=== PATIENT | female | born 1945 | race Caucasian/White ===

== ENCOUNTER 2019-10-24 23:41 | Emergency (ER) | payer MEDICARE, MEDICAID, SELFPAY ==
--- NOTE | ~2019-10-24 | XR_ITS ---
EXAMINATION: XR chest 2V DATE: 10/25/2019 00:54 INDICATION: COPD. Shortness of breath. TECHNIQUE: frontal and lateral views of the chest were obtained. COMPARISON: Chest radiograph and CT dated 08/19/2019 FINDINGS: Hyperexpansion of lungs consistent with emphysema, better appreciated on prior CT. Calcified nodule a t the right lung base and calcified right hilar and mediastinal lymph nodes consistent with old granu lomatous disease. No other airspace opacities, pulmonary edema, pleural effusion or pneumothorax. The cardiomediastinal silhouette is normal. Mild thoracic spondylosis. IMPRESSION: 1. Emphysema. No acute cardiopulmonary disease. Reviewed, dictated and finalized at location A. RVISOR QUILTING
[2019-10-24 23:36] VITALS: BP 117/65; PULSE 89; RESP 16; TEMP 36.4; O2SAT 96
[2019-10-24 23:45] VITALS: PULSE 82; O2SAT 96
--- NOTE | 2019-10-24 23:51 | ED.SOB ---
HPI - SOB/Dyspnea General Chief Complaint: Shortness of Breath/Dyspnea Stated Complaint: DIFF BREATHING Time Seen by Provider: 10/24/19 23:50 Source: patient and RN notes reviewed Mode of arrival: EMS Limitations: no limitations History of Present Illness HPI Narrative: Pt is a 74 y/o female who presents to the ED, via EMS from [facility], with c/o SOB that began today. Pt has a hx of COPD and smokes 0.5 packs per day. Pt wears 3L oxygen at baseline. Pt had multiple breathing tx, but with no relief. Pt received a nebulizer tx and Decradon 10 mg by EMS en route to the ED. Pt also reports cough producing an almost clear mucus, chills, and diaphoresis, but denies CP and a fever. Pt's pulmonolgist is Dr. Wagner. elicited complaint: shortness of breath Pertinent past history: COPD Onset (ago): hour(s) Timing: constant Exacerbating factors: nothing Known history of: COPD Associated symptoms: cough (producing an almost clear mucus) and other (chills, diaphoresis) Treatment prior to arrival: other (nebulizer tx and Decradon 10 mg) Related Data Home oxygen amount: 3 liters Home Medications Medication Instructions Recorded Confirmed Adult Multivitamin Gummies 400 mcg PO DAILY 08/19/19 08/19/19 Allergy Eye (naphazoline-phen) 2 drp OPHTHALMIC (EYE) BID PRN 08/19/19 08/19/19 Chantix 1 mg PO DAILY 08/19/19 08/19/19 Trelegy Ellipta 1 inh INHALATION DAILY 08/19/19 08/19/19 Tussin CF 5 ml PO Q4-6H PRN 08/19/19 08/19/19 albuterol sulfate [Ventolin HFA] 2 puff INHALATION QID PRN 08/19/19 08/19/19 amlodipine 5 mg PO DAILY 08/19/19 08/19/19 aspirin [Adult Low Dose Aspirin] 81 mg PO DAILY 08/19/19 08/19/19 atorvastatin [Lipitor] 20 mg PO HS 08/19/19 08/19/19 cholecalciferol (vitamin D3) 2,000 unit PO DAILY 08/19/19 08/19/19 cholecalciferol (vitamin D3) 400 unit PO DAILY 08/19/19 08/19/19 ipratropium-albuterol 3 ml INHALATION QID 08/19/19 08/19/19 lisinopril 5 mg PO DAILY 08/19/19 08/19/19 meloxicam 7.5 mg PO DAILY 08/19/19 08/19/19 montelukast [Singulair] 10 mg PO HS 08/19/19 08/19/19 Allergies Allergy/AdvReac Type Severity Reaction Status Date / Time lisinopril Allergy Unknown Verified 10/24/19 23:48 Review of Systems Review of Systems: All systems reviewed & are unremarkable except as noted in HPI and below Constitutional: Constitutional: Reports chills and Denies fever(s) Cardiovascular: Cardiovascular: Denies chest pain and Reports diaphoresis Respiratory: Respiratory: Reports cough (producing an almost clear mucus) and Reports dyspnea PMFSH Past Medical History Medical History (Updated 10/25/19 @ 04:01 by Cindy Patterson MD) Arthritis Asthma CAD (coronary artery disease) Cataracts, bilateral Extracted CHF (congestive heart failure) Grade 1 diastolic COPD (chronic obstructive pulmonary disease) Depression GERD (gastroesophageal reflux disease) Heart attack History of coronary artery disease History of CVA (cerebrovascular accident) Initially if she had some numbness and tingling to the right side of her body but that has resolved. 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 I did question the patient about her code status and she is agreeable to of code. She does needs her children to be her durable power compliance attorney. 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 Smoking packs per day: 0.5 Smoking cigarettes per day: 10.0 Smoking status: Current every day smoker Tobacco type: cigarettes Alcohol intake: never Substance use: never Gender identity (if verbalized by the patien
--- NOTE | 2019-10-24 23:57 | ECG_ITS ---
Measurements Intervals [place] Rate: 82 P: 78 RI: 134 QRS: 16 QRSD: 82 T: 61 QT: 379 QTc: 445 Interpretive Statements SINUS RHYTHM BORDERLINE ST-T WAVE ABNORMALITY- LATERAL LEADS BASELINE ARTIFACT- I, II, AVR, V1, V4-V5 BORDERLINE ECG Electronically Signed On 10-25-2019 7:00:24 LOADING SUPERVISOR by Tito Darling D.O.
[2019-10-25] VITALS (10 sets, daily range): BP systolic 91–117; BP diastolic 52–68; PULSE 65–86; RESP 15–18; TEMP 36.9; O2SAT 94–100
[2019-10-25] MEDS: IPRATROPIUM BR 0.02% INH SOLN 0.5 MG/2.5 ML VIAL 1.5 MG INHALATION (00:11)
[2019-10-25] MEDS: ALBUTEROL SULFATE NEB 2.5 MG/0.5 ML INH 15 MG INHALATION (00:11)
[2019-10-25 00:18] LABS: Basophils Absolute Auto 0.1 K/mm3 (0.0-0.1); Basophils Percent Auto 1.3 % (0.2-1.2); Eosinophils Absolute Auto 1.2 K/mm3 (0-0.3); Eosinophils Percent Auto 11.8 % (0-4.4); Hematocrit 44.6 % (37.0-47.0); Hemoglobin 14.3 g/dL (12.0-15.0); Immature Granulocyte Absolute 0.04 K/mm3 (0.00-0.031); Immature Granulocyte Percent A 0.4 % (0-0.5); Lymphocytes Absolute Auto 3.54 K/mm3 (0.9-3.2); Lymphocytes Percent Auto 34.7 % (18.3-44.2); Mean Corpuscular HGB Conc 32.1 g/dl (32-36); Mean Corpuscular Hemoglobin 29.9 pg (26-34); Mean Corpuscular Volume 93.3 fl (80-100); Mean Platelet Volume 9.7 fl (7.4-10.4); Monocytes Percent Auto 9.6 % (2.6-8.5); Neutrophils Absolute Auto 4.3 K/mm3 (1.3-6.7); Neutrophils Percent Auto 42.2 % (45.5-73.1); Platelet Count Result 335 k/mm3 (150-375); Red Blood Count 4.78 M/mm3 (4.2-5.4); Red Cell Distribution Width 11.9 % (11.5-14.5); White Blood Count 10.2 K/mm3 (4.5-10.0)
[2019-10-25 00:24] LABS: Alanine Aminotransferase 22 U/L (4-35); Albumin Level 4.2 g/dL (3.5-5.1); Alkaline Phosphatase 91 U/L (38-126); Aspartate Amino Transferase 30 U/L (14-36); Bilirubin,Total 0.4 mg/dL (0.2-1.3); Blood Urea Nitrogen 14 mg/dL (7-17); Calcium 9.2 mg/dL (8.4-10.2); Carbon Dioxide 30 mmol/L (22-30); Chloride 103 mmol/L (98-107); Estimated Glomerular Filt Rate > 60; Glucose 131 mg/dL (65-105); Potassium 4.1 mmol/L (3.4-5.0); Sodium 140 mmol/L (137-145)
[2019-10-25 00:29] LABS: Base Excess ABG 0.4 mEq/l (+/-2.0); Carboxyhemoglobin 1.5 % THb (0-2.0); Device NASAL CANNULA; Fractional Inspired Oxygen 32 %; HCO3 ABG 26.1 mEq/l (22.0-26.0); Methemoglobin ABG 0.3 %THb (0-1.5); Oxygen Content ABG 18.7 %vol (16.0-22.0); Oxygen Saturation ABG 93.2 % (95.0-100.0); Oxyhemoglobin 92.1 % THb (90.0-100.0); PCO2 ABG 45.8 mmHg (35.0-45.0); PO2 ABG 68.6 mmHg (80.0-100.0); PO2 FiO2 Ratio Arterial Blood 2.14 %; Reduced Hemoglobin 6.1 %THb (0-5.0); Site Drawn RIGHT BRACHIAL; Total Hemoglobin 14.4 g/dL (12.0-18.0); pH ABG 7.373 (7.350-7.450)
[2019-10-25 00:32] LABS: NT Pro B Type Natriuretic Pept 38 PG/ML (5-100)
--- NOTE | 2019-10-25 04:20 | PC.NURSE ---
Unable to contact [facility] regarding transport for patient home. ED charge nurse Leann Traylor notified.
--- NOTE | 2019-10-25 04:52 | PC.NURSE ---
Called [facility] to transport patient back to facility...ETA 20 minutes
== END 2019-10-25 05:19 ==
PROVIDERS: Emergency Provider Emergency Medicine
DX: J44.1 Chronic obstructive pulmonary disease with (acute) exacerbation (principal); I25.10 Atherosclerotic heart disease of native coronary artery without angina pectoris; I25.2 Old myocardial infarction; I50.30 Unspecified diastolic (congestive) heart failure; I11.0 Hypertensive heart disease with heart failure; Z86.73 Personal history of transient ischemic attack (TIA), and cerebral infarction without residual deficits; K21.9 Gastro-esophageal reflux disease without esophagitis; M19.90 Unspecified osteoarthritis, unspecified site; F17.210 Nicotine dependence, cigarettes, uncomplicated; Z95.1 Presence of aortocoronary bypass graft; Z98.42 Cataract extraction status, left eye; Z98.41 Cataract extraction status, right eye
CPT/HCPCS: 36415; 36600; 71046; 80053; 82375; 82805; 83050; 83880; 85025; 87804; 93005; 94640; 99284

== ENCOUNTER 2019-11-18 19:42 | Observation (INO) | payer MEDICARE, MEDICAID, SELFPAY ==
[2019-11-18] VITALS (8 sets, daily range): BP systolic 118–136; BP diastolic 61–79; PULSE 67–86; RESP 16–32; TEMP 36.7; O2SAT 83–98
--- NOTE | ~2019-11-18 | XR_ITS ---
EXAMINATION: XR chest 2V EXAM DATE: 11/18/2019 20:04 INDICATION: Shortness of breath, chest tightness. TECHNIQUE: Frontal and lateral projections of the chest obtained and reviewed. Comparison is made to prior examination from 10/25/2019. FINDINGS: Right basilar granuloma. The lungs are otherwise clear. There are no pleural effusions. T he cardiomediastinal silhouette is within normal limits. There is no pneumothorax suspected. The chanelle kavin and soft tissues are unremarkable. IMPRESSION: No acute cardiopulmonary findings. Reviewed, dictated and finalized at location A.
--- NOTE | 2019-11-18 19:47 | ECG_ITS ---
Measurements Intervals [place] Rate: 76 P: 67 AK: 145 QRS: -56 QRSD: 96 T: 44 QT: 374 QTc: 422 Interpretive Statements SINUS RHYTHM LEFT AXIS DEVIATION LOW QRS VOLTAGE IN LIMB LEADS BASELINE ARTIFACT- I, II, III, AVR, AVL BORDERLINE ECG Electronically Signed On 11-19-2019 7:04:57 CDT by Tito Darling D.O.
--- NOTE | 2019-11-18 19:55 | ED.SOB ---
HPI - SOB/Dyspnea General Chief Complaint: Shortness of Breath/Dyspnea Stated Complaint: sob Time Seen by Provider: 11/18/19 19:54 Source: patient Mode of arrival: EMS Limitations: no limitations History of Present Illness HPI Narrative: A 74 y/o female presents to the ED, via EMS from [facility], with c/o SOB. Pt states that the SOB started yesterday and worsened last night. She has a PMHx of COPD and is on 3L home O2 consistently. Pt reports sweats and productive cough, but denies leg edema, N/V, and CP. She adds that she is currently on Prednisone. MD elicited complaint: shortness of breath Pertinent past history: COPD Onset (ago): day(s) (1) Timing: constant Known history of: COPD Associated symptoms: cough (Productive) and other (Sweats) Related Data Home Medications Medication Instructions Recorded Confirmed Adult Multivitamin Gummies 400 mcg PO DAILY 08/19/19 08/19/19 Allergy Eye (naphazoline-phen) 2 drp OPHTHALMIC (EYE) BID PRN 08/19/19 08/19/19 Chantix 1 mg PO DAILY 08/19/19 08/19/19 Trelegy Ellipta 1 inh INHALATION DAILY 08/19/19 08/19/19 Tussin CF 5 ml PO Q4-6H PRN 08/19/19 08/19/19 albuterol sulfate [Ventolin HFA] 2 puff INHALATION QID PRN 08/19/19 08/19/19 amlodipine 5 mg PO DAILY 08/19/19 08/19/19 aspirin [Adult Low Dose Aspirin] 81 mg PO DAILY 08/19/19 08/19/19 atorvastatin [Lipitor] 20 mg PO HS 08/19/19 08/19/19 cholecalciferol (vitamin D3) 2,000 unit PO DAILY 08/19/19 08/19/19 cholecalciferol (vitamin D3) 400 unit PO DAILY 08/19/19 08/19/19 ipratropium-albuterol 3 ml INHALATION QID 08/19/19 08/19/19 lisinopril 5 mg PO DAILY 08/19/19 08/19/19 meloxicam 7.5 mg PO DAILY 08/19/19 08/19/19 montelukast [Singulair] 10 mg PO HS 08/19/19 08/19/19 Allergies Allergy/AdvReac Type Severity Reaction Status Date / Time lisinopril Allergy Unknown Verified 10/24/19 23:48 Review of Systems Review of Systems: Narrative: CONSTITUTIONAL: Denies fever or chills. Reports sweats. ENT: Denies rhinorrhea, congestion, sore throat, or otalgia. CARDIOVASCULAR: Denies chest pain, palpitations, or leg edema. RESPIRATORY: Reports productive cough and dyspnea. GASTROINTESTINAL: Denies abdominal pain, nausea, vomiting, or diarrhea. GENITOURINARY: Denies dysuria or hematuria. SKIN: Denies rash or itching. MUSCULOSKELETAL: Denies back pain, joint pain, or myalgia. NEUROLOGIC: Denies headache, numbness, or weakness. All systems reviewed & are unremarkable except as noted in HPI and below PMFSH Past Medical History Medical History (Updated 11/18/19 @ 22:11 by Ivone Hanley MD) Arthritis Asthma CAD (coronary artery disease) Cataracts, bilateral Extracted CHF (congestive heart failure) Grade 1 diastolic COPD (chronic obstructive pulmonary disease) Depression GERD (gastroesophageal reflux disease) Heart attack History of coronary artery disease History of CVA (cerebrovascular accident) Initially if she had some numbness and tingling to the right side of her body but that has resolved. 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 I did question the patient about her code status and she is agreeable to of code. She does needs her children to be her durable power ip attorney. She occasionally drinks alcohol as the assistant manager of operations living offer two drinks on Fridays.
[2019-11-18 20:04] LABS: Basophils Absolute Auto 0.1 K/mm3 (0.0-0.1); Basophils Percent Auto 1.3 % (0.2-1.2); Eosinophils Absolute Auto 1.1 K/mm3 (0-0.3); Eosinophils Percent Auto 9.9 % (0-4.4); Hematocrit 44.5 % (37.0-47.0); Hemoglobin 14.4 g/dL (12.0-15.0); Immature Granulocyte Absolute 0.03 K/mm3 (0.00-0.031); Immature Granulocyte Percent A 0.3 % (0-0.5); Lymphocytes Absolute Auto 2.62 K/mm3 (0.9-3.2); Lymphocytes Percent Auto 24.8 % (18.3-44.2); Mean Corpuscular HGB Conc 32.4 g/dl (32-36); Mean Corpuscular Hemoglobin 29.8 pg (26-34); Mean Corpuscular Volume 91.9 fl (80-100); Mean Platelet Volume 9.4 fl (7.4-10.4); Monocytes Absolute Auto 1.3 K/mm3 (0.1-0.6); Monocytes Percent Auto 12.6 % (2.6-8.5); Neutrophils Absolute Auto 5.4 K/mm3 (1.3-6.7); Neutrophils Percent Auto 51.1 % (45.5-73.1); Platelet Count Result 332 k/mm3 (150-375); Red Blood Count 4.84 M/mm3 (4.2-5.4); White Blood Count 10.6 K/mm3 (4.5-10.0)
[2019-11-18] MEDS: ALBUTEROL SULFATE NEB 2.5 MG/0.5 ML INH 5 MG INHALATION (20:10)
[2019-11-18] MEDS: IPRATROPIUM BR 0.02% INH SOLN 0.5 MG/2.5 ML VIAL 1 MG INHALATION (20:10)
[2019-11-18] MEDS: SODIUM CHLORIDE 0.9% IV 500 ML 999 ML IV CONT (20:14)
[2019-11-18 20:15] LABS: Blood Urea Nitrogen 12 mg/dL (7-17); Calcium 9.2 mg/dL (8.4-10.2); Carbon Dioxide 30 mmol/L (22-30); Chloride 100 mmol/L (98-107); Estimated Glomerular Filt Rate > 60; Glucose 124 mg/dL (65-105); Potassium 3.9 mmol/L (3.4-5.0); Sodium 137 mmol/L (137-145)
[2019-11-18 20:32] LABS: Carboxyhemoglobin 1.4 % THb (0-2.0); Device NASAL CANNULA; Fractional Inspired Oxygen 33 %; HCO3 ABG 26.5 mEq/l (22.0-26.0); Methemoglobin ABG 0.2 %THb (0-1.5); Oxygen Content ABG 18.9 %vol (16.0-22.0); Oxygen Saturation ABG 96.1 % (95.0-100.0); Oxyhemoglobin 94.5 % THb (90.0-100.0); PCO2 ABG 45.2 mmHg (35.0-45.0); PO2 ABG 83.5 mmHg (80.0-100.0); PO2 FiO2 Ratio Arterial Blood 2.53 %; Reduced Hemoglobin 3.9 %THb (0-5.0); Site Drawn RIGHT BRACHIAL; Total Hemoglobin 14.2 g/dL (12.0-18.0); pH ABG 7.386 (7.350-7.450)
[2019-11-19] VITALS (13 sets, daily range): BP systolic 101–132; BP diastolic 48–86; PULSE 60–92; RESP 16–22; TEMP 36.5–37.2; O2SAT 92–98; BMI 26.8
--- NOTE | 2019-11-19 00:01 | PM.IMHP ---
H&P: HPI History of Present Illness Chief complaint: copd exacerbation Narrative: Date and time of patient contact: 11/18/2019 at 11:40 p.m. Deloris Stone is a 74 year old female with a past medical history of chronic hypoxic hypercapnic respiratory failure, COPD and continued tobacco use who presented to the ER from [facility] assisted living due to worsening shortness of breath. The patient was recently hospitalized and had finished her last course of steroids about 4 days ago. She has been feeling more short of breath for the last 2 days and has been using her nebulizers more frequently. She is only receiving minimal relief with nebulizer treatments. She plans on calling on Tuesday for refill on her steroids. However she became so short of breath that she came to the ER instead. Her shortness of breath has gotten so bad that she only smoked 5 cigarettes today. She was a smoke about half a pack of cigarettes per day. She has had multiple ill contacts at the assisted living facility with upper respiratory tract symptoms. The patient herself states that she has been coughing a little bit more than usual but her sputum production has remained the same. She is having some clear to mild yellow sputum production when she coughs. She has not had any fevers or chills. She denies any orthopnea or lower extremity swelling. She thinks she has lost a couple of lb over the last couple of months. She reports her appetite has been fair. She does have stress urinary incontinence with coughing, but denies any dysuria, hematuria, or increased urgency. She denies any chest pain. She remains on her home O2 of 3 L. However when she was ambulated in the ER the patient's oxygen saturations dropped down to the low 80s. The patient has subsequently been admitted as observation in this setting. The home medication reconciliation listed on below may not be accurate. Nursing staff has not yet reviewed the patient's home medications. Review of Systems Review of Systems: Narrative: Except as documented in the HPI, all other systems were reviewed and are negative. [facility] Past Medical History Medical History (Updated 11/19/19 @ 00:12 by Sarita Santo DO) Arthritis Asthma CAD (coronary artery disease) CHF (congestive heart failure) Grade 1 diastolic Chronic respiratory failure with hypoxia and hypercapnia COPD (chronic obstructive pulmonary disease) Depression GERD (gastroesophageal reflux disease) Heart attack History of coronary artery disease History of CVA (cerebrovascular accident) Initially if she had some numbness and tingling to the right side of her body but that has resolved. HLD (hyperlipidemia) HTN (hypertension) On home O2 Pneumonia Surgical History Surgical History (Updated 11/19/19 @ 00:12 by Sarita Santo DO) History of bilateral cataract extraction History of heart artery stent Hx of CABG Hx of cardiac catheterization Hx of cataract surgery Hx of tonsillectomy Social History Social History (Updated 11/19/19 @ 01:34 by Sartia Santo DO) Social History: The patient lives in [facility]. She is . 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 She has smoked between a pack to half a pack of cigarettes per day since he was a teenager. She is currently down to 5 cigarettes a day. Smoking packs per day: 1 Smoking cigarettes per day: 20.0 Years smoked: 58 Smoking pack-years: 58.00 Smoking status: Current every day smoker Tobacco type: cigarettes Alcohol intake: former Alcohol use details: She will occasionally drink alcohol in moderation. Substance use: former Substance use type: marijuana Living arrangements: assisted living Additional living arrangements comments: [facility] Occupation/Education: retired Additional occupation/education comments: The patient did [employer]
[2019-11-19] MEDS: IPRATROPIUM BR 0.02% INH SOLN 0.5 MG/2.5 ML VIAL INHALATION ×4 (03:45→19:53)
[2019-11-19] MEDS: ALBUTEROL SULFATE NEB 2.5 MG/0.5 ML INH 5 MG INHALATION ×4 (03:45→19:53)
--- NOTE | 2019-11-19 04:22 | ADMGEN ---
This patient, Deloris Stone, was admitted to [facility] Surg Room 317-01. Patient/family oriented to hospital policies and general routines including ID bracelet, bed and alarms, visiting hours, pain management, procedures, bathroom and other care routines, personal items, smoking policy, room service/diet, and visiting hours. Valuables list has been completed. Information on how to activate the Rapid Response Team has been discussed. Patient/Family are encouraged to report perceived risks to care and to ask questions if they do not understand what they are told or what they should do.
[2019-11-19] MEDS: MELOXICAM 7.5 MG TABLET PO (10:33)
[2019-11-19] MEDS: ASPIRIN 81 MG ENTERIC TABLET PO (10:33)
[2019-11-19] MEDS: predniSONE 20 MG TABLET 60 MG PO (10:33)
[2019-11-19] MEDS: CHOLECALCIFEROL 1,000 UNIT TABLET 2000 UNITS PO (10:33)
[2019-11-19] MEDS: AMLODIPINE BESYLATE 5 MG TABLET PO (10:33)
[2019-11-19] MEDS: MULTIVITS W-FE,MIN CHEWABLE TABLET 1 TABLET PO (10:34)
[2019-11-19] MEDS: ENOXAPARIN 40 MG/0.4 ML SYRINGE SUB-Q (10:34)
[2019-11-19] MEDS: lisinopriL 5 MG TABLET PO (10:34)
--- NOTE | 2019-11-19 17:52 | PM.IMPN ---
Progress Note: A&P Assessment and Plan (1) Acute exacerbation of chronic obstructive airways disease: Code(s): J44.1 - Chronic obstructive pulmonary disease with (acute) exacerbation Status: Acute Assessment and Plan: Sx improved from admission Received 1 dose of Decadron in route to the ER and started on Prednisone. Continue scheduled Albuterol and Atrovent nebs Continue Trelegy Plan for home tomorrow if continues to improve (2) Acute and chronic respiratory failure: Qualifiers: Respiratory failure complication: hypoxia Qualified Code(s): J96.21 - Acute and chronic respiratory failure with hypoxia Code(s): J96.20 - Acute and chronic respiratory failure, unspecified whether with hypoxia or hypercapnia Status: Acute Assessment and Plan: Increased hypoxia with exertion with O2 saturations dropping to the low 80s with ambulation. Continue patient's home supplemental oxygen at 3L Continue blake treatments and steroids Check pulse ox when ambulating (3) Eosinophilia: Code(s): D72.1 - Eosinophilia Status: Acute Assessment and Plan: WBC slightly elevated with 10% eosinophils (1100) Has been noted in the past since 2018 Contributing to her chronic lung disease? Check sputum for eosinophils (4) HTN (hypertension): Qualifiers: Hypertension type: essential hypertension Qualified Code(s): I10 - Essential (primary) hypertension Code(s): I10 - Essential (primary) hypertension Status: Acute Assessment and Plan: BP reviewed on 11/19/19 BP well controlled Continue Norvasc, Lisinopril (5) Tobacco abuse disorder: Code(s): Z72.0 - Tobacco use Status: Acute Assessment and Plan: Patient was educated about the benefits of smoking cessation She voices understanding about the need to stop smoking Subjective Date/time seen: 11/19/19 17:52 Interval history: 74yo female here for COPD exacerbation. SOB better but still with GONZALEZ when walking to the BR. No odnyophagia or dysphagia. No fever or chills. Follows with Dr Wagner. Up to date with flu vaccine. Wears O2 3L [place] chronically. Still smokes Exam Narrative: Exam Narrative: Gen - NARD Chest - distant BS with faint wheezing CV - RRR S1/S2 Abd - soft, NT/ND, +BS Ext - no pedal edema, 2+ PT pulses Psych - nml mood and affect Skin - warm and dry Objective Data Vital Signs Vital Signs: Vital Signs - 24 hr 11/18/19 19:39 11/18/19 19:45 11/18/19 20:28 Temperature 98.1 F Pulse Rate 86 75 Respiratory Rate 32 H 20 Blood Pressure 136/78 Pulse Oximetry 96 97 11/18/19 20:48 11/18/19 21:32 11/18/19 22:06 Temperature Pulse Rate 69 80 Respiratory Rate 20 20 Blood Pressure 120/79 Pulse Oximetry 98 94 11/18/19 22:07 11/18/19 23:23 11/19/19 00:03 Temperature 97.9 F Pulse Rate 69 67 66 Respiratory Rate 22 H 16 18 Blood Pressure 118/61 118/73 115/66 Pulse Oximetry 94 94 95 11/19/19 03:46 11/19/19 03:58 11/19/19 06:00 Temperature 97.7 F Pulse Rate 79 65 65 Respiratory Rate 22 H 20 18 Blood Pressure 132/86 Pulse Oximetry 95 95 11/19/19 08:38 11/19/19 08:53 11/19/19 14:17 Temperature Pulse Rate 92 89 88 Respiratory Rate 20 20 Blood Pressure Pulse Oximetry 92 11/19/19 14:23 Temperature Pulse Rate 89 Respiratory Rate 20 Blood Pressure Pulse Oximetry Intake/Output Intake/Output: Intake & Output 11/16/19 11/17/19 11/18/19 11/19/19 22:59 22:59 23:59 23:59 Intake Total 490 Output Total 200 Balance 290 Meds/Results Medications: Active Medications Generic Name Dose Route Start Last Admin Trade Name Freq PRN Reason Stop Dose Admin Acetaminophen 650 mg 11/18/19 22:43 Tylenol Tablet PO Q4H PRN Mild Pain (1-3) or Fever Albuterol 5 mg 11/19/19 02:00 11/19/19 14:15 Albuterol Sulf Neb 2.5mg/0.5ml INHALATION 5 mg Q6HRT VALENTE
[2019-11-19] MEDS: ATORVASTATIN 20 MG TABLET PO (21:20)
[2019-11-20] VITALS (11 sets, daily range): BP systolic 97–112; BP diastolic 50–61; PULSE 69–94; RESP 16–20; TEMP 36.6–37; O2SAT 95–99
[2019-11-20] MEDS: IPRATROPIUM BR 0.02% INH SOLN 0.5 MG/2.5 ML VIAL INHALATION ×4 (01:54→20:59)
[2019-11-20] MEDS: ALBUTEROL SULFATE NEB 2.5 MG/0.5 ML INH 5 MG INHALATION ×4 (01:54→20:59)
[2019-11-20] MEDS: ENOXAPARIN 40 MG/0.4 ML SYRINGE SUB-Q (11:33)
[2019-11-20] MEDS: CHOLECALCIFEROL 1,000 UNIT TABLET 2000 UNITS PO (11:33)
[2019-11-20] MEDS: MELOXICAM 7.5 MG TABLET PO (11:34)
[2019-11-20] MEDS: AMLODIPINE BESYLATE 5 MG TABLET PO (11:34)
[2019-11-20] MEDS: ASPIRIN 81 MG ENTERIC TABLET PO (11:34)
[2019-11-20] MEDS: lisinopriL 5 MG TABLET PO (11:34)
[2019-11-20] MEDS: MULTIVITS W-FE,MIN CHEWABLE TABLET 1 TABLET PO (11:34)
[2019-11-20] MEDS: predniSONE 20 MG TABLET 60 MG PO (11:34)
--- NOTE | 2019-11-20 13:31 | PM.IMPN ---
Progress Note: A&P Assessment and Plan (1) Acute exacerbation of chronic obstructive airways disease: Code(s): J44.1 - Chronic obstructive pulmonary disease with (acute) exacerbation Status: Acute Assessment and Plan: Had an additional episode of shortness of breath this morning. Doing better this afternoon. Discussed with patient. Will keep ear today to continue albuterol and Atrovent nebulizer treatments. Continue oral prednisone after receiving Decadron prior to arrival to ER. Will also continue Trelegy. On home oxygen of 3 L. Hopeful discharge tomorrow as long as stable. (2) Acute and chronic respiratory failure: Qualifiers: Respiratory failure complication: hypoxia Qualified Code(s): J96.21 - Acute and chronic respiratory failure with hypoxia Code(s): J96.20 - Acute and chronic respiratory failure, unspecified whether with hypoxia or hypercapnia Status: Acute Assessment and Plan: Result of COPD exacerbation. Remaining on home oxygen. Continue nebulizer treatments and steroids as noted above. (3) Eosinophilia: Code(s): D72.1 - Eosinophilia Status: Acute Assessment and Plan: Eosinophils noted to be elevated on admission and have been in the past. May be contributing to chronic lung disease issues. Sputum eosinophils still pending. Continue other treatment as noted above. (4) HTN (hypertension): Qualifiers: Hypertension type: essential hypertension Qualified Code(s): I10 - Essential (primary) hypertension Code(s): I10 - Essential (primary) hypertension Status: Acute Assessment and Plan: Blood pressure reviewed on 11/20/2019 and stable. Will continue to monitor on lisinopril and amlodipine. (5) Tobacco abuse disorder: Code(s): Z72.0 - Tobacco use Status: Acute Assessment and Plan: Counseled on cessation. Patient understands need to quit smoking and expresses desire to try. (6) DVT prophylaxis: Code(s): Z29.9 - Encounter for prophylactic measures, unspecified Status: Acute Assessment and Plan: Lovenox. Time Spent With Patient Time with patient: 15 - 25 minutes Subjective Date/time seen: 11/20/19 13:31 Interval history: Date of Service: 11/20/2019. Admitted with COPD exacerbation. Had an episode of increased shortness of breath this morning. Feeling better this afternoon. Does still get shortness of breath with exertion. No chest pain. No abdominal pain. No nausea or vomiting. Review of Systems Review of Systems: Narrative: Doing better this afternoon. Constitutional: Constitutional: Denies chills and Denies fever(s) ENT: Denies dysphagia Cardiovascular: Cardiovascular: Denies chest pain Respiratory: Respiratory: Denies cough and Reports dyspnea on exertion Gastrointestinal: Gastrointestinal: Denies abdominal pain, Denies nausea and Denies vomiting Genitourinary: Genitourinary: Reports no additional female genitourinary complaints Musculoskeletal: Musculoskeletal: Reports no additional musculoskeletal complaints Integumentary/Breasts: Skin/Breast: Denies rash Neurologic: Denies headache(s) Psychiatric: Psychiatric: Denies anxiety, Denies confusion and Denies depression Exam Narrative: Exam Narrative: Awake and alert. Const: General: no acute distress HENMT: Mouth: Yes moist mucous membranes Neck: Neck: supple Lymphatic: lymphadenopathy not noted Resp: Auscultation: rhonchi (Bilaterally), no wheezes and diminished lung sounds Cardio: Rate: regular rate Rhythm: regular rhythm GI: Inspection: non-distended GI Palp: Yes Soft to palpation and No Tenderness to palpation present (GI) Auscultation: normal bowel sounds Skin: General skin exam: normal color Neuro: Cognition (Neuro): normal cognition Speech: normal speech Extrem: General: no edema Psych: Mental Status: mental status grossly normal Affect: normal affect Objective
--- NOTE | 2019-11-20 17:50 | PC.NURSE ---
Addendum entered by Karan King RN 11/20/19 20:12: Previously stated pt was on RA. Was recalling pt's roommate who is on RA. Deloris is on 3L 02 as a home setting. When Gretchen walked pt, I do not recall if she had her on oxygen on during the walk. I informed the night nurse and the charge nurse to recheck her walking/ eval tomorrow AM. Original Note: Walked with patient around the [facility] reno on RA. Pt 02 sat started at 95. By the end of the walk, she was down to 84. Encouraged deep breathing to recover. Pt used pursed lip breathing and tripod position to recover back to 96.
[2019-11-20] MEDS: ATORVASTATIN 20 MG TABLET PO (20:17)
[2019-11-21] MEDS: ALBUTEROL SULFATE NEB 2.5 MG/0.5 ML INH 5 MG INHALATION ×2 (02:23→08:26)
[2019-11-21 02:24] VITALS: PULSE 74
[2019-11-21] MEDS: IPRATROPIUM BR 0.02% INH SOLN 0.5 MG/2.5 ML VIAL INHALATION ×2 (02:24→08:26)
[2019-11-21 02:35] VITALS: PULSE 72; RESP 18
[2019-11-21 06:11] LABS: Hematocrit 37.7 % (37.0-47.0); Hemoglobin 12.5 g/dL (12.0-15.0); Mean Corpuscular HGB Conc 33.2 g/dl (32-36); Mean Corpuscular Volume 90.4 fl (80-100); Mean Platelet Volume 9.4 fl (7.4-10.4); Platelet Count Result 324 k/mm3 (150-375); Red Blood Count 4.17 M/mm3 (4.2-5.4); Red Cell Distribution Width 11.9 % (11.5-14.5); White Blood Count 13.8 K/mm3 (4.5-10.0)
[2019-11-21 06:27] VITALS: BP 113/65; PULSE 71; RESP 20; TEMP 36.4; O2SAT 98
[2019-11-21 07:34] LABS: Blood Urea Nitrogen 20 mg/dL (7-17); Carbon Dioxide 27 mmol/L (22-30); Chloride 107 mmol/L (98-107); Estimated Glomerular Filt Rate > 60; Glucose 89 mg/dL (65-105); Sodium 137 mmol/L (137-145)
[2019-11-21 08:28] VITALS: PULSE 106; RESP 20; O2SAT 88
[2019-11-21 08:37] VITALS: PULSE 77; RESP 22
[2019-11-21] MEDS: lisinopriL 5 MG TABLET PO (08:44)
[2019-11-21] MEDS: ASPIRIN 81 MG ENTERIC TABLET PO (08:44)
[2019-11-21] MEDS: AMLODIPINE BESYLATE 5 MG TABLET PO (08:44)
[2019-11-21] MEDS: MELOXICAM 7.5 MG TABLET PO (08:44)
[2019-11-21] MEDS: CHOLECALCIFEROL 1,000 UNIT TABLET 2000 UNITS PO (08:44)
[2019-11-21] MEDS: MULTIVITS W-FE,MIN CHEWABLE TABLET 1 TABLET PO (08:44)
[2019-11-21] MEDS: predniSONE 20 MG TABLET 60 MG PO (08:44)
[2019-11-21] MEDS: ENOXAPARIN 40 MG/0.4 ML SYRINGE SUB-Q (08:45)
--- NOTE | 2019-11-21 11:59 | PM.IMPN ---
Progress Note: A&P Assessment and Plan (1) Acute exacerbation of chronic obstructive airways disease: Code(s): J44.1 - Chronic obstructive pulmonary disease with (acute) exacerbation Status: Acute Assessment and Plan: Better today. Back at baseline. Will discharge home today on oral prednisone, Trelegy and home nebulizer treatments. (2) Acute and chronic respiratory failure: Qualifiers: Respiratory failure complication: hypoxia Qualified Code(s): J96.21 - Acute and chronic respiratory failure with hypoxia Code(s): J96.20 - Acute and chronic respiratory failure, unspecified whether with hypoxia or hypercapnia Status: Acute Assessment and Plan: Result of COPD exacerbation. Remaining on home oxygen of 3 L. Continue nebulizer treatments and steroids as noted above. (3) Eosinophilia: Code(s): D72.1 - Eosinophilia Status: Acute Assessment and Plan: Eosinophils noted to be elevated on admission and have been in the past. May be contributing to chronic lung disease issues. Sputum eosinophils still pending. Continue other treatment as noted above. (4) HTN (hypertension): Qualifiers: Hypertension type: essential hypertension Qualified Code(s): I10 - Essential (primary) hypertension Code(s): I10 - Essential (primary) hypertension Status: Acute Assessment and Plan: Blood pressure reviewed on 11/21/2019 and stable. Will continue lisinopril and amlodipine. (5) Tobacco abuse disorder: Code(s): Z72.0 - Tobacco use Status: Acute Assessment and Plan: Counseled on cessation. Patient understands need to quit smoking and expresses desire to try. (6) DVT prophylaxis: Code(s): Z29.9 - Encounter for prophylactic measures, unspecified Status: Acute Assessment and Plan: Lovenox. Time Spent With Patient Time with patient: 15 - 25 minutes Subjective Date/time seen: 11/21/19 11:59 Interval history: Date of Service: 11/21/2019. Admitted with COPD exacerbation. Feels better today. No additional issues overnight. Chronic shortness of breath point. No chest pain. No abdominal pain. No nausea or vomiting. Wants to go home. Review of Systems Review of Systems: Narrative: Feeling better. Wants to go home. Constitutional: Constitutional: Denies chills and Denies fever(s) ENT: Denies dysphagia Cardiovascular: Cardiovascular: Denies chest pain Respiratory: Respiratory: Denies cough and Reports dyspnea on exertion (Chronic) Gastrointestinal: Gastrointestinal: Denies abdominal pain, Denies dysphagia, Denies nausea and Denies vomiting Genitourinary: Genitourinary: Reports no additional female genitourinary complaints Musculoskeletal: Musculoskeletal: Reports no additional musculoskeletal complaints Integumentary/Breasts: Skin/Breast: Denies rash Neurologic: Denies headache(s) Psychiatric: Psychiatric: Denies anxiety, Denies confusion and Denies depression Exam Narrative: Exam Narrative: Awake and alert. Const: General: no acute distress HENMT: Mouth: Yes moist mucous membranes Neck: Neck: supple Lymphatic: lymphadenopathy not noted Resp: Auscultation: no rhonchi, no wheezes and diminished lung sounds Cardio: Rate: regular rate Rhythm: regular rhythm GI: Inspection: non-distended Auscultation: normal bowel sounds Skin: General skin exam: normal color Neuro: General: No confusion Cognition (Neuro): normal cognition Speech: normal speech Extrem: General: no edema Psych: Mental Status: mental status grossly normal Affect: normal affect Objective Data Vital Signs Vital Signs: Vital Signs - 24 hr 11/20/19 13:56 11/20/19 14:00 11/20/19 14:07 Temperature 98.6 F Pulse Rate 83 79 77 Respiratory Rate 18 18 20 Blood Pressure 97/61 L Pulse Oximetry 95 11/20/19 20:59 11/20/19 21:09 11/20/19 22:36 Temperature 98.1 F Pulse Rate 79 77 79 Respiratory
[2019-11-21 14:00] VITALS: BP 123/69; PULSE 87; RESP 16; TEMP 37.1; O2SAT 94
--- NOTE | 2019-11-21 19:12 | PM.DS ---
DS: Diagnosis Admitting Diagnosis Admitting Diagnosis: Chronic obstructive pulmonary disease with (acute) exacerbation Discharge Diagnosis (1) Acute exacerbation of chronic obstructive airways disease: Code(s): J44.1 - Chronic obstructive pulmonary disease with (acute) exacerbation Status: Acute (2) Acute and chronic respiratory failure: Qualifiers: Respiratory failure complication: hypoxia Qualified Code(s): J96.21 - Acute and chronic respiratory failure with hypoxia Code(s): J96.20 - Acute and chronic respiratory failure, unspecified whether with hypoxia or hypercapnia Status: Acute (3) Eosinophilia: Code(s): D72.1 - Eosinophilia Status: Acute (4) HTN (hypertension): Qualifiers: Hypertension type: essential hypertension Qualified Code(s): I10 - Essential (primary) hypertension Code(s): I10 - Essential (primary) hypertension Status: Acute (5) Tobacco abuse disorder: Code(s): Z72.0 - Tobacco use Status: Acute DS: Summary Hospital Course Reason for hospitalization: Worsening shortness of breath. Hospital Course: Date of Service of Discharge: November 21, 2019. History of Present Illness: Patient is a 74-year-old with known chronic hypoxic hypercapnic respiratory failure, COPD and continued tobacco use present emergency room from assisted living due to worsening shortness of breath. Patient was recently hospitalized in finished her last course of steroids 4 days prior to presentation. She has been feeling more short of breath last 2 days and using her nebulizers more frequently. Patient reports only minimal relief with nebulizer treatments. She had planned on calling her cloth checker's office on the following Tuesday for refill of steroids but became show short of breath she came to the emergency room. Due to increased shortness of breath, she has been only able to smoke 5 cigarettes on the day of presentation. Multiple ill contacts at her assisted living facility. She has no slight increasing cough but sputum production the same. No fever or chills. No chest pain. In the emergency room, findings were consistent with COPD exacerbation. As result, she was placed in observation for further evaluation and treatment. Course in Hospital: She was placed in observation on the medical floor where she remained for the duration of her stay. Did receive IV Decadron in the emergency room then was placed on oral prednisone. She additionally was maintained albuterol and Atrovent nebulizer treatments as well as her home Trelegy inhaler. Patient continued to steadily improve with these treatments. She was able to return to her home oxygen of 3 L. By the morning of 11/21/2019, she was back at her baseline shortness of breath with no wheezing heard on auscultation of the lungs. Patient was also feeling much improved. She was noted to have elevated eosinophils in her blood with sputum eosinophils ordered but still pending at the time of discharge. Concern for eosinophilia adding to her long-term lung issues. She was counseled during her stay regarding the need for tobacco cessation. Patient reporting understanding of need for cessation and desire to try to quit. Additionally, her blood pressure was monitored throughout her stay. She did continue home lisinopril and amlodipine with no additional medication required. She had no additional acute issues while in hospital. With the patient back to baseline, she was able to discharge on the afternoon of November 21, 2019. Status at Discharge Cognitive/behavioral status at discharge: Stable. Functional status at discharge: independent ambulation Overall status at discharge: patient is back to baseline Time Spent with Patient Time attestation: Total time spent providing and/or coordinating discharge services: 35 minutes. Time spent: Greater than 30 minutes Exam Narrative: Exam Narrative: Vital Signs Temp
[2019-11-21 20:57] LABS: Eosinophils, Sputum 0 %
== END 2019-11-21 14:30 | disposition home or self-care (01) ==
LOC: ANHED 22:46 → ANH3MEDSUR 23:09
PROVIDERS: Internal Medicine; Admitting Provider Internal Medicine; Emergency Provider Emergency Medicine; Visit Provider Hospitalist
DX: J44.1 Chronic obstructive pulmonary disease with (acute) exacerbation (principal); J96.21 Acute and chronic respiratory failure with hypoxia; D72.1 Eosinophilia; Z99.81 Dependence on supplemental oxygen; F17.210 Nicotine dependence, cigarettes, uncomplicated; I25.10 Atherosclerotic heart disease of native coronary artery without angina pectoris; I11.0 Hypertensive heart disease with heart failure; I50.9 Heart failure, unspecified; E78.5 Hyperlipidemia, unspecified; I25.2 Old myocardial infarction; Z79.51 Long term (current) use of inhaled steroids; Z79.82 Long term (current) use of aspirin; Z79.899 Other long term (current) drug therapy; Z86.73 Personal history of transient ischemic attack (TIA), and cerebral infarction without residual deficits; Z95.1 Presence of aortocoronary bypass graft; Z95.5 Presence of coronary angioplasty implant and graft
CPT/HCPCS: 36415; 36600; 71046; 80048; 82375; 82805; 83050; 85025; 85027; 87081; 87804; 89190; 93005; 94640; 96360; 96372; 99285; A9270; G0378; J1650; J7040; J7512

== ENCOUNTER 2020-01-17 12:14 | Emergency (ER) | payer MEDICARE, MEDICAID, SELFPAY ==
--- NOTE | ~2020-01-17 | XR_ITS ---
XR chest 1V portable 01/17/2020 13:09 Indication: Shortness of breath Procedure: Comparison to multiple prior studies sequentially, with oldest reviewed study dated 07/05. Comparison: AP portable chest Findings: Heart size normal. No focal air space disease, pulmonary edema, pleural effusion or suspect ed pneumothorax. The lungs are hyperinflated which is consistent with, but not diagnostic of chronic obstructive pulmonary disease. Impression: 1: No acute cardiopulmonary disease. Reviewed, dictated and finalized at location A. Impression: 1: No acute cardiopulmonary disease.
[2020-01-17 12:19] VITALS: BP 156/98; PULSE 80; RESP 21; TEMP 36.8; O2SAT 97
--- NOTE | 2020-01-17 12:22 | ECG_ITS ---
Measurements Intervals [place] Rate: 84 P: 74 PA: 131 QRS: 12 QRSD: 93 T: 58 QT: 373 QTc: 441 Interpretive Statements SINUS RHYTHM BORDERLINE ST-T WAVE ABNORMALITY- LATERAL LEADS BASELINE ARTIFACT- I, II, III, AVR, AVL, AVF, V1-V6 BORDERLINE ECG Electronically Signed On 01-17-2020 12:53:37 CDT by Tito Darling D.O.
--- NOTE | 2020-01-17 12:23 | ED.SOB ---
HPI - SOB/Dyspnea General Chief Complaint: Shortness of Breath/Dyspnea Stated Complaint: Resp distress Time Seen by Provider: 01/17/20 12:16 History of Present Illness HPI Narrative: 74 yo female w/ h/o COPD presents w/ SOB since yesterday. Worsening in severity. She does have a cough, but this is not unusual for her. No fever, CP, nausea, vomiting. These symptoms are consistent with her USUAL COPD exacerbations. She tried nebulaizert without improvement. Given dexamethasone by EMS. Related Data Home Medications Medication Instructions Recorded Confirmed Adult Multivitamin Gummies 400 mcg PO DAILY 08/19/19 11/19/19 Allergy Eye (naphazoline-phen) 2 drp OPHTHALMIC (EYE) BID PRN 08/19/19 11/19/19 Trelegy Ellipta 1 inh INHALATION DAILY 08/19/19 11/19/19 albuterol sulfate [Ventolin HFA] 2 puff INHALATION QID PRN 08/19/19 11/19/19 amlodipine 5 mg PO DAILY 08/19/19 11/19/19 aspirin [Adult Low Dose Aspirin] 81 mg PO DAILY 08/19/19 11/19/19 atorvastatin [Lipitor] 20 mg PO HS 08/19/19 11/19/19 cholecalciferol (vitamin D3) 2,000 unit PO DAILY 08/19/19 11/19/19 ipratropium-albuterol 3 ml INHALATION QID 08/19/19 11/19/19 lisinopril 5 mg PO DAILY 08/19/19 11/19/19 meloxicam 7.5 mg PO DAILY 08/19/19 11/19/19 Allergies Allergy/AdvReac Type Severity Reaction Status Date / Time No Known Allergies Allergy Verified 01/17/20 12:27 Review of Systems Review of Systems: All systems reviewed & are unremarkable except as noted in HPI and below Constitutional: Constitutional: Denies chills and Denies fever(s) ENT: Denies sore throat Cardiovascular: Cardiovascular: Denies chest pain Respiratory: Respiratory: Reports cough, Reports dyspnea and Reports wheezing Gastrointestinal: Gastrointestinal: Denies abdominal pain and Denies nausea Musculoskeletal: Musculoskeletal: Denies back pain Neurologic: Denies dizziness and Denies weakness PMFSH Past Medical History Medical History Arthritis Asthma CAD (coronary artery disease) CHF (congestive heart failure) Grade 1 diastolic Chronic respiratory failure with hypoxia and hypercapnia COPD (chronic obstructive pulmonary disease) Depression Eosinophilia GERD (gastroesophageal reflux disease) Heart attack History of coronary artery disease History of CVA (cerebrovascular accident) Initially if she had some numbness and tingling to the right side of her body but that has resolved. HLD (hyperlipidemia) HTN (hypertension) On home O2 Pneumonia Surgical History Surgical History History of bilateral cataract extraction History of heart artery stent Hx of CABG Hx of cardiac catheterization Hx of cataract surgery Hx of tonsillectomy Family History Family History Father Acute myocardial infarction Mother Parkinson's disease Dementia Acute myocardial infarction Premature coronary artery disease Social History Social History Social History: The patient lives in [facility]. She is . 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 She has smoked between a pack to half a pack of cigarettes per day since he was a teenager. She is currently down to 5 cigarettes a day. 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 Gender identity (if verbalized by the patient): Fema
[2020-01-17 12:37] VITALS: O2SAT 97
[2020-01-17 12:57] LABS: Basophils Absolute Auto 0.1 K/mm3 (0.0-0.1); Basophils Percent Auto 0.9 % (0.2-1.2); Eosinophils Absolute Auto 1.2 K/mm3 (0-0.3); Eosinophils Percent Auto 11.3 % (0-4.4); Hematocrit 45.6 % (37.0-47.0); Hemoglobin 15.1 g/dL (12.0-15.0); Immature Granulocyte Absolute 0.04 K/mm3 (0.00-0.031); Immature Granulocyte Percent A 0.4 % (0-0.5); Lymphocytes Absolute Auto 1.65 K/mm3 (0.9-3.2); Lymphocytes Percent Auto 15.2 % (18.3-44.2); Mean Corpuscular HGB Conc 33.1 g/dl (32-36); Mean Corpuscular Hemoglobin 30.7 pg (26-34); Mean Corpuscular Volume 92.7 fl (80-100); Mean Platelet Volume 9.3 fl (7.4-10.4); Monocytes Absolute Auto 0.8 K/mm3 (0.1-0.6); Monocytes Percent Auto 7.1 % (2.6-8.5); Neutrophils Absolute Auto 7.1 K/mm3 (1.3-6.7); Neutrophils Percent Auto 65.1 % (45.5-73.1); Platelet Count Result 320 k/mm3 (150-375); Red Blood Count 4.92 M/mm3 (4.2-5.4); Red Cell Distribution Width 12.3 % (11.5-14.5); White Blood Count 10.9 K/mm3 (4.5-10.0)
[2020-01-17] MEDS: IPRATROPIUM BR 0.02% INH SOLN 0.5 MG/2.5 ML VIAL 1 MG INHALATION (13:00)
[2020-01-17] MEDS: ALBUTEROL SULFATE NEB 2.5 MG/0.5 ML INH 10 MG INHALATION (13:00)
[2020-01-17 13:01] VITALS: PULSE 73; RESP 24
[2020-01-17 13:07] LABS: Alveolar/Arterial O2 Gradient 123.2 mmHg; Base Excess ABG 0.2 mEq/l (+/-2.0); Carboxyhemoglobin 1.4 % THb (0-2.0); Fractional Inspired Oxygen 36 %; HCO3 ABG 26.3 mEq/l (22.0-26.0); Methemoglobin ABG 0.3 %THb (0-1.5); Oxygen Content ABG 19.9 %vol (16.0-22.0); Oxyhemoglobin 93.6 % THb (90.0-100.0); PCO2 ABG 47.9 mmHg (35.0-45.0); PO2 ABG 77.9 mmHg (80.0-100.0); PO2 FiO2 Ratio Arterial Blood 2.16 %; Reduced Hemoglobin 4.7 %THb (0-5.0); Total Hemoglobin 15.1 g/dL (12.0-18.0); pH ABG 7.358 (7.350-7.450)
[2020-01-17 13:07] LABS: Blood Urea Nitrogen 10 mg/dL (7-17); Calcium 9.2 mg/dL (8.4-10.2); Carbon Dioxide 28 mmol/L (22-30); Chloride 107 mmol/L (98-107); Estimated Glomerular Filt Rate > 60; Glucose 105 mg/dL (65-105); Potassium 4.3 mmol/L (3.4-5.0); Sodium 140 mmol/L (137-145)
[2020-01-17 13:08] LABS: Device NASAL CANNULA; Site Drawn RIGHT BRACHIAL
[2020-01-17 13:41] VITALS: BP 146/74; PULSE 67; RESP 18; TEMP 36.8; O2SAT 100
[2020-01-17 14:30] VITALS: BP 112/73; PULSE 69; RESP 17; TEMP 36.6; O2SAT 93
== END 2020-01-17 15:29 | disposition home or self-care (01) ==
PROVIDERS: Emergency Provider Emergency Medicine
DX: J44.1 Chronic obstructive pulmonary disease with (acute) exacerbation (principal); M19.90 Unspecified osteoarthritis, unspecified site; I25.10 Atherosclerotic heart disease of native coronary artery without angina pectoris; I50.9 Heart failure, unspecified; I11.0 Hypertensive heart disease with heart failure; Z99.81 Dependence on supplemental oxygen; E78.5 Hyperlipidemia, unspecified; Z86.73 Personal history of transient ischemic attack (TIA), and cerebral infarction without residual deficits; K21.9 Gastro-esophageal reflux disease without esophagitis; I25.2 Old myocardial infarction; J96.11 Chronic respiratory failure with hypoxia; J96.12 Chronic respiratory failure with hypercapnia; Z79.82 Long term (current) use of aspirin
CPT/HCPCS: 36415; 36600; 71045; 80048; 82375; 82805; 83050; 85025; 93005; 99284

== ENCOUNTER 2020-02-18 18:05 | Inpatient (IN) | payer MEDICARE, MEDICAID, SELFPAY ==
[2020-02-18] VITALS (11 sets, daily range): BP systolic 121–151; BP diastolic 68–87; PULSE 62–76; RESP 18–25; TEMP 36.8; O2SAT 86–100
--- NOTE | ~2020-02-18 | XR_ITS ---
EXAMINATION: XR chest 1V portable EXAM DATE: 02/18/2020 19:04 INDICATION: MRSA breath, cough. History COPD. TECHNIQUE: Portable AP frontal chest x-ray was obtained. Comparison is made to prior examination from 01/17/2020. FINDINGS: Right basilar granuloma. Mild to moderate chronic hyperinflation. The lungs are clear. The re are no pleural effusions. The cardiomediastinal silhouette is within normal limits. There is no pneumothorax suspected. There are bony degenerative changes. There is no significant interval jose r nge. IMPRESSION: No acute cardiopulmonary findings. Reviewed, dictated and finalized at location A.
--- NOTE | 2020-02-18 18:31 | ECG_ITS ---
Measurements Intervals [place] Rate: 73 P: 76 VA: 146 QRS: 25 QRSD: 85 T: 66 QT: 386 QTc: 427 Interpretive Statements SINUS RHYTHM EARLY PRECORDIAL R/S TRANSITION BASELINE WANDER- V5-V6 BORDERLINE ECG Electronically Signed On 02-18-2020 19:00:37 CDT by Tito Darling D.O.
[2020-02-18 19:12] LABS: Basophils Absolute Auto 0.1 K/mm3 (0.0-0.1); Basophils Percent Auto 0.7 % (0.2-1.2); Eosinophils Absolute Auto 1.1 K/mm3 (0-0.3); Hematocrit 42.4 % (37.0-47.0); Hemoglobin 13.9 g/dL (12.0-15.0); Immature Granulocyte Absolute 0.02 K/mm3 (0.00-0.031); Immature Granulocyte Percent A 0.2 % (0-0.5); Lymphocytes Absolute Auto 1.89 K/mm3 (0.9-3.2); Lymphocytes Percent Auto 19.8 % (18.3-44.2); Mean Corpuscular HGB Conc 32.8 g/dl (32-36); Mean Corpuscular Hemoglobin 30.2 pg (26-34); Mean Corpuscular Volume 92.2 fl (80-100); Mean Platelet Volume 9.3 fl (7.4-10.4); Monocytes Percent Auto 10.7 % (2.6-8.5); Neutrophils Absolute Auto 5.5 K/mm3 (1.3-6.7); Neutrophils Percent Auto 57.6 % (45.5-73.1); Platelet Count Result 316 k/mm3 (150-375); White Blood Count 9.5 K/mm3 (4.5-10.0)
--- NOTE | 2020-02-18 19:12 | PC.NURSE ---
Report to RK Duran, to continue care.
[2020-02-18] MEDS: methylPREDNISolone SOD SUCC 125 MG VIAL IV PUSH (19:20)
[2020-02-18] MEDS: IPRATROPIUM BR 0.02% INH SOLN 0.5 MG/2.5 ML VIAL 1 MG INHALATION (19:22)
[2020-02-18] MEDS: ALBUTEROL SULFATE NEB 2.5 MG/0.5 ML INH 10 MG INHALATION (19:22)
[2020-02-18 19:24] LABS: Blood Urea Nitrogen 18 mg/dL (7-17); Carbon Dioxide 30 mmol/L (22-30); Chloride 105 mmol/L (98-107); Estimated Glomerular Filt Rate > 60; Glucose 109 mg/dL (65-105); Potassium 4.1 mmol/L (3.4-5.0); Prothrombin Time 12.9 Seconds (11.1-14.7); Sodium 138 mmol/L (137-145)
[2020-02-18 19:25] LABS: Partial Thromboplastin Time 29.6 SECONDS (22.3-36.8)
[2020-02-18 19:36] LABS: NT Pro B Type Natriuretic Pept 30 PG/ML (5-100); Troponin I < 0.012 ng/mL (0.000-0.034)
[2020-02-18 20:41] LABS: Add Urine Microscopic? YES; Appearance Urine Clear (Clear); Bacteria Urine 2+ /hpf; Bilirubin Urine Negative (Negative); Blood Urine 1+ (Negative); Color Urine Yellow (Yellow); Glucose Urine UA Negative (Negative); Ketones Urine Negative (Negative); Leukocyte Esterase Ur Negative LEU/UL (Negative); Mucus Urine Few /lpf; Nitrate Urine Positive (Negative); Protein Urine 1+ mg/dL (Negative); RBC Urine 0-2 /hpf (0-2); Specific Grav Ur 1.027 (1.001-1.035); Squamous Epithelial Cell Urine Few /hpf (Few); Urobilinogen Urine Negative mg/dL (<2.0)
--- NOTE | 2020-02-18 21:49 | ED.SOB ---
HPI - SOB/Dyspnea General Chief Complaint: Shortness of Breath/Dyspnea Stated Complaint: sob Time Seen by Provider: 02/18/20 19:04 History of Present Illness HPI Narrative: Patient is a 74-year-old female who presents ER with shortness of breath. Worsening over the last day. No relief with albuterol. Typically smokes 1/2 pack a day but today only had 6 cigarettes. No new fevers or chills or productive cough. No body aches. Denies chest pain or chest pressure. Chronically O2 dependent on 3 L nasal cannula. Related Data Home Medications Medication Instructions Recorded Confirmed Adult Multivitamin Gummies 400 mcg PO DAILY 08/19/19 11/19/19 Allergy Eye (naphazoline-phen) 2 drp OPHTHALMIC (EYE) BID PRN 08/19/19 11/19/19 Trelegy Ellipta 1 inh INHALATION DAILY 08/19/19 11/19/19 albuterol sulfate [Ventolin HFA] 2 puff INHALATION QID PRN 08/19/19 11/19/19 amlodipine 5 mg PO DAILY 08/19/19 11/19/19 aspirin [Adult Low Dose Aspirin] 81 mg PO DAILY 08/19/19 11/19/19 atorvastatin [Lipitor] 20 mg PO HS 08/19/19 11/19/19 cholecalciferol (vitamin D3) 2,000 unit PO DAILY 08/19/19 11/19/19 ipratropium-albuterol 3 ml INHALATION QID 08/19/19 11/19/19 lisinopril 5 mg PO DAILY 08/19/19 11/19/19 meloxicam 7.5 mg PO DAILY 08/19/19 11/19/19 Allergies Allergy/AdvReac Type Severity Reaction Status Date / Time lisinopril Allergy Rash Verified 02/18/20 18:30 Review of Systems Review of Systems: All systems reviewed & are unremarkable except as noted in HPI and below Constitutional: Constitutional: Denies chills, Denies fever(s) and Denies weakness ENT: Denies nasal congestion and Denies sore throat Cardiovascular: Cardiovascular: Denies chest pain and Denies radiating jaw, neck or arm pain Respiratory: Respiratory: Denies chest congestion, Denies cough, Reports dyspnea and Reports wheezing Musculoskeletal: Musculoskeletal: Denies back pain and Denies muscle cramps PMFSH Social History Social History Social History: The patient lives in [facility]. She is . 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 She has smoked between a pack to half a pack of cigarettes per day since he was a teenager. She is currently down to 5 cigarettes a day. 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 Gender identity (if verbalized by the patient): Female Spiritual care concerns: No Agree to blood products: Yes Exam Narrative: Exam Narrative: GENERAL: Well-appearing, well-nourished, and in no acute distress. HEAD: Normocephalic, atraumatic. ENT: Mucous membranes moist. CHEST: Diffuse wheezing with high-pitched squeaks. Mild tachypnea. HEART: Regular rate and rhythm. Normal peripheral pulses. ABDOMEN: Soft, nontender, nondistended. EXTREMITIES: Normal range of motion. No edema. SKIN: Warm, dry, no rash. NEURO: Alert and oriented x3. Course Course Emergency Course: Patient's lung sounds improving after hour-long nebulizer treatment and IV Solu-Medrol but patient still very dyspneic especially with exertion and was hypoxic down to 86%. Reports she is much more short of breath than usual with exertion. We will plan on observation overnight with scheduled IV steroids and scheduled neb treatments. Vital Signs Vital signs: Vital Signs Temperature 98.3 F 02/18/20 18:07 Pulse Rate 76 02/18/20 18:07 Respiratory Rate 24 H 02/18/20 18:07 Blood Pressure 141/83 H 02/18/20 18:07 Pulse Oximetry 9
[2020-02-18 22:07] LABS: Troponin I < 0.012 ng/mL (0.000-0.034)
[2020-02-19] VITALS (20 sets, daily range): BP systolic 106–159; BP diastolic 46–71; PULSE 66–88; RESP 16–26; TEMP 35.7–36.8; O2SAT 94–98; BMI 26.6
--- NOTE | 2020-02-19 01:07 | PC.NURSE ---
This patient, Deloris Stone, was admitted to Medical Room 254-01. Patient/family oriented to hospital policies and general routines including ID bracelet, bed and alarms, visiting hours, pain management, procedures, bathroom and other care routines, personal items, smoking policy, room service/diet, and visiting hours. Valuables list has been completed. Information on how to activate the Rapid Response Team has been discussed. Patient/Family are encouraged to report perceived risks to care and to ask questions if they do not understand what they are told or what they should do.
[2020-02-19] MEDS: ALBUTEROL SULFATE NEB 2.5 MG/0.5 ML INH 5 MG INHALATION ×4 (03:35→20:56)
[2020-02-19] MEDS: IPRATROPIUM BR 0.02% INH SOLN 0.5 MG/2.5 ML VIAL INHALATION ×4 (03:35→20:56)
[2020-02-19] MEDS: methylPREDNISolone SOD SUCC 125 MG VIAL 60 MG IV PUSH ×2 (05:47→21:28)
[2020-02-19 05:57] LABS: Basophils Percent Auto 0.7 % (0.2-1.2); Eosinophils Percent Auto 0.2 % (0-4.4); Hematocrit 42.2 % (37.0-47.0); Hemoglobin 13.9 g/dL (12.0-15.0); Immature Granulocyte Absolute 0.02 K/mm3 (0.00-0.031); Immature Granulocyte Percent A 0.4 % (0-0.5); Lymphocytes Absolute Auto 0.64 K/mm3 (0.9-3.2); Lymphocytes Percent Auto 11.8 % (18.3-44.2); Mean Corpuscular HGB Conc 32.9 g/dl (32-36); Mean Corpuscular Hemoglobin 29.8 pg (26-34); Mean Corpuscular Volume 90.4 fl (80-100); Mean Platelet Volume 9.5 fl (7.4-10.4); Monocytes Absolute Auto 0.1 K/mm3 (0.1-0.6); Monocytes Percent Auto 1.1 % (2.6-8.5); Neutrophils Absolute Auto 4.7 K/mm3 (1.3-6.7); Neutrophils Percent Auto 85.8 % (45.5-73.1); Platelet Count Result 315 k/mm3 (150-375); Red Blood Count 4.67 M/mm3 (4.2-5.4); Red Cell Distribution Width 11.7 % (11.5-14.5); White Blood Count 5.4 K/mm3 (4.5-10.0)
[2020-02-19 06:19] LABS: Blood Urea Nitrogen 18 mg/dL (7-17); Calcium 8.8 mg/dL (8.4-10.2); Carbon Dioxide 28 mmol/L (22-30); Chloride 104 mmol/L (98-107); Estimated Glomerular Filt Rate > 60; Glucose 156 mg/dL (65-105); Magnesium 2.1 mg/dL (1.6-2.3); Potassium 4.5 mmol/L (3.4-5.0); Sodium 137 mmol/L (137-145)
[2020-02-19] MEDS: CHOLECALCIFEROL 1,000 UNIT TABLET 2000 UNITS PO (09:26)
[2020-02-19] MEDS: ASPIRIN 81 MG ENTERIC TABLET PO (09:26)
[2020-02-19] MEDS: lisinopriL 5 MG TABLET PO (09:26)
[2020-02-19] MEDS: busPIRone HCL 5 MG TABLET PO (09:26)
[2020-02-19] MEDS: AMLODIPINE BESYLATE 5 MG TABLET PO (09:27)
[2020-02-19 10:12] LABS: CRP 2.2 mg/dL (<1.0); Lactate Dehydrogenase 446 U/L (313-618)
--- NOTE | 2020-02-19 11:26 | PM.IMHP ---
H&P: HPI History of Present Illness Chief complaint: copd exacerbation Narrative: Deloris Stone is a 74 year old female with a past medical history of COPD, diastolic CHF, and coronary artery disease who presented emergency room for shortness of breath. She states the shortness of breath started gradually on Tuesday and continued to get worse. She says she usually has a cough due to her COPD and this is unchanged. She ran out of her trilogy inhaler for a few days and thinks this might have made it worse. She has been taking her nebs and they are not helping like they usually do. She is usually on oxygen at home and her oxygen requirements have not changed. The shortness of breath is when she is up and walking and she has none at rest unless she talks a lot. She feels a lot better since being here in the hospital and receiving steroids. She has not had any chest pain or swelling in her legs. She has no history of blood clots. She has been social distancing in her assisted living apartment they do have some COVID-19 cases there but they are in a different building. She denies fevers, chills, nausea, vomiting, constipation, dysuria or diarrhea. She continues to smoke 6-10 cigarettes a day because she says there is simply nothing else to do especially during this quarentine. She walks with a walker for balance does not require PT at her assisted living. Review of Systems Review of Systems: All systems reviewed & are unremarkable except as noted in HPI and below PMFSH Past Medical History Medical History Arthritis Asthma CAD (coronary artery disease) CHF (congestive heart failure) Grade 1 diastolic Chronic respiratory failure with hypoxia and hypercapnia COPD (chronic obstructive pulmonary disease) Depression Eosinophilia GERD (gastroesophageal reflux disease) Heart attack History of coronary artery disease History of CVA (cerebrovascular accident) Initially if she had some numbness and tingling to the right side of her body but that has resolved. HLD (hyperlipidemia) HTN (hypertension) On home O2 Pneumonia Surgical History Surgical History History of bilateral cataract extraction History of heart artery stent Hx of CABG Hx of cardiac catheterization Hx of cataract surgery Hx of tonsillectomy Family History Family History Father Acute myocardial infarction Mother Parkinson's disease Dementia Acute myocardial infarction Premature coronary artery disease Social History Social History (Updated 02/19/20 @ 11:35 by Faith Rice PA-C) Social History: The patient lives in [facility]. She is . 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 She occasionally drinks alcohol but this is rare. She continues to smoke 6-10 cigarettes a day. She would like all 4 of her children Dulce, Radha, Ara, Cindy to be her decision maker if needed. She would like to be a full code. 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 Gender identity (if verbalized by the patient): Female Spiritual care concerns: No Agree to blood products: Yes Meds Home Medications and Allergies Home Medications Medication Instructions Recorded Confirmed Type Adult Multivitamin Gummies 400 mcg PO DAILY 08/19/19 02/19/20 History Allergy Eye (naphazoline-phen) 2 drp OPHTHALMIC (EYE) BID PRN 08/19/19 02/19/20 History Trelegy Ellipta 1 inh INHALATIO
[2020-02-19] MEDS: MONTELUKAST SODIUM 10 MG TABLET PO (21:27)
[2020-02-19] MEDS: ATORVASTATIN 20 MG TABLET 40 MG PO (21:27)
[2020-02-20] VITALS (14 sets, daily range): BP systolic 105–137; BP diastolic 58–73; PULSE 60–77; RESP 16–21; TEMP 36.2–36.4; O2SAT 95–100
[2020-02-20] MEDS: ALBUTEROL SULFATE NEB 2.5 MG/0.5 ML INH 5 MG INHALATION ×4 (02:02→21:19)
[2020-02-20] MEDS: IPRATROPIUM BR 0.02% INH SOLN 0.5 MG/2.5 ML VIAL INHALATION ×4 (02:02→21:19)
[2020-02-20 06:00] LABS: Alanine Aminotransferase 13 U/L (4-35); Albumin Level 3.7 g/dL (3.5-5.1); Alkaline Phosphatase 81 U/L (38-126); Aspartate Amino Transferase 21 U/L (14-36); Bilirubin,Total 0.2 mg/dL (0.2-1.3); Blood Urea Nitrogen 21 mg/dL (7-17); Carbon Dioxide 29 mmol/L (22-30); Chloride 106 mmol/L (98-107); Estimated Glomerular Filt Rate > 60; Glucose 152 mg/dL (65-105); Magnesium 2.3 mg/dL (1.6-2.3); Potassium 4.6 mmol/L (3.4-5.0); Sodium 137 mmol/L (137-145)
[2020-02-20 06:04] LABS: Hematocrit 41.4 % (37.0-47.0); Hemoglobin 13.5 g/dL (12.0-15.0); Mean Corpuscular HGB Conc 32.6 g/dl (32-36); Mean Corpuscular Hemoglobin 29.7 pg (26-34); Mean Platelet Volume 9.5 fl (7.4-10.4); Platelet Count Result 334 k/mm3 (150-375); Red Blood Count 4.55 M/mm3 (4.2-5.4); Red Cell Distribution Width 11.8 % (11.5-14.5); White Blood Count 14.9 K/mm3 (4.5-10.0)
[2020-02-20] MEDS: busPIRone HCL 5 MG TABLET PO (08:26)
[2020-02-20] MEDS: ASPIRIN 81 MG ENTERIC TABLET PO (08:26)
[2020-02-20] MEDS: CHOLECALCIFEROL 1,000 UNIT TABLET 2000 UNITS PO (08:26)
[2020-02-20] MEDS: AMLODIPINE BESYLATE 5 MG TABLET PO (08:26)
[2020-02-20] MEDS: methylPREDNISolone SOD SUCC 125 MG VIAL 60 MG IV PUSH (08:27)
[2020-02-20] MEDS: lisinopriL 5 MG TABLET PO (08:27)
--- NOTE | 2020-02-20 10:41 | PM.IMPN ---
Progress Note: A&P Assessment and Plan (1) Acute exacerbation of COPD with asthma: Code(s): J44.1 - Chronic obstructive pulmonary disease with (acute) exacerbation; J45.901 - Unspecified asthma with (acute) exacerbation Status: Acute Assessment and Plan: -----COPD exacerbation improving. Will stop IV steroids and transition to oral. If she does well with this, she would likely be able to discharge tomorrow. Precipitating factor unknown but could be due to her not taking her trilogy for a couple days. Chest x-ray is negative for infection and she has not had any increased sputum or foul-smelling sputum. COVID-19 seems less likely due to her negative chest x-ray, normal LDH, normal ferritin, and slightly elevated CRP. Will continue with her home oxygen, nebulized treatments and wean steroids as tolerated. (2) HTN (hypertension): Qualifiers: Hypertension type: essential hypertension Qualified Code(s): I10 - Essential (primary) hypertension Code(s): I10 - Essential (primary) hypertension Status: Acute Assessment and Plan: -----last blood pressure 137/73. Continue amlodipine and lisinopril (3) Chronic respiratory failure with hypoxia and hypercapnia: Code(s): J96.11 - Chronic respiratory failure with hypoxia; J96.12 - Chronic respiratory failure with hypercapnia Status: Acute Assessment and Plan: -----pH normal. Compensated. Continue home oxygen (4) Tobacco abuse disorder: Code(s): Z72.0 - Tobacco use Status: Acute Assessment and Plan: -----patient declines need for nicotine patch at this time. She has no plans to quit smoking (5) CAD (coronary artery disease): Code(s): I25.10 - Atherosclerotic heart disease of [place] coronary artery without angina pectoris Status: Acute Assessment and Plan: -----no chest pain at this time. Continue aspirin (6) CHF (congestive heart failure): Qualifiers: Heart failure type: diastolic Heart failure chronicity: chronic Qualified Code(s): I50.32 - Chronic diastolic (congestive) heart failure Code(s): I50.9 - Heart failure, unspecified Status: Acute Assessment and Plan: -----patient has diastolic heart failure in the past. Her BNP is normal and she has no signs of hypovolemia. Does not appear to be the cause of her cough. Time Spent With Patient Time with patient: 25 - 35 minutes Subjective Date/time seen: 02/20/20 10:41 Interval history: Pt is a 74-year-old female here for COPD exacerbation. Patient states that she is feeling great today and feels back to her baseline. She has not been walking very much as they are using the bedside commode for unclear reasons but not having any dyspnea on exertion. Her cough is unchanged and at her baseline. Pt denies nausea, vomiting, fevers, chills, constipation, diarrhea, chest pain, sob, or abdominal pain. She is eating and drinking fine Review of Systems Review of Systems: All systems reviewed & are unremarkable except as noted in HPI and below Exam Narrative: Exam Narrative: General:Well developed well nourished patient HEENT: Normocephalic, atraumatic, PERRL, Sclerae anicteric, oral mucosa moist. Neck: Supple Resp: CTA--much improved Heart: RRR with no murmurs. Telemetry shows no abnormalities Abd: Soft, nontender. No pain to palpation. Positive bowel sounds Skin: Warm and dry Extremities: No swelling, erythema or pain to palpation Neuro: Alert and Oriented x4 . CN 2-12 intact. No focal neurological deficits. Objective Data Vital Signs Vital Signs: Vital Signs - 24 hr 02/19/20 12:00 02/19/20 13:59 02/19/20 14:00 Temperature 97.0 F L Pulse Rate 74 75 88 Respiratory Rate 18 18 Blood Pressure 106/46 L Pulse Oximetry 95 02/19/20 14:05 02/19/20 16:00 02/19/20 20:00 Temperature Pulse Rate 75 73 76 Respiratory Rate 16 Blood Pressure
--- NOTE | 2020-02-20 10:45 | PC.NURSE ---
Discontinued patient's telemetry and continuous pulse oximetry per PA orders.
[2020-02-20] MEDS: ATORVASTATIN 20 MG TABLET 40 MG PO (20:13)
[2020-02-20] MEDS: MONTELUKAST SODIUM 10 MG TABLET PO (20:13)
[2020-02-21] MEDS: IPRATROPIUM BR 0.02% INH SOLN 0.5 MG/2.5 ML VIAL INHALATION ×2 (01:48→08:59)
[2020-02-21] MEDS: ALBUTEROL SULFATE NEB 2.5 MG/0.5 ML INH 5 MG INHALATION ×2 (01:48→08:59)
[2020-02-21 01:54] VITALS: PULSE 77; RESP 18
[2020-02-21 02:06] VITALS: PULSE 82; RESP 18
[2020-02-21 06:00] VITALS: BP 126/62; PULSE 74; RESP 20; TEMP 36.6; O2SAT 99
[2020-02-21 08:59] VITALS: PULSE 66; RESP 20; O2SAT 97
[2020-02-21 09:08] VITALS: PULSE 70; RESP 20
[2020-02-21] MEDS: predniSONE 20 MG TABLET 40 MG PO (09:32)
[2020-02-21] MEDS: ASPIRIN 81 MG ENTERIC TABLET PO (09:33)
[2020-02-21] MEDS: lisinopriL 5 MG TABLET PO (09:33)
[2020-02-21] MEDS: busPIRone HCL 5 MG TABLET PO (09:33)
[2020-02-21] MEDS: CHOLECALCIFEROL 1,000 UNIT TABLET 2000 UNITS PO (09:33)
[2020-02-21] MEDS: AMLODIPINE BESYLATE 5 MG TABLET PO (09:33)
--- NOTE | 2020-02-21 13:04 | PM.DS ---
DS: Admitting Diagnosis Admitting Diagnosis Admitting Diagnosis: Chronic obstructive pulmonary disease with (acute) exacerbation DS: Discharge Diagnosis Discharge Diagnosis (1) Acute exacerbation of COPD with asthma: Code(s): J44.1 - Chronic obstructive pulmonary disease with (acute) exacerbation; J45.901 - Unspecified asthma with (acute) exacerbation Status: Acute (2) HTN (hypertension): Qualifiers: Hypertension type: essential hypertension Qualified Code(s): I10 - Essential (primary) hypertension Code(s): I10 - Essential (primary) hypertension Status: Acute (3) Chronic respiratory failure with hypoxia and hypercapnia: Code(s): J96.11 - Chronic respiratory failure with hypoxia; J96.12 - Chronic respiratory failure with hypercapnia Status: Acute (4) Tobacco abuse disorder: Code(s): Z72.0 - Tobacco use Status: Acute (5) CAD (coronary artery disease): Code(s): I25.10 - Atherosclerotic heart disease of [place] coronary artery without angina pectoris Status: Acute (6) CHF (congestive heart failure): Qualifiers: Heart failure type: diastolic Heart failure chronicity: chronic Qualified Code(s): I50.32 - Chronic diastolic (congestive) heart failure Code(s): I50.9 - Heart failure, unspecified Status: Acute DS: Summary Hospital Course Reason for hospitalization: COPD exacerbation Hospital Course: Patient is 74-year-old female who presented emergency room for shortness of breath and hypoxia noted to be in a COPD exacerbation. White blood cell count within normal limits. BMP within normal limits. No acute findings. The patient improved with steroids. Ferritin and LDH were normal and CRP was minimally elevated which made COVID-19 less likely and she had no exposures. Troponins negative x2 and her BNP was normal which may CHF less likely. She improved with steroids and had no dyspnea on exertion or increased oxygen demand which made PE less likely. Patient was admitted to the hospitalist service and continued on IV steroids and had improvement. She was able to be weaned down to oral steroids and felt back to baseline. She was requiring no additional oxygen and was up walking around the room and said she felt back to normal. The patient was discharged with oral steroids and a plan to follow-up with her primary care physician. She was educated about the worrisome signs and symptoms to come back to the emergency room for and was discharged in stable condition. She understands she needs to quit smoking Time spent discussing smoking cessation with patient: more than 10 minutes Status at Discharge Functional status at discharge: independent ambulation Overall status at discharge: patient is back to baseline Time Spent with Patient Time attestation: Total time spent providing and/or coordinating discharge services:36min Time spent: Greater than 30 minutes Exam Narrative: Exam Narrative: General:Well developed well nourished patient HEENT: Normocephalic, atraumatic, PERRL, Sclerae anicteric, oral mucosa moist. Neck: Supple Resp: CTA--much improved Heart: RRR with no murmurs. Telemetry shows no abnormalities Abd: Soft, nontender. No pain to palpation. Positive bowel sounds Skin: Warm and dry Extremities: No swelling, erythema or pain to palpation Neuro: Alert and Oriented x4 . CN 2-12 intact. No focal neurological deficits. Discharge Plan Discharge Attending physician on discharge: Susana Chandra Consulting providers: Natalee Gamez ; Cedric Stewart Discharging Clinician: Faith Rice Patient Disposition: Home, Self-Care Activity: as tolerated Diet: regular Discharge Instructions: -as discussed, take all of your steroids as prescribed -follow-up with your primary care physician in 1-2 weeks -continue your home settings of oxygen -do not smoke, this can cause worsened COPD and -worrisome
== END 2020-02-21 13:47 | DRG 191 ==
LOC: ANHED 02-19 00:04 → ANH2MED 02-19 00:26
PROVIDERS: Emergency Medicine; Emergency Medicine Emergency Medical Services; Physician Assistant; Admitting Provider Family Medicine; Emergency Provider Emergency Medicine; Visit Provider Family Medicine
DX: J44.1 Chronic obstructive pulmonary disease with (acute) exacerbation (principal); J96.11 Chronic respiratory failure with hypoxia; J96.12 Chronic respiratory failure with hypercapnia; I50.32 Chronic diastolic (congestive) heart failure; J45.901 Unspecified asthma with (acute) exacerbation; Z99.81 Dependence on supplemental oxygen; I11.0 Hypertensive heart disease with heart failure; E78.5 Hyperlipidemia, unspecified; F17.210 Nicotine dependence, cigarettes, uncomplicated; I25.10 Atherosclerotic heart disease of native coronary artery without angina pectoris; M19.90 Unspecified osteoarthritis, unspecified site; Z79.51 Long term (current) use of inhaled steroids; Z79.82 Long term (current) use of aspirin; Z95.1 Presence of aortocoronary bypass graft; Z95.5 Presence of coronary angioplasty implant and graft; Z86.73 Personal history of transient ischemic attack (TIA), and cerebral infarction without residual deficits; I25.2 Old myocardial infarction
CPT/HCPCS: 36415; 71045; 80048; 80053; 81001; 82728; 83615; 83735; 83880; 84484; 85025; 85027; 85610; 85730; 86140; 93005; 94640; 96374; 96376; 99285; A9270; G0378; J2930; J7512

== ENCOUNTER 2020-04-24 07:58 | Observation (INO) | payer MEDICARE, MEDICAID, SELFPAY ==
[2020-04-24] VITALS (13 sets, daily range): BP systolic 123–158; BP diastolic 63–89; PULSE 73–89; RESP 16–28; TEMP 36.6–37.1; O2SAT 92–99; BMI 26.7
--- NOTE | ~2020-04-24 | XR_ITS ---
EXAMINATION: XR chest 1V portable DATE: 04/24/2020 09:09 INDICATION: Shortness of breath. Chronic obstructive pulmonary disease. Cough. TECHNIQUE: A single frontal view of the chest was obtained. COMPARISON: Chest single view 02/18/2020, chest CT 08/19/2019 FINDINGS: The lungs are hyperexpanded with lucencies, consistent with emphysema. A calcified right anuel ng nodule is consistent with old granulomatous disease. No pleural effusion or pneumothorax. The hear t size is normal. IMPRESSION: 1. Emphysema. Reviewed, dictated and finalized at location B. IMPRESSION: 1. Emphysema.
--- NOTE | 2020-04-24 08:05 | ECG_ITS ---
Measurements Intervals [place] Rate: 80 P: 78 MO: 129 QRS: 14 QRSD: 94 T: 59 QT: 388 QTc: 448 Interpretive Statements SINUS RHYTHM BASELINE ARTIFACT- V2-6 NORMAL ECG Electronically Signed On 04-24-2020 11:48:31 CDT by Tito Darling D.O.
--- NOTE | 2020-04-24 08:07 | ED.SOB ---
HPI - SOB/Dyspnea General Chief Complaint: Shortness of Breath/Dyspnea Stated Complaint: SOB History of Present Illness HPI Narrative: Patient presents via EMS from the shelter for increasing shortness of breath. She has known COPD and still smokes half a pack a day. Her shortness of breath increased last night. She had 2 duo nebs in route. She was 96% on her 3 L when they picked her up. She is 94% on the 3 L here. She has coarse raspy breathing. She denies fever chills or sweats. She denies illness in the past week. She has sputum when she coughs. She has a history of coronary artery disease with 1 stent, hypertension, renal insufficiency, and anxiety. MD elicited complaint: shortness of breath and cough Pertinent past history: COPD Onset (ago): day(s) Timing: constant Severity: moderate Exacerbating factors: nothing Relieving factors: nothing Known history of: COPD and other (Smoking) Associated symptoms: cough and wheezing Treatment prior to arrival: oxygen and bronchodilator Related Data Home oxygen amount: 3 liters Home Medications Medication Instructions Recorded Confirmed Adult Multivitamin Gummies 400 mcg PO DAILY 08/19/19 02/19/20 Allergy Eye (naphazoline-phen) 2 drp OPHTHALMIC (EYE) BID PRN 08/19/19 02/19/20 Trelegy Ellipta 1 inh INHALATION DAILY 08/19/19 02/19/20 albuterol sulfate [Ventolin HFA] 2 puff INHALATION QID PRN 08/19/19 02/19/20 amlodipine 5 mg PO DAILY 08/19/19 02/19/20 aspirin [Adult Low Dose Aspirin] 81 mg PO DAILY 08/19/19 02/19/20 atorvastatin [Lipitor] 40 mg PO HS 08/19/19 02/19/20 cholecalciferol (vitamin D3) 2,000 unit PO DAILY 08/19/19 02/19/20 ipratropium-albuterol 3 ml INHALATION QID 08/19/19 02/19/20 lisinopril 5 mg PO DAILY 08/19/19 02/19/20 meloxicam 7.5 mg PO DAILY 08/19/19 02/19/20 buspirone 5 mg PO DAILY 02/19/20 02/19/20 ipratropium-albuterol 1 ml INHALATION Q6H 02/19/20 02/19/20 montelukast 10 mg PO HS 02/19/20 02/19/20 prednisone 5 mg PO DIRECTED 04/24/20 Allergies Allergy/AdvReac Type Severity Reaction Status Date / Time No Known Allergies Allergy Verified 04/24/20 08:13 Review of Systems Review of Systems: Narrative: CONSTITUTIONAL: Denies fever, chills, or sweats. EYES: Denies visual changes, redness, or discharge. ENT: Denies rhinorrhea, congestion, sore throat, or otalgia. CARDIOVASCULAR: Denies chest pain, palpitations, or edema. RESPIRATORY: She has cough or dyspnea. GASTROINTESTINAL: Denies abdominal pain, nausea, vomiting, or diarrhea. GENITOURINARY: Denies dysuria or hematuria. SKIN: Denies rash or itching. MUSCULOSKELETAL: Denies back pain, joint pain, or myalgia. NEUROLOGIC: Denies headache, numbness, or weakness. All systems reviewed & are unremarkable except as noted in HPI and below PMFSH Past Medical History Medical History Arthritis Asthma CAD (coronary artery disease) CHF (congestive heart failure) Grade 1 diastolic Chronic respiratory failure with hypoxia and hypercapnia COPD (chronic obstructive pulmonary disease) Depression Eosinophilia GERD (gastroesophageal reflux disease) Heart attack History of coronary artery disease History of CVA (cerebrovascular accident) Initially if she had some numbness and tingling to the right side of her body but that has resolved. HLD (hyperlipidemia) HTN (hypertension) On home O2 Pneumonia Surgical History Surgical History History of bilateral cataract extraction History of heart artery stent Hx of CABG Hx of cardiac catheterization Hx of cataract surgery Hx of tonsillectomy Social History Social History Social History: The patient lives in [facility]. She is . 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 She occasionally drinks alcohol but this is rare. She continues to smoke 6-10 cigarettes a day. She would like all 4 of her children
[2020-04-24] MEDS: methylPREDNISolone SOD SUCC 125 MG VIAL IV PUSH (08:26)
[2020-04-24] MEDS: IPRATROPIUM BR 0.02% INH SOLN 0.5 MG/2.5 ML VIAL INHALATION (08:29)
[2020-04-24] MEDS: ALBUTEROL SULFATE NEB 2.5 MG/0.5 ML INH 5 MG INHALATION (08:29)
[2020-04-24 08:30] LABS: Alveolar/Arterial O2 Gradient 82.5 mmHg; Fractional Inspired Oxygen 32 %; HCO3 ABG 27.1 mEq/l (22.0-26.0); Oxygen Saturation ABG 96.4 % (95.0-100.0); Oxyhemoglobin 93.8 % THb (90.0-100.0); PCO2 ABG 48.5 mmHg (35.0-45.0); PO2 ABG 88.9 mmHg (80.0-100.0); PO2 FiO2 Ratio Arterial Blood 2.78 %; Total Hemoglobin 15.1 g/dL (12.0-18.0); pH ABG 7.365 (7.350-7.450)
[2020-04-24 08:31] LABS: Device NASAL CANNULA; Site Drawn RIGHT BRACHIAL
[2020-04-24 08:33] LABS: Basophils Absolute Auto 0.1 K/mm3 (0.0-0.1); Basophils Percent Auto 1.1 % (0.2-1.2); Eosinophils Absolute Auto 1.2 K/mm3 (0-0.3); Hematocrit 46.1 % (37.0-47.0); Immature Granulocyte Absolute 0.02 K/mm3 (0.00-0.031); Immature Granulocyte Percent A 0.2 % (0-0.5); Lymphocytes Absolute Auto 1.57 K/mm3 (0.9-3.2); Lymphocytes Percent Auto 17.6 % (18.3-44.2); Mean Corpuscular HGB Conc 32.5 g/dl (32-36); Mean Corpuscular Hemoglobin 30.1 pg (26-34); Mean Corpuscular Volume 92.4 fl (80-100); Mean Platelet Volume 9.7 fl (7.4-10.4); Monocytes Absolute Auto 0.8 K/mm3 (0.1-0.6); Monocytes Percent Auto 8.5 % (2.6-8.5); Neutrophils Absolute Auto 5.3 K/mm3 (1.3-6.7); Neutrophils Percent Auto 59.6 % (45.5-73.1); Platelet Count Result 324 k/mm3 (150-375); Red Blood Count 4.99 M/mm3 (4.2-5.4); Red Cell Distribution Width 12.1 % (11.5-14.5); White Blood Count 8.9 K/mm3 (4.5-10.0)
[2020-04-24 08:43] LABS: INR 0.9; Prothrombin Time 12.1 Seconds (11.1-14.7)
[2020-04-24 08:44] LABS: Lactic Acid 1.2 mmol/L (0.7-2.1)
[2020-04-24 08:45] LABS: Alanine Aminotransferase 14 U/L (4-35); Alkaline Phosphatase 100 U/L (38-126); Anion Gap 5 mmol/L (8-16); Aspartate Amino Transferase 27 U/L (14-36); Bilirubin,Total 0.5 mg/dL (0.2-1.3); Blood Urea Nitrogen 12 mg/dL (7-17); Carbon Dioxide 28 mmol/L (22-30); Chloride 105 mmol/L (98-107); Estimated Glomerular Filt Rate > 60; Glucose 111 mg/dL (65-105); Magnesium 2.1 mg/dL (1.6-2.3); Potassium 4.5 mmol/L (3.4-5.0); Sodium 138 mmol/L (137-145)
[2020-04-24 08:57] LABS: NT Pro B Type Natriuretic Pept 51 PG/ML (5-100); Troponin I < 0.012 ng/mL (0.000-0.034)
[2020-04-24 09:14] LABS: Add Urine Microscopic? YES; Appearance Urine Clear (Clear); Bacteria Urine 2+ /hpf; Bilirubin Urine Negative (Negative); Blood Urine 1+ (Negative); Color Urine Yellow (Yellow); Glucose Urine UA Negative (Negative); Ketones Urine Negative (Negative); Leukocyte Esterase Ur Negative LEU/UL (Negative); Mucus Urine Few /lpf; Nitrate Urine Negative (Negative); Protein Urine 1+ mg/dL (Negative); Specific Grav Ur 1.018 (1.001-1.035); Squamous Epithelial Cell Urine Occasional /hpf (Few); Urobilinogen Urine Negative mg/dL (<2.0)
[2020-04-24] MEDS: IPRATROPIUM BR 0.02% INH SOLN 0.5 MG/2.5 ML VIAL 0.75 MG INHALATION (09:22)
[2020-04-24] MEDS: ALBUTEROL SULFATE NEB 2.5 MG/3 ML INH 5 MG INHALATION (09:22)
--- NOTE | 2020-04-24 11:41 | ADMGEN ---
This patient, Deloris Stone, was admitted to 3 [facility] Surg Room 327-. Patient/family oriented to hospital policies and general routines including ID bracelet, bed and alarms, visiting hours, pain management, procedures, bathroom and other care routines, personal items, smoking policy, room service/diet, and visiting hours. Valuables list has been completed. Information on how to activate the Rapid Response Team has been discussed. Patient/Family are encouraged to report perceived risks to care and to ask questions if they do not understand what they are told or what they should do.
--- NOTE | 2020-04-24 11:45 | PC.NURSE ---
Patient does not have a medication list with her. Patient states that if I verbalize the list that we have, she can verify. Medication list verified with patient.
--- NOTE | 2020-04-24 13:38 | PM.IMHP ---
H&P: HPI History of Present Illness Date/Time: 04/24/20 13:38 Chief complaint: copd with exacerbation Narrative: Deloris Stone is a 74 year old female who has a past medical history of having COPD with chronic oxygen at 3 L per nasal cannula. She has chronic hypoxia and hypercapnia. She resides at [facility]. She stated that she did get tested for COVID earlier this year but is not having any fever chills. She denies any nausea vomiting or diarrhea. Patient's chest x-ray was read as emphysema. The patient was found to be on 3 L today and she was 94% on 3 L here. She did dual nebs EN route. She came from the [facility] with increasing shortness of breath. The patient does continue to smoke about half a pack a cigarettes a day. Patient had attempted to use Chantix in the past but then gave upon trying to quit smoking. She has a thick sputum when she coughs. She stated she recent [place] was told that she has pneumonia but on her chest x-ray today into his was read as emphysema. She is afebrile and her white count is normal. Patient was tested for covid 19 in test results are pending. She was given a nebulizer treatment in the emergency room as well as Solu-Medrol. She stated she has not lost sense of taste or smell and is hungry. She does not like a cardiac diet and is requesting something different. I explained to her that she has a heart history and hypertension and history of CHF therefore I have to stick with a cardiac diet. She uses sea salt at home. She says that she has no problems with edema to her lower extremities. Patient was resting quietly in the room when I came in. She has no further complaints she is currently on oxygen 3 L nasal cannula. It took me approximately 1 hours to do this H&P. She is currently on isolation to rule out COVID. Date of service is 04/24/2020. Review of Systems Review of Systems: All systems reviewed & are unremarkable except as noted in HPI and below Constitutional: Constitutional: Reports as per HPI and Reports no additional constitutional complaints Eyes: Eyes: Reports as per HPI and Reports no additional eye complaints ENT: Reports system reviewed and no additional complaints, except as documented and Reports Normal hearing present Cardiovascular: Cardiovascular: Reports no additional cardiovascular complaints Respiratory: Respiratory: Reports no additional respiratory complaints and Reports no additional respiratory complaints Gastrointestinal: Gastrointestinal: Reports as per HPI and Reports no additional gastrointestinal complaints Musculoskeletal: Musculoskeletal: Reports no additional musculoskeletal complaints Integumentary/Breasts: Skin/Breast: Reports system reviewed and no additional complaints, except as docu and Reports as per HPI Neurologic: Reports system reviewed and no additional complaints, except as documented, Reports as per HPI and Reports Normal hearing present Psychiatric: Psychiatric: Reports no additional psychiatric complaints and Reports as per HPI Endocrine: Endocrine: Reports no additional endocrine complaints Hematologic/Lymphatic: Hematologic/Lymphatic: Reports no additional hematologic/lymphatic complaints Allergic/Immunologic: Allergic/Immunologic: Reports no additional allergic/immunologic complaints [facility] Past Medical History Medical History (Updated 04/24/20 @ 13:48 by Jenny Guajardo NP) Arthritis Asthma CAD (coronary artery disease) With 1 cardiac stent CHF (congestive heart failure) Grade 1 diastolic Chronic respiratory failure with hypoxia and hypercapnia COPD (chronic obstructive pulmonary disease) Depression Eosinophilia GERD (gastroesophageal reflux disease) Heart attack History of coronary artery disease History of CVA (cerebrovascular accident) Initially if she had some numbness and tingling to the right side of her body but that has resolved. HLD (hyperlipidemia) HTN (hypertension) On home O2 Pneum
[2020-04-24] MEDS: ASPIRIN 81 MG ENTERIC TABLET PO (15:49)
[2020-04-24] MEDS: busPIRone HCL 5 MG TABLET PO (15:50)
[2020-04-24] MEDS: amLODIPine BESYLATE 5 MG TABLET PO (15:50)
[2020-04-24] MEDS: lisinopriL 5 MG TABLET PO (15:50)
[2020-04-24] MEDS: methylPREDNISolone SOD SUCC 125 MG VIAL 80 MG IV PUSH ×2 (17:50→23:12)
[2020-04-24 20:41] LABS: SARS-CoV-2 RNA PCR Negative
[2020-04-24] MEDS: MONTELUKAST SODIUM 10 MG TABLET PO (20:46)
[2020-04-24] MEDS: ATORVASTATIN 20 MG TABLET 40 MG PO (20:46)
[2020-04-24] MEDS: guaiFENesin/DEXTROMETHORPHAN 10 ML UDC PO (23:12)
[2020-04-25] VITALS (8 sets, daily range): BP systolic 117–134; BP diastolic 59–61; PULSE 70–81; RESP 16–22; TEMP 36.5–37.1; O2SAT 96–99
[2020-04-25] MEDS: guaiFENesin/DEXTROMETHORPHAN 10 ML UDC PO (06:15)
[2020-04-25] MEDS: methylPREDNISolone SOD SUCC 125 MG VIAL 80 MG IV PUSH ×3 (06:15→19:17)
[2020-04-25 06:20] LABS: Basophils Percent Auto 0.1 % (0.2-1.2); Hemoglobin 14.7 g/dL (12.0-15.0); Immature Granulocyte Absolute 0.11 K/mm3 (0.00-0.031); Immature Granulocyte Percent A 0.8 % (0-0.5); Lymphocytes Percent Auto 6.7 % (18.3-44.2); Mean Corpuscular HGB Conc 32.7 g/dl (32-36); Mean Corpuscular Volume 91.8 fl (80-100); Mean Platelet Volume 9.9 fl (7.4-10.4); Monocytes Absolute Auto 0.3 K/mm3 (0.1-0.6); Monocytes Percent Auto 2.2 % (2.6-8.5); Neutrophils Percent Auto 90.2 % (45.5-73.1); Platelet Count Result 333 k/mm3 (150-375); Red Cell Distribution Width 11.9 % (11.5-14.5); White Blood Count 13.3 K/mm3 (4.5-10.0)
[2020-04-25 06:28] LABS: Anion Gap 8 mmol/L (8-16); Blood Urea Nitrogen 15 mg/dL (7-17); Calcium 9.2 mg/dL (8.4-10.2); Carbon Dioxide 25 mmol/L (22-30); Chloride 104 mmol/L (98-107); Estimated Glomerular Filt Rate > 60; Glucose 152 mg/dL (65-105); Potassium 4.5 mmol/L (3.4-5.0); Sodium 137 mmol/L (137-145)
[2020-04-25] MEDS: amLODIPine BESYLATE 5 MG TABLET PO (08:36)
[2020-04-25] MEDS: CHOLECALCIFEROL 1,000 UNITS TABLET 2000 UNITS PO (08:36)
[2020-04-25] MEDS: ASPIRIN 81 MG ENTERIC TABLET PO (08:36)
[2020-04-25] MEDS: busPIRone HCL 5 MG TABLET PO (08:36)
[2020-04-25] MEDS: lisinopriL 5 MG TABLET PO (08:36)
[2020-04-25] MEDS: MULTIVITS W-FE,MIN CHEWABLE TABLET 1 TABLET PO (08:37)
--- NOTE | 2020-04-25 14:26 | PM.IMPN ---
Progress Note: A&P Assessment and Plan (1) Acute exacerbation of COPD with asthma: Code(s): J44.1 - Chronic obstructive pulmonary disease with (acute) exacerbation; J45.901 - Unspecified asthma with (acute) exacerbation Status: Acute Assessment and Plan: She believes this exacerbation was triggered by the weather. Her oxygen saturations are stable on her typical 3 L. she previously felt that she was wheezing and had chest tightness that has improved. She still feels quite short of breath. Continue IV Solu-Medrol. Plan to transition to p.o. prednisone taper upon discharge. Continue Trelegy Ellipta Continue supplemental O2. I do not feel that antibiotics are warranted at this time. Her sputum production is clear, she has been afebrile, and has not had any additional signs of infection. (2) Acute on chronic respiratory failure with hypoxia and hypercapnia: Code(s): J96.21 - Acute and chronic respiratory failure with hypoxia; J96.22 - Acute and chronic respiratory failure with hypercapnia Status: Acute Assessment and Plan: she is on chronic 3 L of O2 per nasal cannula at home. She is maintaining adequate oxygenation. Continue supplemental oxygen monitor oxygen saturations closely. (3) HTN (hypertension): Qualifiers: Hypertension type: essential hypertension Qualified Code(s): I10 - Essential (primary) hypertension Code(s): I10 - Essential (primary) hypertension Status: Chronic Assessment and Plan: Blood pressures have been well controlled. Continue lisinopril and amlodipine Monitor blood pressures closely (4) HLD (hyperlipidemia): Code(s): E78.5 - Hyperlipidemia, unspecified Status: Chronic Assessment and Plan: Chronic. Continue atorvastatin. LFTs reviewed and are within normal limits. (5) CHF (congestive heart failure): Qualifiers: Heart failure type: diastolic Heart failure chronicity: chronic Qualified Code(s): I50.32 - Chronic diastolic (congestive) heart failure Code(s): I50.9 - Heart failure, unspecified Status: Acute Assessment and Plan: She appears clinically compensated at this time. Continue lisinopril Monitor intake and output (6) Tobacco abuse disorder: Code(s): Z72.0 - Tobacco use Status: Acute Assessment and Plan: She says she is currently smoking about a half a pack per day. I counseled her on smoking cessation for 5 minutes. She believe she would benefit from quitting. (7) COVID-19 ruled out by laboratory testing: Code(s): Z03.818 - Encounter for observation for suspected exposure to other biological agents ruled out Status: Acute Assessment and Plan: Tested negative on 04/24/2020 Subjective Date/time seen: 04/25/20 14:26 Interval history: Date of service: 04/25/2020 She reports she is feeling better today, although she still complains that she is quite short of breath especially with any exertion including walking to the bathroom and rotating or moving in bed. She continues to cough with clear sputum production. She felt that she was wheezing before but denies doing so now. She denies chest pain. She has not had any fevers, chills, nausea, or vomiting. She denies abdominal pain. She had a bowel movement this morning. She is urinating regularly and denies any urinary symptoms. Her appetite has been good. Review of Systems Review of Systems: Narrative: A 12 point review of systems was reviewed with pertinent positives and negatives as per HPI. Exam Narrative: Exam Narrative: Ms. Stone is a well-nourished 74-year-old female who is lying semi recumbent in bed. She appears comfortable and is in no acute respiratory distress. HR 70, BP 134/60, R 20, T 98.8?, 98% on 3 L Neuro: awake, alert and oriented x4, speech clear, no focal neuro deficits noted H
[2020-04-25] MEDS: ATORVASTATIN 20 MG TABLET 40 MG PO (20:28)
[2020-04-25] MEDS: MONTELUKAST SODIUM 10 MG TABLET PO (20:28)
[2020-04-25] MEDS: ALBUTEROL SULFATE NEB 2.5 MG/0.5 ML INH INHALATION (20:49)
[2020-04-26] MEDS: methylPREDNISolone SOD SUCC 125 MG VIAL 80 MG IV PUSH ×2 (00:44→05:42)
[2020-04-26 02:00] VITALS: BP 120/74; PULSE 87; RESP 20; TEMP 36.8; O2SAT 94
[2020-04-26 04:00] VITALS: BP 126/67; PULSE 80; RESP 22; TEMP 36.4; O2SAT 94
[2020-04-26 06:36] LABS: Hematocrit 45.2 % (37.0-47.0); Hemoglobin 14.6 g/dL (12.0-15.0); Mean Corpuscular HGB Conc 32.3 g/dl (32-36); Mean Corpuscular Hemoglobin 29.6 pg (26-34); Mean Corpuscular Volume 91.7 fl (80-100); Mean Platelet Volume 10.4 fl (7.4-10.4); Platelet Count Result 297 k/mm3 (150-375); Red Blood Count 4.93 M/mm3 (4.2-5.4); Red Cell Distribution Width 12.1 % (11.5-14.5); White Blood Count 22.1 K/mm3 (4.5-10.0)
[2020-04-26 06:50] LABS: Anion Gap 5 mmol/L (8-16); Blood Urea Nitrogen 22 mg/dL (7-17); Calcium 9.2 mg/dL (8.4-10.2); Carbon Dioxide 30 mmol/L (22-30); Chloride 103 mmol/L (98-107); Estimated Glomerular Filt Rate > 60; Glucose 144 mg/dL (65-105); Potassium 4.5 mmol/L (3.4-5.0); Sodium 138 mmol/L (137-145)
[2020-04-26] MEDS: busPIRone HCL 5 MG TABLET PO (07:23)
[2020-04-26] MEDS: amLODIPine BESYLATE 5 MG TABLET PO (07:23)
[2020-04-26] MEDS: guaiFENesin/DEXTROMETHORPHAN 10 ML UDC PO (07:23)
[2020-04-26] MEDS: MULTIVITS W-FE,MIN CHEWABLE TABLET 1 TABLET PO (07:24)
[2020-04-26] MEDS: lisinopriL 5 MG TABLET PO (07:24)
[2020-04-26] MEDS: ASPIRIN 81 MG ENTERIC TABLET PO (07:24)
[2020-04-26 07:28] VITALS: PULSE 82; RESP 22; O2SAT 94
[2020-04-26] MEDS: predniSONE 20 MG TABLET 40 MG PO (12:15)
[2020-04-26] MEDS: CHOLECALCIFEROL 1,000 UNITS TABLET 2000 UNITS PO (12:15)
[2020-04-26 14:00] VITALS: BP 108/92; PULSE 81; RESP 18; TEMP 36.7; O2SAT 94
--- NOTE | 2020-04-26 16:07 | PM.DS ---
DS: Admitting Diagnosis Admitting Diagnosis Admitting Diagnosis: copd with exacerbation DS: Discharge Diagnosis Discharge Diagnosis (1) Acute exacerbation of COPD with asthma: Code(s): J44.1 - Chronic obstructive pulmonary disease with (acute) exacerbation; J45.901 - Unspecified asthma with (acute) exacerbation Status: Acute Assessment and Plan: She believes this exacerbation was triggered by the weather as it has been more humid lately. Her oxygen saturations remained stable on her typical 3 L. She had cough with clear sputum production and antibiotics were not felt to be warranted. She was treated with IV Solu-Medrol and bronchodilators. She will continue p.o. prednisone taper. She should continue albuterol rescue inhaler and Trelegy Ellipta. (2) Acute on chronic respiratory failure with hypoxia and hypercapnia: Code(s): J96.21 - Acute and chronic respiratory failure with hypoxia; J96.22 - Acute and chronic respiratory failure with hypercapnia Status: Acute Assessment and Plan: She is on chronic 3 L of O2 per nasal cannula at home. Oxygen saturations remained stable on her typical 3 L. (3) HTN (hypertension): Qualifiers: Hypertension type: essential hypertension Qualified Code(s): I10 - Essential (primary) hypertension Code(s): I10 - Essential (primary) hypertension Status: Chronic Assessment and Plan: Blood pressures were well controlled on lisinopril and amlodipine. (4) HLD (hyperlipidemia): Code(s): E78.5 - Hyperlipidemia, unspecified Status: Chronic Assessment and Plan: Chronic. Continue atorvastatin. LFTs reviewed and were within normal limits. (5) CHF (congestive heart failure): Qualifiers: Heart failure chronicity: chronic Heart failure type: diastolic Qualified Code(s): I50.32 - Chronic diastolic (congestive) heart failure Code(s): I50.9 - Heart failure, unspecified Status: Acute Assessment and Plan: Clinically compensated at this time. We discussed following a low-sodium diet. Continue lisinopril. (6) Tobacco abuse disorder: Code(s): Z72.0 - Tobacco use Status: Acute Assessment and Plan: She says she is currently smoking about a half a pack per day. I counseled her on smoking cessation for 5 minutes and she believes she would benefit from quitting, however at this time she is not interested in quitting smoking. She states that smoking is the only thing left to do because her assisted living facility has ceased all additional activities secondary to COVID. (7) COVID-19 ruled out by laboratory testing: Code(s): Z03.818 - Encounter for observation for suspected exposure to other biological agents ruled out Status: Acute Assessment and Plan: Tested negative on 04/24/2020 DS: Summary Hospital Course Reason for hospitalization: Shortness of breath Hospital Course: Date of admission: 04/24/2020 Date of discharge: 04/26/2020 Deloris Stone is a 74 year old female smoker with a history of COPD on chronic 3L O2, CAD, CHF, HTN, HLD, and CVA who presented to the emergency department on 04/24/20 with complaints of shortness of breath and cough productive of clear sputum. She felt that she was wheezing and had chest tightness. At presentation, she was tachypneic and oxygen levels were stable on 3L, WBC 8.9, and CXR showing hyperexpanded lungs consistent with emphysema. She was admitted to the hospitalist service for further evaluation and management. Her shortness of breath and wheezing improved following administration of IV steroids and nebulized breathing treatments. She began feeling much better and given her overall improvement, she was felt no longer require inpatient care. She did develop leukocytosis, which was felt to be secondary to steroid therapy. She will repeat a CBC in 1 week for further monitoring. blood cultures w
== END 2020-04-26 16:30 ==
LOC: ANHED 08:24 → ANH3MEDSUR 10:50
PROVIDERS: Nurse Practitioner; Admitting Provider Family Medicine; Emergency Provider Emergency Medicine; Visit Provider Physician Assistant
DX: J44.1 Chronic obstructive pulmonary disease with (acute) exacerbation (principal); Z20.828 Contact with and (suspected) exposure to other viral communicable diseases; J45.901 Unspecified asthma with (acute) exacerbation; J96.21 Acute and chronic respiratory failure with hypoxia; I25.10 Atherosclerotic heart disease of native coronary artery without angina pectoris; J96.22 Acute and chronic respiratory failure with hypercapnia; I11.0 Hypertensive heart disease with heart failure; I50.9 Heart failure, unspecified; E78.5 Hyperlipidemia, unspecified; F17.210 Nicotine dependence, cigarettes, uncomplicated; N28.9 Disorder of kidney and ureter, unspecified; Z99.81 Dependence on supplemental oxygen; Z95.5 Presence of coronary angioplasty implant and graft; Z86.73 Personal history of transient ischemic attack (TIA), and cerebral infarction without residual deficits; Z95.1 Presence of aortocoronary bypass graft
CPT/HCPCS: 36415; 36600; 51701; 71045; 80048; 80053; 81001; 82805; 83605; 83735; 83880; 84484; 85025; 85027; 85610; 87040; 87635; 93005; 94640; 96374; 96376; 99285; A9270; C9803; G0378; J2930; J7512; U0003

== ENCOUNTER 2020-07-16 07:41 | Observation (INO) | payer MEDICARE, MEDICAID, SELFPAY ==
[2020-07-16] VITALS (27 sets, daily range): BP systolic 120–138; BP diastolic 60–96; PULSE 80–95; RESP 14–25; TEMP 36.6–36.8; O2SAT 90–100; BMI 26.8
--- NOTE | ~2020-07-16 | XR_ITS ---
EXAMINATION: XR chest 1V portable EXAM DATE: 07/16/2020 08:28 INDICATION: Cough; afebrile, SOB, hx of COPD, smoker, 3L O2 home use, HTN. TECHNIQUE: Portable AP frontal chest x-ray was obtained. Comparison is made to prior examination from 04/24/2020. FINDINGS: Moderate chronic hyperinflation. The lungs are clear. There are no pleural effusions. The cardiomediastinal silhouette is within normal limits. There is no pneumothorax suspected. There ar e bony degenerative changes. There is no significant interval change. IMPRESSION: 1. No acute cardiopulmonary findings. 2. Hyperinflation. Reviewed, dictated and finalized at location B. TY INSPECTOR
--- NOTE | 2020-07-16 07:54 | ED.GENADULT ---
HPI - General Adult General Chief complaint: Shortness of Breath/Dyspnea Stated complaint: SOB Source: RN notes reviewed History of Present Illness HPI narrative: Patient presents emergency department from home via EMS for shortness of breath. Patient with a history of COPD wears 3 L nasal cannula at all times. Patient states she has been short of breath since yesterday states is been associated with a cough has been nonproductive as well as wheezing she has been using her inhaler at home. Patient did state she took off her oxygen this morning to smoke a cigarette which she still smokes a half a pack per day. Patient's oxygen saturation when EMS had arrived was in the 80s. The patient been given a breathing treatment as well as Solu-Medrol 125 at that time. Patient denies any fevers or chills chest pain abdominal pain nausea vomiting or any other symptoms Related Data Home Medications Medication Instructions Recorded Confirmed Adult Multivitamin Gummies 400 mcg PO DAILY 08/19/19 04/24/20 Allergy Eye (naphazoline-phen) 2 drp OPHTHALMIC (EYE) BID PRN 08/19/19 04/24/20 Trelegy Ellipta 1 inh INHALATION DAILY 08/19/19 04/24/20 albuterol sulfate [Ventolin HFA] 2 puff INHALATION QID PRN 08/19/19 04/24/20 amlodipine 5 mg PO DAILY 08/19/19 04/24/20 aspirin [Adult Low Dose Aspirin] 81 mg PO DAILY 08/19/19 04/24/20 atorvastatin [Lipitor] 40 mg PO HS 08/19/19 04/24/20 cholecalciferol (vitamin D3) 2,000 unit PO DAILY 08/19/19 04/24/20 ipratropium-albuterol 3 ml INHALATION QID 08/19/19 04/24/20 lisinopril 5 mg PO DAILY 08/19/19 04/24/20 buspirone 5 mg PO DAILY 02/19/20 04/24/20 montelukast 10 mg PO HS 02/19/20 04/24/20 Allergies Allergy/AdvReac Type Severity Reaction Status Date / Time No Known Allergies Allergy Verified 04/24/20 08:13 Review of Systems Review of Systems: Narrative: Gen.: Denies fevers or chills ENT: Denies congestion Respiratory: See HPI CV: Denies chest pain or palpitations GI: Denies abdominal pain nausea, emesis or diarrhea Musculoskeletal: Denies back pain or muscle pain Neuro: Denies numbness, tingling, weakness or focal weakness Skin: Denies rash Except as documented, all other systems reviewed and negative [facility]LY [facility] Past Medical History Medical History Arthritis Asthma CAD (coronary artery disease) With 1 cardiac stent CHF (congestive heart failure) Grade 1 diastolic Chronic respiratory failure with hypoxia and hypercapnia COPD (chronic obstructive pulmonary disease) Depression Eosinophilia GERD (gastroesophageal reflux disease) Heart attack History of coronary artery disease History of CVA (cerebrovascular accident) Initially if she had some numbness and tingling to the right side of her body but that has resolved. HLD (hyperlipidemia) HTN (hypertension) On home O2 Pneumonia Tobacco abuse disorder Surgical History Surgical History History of bilateral cataract extraction History of heart artery stent Hx of cardiac catheterization Hx of cataract surgery Hx of tonsillectomy Family History Family History Father Acute myocardial infarction Mother Parkinson's disease Dementia Acute myocardial infarction Premature coronary artery disease Social History Social History Social History: The patient lives in [facility]. She is . 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 She occasionally drinks alcohol but this is rare. She continues to smoke 6-10 cigarettes a day. She would like all 4 of her children Dulce, Radha, Ara, Cindy to be her decision maker if needed. She would like to be a full code. Smoking packs per day: 0.5 Smoking cigarettes per day: 10.0 Years smoked: 50 Smoking pack-years: 25.00 Smoking status: Current every day smoker
[2020-07-16 08:10] LABS: Basophils Absolute Auto 0.1 K/mm3 (0.0-0.1); Basophils Percent Auto 1.2 % (0.2-1.2); Eosinophils Absolute Auto 1.1 K/mm3 (0-0.3); Hematocrit 46.4 % (37.0-47.0); Hemoglobin 15.1 g/dL (12.0-15.0); Immature Granulocyte Absolute 0.02 K/mm3 (0.00-0.031); Immature Granulocyte Percent A 0.2 % (0-0.5); Lymphocytes Absolute Auto 2.59 K/mm3 (0.9-3.2); Lymphocytes Percent Auto 27.1 % (18.3-44.2); Mean Corpuscular HGB Conc 32.5 g/dl (32-36); Mean Corpuscular Hemoglobin 29.8 pg (26-34); Mean Corpuscular Volume 91.7 fl (80-100); Mean Platelet Volume 9.1 fl (7.4-10.4); Monocytes Absolute Auto 0.8 K/mm3 (0.1-0.6); Monocytes Percent Auto 8.8 % (2.6-8.5); Neutrophils Percent Auto 51.7 % (45.5-73.1); Platelet Count Result 354 k/mm3 (150-375); Red Blood Count 5.06 M/mm3 (4.2-5.4); Red Cell Distribution Width 12.3 % (11.5-14.5); White Blood Count 9.6 K/mm3 (4.5-10.0)
[2020-07-16] MEDS: IPRATROPIUM BR 0.02% INH SOLN 0.5 MG/2.5 ML VIAL INHALATION ×4 (08:10→20:23)
[2020-07-16] MEDS: ALBUTEROL SULFATE NEB 2.5 MG/0.5 ML INH 5 MG INHALATION ×4 (08:10→20:23)
[2020-07-16 08:18] LABS: INR 0.9; Prothrombin Time 12.2 Seconds (11.1-14.7)
[2020-07-16 08:19] LABS: Partial Thromboplastin Time 28.7 SECONDS (22.3-36.8)
[2020-07-16 08:21] LABS: Alanine Aminotransferase 13 U/L (4-35); Alkaline Phosphatase 111 U/L (38-126); Anion Gap 8 mmol/L (8-16); Aspartate Amino Transferase 25 U/L (14-36); Bilirubin,Total 0.6 mg/dL (0.2-1.3); Blood Urea Nitrogen 7 mg/dL (7-17); Calcium 9.6 mg/dL (8.4-10.2); Carbon Dioxide 30 mmol/L (22-30); Chloride 102 mmol/L (98-107); Estimated Glomerular Filt Rate > 60; Glucose 113 mg/dL (65-105); Potassium 4.4 mmol/L (3.4-5.0); Sodium 140 mmol/L (137-145)
--- NOTE | 2020-07-16 10:55 | ECG_ITS ---
Measurements Intervals [place] Rate: 85 P: 77 NE: 141 QRS: 11 QRSD: 80 T: 53 QT: 364 QTc: 434 Interpretive Statements SINUS RHYTHM BASELINE ARTIFACT- I, III, AVL, V5 NORMAL ECG Electronically Signed On 07-16-2020 10:58:20 [employer] [employer] by Tito Darling D.O.
[2020-07-16] MEDS: methylPREDNISolone SOD SUCC 125 MG VIAL 60 MG IV PUSH ×3 (11:17→23:14)
--- NOTE | 2020-07-16 11:24 | ADMGEN ---
This patient, Deloris Stone, was admitted to Medical Room 243-. Patient/family oriented to hospital policies and general routines including ID bracelet, bed and alarms, visiting hours, pain management, procedures, bathroom and other care routines, personal items, smoking policy, room service/diet, and visiting hours. Information on how to activate the Rapid Response Team has been discussed. Patient/Family are encouraged to report perceived risks to care and to ask questions if they do not understand what they are told or what they should do.
--- NOTE | 2020-07-16 13:00 | PM.IMHP ---
H&P: HPI History of Present Illness Date/Time: 07/16/20 13:00 Chief complaint: Shortness of breath. Narrative: Deloris Stone is a 74-year-old female with longstanding history of tobacco abuse despite severe COPD with chronic respiratory failure who presented to the emergency department earlier this morning via EMS from home with shortness of breath. She has chronic dyspnea but her shortness of breath has been worse over the past couple of days with an increase in wheezing and shortness of breath on lesser and lesser exertion. She has a chronic smoker's cough, occasionally productive of clear sputum, and this is unchanged. This morning she removed her oxygen in order to have a cigarette, developed acute worsening of her shortness of breath, and EMS was summoned. SpO2 was 80% on room air on their arrival, and she was given a breathing treatment and Solu-Medrol 125 mg at that time with some improvement her symptoms. At the time my evaluation she feels somewhat better and reports to me that she intends on quitting smoking immediately as her COPD has caused her to essentially not be able to leave her apartment. She denies fever, chills, sweats, sinus congestion, rhinorrhea, otalgia, odynophagia, sick contacts, chest pain, pleuritic pain, and lower extremity edema. Review of Systems Review of Systems: Narrative: Twelve systems were reviewed with pertinent positives and negatives as per HPI. Due to her severe COPD, she gets short of breath when going from room to room at her home and she really cannot many activities whatsoever. Her daughter has to bring in her groceries. It is to the point where she avoids going out and this is depressing to her. She denies harmful thoughts. Appetite has been as per usual. No anosmia or dysgeusia. No dysphagia or concerns for aspiration. She denies nausea and vomiting. Denies history of venous thromboembolism. Except as documented, all other systems were reviewed and are negative. [facility] Past Medical History Medical History (Updated 07/16/20 @ 22:22 by Shira Pickens PA-C) Anxiety Arthritis Asthma Cerebrovascular accident (~2017) Initially if she had some numbness and tingling to the right side of her body but that has resolved. MRI showed left occipital temporal infarct and small left basal ganglia infarcts. Chronic obstructive pulmonary disease Chronic respiratory failure with hypoxia, on home oxygen therapy 3 L nasal cannula. Coronary artery disease History of myocardial infarction and stent x1. Depression Diastolic dysfunction Eosinophilia Gastroesophageal reflux disease Hyperlipidemia Hypertension Pneumonia Tobacco abuse disorder Surgical History Surgical History (Updated 07/16/20 @ 14:04 by Shira Pickens PA-C) History of bilateral cataract extraction History of cardiac catheterization History of heart artery stent History of tonsillectomy History of tonsillectomy Family History Family History Father Acute myocardial infarction Mother Parkinson's disease Dementia Acute myocardial infarction Premature coronary artery disease Social History Social History (Updated 07/16/20 @ 22:20 by Shira Pickens PA-C) Social History: The patient lives in her own apartment. She is and has 4 children. 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 She occasionally drinks alcohol but this is rare. She continues to smoke 6-10 cigarettes a day but smoked up to a pack of cigarettes per day since she was a teenager. She designates her daughter Radha Craig as her surrogate decision maker and she wishes to be a full code. Years smoked: 60 Smoking status: Current every day smoker Tobacco type: cigarettes Alcohol intake: former Drinks per week: 2 Substance use: current Substance use type: marijuana Other substance usage details: Uses on occasion Gender id
[2020-07-16] MEDS: MONTELUKAST SODIUM 10 MG TABLET PO (21:04)
[2020-07-16] MEDS: ATORVASTATIN 40 MG TABLET PO (21:04)
[2020-07-16] MEDS: NICOTINE (*PBKC) 21 MG PATCH 1 PATCH TRANSDERM (23:14)
[2020-07-17 02:57] VITALS: PULSE 83; RESP 20
[2020-07-17] MEDS: ALBUTEROL SULFATE NEB 2.5 MG/0.5 ML INH 5 MG INHALATION ×2 (02:57→08:40)
[2020-07-17] MEDS: IPRATROPIUM BR 0.02% INH SOLN 0.5 MG/2.5 ML VIAL INHALATION ×2 (02:57→08:40)
[2020-07-17 05:35] VITALS: BP 131/54; PULSE 85; RESP 22; TEMP 36.6; O2SAT 97
[2020-07-17] MEDS: methylPREDNISolone SOD SUCC 125 MG VIAL 60 MG IV PUSH (05:41)
[2020-07-17] MEDS: ASPIRIN 81 MG ENTERIC TABLET PO (08:35)
[2020-07-17] MEDS: lisinopriL 5 MG TABLET PO (08:35)
[2020-07-17] MEDS: amLODIPine BESYLATE 5 MG TABLET PO (08:35)
[2020-07-17] MEDS: busPIRone HCL 5 MG TABLET PO (08:35)
[2020-07-17] MEDS: CHOLECALCIFEROL 1,000 UNITS TABLET 2000 UNITS PO (08:36)
[2020-07-17] MEDS: MULTIVITS W-FE,MIN CHEWABLE TABLET 1 TABLET PO (08:36)
[2020-07-17] MEDS: NICOTINE (*PBKC) 21 MG PATCH 1 PATCH TRANSDERM (08:37)
[2020-07-17 08:42] VITALS: PULSE 82; RESP 20
[2020-07-17 08:43] VITALS: PULSE 82; O2SAT 96
[2020-07-17 08:50] VITALS: PULSE 82; RESP 20
--- NOTE | 2020-07-17 10:56 | PM.DS ---
DS: Admitting Diagnosis Admitting Diagnosis Admitting Diagnosis: Shortness of breath. DS: Discharge Diagnosis Discharge Diagnosis (1) COPD exacerbation: Code(s): J44.1 - Chronic obstructive pulmonary disease with (acute) exacerbation Status: Acute (2) Hypoxia: Code(s): R09.02 - Hypoxemia Status: Acute (3) Acute on chronic respiratory failure with hypoxia and hypercapnia: Code(s): J96.21 - Acute and chronic respiratory failure with hypoxia; J96.22 - Acute and chronic respiratory failure with hypercapnia Status: Acute (4) HLD (hyperlipidemia): Code(s): E78.5 - Hyperlipidemia, unspecified Status: Chronic (5) Tobacco abuse disorder: Code(s): Z72.0 - Tobacco use Status: Acute (6) CAD (coronary artery disease): Code(s): I25.10 - Atherosclerotic heart disease of [place] coronary artery without angina pectoris Status: Chronic DS: Summary Hospital Course Reason for hospitalization: Dyspnea Hospital Course: Deloris Stone is a 74-year-old female with longstanding history of tobacco abuse despite severe COPD with chronic respiratory failure who presented to the emergency department earlier this morning via EMS from home with shortness of breath. She has chronic dyspnea but her shortness of breath has been worse over the past couple of days with an increase in wheezing and shortness of breath on lesser and lesser exertion. She has a chronic smoker's cough, occasionally productive of clear sputum, and this is unchanged. Prior to admission she removed her oxygen in order to have a cigarette, developed acute worsening of her shortness of breath, and EMS was summoned. SpO2 was 80% on room air on their arrival, and she was given a breathing treatment and Solu-Medrol 125 mg at that time with some improvement her symptoms. Her cxr did not show new infiltrates, effusions or pneumothorax. This morning she is doing much better, not wheezing anymore and back on her home oxygen dose 3 L NC. She will be discharged on a prednisone taper , smoking cessation was provided and she will also get a script for a nicotine patch. Her home medications will remain the same. Time spent discussing smoking cessation with patient: 3 to 10 minutes Status at Discharge Functional status at discharge: independent ambulation Overall status at discharge: patient is back to baseline Time Spent with Patient Time attestation: Total time spent providing and/or coordinating discharge services: Time spent: Greater than 30 minutes Exam Const: General: cooperative and comfortable Neck: Neck: supple and no JVD Resp: Effort & Inspection: normal respiratory effort Auscultation: diminished lung sounds Other: No wheezing Cardio: Rate: regular rate Heart sounds: S1 normal heart sound present and S2 normal heart sound present Other: No bradycardia or tachycardia. GI: Inspection: normal to inspection GI Palp: Yes Soft to palpation Auscultation: normal bowel sounds Skin: General skin exam: normal color Lesions: no lesions Rashes: no rashes Neuro: General: oriented to person, oriented to place, oriented to time, patient oriented x3, moves all extremities and no focal motor deficits Extrem: General: no clubbing, cyanosis or edema and no pedal edema Discharge Plan Discharge Attending physician on discharge: Emil Yo Consulting providers: Clyde Obrien Discharging Clinician: Emil Yo Patient Disposition: Home, Self-Care Activity: as tolerated Diet: regular Patient Instructions: Antibiotic Form, Heart Failure (DC), How to Stop Smoking (DC), COPD (Chronic Obstructive Pulmonary Disease) (DC) Stand Alone Forms: General Discharge Information Follow-up/Referrals: Clyde Obrien MD [Physician] - Discharge Medications: New nicotine [Nicoderm CQ] 21 mg/24 hr Patch 24 Hour 1 patch transdermal QAM Qty: 28 RF: 1 prednisone 10 mg tablet
== END 2020-07-17 12:07 | disposition home or self-care (01) ==
LOC: ANHED 08:09 → ANH2MED 09:53
PROVIDERS: Admitting Provider Family Medicine; Emergency Provider Emergency Medicine; Visit Provider Hospitalist
DX: J44.1 Chronic obstructive pulmonary disease with (acute) exacerbation (principal); J96.21 Acute and chronic respiratory failure with hypoxia; J96.22 Acute and chronic respiratory failure with hypercapnia; Z99.81 Dependence on supplemental oxygen; F17.210 Nicotine dependence, cigarettes, uncomplicated; I25.10 Atherosclerotic heart disease of native coronary artery without angina pectoris; F32.9 Major depressive disorder, single episode, unspecified; D72.10 Eosinophilia, unspecified; K21.9 Gastro-esophageal reflux disease without esophagitis; I25.2 Old myocardial infarction; Z86.73 Personal history of transient ischemic attack (TIA), and cerebral infarction without residual deficits; E78.5 Hyperlipidemia, unspecified; I10 Essential (primary) hypertension; Z95.5 Presence of coronary angioplasty implant and graft; R91.8 Other nonspecific abnormal finding of lung field; F41.9 Anxiety disorder, unspecified
CPT/HCPCS: 36415; 71045; 80053; 85025; 85610; 85730; 93005; 94640; 96374; 96376; 99285; A9270; G0378; J2930

== ENCOUNTER 2020-08-28 09:03 | Observation (INO) | payer MEDICARE, MEDICAID, SELFPAY ==
[2020-08-28] VITALS (12 sets, daily range): BP systolic 107–136; BP diastolic 61–84; PULSE 73–91; RESP 17–36; TEMP 36–37.1; O2SAT 94–98
--- NOTE | ~2020-08-28 | XR_ITS ---
XR chest 1V portable 08/28/2020 09:37 Indication: Shortness of breath Procedure: AP portable chest Comparison: 07/16/2020 Findings: There is subtle right perihilar infiltrates. The lungs are hyperinflated which is consisten t with, but not diagnostic of chronic obstructive pulmonary disease. Heart size is normal. No pleural effusion or pneumothorax. Impression: 1: Subtle right perihilar infiltrates which may represent atelectasis or developing pneumonia. Reviewed, dictated and finalized at location A. UCTION COST ESTIMATOR Impression: 1: Subtle right perihilar infiltrates which may represent atelectasis or develo ping pneumonia.
--- NOTE | ~2020-08-28 | CT_ITS ---
EXAMINATION: CTA chest PE protocol DATE: 08/28/2020 10:54 INDICATION: Shortness of breath, wheezing. Elevated d-dimer. TECHNIQUE: Computed tomography angiography (CTA) of the chest was performed with 100 mL Omnipaque-350 intravenous contrast timed to evaluate the pulmonary arteries. Coronal maximum intensity projection 3D-reconstructions were created by the technologist. Automated exposure control and iterative reconst ruction technique were employed. Exam dose: 265.18 mGy-cm total exam DLP. COMPARISON: 08/28/2020 portable AP chest 08/29/2019 CT pulmonary scan FINDINGS: There is diagnostic contrast enhancement of the pulmonary arteries and no evidence of pulmo nary embolism. No thoracic aortic aneurysm or dissection. Normal heart size. There is coronary artery calcification. No hilar or mediastinal mass lesion or lymphadenopathy. Trace pericardial fluid. No pleural effusion. Prominent emphysematous changes of the lungs. Stable right apical scarring. There is mild patchy infiltrate or atelectasis at the dependent right lung base, right lower lobe. There is old pulmonary granulomatous disease. Small sliding hiatal hernia. Cholelithiasis. Diverticulosis of the colon. Normal morphology of the adrenal glands. No suspicious osteolytic or osteoblastic lesions are noted. IMPRESSION: COPD No evidence of pulmonary embolism Cholelithiasis Small sliding hiatal hernia Diverticulosis of the colon Reviewed, dictated and finalized at Location A. Reviewed, dictated and finalized at location B. TER MOLDER
--- NOTE | 2020-08-28 09:14 | ECG_ITS ---
Measurements Intervals [place] Rate: 72 P: 82 IN: 145 QRS: 14 QRSD: 85 T: 101 QT: 364 QTc: 399 Interpretive Statements SINUS RHYTHM BORDERLINE T WAVE ABNORMALITY- HIGH LATERAL LEADS BASELINE ARTIFACT- I, II, AVR, AVL, AVF, V3-V5 BORDERLINE ECG Electronically Signed On 08-28-2020 9:23:55 [employer] by Tito Darling D.O.
[2020-08-28 09:31] LABS: Basophils Absolute Auto 0.1 K/mm3 (0.0-0.1); Eosinophils Absolute Auto 1.5 K/mm3 (0-0.3); Hematocrit 46.7 % (37.0-47.0); Hemoglobin 15.3 g/dL (12.0-15.0); Immature Granulocyte Absolute 0.05 K/mm3 (0.00-0.031); Immature Granulocyte Percent A 0.4 % (0-0.5); Lymphocytes Absolute Auto 2.62 K/mm3 (0.9-3.2); Lymphocytes Percent Auto 18.8 % (18.3-44.2); Mean Corpuscular HGB Conc 32.8 g/dl (32-36); Mean Corpuscular Volume 91.6 fl (80-100); Mean Platelet Volume 9.2 fl (7.4-10.4); Monocytes Absolute Auto 1.3 K/mm3 (0.1-0.6); Neutrophils Absolute Auto 8.3 K/mm3 (1.3-6.7); Neutrophils Percent Auto 59.8 % (45.5-73.1); Platelet Count Result 362 k/mm3 (150-375); Red Cell Distribution Width 12.3 % (11.5-14.5); White Blood Count 13.9 K/mm3 (4.5-10.0)
[2020-08-28] MEDS: IPRATROPIUM BR 0.02% INH SOLN 0.5 MG/2.5 ML VIAL INHALATION (09:49)
[2020-08-28] MEDS: ALBUTEROL SULFATE NEB 2.5 MG/0.5 ML INH 5 MG INHALATION (09:49)
[2020-08-28 09:52] LABS: Alanine Aminotransferase 15 U/L (4-35); Alkaline Phosphatase 95 U/L (38-126); Anion Gap 3 mmol/L (8-16); Aspartate Amino Transferase 26 U/L (14-36); Bilirubin,Total 0.6 mg/dL (0.2-1.3); Blood Urea Nitrogen 13 mg/dL (7-17); Calcium 9.2 mg/dL (8.4-10.2); Carbon Dioxide 34 mmol/L (22-30); Chloride 101 mmol/L (98-107); Estimated Glomerular Filt Rate > 60; Glucose 105 mg/dL (65-105); Potassium 4.4 mmol/L (3.4-5.0); Sodium 138 mmol/L (137-145)
--- NOTE | 2020-08-28 10:14 | ED.GENADULT ---
HPI - General Adult General Chief complaint: Shortness of Breath/Dyspnea Stated complaint: SOB Time Seen by Provider: 08/28/20 09:18 Source: patient and EMS Mode of arrival: EMS Limitations: no limitations History of Present Illness HPI narrative: Patient with history of COPD and asthma presents with chief complaint of progressively worsening shortness of breath and wheezing over the past 2 to 3 days. Patient states that her only other accompanying since symptom is sneezing. She denies fever, chills, nausea, vomiting, diarrhea, loss of taste or smell, headaches, body aches. She states that she has noticed more mucus in her chest but has not been taking Mucinex or other expectorants. Patient states that she has been taking her Trelegy is instructed daily. She states she has been using her albuterol rescue inhaler more frequently over the past few days. Patient states at this time she does not have a special education coordinator and her COPD asthma is managed by her PCP Dr. Mosqueda. Patient states that she lives alone in an apartment and generally takes care of herself. She does report that she is typically on 3 L of oxygen via nasal cannula. She was given nebulizer treatment and 125 mg of Solu-Medrol via EMS and reports feeling some improvement however she does still notice lots of wheezing. Patient is now satting 98% on her baseline of 3 L via nasal cannula. She denies any other concerns at this time. Related Data Home Medications Medication Instructions Recorded Confirmed Adult Multivitamin Gummies 400 mcg PO DAILY 08/19/19 07/16/20 Allergy Eye (naphazoline-phen) 2 drp OPHTHALMIC (EYE) BID PRN 08/19/19 07/16/20 Trelegy Ellipta 1 inh INHALATION DAILY 08/19/19 07/16/20 albuterol sulfate [Ventolin HFA] 2 puff INHALATION QID PRN 08/19/19 07/16/20 amlodipine 5 mg PO DAILY 08/19/19 07/16/20 aspirin [Adult Low Dose Aspirin] 81 mg PO DAILY 08/19/19 07/16/20 atorvastatin [Lipitor] 40 mg PO HS 08/19/19 07/16/20 cholecalciferol (vitamin D3) 2,000 unit PO DAILY 08/19/19 07/16/20 ipratropium-albuterol 3 ml INHALATION QID PRN 08/19/19 07/16/20 lisinopril 5 mg PO DAILY 08/19/19 07/16/20 buspirone 5 mg PO BID 02/19/20 07/16/20 montelukast 10 mg PO HS 02/19/20 07/16/20 Allergies Allergy/AdvReac Type Severity Reaction Status Date / Time No Known Allergies Allergy Verified 08/28/20 09:14 Review of Systems Review of Systems: Narrative: CONSTITUTIONAL: Denies fever, chills, or sweats. EYES: Reports sneezing denies visual changes, redness, or discharge. ENT: Denies rhinorrhea, congestion, sore throat, or otalgia. CARDIOVASCULAR: Denies chest pain, palpitations, or edema. RESPIRATORY: Reports wheezing, mucus production, dyspnea. GASTROINTESTINAL: Denies abdominal pain, nausea, vomiting, or diarrhea. GENITOURINARY: Denies dysuria or hematuria. SKIN: Denies rash or itching. MUSCULOSKELETAL: Denies back pain, joint pain, or myalgia. NEUROLOGIC: Denies headache, numbness, dizziness, or weakness. PSYCHIATRIC: Denies anxiety or depression. [facility]LY [facility] Past Medical History Medical History Anxiety Arthritis Asthma Cerebrovascular accident (~2017) Initially if she had some numbness and tingling to the right side of her body but that has resolved. MRI showed left occipital temporal infarct and small left basal ganglia infarcts. Chronic obstructive pulmonary disease Chronic respiratory failure with hypoxia, on home oxygen therapy 3 L nasal cannula. Coronary artery disease History of myocardial infarction and stent x1. Depression Diastolic dysfunction Eosinophilia Gastroesophageal reflux disease Hyperlipidemia Hypertension Pneumonia Tobacco abuse disorder Surgical History Surgical History History of bilateral cataract extraction History of cardiac catheterization History of heart artery stent History of tonsillectomy History of tonsillectomy Family Histor
[2020-08-28 10:37] LABS: D Dimer 0.55 ug/mL (<0.48)
--- NOTE | 2020-08-28 10:47 | PC.NURSE ---
Pt to CT scan via stretcher.
[2020-08-28 10:48] LABS: NT Pro B Type Natriuretic Pept 27 PG/ML (5-100)
--- NOTE | 2020-08-28 12:52 | PC.NURSE ---
patient ambulated to restroom. now back in room. back on O2 and monitor. IV antibiotic started. patient aware of all.
--- NOTE | 2020-08-28 14:38 | PM.IMHP ---
H&P: HPI History of Present Illness Date/Time: 08/28/20 14:38 Chief Complaint: sob Narrative: Deloris Stone is a 75 year old female who has a history of COPD and is chronically on oxygen at 3 L per nasal cannula at home. The patient was just admitted here on July 16 of this year. She was treated for exacerbation of COPD and had been tested for COVID last admission and was negative. Today the patient was checked for COVID-19 again. The patient stated that she self quarantine since COVID began. She says that her children dropped groceries off and they have not been tested positive for COVID-19. She said she has not been exposed COVID-19. She has not had any fever or chills. She had increased wheezing and shortness of breath. She also has a history of asthma and became more progressively short of breath over the last 2-3 days. She has been using her routine inhalers including the trilogy inhaler and her albuterol inhaler as well. She said that she is routinely on prednisone twice a day. The patient was given nebulizer treatment and started on IV Solu-Medrol via EMS the patient's oxygen level was 98% on her baseline oxygen at 3 L per nasal cannula. Her white count was noted to be 13.9 but that could also be contributed to her steroids. CT a from today showed no evidence of pulmonary embolism. Cholelithiasis. Small sliding hiatal hernia. Diverticulosis of the colon. Patient was started on azithromycin and Rocephin due to the elevated white count. The patient has been coughing up clear phlegm. She is afebrile. Patient is being admitted into observation status on the date of service 08/28/2020. Review of Systems Review of Systems: All systems reviewed & are unremarkable except as noted in HPI and below Constitutional: Constitutional: Reports as per HPI and Reports no additional constitutional complaints Eyes: Eyes: Reports as per HPI and Reports no additional eye complaints ENT: Reports system reviewed and no additional complaints, except as documented and Reports Normal hearing present Cardiovascular: Cardiovascular: Reports no additional cardiovascular complaints Respiratory: Respiratory: Reports no additional respiratory complaints and Reports no additional respiratory complaints Gastrointestinal: Gastrointestinal: Reports as per HPI and Reports no additional gastrointestinal complaints Musculoskeletal: Musculoskeletal: Reports no additional musculoskeletal complaints Integumentary/Breasts: Skin/Breast: Reports system reviewed and no additional complaints, except as docu and Reports as per HPI Neurologic: Reports system reviewed and no additional complaints, except as documented, Reports as per HPI and Reports Normal hearing present Psychiatric: Psychiatric: Reports no additional psychiatric complaints and Reports as per HPI Endocrine: Endocrine: Reports no additional endocrine complaints Hematologic/Lymphatic: Hematologic/Lymphatic: Reports no additional hematologic/lymphatic complaints Allergic/Immunologic: Allergic/Immunologic: Reports no additional allergic/immunologic complaints [facility] Past Medical History Medical History Anxiety Arthritis Asthma Cerebrovascular accident (~2017) Initially if she had some numbness and tingling to the right side of her body but that has resolved. MRI showed left occipital temporal infarct and small left basal ganglia infarcts. Chronic obstructive pulmonary disease Chronic respiratory failure with hypoxia, on home oxygen therapy 3 L nasal cannula. Coronary artery disease History of myocardial infarction and stent x1. Depression Diastolic dysfunction Eosinophilia Gastroesophageal reflux disease Hyperlipidemia Hypertension Pneumonia Tobacco abuse disorder Surgical History Surgical History History of bilateral cataract extraction History of cardiac catheterization
--- NOTE | 2020-08-28 14:40 | PC.NURSE ---
This patient, Deloris Stone, was admitted to [facility] Surg Room 317-01 on 08/28/20 @ 1410. Patient/family oriented to hospital policies and general routines including ID bracelet, bed and alarms, visiting hours, pain management, procedures, bathroom and other care routines, personal items, smoking policy, room service/diet, and visiting hours. Information on how to activate the Rapid Response Team has been discussed. Patient/Family are encouraged to report perceived risks to care and to ask questions if they do not understand what they are told or what they should do.
[2020-08-28] MEDS: methylPREDNISolone SOD SUCC 125 MG VIAL 60 MG IV PUSH ×2 (15:12→22:42)
--- NOTE | 2020-08-28 18:21 | PC.NURSE ---
Patient did not know her current pharmacy because she recently switched. I tried to call her daughter, but she did not answer. I called her old pharmacy and they let me know that she switched to [facility] in [place]. I gave them a call and they closed at 1800. Will call in the morning and verify medications.
[2020-08-28] MEDS: ALBUTEROL SULFATE (*SP) AEROSOL 1 PUFF 2 PUFF INHALATION (18:41)
[2020-08-28 22:01] LABS: SARS-CoV-2 RNA PCR Negative
[2020-08-29] VITALS (12 sets, daily range): BP systolic 102–122; BP diastolic 47–65; PULSE 81–88; RESP 18–22; TEMP 36.6–37; O2SAT 94–98
[2020-08-29] MEDS: methylPREDNISolone SOD SUCC 125 MG VIAL 60 MG IV PUSH ×2 (05:19→21:14)
[2020-08-29 06:23] LABS: Basophils Percent Auto 0.1 % (0.2-1.2); Hemoglobin 14.8 g/dL (12.0-15.0); Immature Granulocyte Absolute 0.15 K/mm3 (0.00-0.031); Immature Granulocyte Percent A 0.9 % (0-0.5); Lymphocytes Absolute Auto 1.29 K/mm3 (0.9-3.2); Lymphocytes Percent Auto 7.4 % (18.3-44.2); Mean Corpuscular HGB Conc 33.6 g/dl (32-36); Mean Corpuscular Volume 89.2 fl (80-100); Mean Platelet Volume 9.6 fl (7.4-10.4); Monocytes Absolute Auto 0.4 K/mm3 (0.1-0.6); Monocytes Percent Auto 2.1 % (2.6-8.5); Neutrophils Absolute Auto 15.7 K/mm3 (1.3-6.7); Neutrophils Percent Auto 89.5 % (45.5-73.1); Platelet Count Result 349 k/mm3 (150-375); Red Blood Count 4.93 M/mm3 (4.2-5.4); Red Cell Distribution Width 12.2 % (11.5-14.5); White Blood Count 17.5 K/mm3 (4.5-10.0)
[2020-08-29 06:40] LABS: Alanine Aminotransferase 17 U/L (4-35); Albumin Level 3.9 g/dL (3.5-5.1); Alkaline Phosphatase 87 U/L (38-126); Anion Gap 5 mmol/L (8-16); Aspartate Amino Transferase 25 U/L (14-36); Bilirubin,Total 0.3 mg/dL (0.2-1.3); Blood Urea Nitrogen 19 mg/dL (7-17); Calcium 9.2 mg/dL (8.4-10.2); Carbon Dioxide 31 mmol/L (22-30); Chloride 102 mmol/L (98-107); Estimated Glomerular Filt Rate > 60; Glucose 150 mg/dL (65-105); Magnesium 2.4 mg/dL (1.6-2.3); Potassium 4.2 mmol/L (3.4-5.0); Sodium 138 mmol/L (137-145)
[2020-08-29] MEDS: guaiFENesin 12 HR 600 MG TABCR 1200 MG PO ×2 (08:57→21:14)
[2020-08-29] MEDS: CEFDINIR 300 MG CAPSULE PO ×2 (08:57→21:14)
[2020-08-29] MEDS: AZITHROMYCIN 250 MG TABLET PO (08:57)
[2020-08-29] MEDS: IPRATROPIUM BR 0.02% INH SOLN 0.5 MG/2.5 ML VIAL INHALATION ×3 (09:22→20:06)
[2020-08-29] MEDS: ALBUTEROL SULFATE NEB 2.5 MG/0.5 ML INH INHALATION ×3 (09:22→20:06)
[2020-08-29 09:31] LABS: Free T4 Free Thyroxine Reflex 1.13 ng/dL (0.78-2.19)
[2020-08-29 10:36] LABS: Total Triiodothyronine (T3) 1.09 NG/ML (0.97-1.69)
--- NOTE | 2020-08-29 12:10 | PM.IMPN ---
Progress Note: A&P Assessment and Plan (1) COPD exacerbation: Code(s): J44.1 - Chronic obstructive pulmonary disease with (acute) exacerbation Status: Acute Assessment and Plan: COVID testing negative. Lung exam shows exp wheeze diffusely. Appears to have clinically improved overnight. Continues on her home O2 requirements Will taper Solumedrol freq to 60 mg Q12hr tonight Continue home albuterol as needed Continue with home meds Continue with neb treatments PEP CPT and mucinex to mobilize secretions Transition to PO azithro and cefdinir today; will complete 5 days total for COPD exacerbation (through 09/01) Monitor Consider discharge in 1-2 days if continued clinical improvement (2) COVID-19 ruled out by laboratory testing: Code(s): Z03.818 - Encounter for observation for suspected exposure to other biological agents ruled out Status: Ruled-out Assessment and Plan: COVID testing negative. (3) HLD (hyperlipidemia): Code(s): E78.5 - Hyperlipidemia, unspecified Status: Chronic Assessment and Plan: Continue with home medication. (4) CHF (congestive heart failure): Qualifiers: Heart failure chronicity: chronic Heart failure type: diastolic Qualified Code(s): I50.32 - Chronic diastolic (congestive) heart failure Code(s): I50.9 - Heart failure, unspecified Status: Acute Assessment and Plan: Appears to be compensated Continue with home meds Monitor (5) HTN (hypertension): Qualifiers: Hypertension type: essential hypertension Qualified Code(s): I10 - Essential (primary) hypertension Code(s): I10 - Essential (primary) hypertension Status: Chronic Assessment and Plan: BP 120s sys Continue with lisinopril Subjective Date/time seen: 08/29/20 12:10 Interval history: Patient is a 75 yo F with history of COPD, chronic respiratory failure (on 3L O2 at home), CAD, CVA, HTN, and previous tobacco abuse who is seen in follow up for COPD exacerbation and COVID PUI (negative). Patient states she feels better today, but not quite back to her baseline. Still feels slightly shortness breath and has some wheezing, but overall improved from yesterday. She has no other complaints at the moment. She states she saw Dr. Doan previously, but has not been reestablished with a heating technician; she wished to talk to her PCP about referrals as she would like a heating technician close to home. Denies f/c/s, headaches, dizziness, lightheadedness, cp/palpitations, n/v/d/c, abd pain, dysuria, calf pain/swelling. Review of Systems Review of Systems: All systems reviewed & are unremarkable except as noted in HPI and below Exam Narrative: Exam Narrative: General: Patient sitting upright in bed in no acute distress. HEENT: Normocephalic, EOMI, oral mucosa moist. Cardiovascular: Rate and rhythm are regular. No notable murmur, rub, or gallop. Respiratory: diffuse, coarse breath sounds with scattered exp wheeze. Non-labored breathing. On 3L O2 NC at time of visit. Not in respiratory distress. Speaks in somewhat longer sentences Abdomen: Soft, non-tender, non-distended, bowel sounds present. Extremities: Peripheral pulses intact. No edema. NTTP b/l calves Neuro: No focal neurological deficits. Speech is clear. Objective Data Vital Signs Vital Signs: Last Vital Signs Temp 98.5 F 08/29/20 06:00 Pulse 85 08/29/20 09:29 Resp 18 08/29/20 09:20 BP 122/65 08/29/20 06:00 Pulse Ox 96 08/29/20 09:29 Intake/Output Intake/Output: Intake & Output 08/26/20 08/27/20 08/28/20 08/29/20 23:59 23:59 23:59 23:59 Intake Total 740 250 Output Total 150 300 Balance 590 -50 Meds/Results Medications: Active Medications
[2020-08-29] MEDS: busPIRone HCL 5 MG TABLET PO (18:09)
[2020-08-29] MEDS: VARENICLINE 0.5 MG TABLET PO (18:09)
[2020-08-29] MEDS: ATORVASTATIN 40 MG TABLET PO (21:14)
[2020-08-29] MEDS: MONTELUKAST SODIUM 10 MG TABLET PO (21:14)
[2020-08-30] MEDS: IPRATROPIUM BR 0.02% INH SOLN 0.5 MG/2.5 ML VIAL INHALATION ×2 (01:58→09:13)
[2020-08-30] MEDS: ALBUTEROL SULFATE NEB 2.5 MG/0.5 ML INH INHALATION ×2 (01:59→09:13)
[2020-08-30 02:02] VITALS: PULSE 66; RESP 18
[2020-08-30 05:45] VITALS: BP 115/52; PULSE 69; RESP 18; TEMP 36.6; O2SAT 97
[2020-08-30 06:56] LABS: Basophils Percent Auto 0.1 % (0.2-1.2); Hemoglobin 14.2 g/dL (12.0-15.0); Immature Granulocyte Absolute 0.19 K/mm3 (0.00-0.031); Immature Granulocyte Percent A 0.8 % (0-0.5); Lymphocytes Absolute Auto 0.64 K/mm3 (0.9-3.2); Lymphocytes Percent Auto 2.7 % (18.3-44.2); Mean Corpuscular Volume 90.9 fl (80-100); Mean Platelet Volume 9.6 fl (7.4-10.4); Monocytes Absolute Auto 0.8 K/mm3 (0.1-0.6); Monocytes Percent Auto 3.5 % (2.6-8.5); Neutrophils Absolute Auto 22.2 K/mm3 (1.3-6.7); Neutrophils Percent Auto 92.9 % (45.5-73.1); Platelet Count Result 351 k/mm3 (150-375); Red Blood Count 4.73 M/mm3 (4.2-5.4); Red Cell Distribution Width 12.5 % (11.5-14.5); White Blood Count 23.9 K/mm3 (4.5-10.0)
[2020-08-30 07:09] LABS: Anion Gap 4 mmol/L (8-16); Blood Urea Nitrogen 26 mg/dL (7-17); Calcium 9.1 mg/dL (8.4-10.2); Carbon Dioxide 33 mmol/L (22-30); Chloride 101 mmol/L (98-107); Estimated Glomerular Filt Rate > 60; Glucose 131 mg/dL (65-105); Magnesium 2.7 mg/dL (1.6-2.3); Sodium 138 mmol/L (137-145)
[2020-08-30 08:00] VITALS: O2SAT 94
[2020-08-30] MEDS: VARENICLINE 0.5 MG TABLET PO (08:24)
[2020-08-30] MEDS: guaiFENesin 12 HR 600 MG TABCR 1200 MG PO (08:24)
[2020-08-30] MEDS: CHOLECALCIFEROL 1,000 UNITS TABLET 2000 UNITS PO (08:24)
[2020-08-30] MEDS: amLODIPine BESYLATE 5 MG TABLET PO (08:24)
[2020-08-30] MEDS: methylPREDNISolone SOD SUCC 125 MG VIAL 60 MG IV PUSH (08:25)
[2020-08-30] MEDS: AZITHROMYCIN 250 MG TABLET PO (08:25)
[2020-08-30] MEDS: busPIRone HCL 5 MG TABLET PO (08:25)
[2020-08-30] MEDS: ASPIRIN 81 MG ENTERIC TABLET PO (08:25)
[2020-08-30] MEDS: CEFDINIR 300 MG CAPSULE PO (08:25)
[2020-08-30] MEDS: lisinopriL 5 MG TABLET PO (08:25)
[2020-08-30] MEDS: FLUTICASONE/UMECLIDIN/VILANTER 100-62.5-25 MCG ELLIPTA 1 PUFF INHALATION (08:27)
[2020-08-30 09:08] VITALS: PULSE 72; RESP 18
[2020-08-30 09:14] VITALS: PULSE 75; RESP 18; O2SAT 94
--- NOTE | 2020-08-30 11:10 | PM.DS ---
DS: Admitting Diagnosis Admitting Diagnosis Admitting Diagnosis: COPD exacerbation, COVID PUI DS: Discharge Diagnosis Discharge Diagnosis (1) COPD exacerbation: Code(s): J44.1 - Chronic obstructive pulmonary disease with (acute) exacerbation Status: Acute Assessment and Plan: COVID testing negative. Lung exam revealed significant improvement today. Appears to have clinically improved again overnight. Continues on her home O2 requirements Solumedrol IV tapered during stay; will discharge on prednisone taper starting tomorrow Continue home albuterol as needed Continue with home meds Continue with neb treatments PEP CPT and mucinex to mobilize secretions Will continue PO azithro and cefdinir; will complete 5 days total for COPD exacerbation (through 09/01) Monitor Discharge home today (2) COVID-19 ruled out by laboratory testing: Code(s): Z03.818 - Encounter for observation for suspected exposure to other biological agents ruled out Status: Ruled-out Assessment and Plan: COVID testing negative. (3) HLD (hyperlipidemia): Code(s): E78.5 - Hyperlipidemia, unspecified Status: Chronic Assessment and Plan: Continue with home medication. (4) CHF (congestive heart failure): Qualifiers: Heart failure chronicity: chronic Heart failure type: diastolic Qualified Code(s): I50.32 - Chronic diastolic (congestive) heart failure Code(s): I50.9 - Heart failure, unspecified Status: Acute Assessment and Plan: Appears to be compensated Continue with home meds Monitor (5) HTN (hypertension): Qualifiers: Hypertension type: essential hypertension Qualified Code(s): I10 - Essential (primary) hypertension Code(s): I10 - Essential (primary) hypertension Status: Chronic Assessment and Plan: BP 110s sys most recently Continue with lisinopril DS: Summary Hospital Course Reason for hospitalization: COPD exacerbation, COVID PUI Hospital Course: Date of arrival: 08/28/20 Date of discharge: 08/30/20 Patient is a 75 yo F with history of COPD, chronic respiratory failure (on 3L O2 at home), CAD, CVA, HTN, and previous tobacco abuse who presented to the ED on 08/28 with complaints of shortness of breath and wheezing for the previous 2-3 days. Whlie in the ED, COVID swab was obtained. She was on her home O2 requirements of 3 L via NC. She was given IV solumedrol and neb treatment with improvement. She was given empiric IV azithromycin and Rocephin as well. CTA chest was negative for a PE. Patient admitted under setting of COPD exacerbation and COVID PUI. Patient was admitted to the hospitalist service for further management/treatment. Patient was started on IV solumedrol scheduled and was weaned in frequency during stay. She had a negative COVID test and was started on neb treatments. She had marked clinical improvement over her hospital course, with minimal to no wheezing noted on exam on day of discharge. She was continued on PO azithromycin and cefdinir and was to continue this through 09/01 to complete 5 days of therapy. She was to be discharge on prednisone taper as well. Given her relatively quick/significant improvement during her hospital course, plan was for her to discharge home with follow up with her PCP in 1-2 weeks; she was to discuss obtaining referral for a rider ticket worker if PCP agreed. Patient and family were agreeable and comfortable with plan for discharge. Patient hemodynamically stable and in improved condition for discharge on 08/30 Status at Discharge Overall status at discharge: patient is progressing back to baseline Time Spent with Patient Time attestation: Total time spent providing
--- NOTE | 2020-08-30 13:05 | PC.NURSE ---
Pt has discharge orders. Pt had both IV's removed, discharge paperwork reviewed and opportunities for questions provided. Pt exhibited good understanding of all discharge instructions. Pt was assisted by staff to the front door, to meet her ride.
== END 2020-08-30 13:00 | disposition home or self-care (01) ==
LOC: ANHED 09:20 → ANH3MEDSUR 13:42
PROVIDERS: Nurse Practitioner; Physician Assistant; Admitting Provider Internal Medicine; Emergency Provider Emergency Medicine; PCP Nurse Practitioner Family; Visit Provider Physician Assistant
DX: J44.1 Chronic obstructive pulmonary disease with (acute) exacerbation (principal); J96.11 Chronic respiratory failure with hypoxia; Z99.81 Dependence on supplemental oxygen; I11.0 Hypertensive heart disease with heart failure; I50.32 Chronic diastolic (congestive) heart failure; I25.10 Atherosclerotic heart disease of native coronary artery without angina pectoris; I25.2 Old myocardial infarction; E78.5 Hyperlipidemia, unspecified; K21.9 Gastro-esophageal reflux disease without esophagitis; Z79.82 Long term (current) use of aspirin; Z86.73 Personal history of transient ischemic attack (TIA), and cerebral infarction without residual deficits; Z95.5 Presence of coronary angioplasty implant and graft; F17.210 Nicotine dependence, cigarettes, uncomplicated; F12.90 Cannabis use, unspecified, uncomplicated; Z20.828 Contact with and (suspected) exposure to other viral communicable diseases
CPT/HCPCS: 36415; 71045; 71275; 80048; 80053; 83735; 83880; 84439; 84443; 84480; 85025; 85380; 87070; 87205; 87635; 93005; 94640; 94667; 96365; 96375; 96376; 97161; 97165; 99285; A9270; C9803; G0378; J0456; J0696; J2930; Q9967; U0003

== ENCOUNTER 2020-11-30 14:13 | Emergency (ER) | payer MEDICARE, SELFPAY ==
[2020-11-30] VITALS (14 sets, daily range): BP systolic 136–170; BP diastolic 63–88; PULSE 68–88; RESP 17–25; TEMP 36.2; O2SAT 94–99
--- NOTE | ~2020-11-30 | XR_ITS ---
XR chest 1V portable DATE: 11/30/2020 14:56 INDICATION: Shortness of breath TECHNIQUE: Portable AP chest on 11/30/2020 at 1453 hours COMPARISON: 08/28/2020 portable AP chest FINDINGS: Normal heart size. Moderate bilateral hyperinflation. No pulmonary infiltrate or consolidation, pleural effusion or pulm onary vascular congestion or pneumothorax is detected. Diffuse osteopenia. There is osteoarthritic change at both glenohumeral joints. IMPRESSION: Bilateral hyperinflation; no active cardiopulmonary disease Reviewed, dictated and finalized at location A.
--- NOTE | 2020-11-30 14:14 | ECG_ITS ---
Measurements Intervals [place] Rate: 82 P: 74 MO: 142 QRS: 17 QRSD: 81 T: 55 QT: 361 QTc: 423 Interpretive Statements SINUS RHYTHM BASELINE ARTIFACT- I, II, III, AVL, AVF, V1-V6 NORMAL ECG Electronically Signed On 11-30-2020 16:52:26 CDT by Tito Darling D.O.
--- NOTE | 2020-11-30 14:22 | ED.GENADULT ---
HPI - General Adult General Chief complaint: Shortness of Breath/Dyspnea Stated complaint: sob Time Seen by Provider: 11/30/20 14:17 Source: patient History of Present Illness HPI narrative: Patient is a 75 y/o female complaining of severe SOB for last 2 days. There is no alleviating or exacerbating factor. She also has a cough and slight chest pain. She has COPD and she is on O2 at home. She was given Neb and Solumedrol 125 mg by EMS DIESEL MACHINIST. Related Data Home Medications Medication Instructions Recorded Confirmed Allergy Eye (naphazoline-phen) 2 drp OPHTHALMIC (EYE) BID PRN 08/19/19 08/29/20 Trelegy Ellipta 1 inh INHALATION DAILY 08/19/19 08/29/20 albuterol sulfate [Ventolin HFA] 2 puff INHALATION QID PRN 08/19/19 08/29/20 amlodipine 5 mg PO DAILY 08/19/19 08/29/20 aspirin [Adult Low Dose Aspirin] 81 mg PO DAILY 08/19/19 08/29/20 atorvastatin [Lipitor] 40 mg PO HS 08/19/19 08/29/20 cholecalciferol (vitamin D3) 2,000 unit PO DAILY 08/19/19 08/29/20 ipratropium-albuterol 3 ml INHALATION QID PRN 08/19/19 08/29/20 lisinopril 5 mg PO DAILY 08/19/19 08/29/20 buspirone 5 mg PO BID 02/19/20 08/29/20 montelukast 10 mg PO HS 02/19/20 08/29/20 Chantix 0.5 mg PO BID 08/29/20 08/29/20 Allergies Allergy/AdvReac Type Severity Reaction Status Date / Time No Known Allergies Allergy Verified 08/28/20 15:17 Review of Systems Constitutional: Constitutional: Denies chills, Denies fever(s), Denies headache(s) and Denies weakness Eyes: Eyes: Denies blurry vision ENT: Denies headache(s) and Denies neck pain Cardiovascular: Cardiovascular: Reports chest pain and Reports dyspnea Respiratory: Respiratory: Reports cough and Reports dyspnea Gastrointestinal: Gastrointestinal: Denies abdominal pain, Denies diarrhea, Denies nausea and Denies vomiting Genitourinary: Genitourinary: Denies hematuria and Denies dysuria Musculoskeletal: Musculoskeletal: Denies back pain and Denies neck pain Neurologic: Denies headache(s) and Denies weakness PMFSH Past Medical History Medical History Anxiety Arthritis Asthma Cerebrovascular accident (~2017) Initially if she had some numbness and tingling to the right side of her body but that has resolved. MRI showed left occipital temporal infarct and small left basal ganglia infarcts. Chronic obstructive pulmonary disease Chronic respiratory failure with hypoxia, on home oxygen therapy 3 L nasal cannula. Coronary artery disease History of myocardial infarction and stent x1. Depression Diastolic dysfunction Eosinophilia Gastroesophageal reflux disease Hyperlipidemia Hypertension Pneumonia Tobacco abuse disorder Surgical History Surgical History History of bilateral cataract extraction History of cardiac catheterization History of heart artery stent History of tonsillectomy History of tonsillectomy Family History Family History Father Acute myocardial infarction Mother Parkinson's disease Dementia Acute myocardial infarction Premature coronary artery disease Social History Social History Social History: The patient lives in her own apartment. She is and has 4 children. 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 She occasionally drinks alcohol but this is rare. She continues to smoke 6-10 cigarettes a day but smoked up to a pack of cigarettes per day since she was a teenager. She designates her daughter Radha Craig as her surrogate decision maker and she wishes to be a full code. Years smoked: 60 Smoking status: Current every day smoker Tobacco type: cigarettes Additional smoking assessment comments: Patient stated she quit smoking 1 week ago. Alcohol intake: never Drinks per week: 2 Substance use: never Subst
[2020-11-30 14:28] LABS: Alveolar/Arterial O2 Gradient 85.4 mmHg; Base Excess ABG -1.2 mEq/l (+/-2.0); Carboxyhemoglobin 3.5 % THb (0-2.0); Device NASAL CANNULA; Fractional Inspired Oxygen 32 %; HCO3 ABG 24.6 mEq/l (22.0-26.0); Methemoglobin ABG 0.2 %THb (0-1.5); Modified Allen's Test Pass; Oxygen Content ABG 19.6 %vol (16.0-22.0); Oxygen Saturation ABG 96.5 % (95.0-100.0); Oxyhemoglobin 93.2 % THb (90.0-100.0); PO2 ABG 90.1 mmHg (80.0-100.0); PO2 FiO2 Ratio Arterial Blood 2.82 %; Reduced Hemoglobin 3.1 %THb (0-5.0); Site Drawn LEFT RADIAL; Total Hemoglobin 14.9 g/dL (12.0-18.0); pH ABG 7.355 (7.350-7.450)
[2020-11-30 14:32] LABS: Basophils Absolute Auto 0.1 K/mm3 (0.0-0.1); Eosinophils Absolute Auto 0.8 K/mm3 (0-0.3); Eosinophils Percent Auto 6.2 % (0-4.4); Hematocrit 46.7 % (37.0-47.0); Hemoglobin 15.3 g/dL (12.0-15.0); Immature Granulocyte Absolute 0.07 K/mm3 (0.00-0.031); Immature Granulocyte Percent A 0.6 % (0-0.5); Lymphocytes Absolute Auto 2.68 K/mm3 (0.9-3.2); Lymphocytes Percent Auto 21.3 % (18.3-44.2); Mean Corpuscular HGB Conc 32.8 g/dl (32-36); Mean Corpuscular Hemoglobin 30.5 pg (26-34); Mean Corpuscular Volume 93.2 fl (80-100); Mean Platelet Volume 9.2 fl (7.4-10.4); Monocytes Absolute Auto 1.2 K/mm3 (0.1-0.6); Monocytes Percent Auto 9.8 % (2.6-8.5); Neutrophils Absolute Auto 7.7 K/mm3 (1.3-6.7); Neutrophils Percent Auto 61.1 % (45.5-73.1); Platelet Count Result 346 k/mm3 (150-375); Red Blood Count 5.01 M/mm3 (4.2-5.4); Red Cell Distribution Width 12.4 % (11.5-14.5); White Blood Count 12.6 K/mm3 (4.5-10.0)
[2020-11-30 14:43] LABS: Anion Gap 4 mmol/L (8-16); Blood Urea Nitrogen 12 mg/dL (7-17); Calcium 8.7 mg/dL (8.4-10.2); Carbon Dioxide 28 mmol/L (22-30); Chloride 109 mmol/L (98-107); Estimated Glomerular Filt Rate > 60; Glucose 119 mg/dL (65-105); Potassium 4.1 mmol/L (3.4-5.0); Sodium 141 mmol/L (137-145)
[2020-11-30 16:41] LABS: Lactic Acid Reflex 1.2 mmol/L (0.7-2.1)
--- NOTE | 2020-11-30 18:10 | PC.NURSE ---
went in to dc patient, pt appeared out of breath. asked for provider to come evaluate the pt. dr rob arrived, assessed the pt, offered admission to hospital. pt declined and stated that she wanted to go home, and would return if needed. pt left with son who was in agreement to take pt home
[2020-12-01 13:22] LABS: SARS-CoV-2 RNA PCR Negative
== END 2020-11-30 18:00 | disposition home or self-care (01) ==
PROVIDERS: Emergency Medicine; Emergency Provider Emergency Medicine; PCP Nurse Practitioner Family
DX: J44.1 Chronic obstructive pulmonary disease with (acute) exacerbation (principal); Z99.81 Dependence on supplemental oxygen; Z20.822 Contact with and (suspected) exposure to COVID-19; J96.11 Chronic respiratory failure with hypoxia; I25.10 Atherosclerotic heart disease of native coronary artery without angina pectoris; E78.5 Hyperlipidemia, unspecified; I50.30 Unspecified diastolic (congestive) heart failure; I11.0 Hypertensive heart disease with heart failure; K21.9 Gastro-esophageal reflux disease without esophagitis; Z95.5 Presence of coronary angioplasty implant and graft; I25.2 Old myocardial infarction; Z86.73 Personal history of transient ischemic attack (TIA), and cerebral infarction without residual deficits; F41.9 Anxiety disorder, unspecified; F32.9 Major depressive disorder, single episode, unspecified; Z98.42 Cataract extraction status, left eye; Z98.41 Cataract extraction status, right eye; F17.210 Nicotine dependence, cigarettes, uncomplicated
CPT/HCPCS: 36415; 36600; 71045; 80048; 82375; 82805; 83050; 83605; 85025; 87040; 93005; 99284; C9803; U0003; U0005

== ENCOUNTER 2020-12-30 14:34 | Observation (INO) | payer MEDICARE, MEDICAID, SELFPAY ==
[2020-12-30] VITALS (22 sets, daily range): BP systolic 116–142; BP diastolic 55–102; PULSE 59–111; RESP 15–29; TEMP 36.7–36.9; O2SAT 94–100; BMI 26.4
--- NOTE | ~2020-12-30 | XR_ITS ---
EXAMINATION: XR chest 1V portable DATE: 12/30/2020 15:53 INDICATION: Shortness of breath. TECHNIQUE: A single frontal view of the chest was obtained. COMPARISON: Chest single view 11/30/2020, chest CT 08/28/2020 FINDINGS: The lungs are hyperexpanded with lucencies, consistent with emphysema. There is mild atelec tasis in right lower lung zone. A calcified right lung nodule and calcified right hilar lymph nodes a re consistent with old granulomatous disease. No pleural effusion or pneumothorax. The heart size is normal. There is a small hiatal hernia. IMPRESSION: 1. Emphysema. 2. Mild atelectasis in right lower lung zone. 3. Small hiatal hernia. Reviewed, dictated and finalized at location B.
--- NOTE | ~2020-12-30 | CT_ITS ---
EXAMINATION: CTA chest PE protocol DATE: 12/30/2020 16:40 INDICATION: Shortness of breath. Cough. TECHNIQUE: Computed tomography angiography (CTA) of the chest was performed with 100 mL Omnipaque-350 intravenous contrast timed to evaluate the pulmonary arteries. Coronal maximum intensity projection 3D-reconstructions were created by the technologist. Automated exposure control and iterative reconst ruction technique were employed. The dose-length product was 359.70 mGy-cm. COMPARISON: Chest CT 08/28/2020 FINDINGS: There is severe emphysema. Again seen is mild scarring at right lung apex. There is mild at electasis in right lower lobe. No pleural effusion. The heart size is normal. There are coronary jesenia ry calcifications. No pericardial effusion. There is a moderate-sized sliding hiatal hernia. There is no pulmonary embolus. There is thoracic kyphosis and mild spondylosis. IMPRESSION: 1. No pulmonary embolus. Sensitivity is moderately decreased by motion artifact. 2. Severe emphysema. 3. Moderate-sized sliding hiatal hernia. Reviewed, dictated and finalized at location B. IMPRESSION: 1. No pulmonary embolus. Sensitivity is moderately decreased by motion artifact . 2. Severe emphysema. 3. Moderate-sized sliding hiatal hernia.
--- NOTE | 2020-12-30 14:45 | ECG_ITS ---
Measurements Intervals [place] Rate: 88 P: 78 [place]: 139 QRS: 14 QRSD: 90 T: 56 QT: 348 QTc: 421 Interpretive Statements SINUS RHYTHM POSSIBLE LEFT ATRIAL ENLARGEMENT INCOMPLETE RIGHT BUNDLE BRANCH BLOCK BASELINE ARTIFACT- AVR, AVL, AVF, V1-V6 BORDERLINE ECG Electronically Signed On 12-30-2020 14:48:53 CDT by Tito Darling D.O.
--- NOTE | 2020-12-30 14:48 | ED.GENADULT ---
HPI - General Adult General Chief complaint: Shortness of Breath/Dyspnea Stated complaint: sob, copd? Source: patient History of Present Illness HPI narrative: Patient is a 75 y/o female complaining severe shortness of breath starting this morning. There is no alleviating or exacerbating factor. She has history of COPD and she is on home oxygen. She tried her Neb which did not help today. She has some cough. She has no fever or chest pain. She was given Albuterol and Solumedrol by EMS. Related Data Home Medications Medication Instructions Recorded Confirmed albuterol sulfate [Ventolin HFA] 2 puff INHALATION QID PRN 08/19/19 12/30/20 aspirin [Adult Low Dose Aspirin] 81 mg PO DAILY 08/19/19 12/30/20 ipratropium-albuterol 3 ml INHALATION QID PRN 08/19/19 12/30/20 lisinopril 5 mg PO DAILY 08/19/19 12/30/20 atorvastatin 40 mg PO DAILY 12/30/20 12/30/20 buspirone [BuSpar] 5 mg PO BID 12/30/20 12/30/20 diphenhydramine HCl [Benadryl] 25 mg PO Q6H PRN 12/30/20 12/30/20 diphenhydramine-acetaminophen 1 tablet PO HS PRN 12/30/20 12/30/20 [Tylenol PM Extra Strength] [id number] 1 inh INHALATION PRN PRN 12/30/20 12/30/20 [Trelegy Ellipta] Allergies Allergy/AdvReac Type Severity Reaction Status Date / Time No Known Allergies Allergy Verified 12/30/20 14:44 Review of Systems Constitutional: Constitutional: Denies chills, Denies fever(s), Denies headache(s) and Denies weakness Eyes: Eyes: Denies blurry vision ENT: Denies headache(s) and Denies neck pain Cardiovascular: Cardiovascular: Denies chest pain and Reports dyspnea Respiratory: Respiratory: Reports cough and Reports dyspnea Gastrointestinal: Gastrointestinal: Denies abdominal pain, Denies diarrhea, Denies nausea and Denies vomiting Genitourinary: Genitourinary: Denies hematuria and Denies dysuria Musculoskeletal: Musculoskeletal: Denies back pain and Denies neck pain Neurologic: Denies headache(s) and Denies weakness [facility] Past Medical History Medical History Anxiety Arthritis Asthma Cerebrovascular accident (~2017) Initially if she had some numbness and tingling to the right side of her body but that has resolved. MRI showed left occipital temporal infarct and small left basal ganglia infarcts. Chronic obstructive pulmonary disease Chronic respiratory failure with hypoxia, on home oxygen therapy 3 L nasal cannula. Coronary artery disease History of myocardial infarction and stent x1. Depression Diastolic dysfunction Eosinophilia Gastroesophageal reflux disease Hyperlipidemia Hypertension Pneumonia Tobacco abuse disorder Surgical History Surgical History History of bilateral cataract extraction History of cardiac catheterization History of heart artery stent History of tonsillectomy History of tonsillectomy Family History Family History Father Acute myocardial infarction Mother Parkinson's disease Dementia Acute myocardial infarction Premature coronary artery disease Social History Social History Social History: The patient lives in her own apartment. She is and has 4 children. 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 She occasionally drinks alcohol but this is rare. She continues to smoke 6-10 cigarettes a day but smoked up to a pack of cigarettes per day since she was a teenager. She designates her daughter Radha Craig as her surrogate decision maker and she wishes to be a full code. Years smoked: 40 Smoking status: Current every day smoker Tobacco type: cigarettes Second hand tobacco smoke exposure: No Smoking end date: 12/30/20 Additional smoking assessment comments: Patient stated she quit smoking 1 week ago. Alcohol intake: never
[2020-12-30 16:11] LABS: Basophils Absolute Auto 0.1 K/mm3 (0.0-0.1); Eosinophils Absolute Auto 0.6 K/mm3 (0-0.3); Eosinophils Percent Auto 4.9 % (0-4.4); Hematocrit 46.8 % (37.0-47.0); Hemoglobin 15.1 g/dL (12.0-15.0); Immature Granulocyte Absolute 0.05 K/mm3 (0.00-0.031); Immature Granulocyte Percent A 0.4 % (0-0.5); Lymphocytes Absolute Auto 1.03 K/mm3 (0.9-3.2); Lymphocytes Percent Auto 9.1 % (18.3-44.2); Mean Corpuscular HGB Conc 32.3 g/dl (32-36); Mean Corpuscular Hemoglobin 29.8 pg (26-34); Mean Corpuscular Volume 92.5 fl (80-100); Mean Platelet Volume 9.1 fl (7.4-10.4); Monocytes Absolute Auto 0.5 K/mm3 (0.1-0.6); Monocytes Percent Auto 4.2 % (2.6-8.5); Neutrophils Absolute Auto 9.1 K/mm3 (1.3-6.7); Neutrophils Percent Auto 80.4 % (45.5-73.1); Platelet Count Result 313 k/mm3 (150-375); Red Blood Count 5.06 M/mm3 (4.2-5.4); Red Cell Distribution Width 12.2 % (11.5-14.5); White Blood Count 11.3 K/mm3 (4.5-10.0)
[2020-12-30 16:22] LABS: D Dimer 0.65 ug/mL (<0.48)
[2020-12-30 16:29] LABS: Alanine Aminotransferase 13 U/L (4-35); Alkaline Phosphatase 64 U/L (38-126); Anion Gap 2 mmol/L (8-16); Aspartate Amino Transferase 27 U/L (14-36); Bilirubin,Total 0.2 mg/dL (0.2-1.3); Blood Urea Nitrogen 17 mg/dL (7-17); Calcium 8.8 mg/dL (8.4-10.2); Carbon Dioxide 34 mmol/L (22-30); Chloride 104 mmol/L (98-107); Estimated Glomerular Filt Rate > 60; Glucose 153 mg/dL (65-105); Potassium 4.2 mmol/L (3.4-5.0); Sodium 140 mmol/L (137-145)
[2020-12-30 16:45] LABS: NT Pro B Type Natriuretic Pept 26 PG/ML (5-100)
--- NOTE | 2020-12-30 18:00 | PC.NURSE ---
Addendum entered by Karan Duenas RN 12/30/20 19:01: Pt states she feels like she needs to stay. Note 96-98% on 3L/NC. Original Note: Pt asleep on stretcher. Appears comfortable and is breathing easier.
--- NOTE | 2020-12-30 19:10 | PC.NURSE ---
Report to RK Giang, to continue care.
--- NOTE | 2020-12-30 21:56 | PM.IMHP ---
H&P: HPI History of Present Illness Date/Time: 12/30/20 21:56 Chief Complaint: Severe shortness of breath since last night+ Narrative: This is a 75 year old female with known chronic respiratory failure on 3L of oxygen at home at all times and severe COPD who presented to the hospital with a complaint of worsening shortness of breath since last night. She has had severe exertional shortness of breath for the past 6 months but states that today it seems to have worsened. She has a chronic cough which hasn't worsened recently. The patient denies any fever, sore throat, chest pain, abdominal pain, dizziness, headache, nausea, vomiting, dysuria, hematuria, diarrhea, rectal bleeding, or LE swelling. The patient reports minimal improvement of her symptoms with her home bronchodilators. She was evaluated today and being given bronchodilators and steroids. The patient continues to smoke cigarettes. She has not followed up with pulmonology as her last neurodiagnostic technologist . Review of Systems Review of Systems: All systems reviewed & are unremarkable except as noted in HPI and below PMFSH Past Medical History Medical History Anxiety Arthritis Asthma Cerebrovascular accident (~2017) Initially if she had some numbness and tingling to the right side of her body but that has resolved. MRI showed left occipital temporal infarct and small left basal ganglia infarcts. Chronic obstructive pulmonary disease Chronic respiratory failure with hypoxia, on home oxygen therapy 3 L nasal cannula. Coronary artery disease History of myocardial infarction and stent x1. Depression Diastolic dysfunction Eosinophilia Gastroesophageal reflux disease Hyperlipidemia Hypertension Pneumonia Tobacco abuse disorder Surgical History Surgical History History of bilateral cataract extraction History of cardiac catheterization History of heart artery stent History of tonsillectomy History of tonsillectomy Family History Family History Father Acute myocardial infarction Mother Parkinson's disease Dementia Acute myocardial infarction Premature coronary artery disease Social History Social History Social History: The patient lives in her own apartment. She is and has 4 children. 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 She occasionally drinks alcohol but this is rare. She continues to smoke 6-10 cigarettes a day but smoked up to a pack of cigarettes per day since she was a teenager. She designates her daughter Radha Craig as her surrogate decision maker and she wishes to be a full code. Years smoked: 40 Smoking status: Current every day smoker Tobacco type: cigarettes Second hand tobacco smoke exposure: No Smoking end date: 12/30/20 Additional smoking assessment comments: Patient stated she quit smoking 1 week ago. Alcohol intake: current Drinks per week: 1 Substance use: current Substance use type: marijuana Other substance usage details: occassional marijuana use Gender identity (if verbalized by the patient): Female Sexual Orientation (if Verbalized by the Patient): Straight or Heterosexual Spiritual care concerns: No Agree to blood products: Yes Meds Home Medications and Allergies Home Medications Medication Instructions Recorded Confirmed Type albuterol sulfate [Ventolin HFA] 2 puff INHALATION QID PRN 08/19/19 12/30/20 History aspirin [Adult Low Dose Aspirin] 81 mg PO DAILY 08/19/19 12/30/20 History ipratropium-albuterol 3 ml INHALATION QID PRN 08/19/19 12/30/20 History lisinopril 5 mg PO DAILY 08/19/19 12/30/20 History prednisone 10 mg PO DAILY #30 tablet 08/30/20 12/30/20 Rx atorvastatin 40 mg PO DAILY 12/30/20 12/30/20 Hist
[2020-12-30] MEDS: ALBUTEROL SULFATE NEB 2.5 MG/0.5 ML INH INHALATION (22:09)
[2020-12-30] MEDS: methylPREDNISolone SOD SUCC 40 MG VIAL IV PUSH (22:21)
--- NOTE | 2020-12-30 23:36 | ADMGEN ---
This patient, Deloris Stone, was admitted to 3 [facility] Surg Room 305-01. Patient/family oriented to hospital policies and general routines including ID bracelet, bed and alarms, visiting hours, pain management, procedures, bathroom and other care routines, personal items, smoking policy, room service/diet, and visiting hours. Information on how to activate the Rapid Response Team has been discussed. Patient/Family are encouraged to report perceived risks to care and to ask questions if they do not understand what they are told or what they should do. TDialRNC
[2020-12-31] VITALS (13 sets, daily range): BP systolic 92–135; BP diastolic 48–82; PULSE 63–87; RESP 18–22; TEMP 36.3–36.6; O2SAT 93–96
[2020-12-31] MEDS: ALBUTEROL SULFATE NEB 2.5 MG/0.5 ML INH 5 MG INHALATION ×4 (02:49→19:53)
[2020-12-31 06:21] LABS: Basophils Percent Auto 0.3 % (0.2-1.2); Hematocrit 44.3 % (37.0-47.0); Hemoglobin 14.7 g/dL (12.0-15.0); Immature Granulocyte Absolute 0.08 K/mm3 (0.00-0.031); Immature Granulocyte Percent A 0.7 % (0-0.5); Lymphocytes Absolute Auto 0.71 K/mm3 (0.9-3.2); Lymphocytes Percent Auto 5.9 % (18.3-44.2); Mean Corpuscular HGB Conc 33.2 g/dl (32-36); Mean Corpuscular Hemoglobin 30.4 pg (26-34); Mean Corpuscular Volume 91.7 fl (80-100); Mean Platelet Volume 9.3 fl (7.4-10.4); Monocytes Absolute Auto 0.4 K/mm3 (0.1-0.6); Monocytes Percent Auto 3.5 % (2.6-8.5); Neutrophils Absolute Auto 10.8 K/mm3 (1.3-6.7); Neutrophils Percent Auto 89.6 % (45.5-73.1); Platelet Count Result 321 k/mm3 (150-375); Red Blood Count 4.83 M/mm3 (4.2-5.4); Red Cell Distribution Width 12.1 % (11.5-14.5)
[2020-12-31 06:35] LABS: Anion Gap 4 mmol/L (8-16); Blood Urea Nitrogen 23 mg/dL (7-17); Calcium 8.8 mg/dL (8.4-10.2); Carbon Dioxide 29 mmol/L (22-30); Chloride 106 mmol/L (98-107); Estimated Glomerular Filt Rate > 60; Glucose 144 mg/dL (65-105); Potassium 4.5 mmol/L (3.4-5.0); Sodium 139 mmol/L (137-145)
[2020-12-31] MEDS: ASPIRIN 81 MG ENTERIC TABLET PO (09:19)
[2020-12-31] MEDS: ENOXAPARIN 40 MG/0.4 ML SYRINGE SUB-Q (09:20)
[2020-12-31] MEDS: busPIRone HCL 5 MG TABLET PO ×2 (09:20→17:14)
[2020-12-31] MEDS: ATORVASTATIN 40 MG TABLET PO (09:20)
[2020-12-31] MEDS: guaiFENesin 12 HR 600 MG TABCR PO ×2 (09:20→20:07)
[2020-12-31] MEDS: lisinopriL 5 MG TABLET PO (09:20)
[2020-12-31] MEDS: methylPREDNISolone SOD SUCC 40 MG VIAL IV PUSH ×2 (09:21→20:06)
[2020-12-31] MEDS: IPRATROPIUM BR 0.02% INH SOLN 0.5 MG/2.5 ML VIAL INHALATION ×2 (14:12→19:53)
--- NOTE | 2020-12-31 14:30 | PM.IMPN ---
Progress Note: A&P Assessment and Plan (1) COPD exacerbation: Code(s): J44.1 - Chronic obstructive pulmonary disease with (acute) exacerbation Status: Acute Assessment and Plan: Patient feeling somewhat better today. Back on her home O2 requirements of 3L O2. Would like a Pulmonology referral at discharge Continue scheduled bronchodilator Continue IV solumedrol 40 mg Q12 hr for now RT assess and treat. CPT PEP Mucinex to mobilize secretions Monitor for improvement (2) Chronic respiratory failure: Qualifiers: Respiratory failure complication: unspecified whether with hypoxia or hypercapnia Qualified Code(s): J96.10 - Chronic respiratory failure, unspecified whether with hypoxia or hypercapnia Code(s): J96.10 - Chronic respiratory failure, unspecified whether with hypoxia or hypercapnia Status: Chronic Assessment and Plan: The patient is on her usual 3L of home oxygen. Continue treatment as detailed above (3) Tobacco dependence: Code(s): F17.200 - Nicotine dependence, unspecified, uncomplicated Status: Chronic Assessment and Plan: I counseled the patient regarding tobacco cessation for greater than 4 minutes again today She verbalized her agreement and understanding. Subjective Date/time seen: 12/31/20 14:30 Interval history: Patient is a 75 yo F with history of COPD, chronic respiratory failure (on 3L O2 at home), CAD, CVA, HTN, and previous tobacco abuse who is seen in follow up for COPD exacerbation. Patient feels somewhat better today; less SOB, less wheezing today. Cough has clear sputum production. No other complaints at the moment. Had a lengthy discussion about smoking cessation today. She has not seen a card clothier since I saw her in 08/2020; wishes to have referral to Long Term at discharge. Denies f/c/s, headaches, dizziness, lightheadedness, cp/palpitations, n/v/d/c, abd pain, calf pain/swelling. Review of Systems Review of Systems: All systems reviewed & are unremarkable except as noted in HPI and below Exam Narrative: Exam Narrative: General: Patient resting supine in bed in no acute distress. Finishing breathing treatment with RT HEENT: Normocephalic, EOMI, oral mucosa moist. Cardiovascular: Rate and rhythm are regular. No notable murmur, rub, or gallop. Respiratory: Scattered rhonchi; minimal exp wheeze left anterior lung field; diminished BS b/l. Non-labored breathing. On 3 L O2 via NC. Abdomen: Soft, non-tender, non-distended, bowel sounds present. Extremities: Peripheral pulses intact. No edema. Neuro: No focal neurological deficits. Speech is clear. Objective Data Vital Signs Vital Signs: Last Vital Signs Temp 97.7 F 12/31/20 06:00 Pulse 80 12/31/20 14:21 Resp 20 12/31/20 14:21 BP 135/82 12/31/20 06:00 Pulse Ox 93 12/31/20 07:47 Intake/Output Intake/Output: Intake & Output 12/28/20 12/29/20 12/30/20 12/31/20 23:59 23:59 23:59 23:59 Intake Total 320 Balance 320 Meds/Results Medications: Active Medications Generic Name Dose Route Start Last Admin Trade Name Freq PRN Reason Stop Dose Admin Acetaminophen 650 mg 12/30/20 22:23 Acetaminophen 325 Mg Tablet PO Q4H PRN Mild Pain (1-3) or Fever Albuterol 5 mg 12/31/20 02:00 12/31/20 14:12 Albuterol Sulfate Neb 2.5 Mg/0.5 Ml Inh INHALATION 5 mg Q6HRT VALENTE Administration Aspirin 81 mg 12/31/20 09:00 12/31/20 09:19 Aspirin 81 Mg Enteric Tablet PO 81 mg DAILY VALENTE Administration Atorvastatin Calcium 40 mg 12/31/20 09:00 12/31/20 09:20 Atorvastatin 40 Mg Tablet PO 40 mg DAILY VALENTE Administration Buspirone HCl 5 mg 12/31/20 09:00 12/31/20 09:20 Buspirone Hcl 5 Mg Tablet PO 5 mg BID VALENTE Administration Diphenhydramine HCl 25 mg 12/31/20 07:38 Diphenhydramine Hcl C
[2021-01-01] VITALS (7 sets, daily range): BP systolic 118–147; BP diastolic 60–76; PULSE 65–84; RESP 20–24; TEMP 36.6–36.7; O2SAT 90–97
[2021-01-01] MEDS: ALBUTEROL SULFATE NEB 2.5 MG/0.5 ML INH 5 MG INHALATION ×3 (01:47→13:47)
[2021-01-01] MEDS: IPRATROPIUM BR 0.02% INH SOLN 0.5 MG/2.5 ML VIAL INHALATION ×3 (01:47→13:47)
[2021-01-01] MEDS: lisinopriL 5 MG TABLET PO (07:56)
[2021-01-01] MEDS: ASPIRIN 81 MG ENTERIC TABLET PO (07:56)
[2021-01-01] MEDS: ATORVASTATIN 40 MG TABLET PO (07:56)
[2021-01-01] MEDS: ENOXAPARIN 40 MG/0.4 ML SYRINGE SUB-Q (07:56)
[2021-01-01] MEDS: guaiFENesin 12 HR 600 MG TABCR PO (07:56)
[2021-01-01] MEDS: busPIRone HCL 5 MG TABLET PO (07:57)
--- NOTE | 2021-01-01 11:56 | PM.DS ---
DS: Admitting Diagnosis Admitting Diagnosis Admitting Diagnosis: COPD exacerbation DS: Discharge Diagnosis Discharge Diagnosis (1) COPD exacerbation: Code(s): J44.1 - Chronic obstructive pulmonary disease with (acute) exacerbation Status: Acute Assessment and Plan: Patient feeling much better today; comfortable with discharge. Tolerating her home O2 requirements of 3L O2 well. Exam shows some improvement again today She would like a Pulmonology referral at discharge; will provide information for on-call [facility] Looper, Dr. Lovell Discharge on prednisone taper to start 01/02 RT evaluation during stay CPT PEP during stay Mucinex to mobilize secretions F/u with PCP and [facility]oper once established (2) Chronic respiratory failure: Qualifiers: Respiratory failure complication: unspecified whether with hypoxia or hypercapnia Qualified Code(s): J96.10 - Chronic respiratory failure, unspecified whether with hypoxia or hypercapnia Code(s): J96.10 - Chronic respiratory failure, unspecified whether with hypoxia or hypercapnia Status: Chronic Assessment and Plan: The patient is on her usual 3L of home oxygen. Continue treatment as detailed above (3) Tobacco dependence: Code(s): F17.200 - Nicotine dependence, unspecified, uncomplicated Status: Chronic Assessment and Plan: I counseled the patient regarding tobacco cessation for greater than 4 minutes again today She verbalized her agreement and understanding. (4) HTN (hypertension): Qualifiers: Hypertension type: essential hypertension Qualified Code(s): I10 - Essential (primary) hypertension Code(s): I10 - Essential (primary) hypertension Status: Chronic Assessment and Plan: BP reviewed and reasonably stable Continue home antihypertensives F/u with PCP (5) HLD (hyperlipidemia): Code(s): E78.5 - Hyperlipidemia, unspecified Status: Chronic Assessment and Plan: Continue statin DS: Summary Hospital Course Reason for hospitalization: COPD exacerbation Hospital Course: Date of arrival: 12/30/20 Date of discharge: 01/01/21 Patient is a 75 year old F with history of COPD, chronic respiratory failure (on 3L O2 at home), CAD, CVA, HTN, and previous tobacco abuse who presented to the hospital on 12/30 with a complaint of worsening shortness of breath since the night prior. CXR performed revealed emphysemia, mild atelectasis; subsequent CTA chest noted severe emphysema and moderate sized hiatal hernia and no PE observed. She maintained adequate O2 sats on her normal 3 L O2, however, exam revealed wheezes. COPD exacerbation was suspected. She was subsequently given IV steroids. Patient admitted to the hospitalist service under this setting for further management/treatment. Please see H&P for further details. After admission, Patient continued on IV solumedrol 40 mg Q12hr. She was started on scheduled nebulizer treatments and given PEP CPT and Mucinex to mobilize secretions. She continued to maintain adequate saturations on her normal 3L O2 via NC. Clinically, patient significantly improved during her stay. Plan was for patient to be discharged home on a prednisone taper. She was to follow up with her PCP and she was interested in Pulmonology referral, thus Dr. Chandra's information was provided at discharge (concrete precast moulder [facility] Looper). Patient agreeable and comfortable with plan for discharge. Patient hemodynamically stable and in improved condition for discharge on 01/01 Status at Discharge Overall status at discharge: patient is progressing back to baseline Time Spent with Patient Time attestation: Total time spent providing and/or coordinating discharge services: Time spent: Greater than 30 mame
[2021-01-01] MEDS: methylPREDNISolone SOD SUCC 40 MG VIAL IV PUSH (12:03)
== END 2021-01-01 14:38 | disposition home or self-care (01) ==
LOC: ANHED 15:36 → ANH3MEDSUR 22:27
PROVIDERS: Admitting Provider Family Medicine; Emergency Provider Emergency Medicine; Visit Provider Family Medicine
DX: J44.1 Chronic obstructive pulmonary disease with (acute) exacerbation (principal); J96.10 Chronic respiratory failure, unspecified whether with hypoxia or hypercapnia; I11.9 Hypertensive heart disease without heart failure; I25.10 Atherosclerotic heart disease of native coronary artery without angina pectoris; I25.2 Old myocardial infarction; F41.8 Other specified anxiety disorders; E78.5 Hyperlipidemia, unspecified; K21.9 Gastro-esophageal reflux disease without esophagitis; Z99.81 Dependence on supplemental oxygen; Z79.51 Long term (current) use of inhaled steroids; Z79.82 Long term (current) use of aspirin; Z86.73 Personal history of transient ischemic attack (TIA), and cerebral infarction without residual deficits; Z95.5 Presence of coronary angioplasty implant and graft; F17.210 Nicotine dependence, cigarettes, uncomplicated; F12.90 Cannabis use, unspecified, uncomplicated
CPT/HCPCS: 36415; 71045; 71275; 80048; 80053; 83735; 83880; 85025; 85380; 93005; 94640; 94667; 94668; 96372; 96374; 96376; 99285; A9270; G0378; J1650; J2920; Q9967

== ENCOUNTER 2021-02-03 22:13 | Inpatient (IN) | payer MEDICARE, MEDICAID, SELFPAY ==
[2021-02-03] VITALS (7 sets, daily range): BP systolic 120–137; BP diastolic 71–82; PULSE 70–722; RESP 18–448; TEMP 36.3–36.4; O2SAT 95–96
--- NOTE | ~2021-02-03 | XR_ITS ---
EXAMINATION: XR chest 1V portable 02/03/2021 22:36 INDICATION: Shortness of breath. History of COPD. Asthma. PROCEDURE: AP portable chest COMPARISON: Comparison to multiple prior studies sequentially, with oldest reviewed study dated 12/2019. FINDINGS: The lungs are clear. The cardiomediastinal silhouette is within normal limits. There are no pleural effusions. There is no pneumothorax suspected. The lungs are hyperinflated which is cons istent with, but not diagnostic of chronic obstructive pulmonary disease. There are degenerative bansal ges of the shoulders. IMPRESSION: 1: NO ACUTE CARDIOPULMONARY DISEASE. Reviewed, dictated and finalized at location A.
--- NOTE | 2021-02-03 22:22 | ECG_ITS ---
Measurements Intervals [place] Rate: 77 P: 72 RI: 147 QRS: 15 QRSD: 93 T: 58 QT: 386 QTc: 438 Interpretive Statements SINUS RHYTHM EARLY PRECORDIAL R/S TRANSITION BASELINE ARTIFACT- I, II, III, AVR, AVL, AVF, V1, V3-V6 BORDERLINE ECG Electronically Signed On 02-04-2021 6:59:16 CDT by Tito Darling D.O.
[2021-02-03 22:45] LABS: Basophils Absolute Auto 0.1 K/mm3 (0.0-0.1); Basophils Percent Auto 1.2 % (0.2-1.2); Eosinophils Percent Auto 8.7 % (0-4.4); Hematocrit 44.9 % (37.0-47.0); Hemoglobin 14.6 g/dL (12.0-15.0); Immature Granulocyte Absolute 0.06 K/mm3 (0.00-0.031); Immature Granulocyte Percent A 0.5 % (0-0.5); Lymphocytes Percent Auto 26.3 % (18.3-44.2); Mean Corpuscular HGB Conc 32.5 g/dl (32-36); Mean Corpuscular Hemoglobin 29.9 pg (26-34); Mean Corpuscular Volume 91.8 fl (80-100); Mean Platelet Volume 8.9 fl (7.4-10.4); Monocytes Absolute Auto 1.3 K/mm3 (0.1-0.6); Monocytes Percent Auto 10.7 % (2.6-8.5); Neutrophils Absolute Auto 6.2 K/mm3 (1.3-6.7); Neutrophils Percent Auto 52.6 % (45.5-73.1); Platelet Count Result 331 k/mm3 (150-375); Red Blood Count 4.89 M/mm3 (4.2-5.4); White Blood Count 11.8 K/mm3 (4.5-10.0)
[2021-02-03 22:54] LABS: Anion Gap 6 mmol/L (8-16); Blood Urea Nitrogen 13 mg/dL (7-17); Calcium 9.3 mg/dL (8.4-10.2); Carbon Dioxide 31 mmol/L (22-30); Chloride 105 mmol/L (98-107); Estimated Glomerular Filt Rate > 60; Glucose 124 mg/dL (65-105); Sodium 142 mmol/L (137-145)
--- NOTE | 2021-02-03 22:55 | ED.SOB ---
HPI - SOB/Dyspnea General Chief Complaint: Shortness of Breath/Dyspnea Stated Complaint: sob Time Seen by Provider: 02/03/21 22:39 Source: patient Mode of arrival: ambulatory Limitations: no limitations History of Present Illness HPI Narrative: Patient is a 75-year-old female complain of shortness of breath, accompanied by cough, productive, white-yellowish sputum x1 week and worse today. Patient states that she has a history of COPD and currently on 3 L of oxygen at home continuously. Patient denies any chest pain, abdominal pain, nausea, vomiting, fever or chills. Patient admits to still smoking up to 1-1/2 to 1 pack/day. Related Data Home Medications Medication Instructions Recorded Confirmed albuterol sulfate [Ventolin HFA] 2 puff INHALATION QID PRN 08/19/19 12/30/20 aspirin [Adult Low Dose Aspirin] 81 mg PO DAILY 08/19/19 12/30/20 ipratropium-albuterol 3 ml INHALATION QID PRN 08/19/19 12/30/20 lisinopril 5 mg PO DAILY 08/19/19 12/30/20 atorvastatin 40 mg PO DAILY 12/30/20 12/30/20 buspirone 5 mg PO BID 12/30/20 12/30/20 diphenhydramine HCl [Benadryl] 25 mg PO Q6H PRN 12/30/20 12/30/20 diphenhydramine-acetaminophen 1 tablet PO HS PRN 12/30/20 12/30/20 [Tylenol PM Extra Strength] Allergies Allergy/AdvReac Type Severity Reaction Status Date / Time No Known Allergies Allergy Verified 12/30/20 14:44 Review of Systems Review of Systems: All systems reviewed & are unremarkable except as noted in HPI and below Constitutional: Constitutional: Denies body ache(s), Denies chills, Denies excessive sweating, Denies fatigue, Denies fever(s), Denies headache(s), Denies lethargy, Denies malaise, Denies weakness and Denies weight loss Eyes: Eyes: Denies blurry vision, Denies change in vision and Denies loss of vision ENT: Denies dizziness, Denies ear discharge, Denies headache(s), Denies lip swelling, Denies epistaxis, Denies nasal congestion, Denies neck pain, Denies throat swelling and Denies tongue swelling Cardiovascular: Cardiovascular: Denies chest pain, Denies chest pain at rest, Denies chest pain with activity, Denies diaphoresis, Denies rapid heart rate, Denies edema, Denies irregular heart rhythm, Denies lightheadedness and Denies palpitations Respiratory: Respiratory: Denies chest congestion and Denies hemoptysis Gastrointestinal: Gastrointestinal: Denies abdominal pain, Denies melena, Denies hematochezia, Denies diarrhea, Denies nausea, Denies vomiting and Denies hematemesis Musculoskeletal: Musculoskeletal: Denies abnormal gait, Denies deformity, Denies joint swelling, Denies limited range of motion, Denies neck pain and Denies numbness Neurologic: Denies Abnormal speech present, Denies abnormal gait, Denies confusion, Denies dizziness, Denies headache(s), Denies focal weakness, Denies loss of vision, Denies numbness, Denies Other visual disturbances, Denies Sensory deficit (Neuro) and Denies weakness Psychiatric: Psychiatric: Denies confusion, Denies depression, Denies auditory hallucinations, Denies homicidal ideation and Denies suicidal ideation Endocrine: Endocrine: Denies cold intolerance, Denies excessive sweating, Denies fatigue, Denies heat intolerance and Denies palpitations Hematologic/Lymphatic: Hematologic/Lymphatic: Denies easy bleeding and Denies easy bruising Allergic/Immunologic: Allergic/Immunologic: Denies lip swelling, Denies throat swelling and Denies tongue swelling PMFSH Past Medical History Medical History Anxiety Arthritis Asthma Cerebrovascular accident (~2017) Initially if she had some numbness and tingling to the right side of her body but that has resolved. MRI showed left occipital temporal infarct and small left basal ganglia infarcts. Chronic obstructive pulmonary disease Chronic respiratory failure with hypoxia, on home oxygen therapy 3 L nasal cannula. Coronary artery disease History of myocardial infarction and stent x1. Depr
[2021-02-03 22:58] LABS: Alveolar/Arterial O2 Gradient 127.5 mmHg; Base Excess ABG -0.3 mEq/l (+/-2.0); Carboxyhemoglobin 1.7 % THb (0-2.0); Fractional Inspired Oxygen 36 %; HCO3 ABG 25.8 mEq/l (22.0-26.0); Methemoglobin ABG 0.3 %THb (0-1.5); Oxygen Content ABG 19.4 %vol (16.0-22.0); Oxyhemoglobin 92.5 % THb (90.0-100.0); PO2 ABG 73.5 mmHg (80.0-100.0); PO2 FiO2 Ratio Arterial Blood 2.04 %; Reduced Hemoglobin 5.5 %THb (0-5.0); Total Hemoglobin 14.9 g/dL (12.0-18.0); pH ABG 7.349 (7.350-7.450)
[2021-02-03 22:59] LABS: Device NASAL CANNULA; Modified Allen's Test Pass; Site Drawn RIGHT RADIAL
[2021-02-03] MEDS: IPRATROPIUM BR 0.02% INH SOLN 0.5 MG/2.5 ML VIAL INHALATION (23:07)
[2021-02-03] MEDS: ALBUTEROL SULFATE NEB 2.5 MG/0.5 ML INH 5 MG INHALATION (23:07)
[2021-02-03 23:17] LABS: INR 0.8; Prothrombin Time 12.1 Seconds (11.1-14.7)
[2021-02-03 23:18] LABS: Partial Thromboplastin Time 29.1 SECONDS (22.3-36.8)
--- NOTE | 2021-02-03 23:25 | PC.NURSE ---
assumed care of pt at this time. Report from Jac BECKMAN
[2021-02-03 23:26] LABS: Lactic Acid Reflex 1.1 mmol/L (0.7-2.1)
[2021-02-03 23:32] LABS: NT Pro B Type Natriuretic Pept 31 pg/mL (5-100); Troponin I < 0.012 ng/mL (0.000-0.034)
[2021-02-04] VITALS (26 sets, daily range): BP systolic 129–163; BP diastolic 58–83; PULSE 64–112; RESP 13–25; TEMP 36.4–36.9; O2SAT 94–100; BMI 30.4
[2021-02-04] MEDS: ALBUTEROL SULFATE NEB 2.5 MG/0.5 ML INH 5 MG INHALATION ×4 (01:24→20:17)
[2021-02-04] MEDS: IPRATROPIUM BR 0.02% INH SOLN 0.5 MG/2.5 ML VIAL INHALATION ×4 (01:24→20:17)
--- NOTE | 2021-02-04 01:27 | ADMGEN ---
This patient, Deloris Stone, was admitted to IMU Room 206-01 at 0015. Patient/family oriented to hospital policies and general routines including ID bracelet, bed and alarms, visiting hours, pain management, procedures, bathroom and other care routines, personal items, smoking policy, room service/diet, and visiting hours. Information on how to activate the Rapid Response Team has been discussed. Patient/Family are encouraged to report perceived risks to care and to ask questions if they do not understand what they are told or what they should do.
--- NOTE | 2021-02-04 02:38 | PM.IMHP ---
H&P: HPI History of Present Illness Date/Time: 02/04/21 02:38 Chief Complaint: SHORTNESS OF BREATH Narrative: THIS IS A 75-YEAR-OLD FEMALE WITH PAST MEDICAL HISTORY SIGNIFICANT FOR COPD/EMPHYSEMA ON 3 L BY NASAL CANNULA OF OXYGEN AT HOME PATIENT PRESENTED TO THE EMERGENCY ROOM AFTER WORSENING SHORTNESS OF BREATH FOR THE LAST 3 DAYS OR SO COUGH WITH PRODUCTIVE SPUTUM BUT NO CHANGE IN SPUTUM QUALITY. NO FEVERS NO CHILLS NO RIGORS NO NAUSEA NO VOMITING NO CHEST PAIN NO PND NO ORTHOPNEA. UPON PRESENTATION TO EMERGENCY ROOM PATIENT WAS VERY LABORED AND REQUIRED TO BE PLACED ON BIPAP AT THE TIME OF MY VISIT PATIENT WAS COMFORTABLE AND ON BIPAP PRELIMINARY WORKUP WAS ESSENTIALLY NONREVEALING. Review of Systems Review of Systems: Narrative: PATIENT PRESENTED TO THE EMERGENCY ROOM DUE TO WORSENING SHORTNESS OF BREATH Constitutional: Constitutional: Denies chills, Reports fatigue, Denies fever(s) and Denies weakness Eyes: Eyes: Denies change in vision ENT: Denies nasal congestion, Denies nasal discharge and Denies nasal obstruction Cardiovascular: Cardiovascular: Denies irregular heart rhythm, Denies radiating jaw, neck or arm pain, Denies palpitations, Denies dyspnea and Denies orthopnea Respiratory: Respiratory: Denies change in phlegm color, Reports cough, Reports dyspnea and Reports wheezing Gastrointestinal: Gastrointestinal: Denies nausea and Denies vomiting Genitourinary: Genitourinary: Denies dysuria Musculoskeletal: Musculoskeletal: Denies arthralgias, Denies joint swelling and Denies muscle weakness Integumentary/Breasts: Skin/Breast: Denies rash Neurologic: Denies focal weakness and Denies Sensory deficit (Neuro) Psychiatric: Psychiatric: Denies no additional psychiatric complaints Endocrine: Endocrine: Denies no additional endocrine complaints Hematologic/Lymphatic: Hematologic/Lymphatic: Denies no additional hematologic/lymphatic complaints Allergic/Immunologic: Allergic/Immunologic: Denies no additional allergic/immunologic complaints [facility] Past Medical History Medical History Anxiety Arthritis Asthma Cerebrovascular accident (~2017) Initially if she had some numbness and tingling to the right side of her body but that has resolved. MRI showed left occipital temporal infarct and small left basal ganglia infarcts. Chronic obstructive pulmonary disease Chronic respiratory failure with hypoxia, on home oxygen therapy 3 L nasal cannula. Coronary artery disease History of myocardial infarction and stent x1. Depression Diastolic dysfunction Eosinophilia Gastroesophageal reflux disease Hyperlipidemia Hypertension Pneumonia Tobacco abuse disorder Surgical History Surgical History History of bilateral cataract extraction History of cardiac catheterization History of heart artery stent History of tonsillectomy History of tonsillectomy Family History Family History Father Acute myocardial infarction Mother Parkinson's disease Dementia Acute myocardial infarction Premature coronary artery disease Social History Social History Social History: The patient lives in her own apartment. She is and has 4 children. 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 She occasionally drinks alcohol but this is rare. She continues to smoke 6-10 cigarettes a day but smoked up to a pack of cigarettes per day since she was a teenager. She designates her daughter Radha Craig as her surrogate decision maker and she wishes to be a full code. Years smoked: 40 Smoking status: Current every day smoker Second hand tobacco smoke exposure: No Additional smoking assessment comments: Patient stated she quit smoking 1 week ago. Alcohol intake: current
[2021-02-04] MEDS: LACTATED RINGERS 1,000 ML 90 ML IV CONT ×2 (05:12→18:13)
[2021-02-04] MEDS: methylPREDNISolone SOD SUCC 40 MG VIAL IV PUSH ×3 (05:13→20:45)
[2021-02-04] MEDS: ATORVASTATIN 40 MG TABLET PO (09:02)
[2021-02-04] MEDS: guaiFENesin 12 HR 600 MG TABCR PO ×2 (09:02→20:45)
[2021-02-04] MEDS: lisinopriL 5 MG TABLET PO (09:02)
[2021-02-04] MEDS: busPIRone HCL 5 MG TABLET PO ×2 (09:02→18:14)
--- NOTE | 2021-02-04 12:46 | PM.IMPN ---
Progress Note: A&P Assessment and Plan (1) Acute and chronic respiratory failure: Qualifiers: Respiratory failure complication: hypoxia Qualified Code(s): J96.21 - Acute and chronic respiratory failure with hypoxia Code(s): J96.20 - Acute and chronic respiratory failure, unspecified whether with hypoxia or hypercapnia Status: Acute Assessment and Plan: Acute on top of chronic respiratory failure secondary to COPD exacerbation Inhaler treatment steroid antibiotics Wean off BiPAP (2) COPD exacerbation: Code(s): J44.1 - Chronic obstructive pulmonary disease with (acute) exacerbation Status: Acute Assessment and Plan: Wean off BiPAP continue steroid and antibiotic (3) Tobacco dependence: Code(s): F17.200 - Nicotine dependence, unspecified, uncomplicated Status: Chronic Assessment and Plan: Counseling (4) CHF (congestive heart failure): Qualifiers: Heart failure type: diastolic Heart failure chronicity: chronic Qualified Code(s): I50.32 - Chronic diastolic (congestive) heart failure Code(s): I50.9 - Heart failure, unspecified Status: Acute Assessment and Plan: Reveal a continue home medication avoid fluid overload (5) CAD (coronary artery disease): Code(s): I25.10 - Atherosclerotic heart disease of [place] coronary artery without angina pectoris Status: Chronic Assessment and Plan: Continue home treatment chest pain-free Additional Plan Anticipate discharge in the next 48 hours probably home with home health Subjective Date/time seen: 02/04/21 12:46 Interval history: Patient seen and examined Patient was admitted to the hospital with shortness of breath was found to have acute on top of chronic hypoxemic respiratory failure secondary to COPD exacerbation was treated with BiPAP inhaler treatment and steroid Patient feels weak short of breath Patient denies fever headache chest pain I am seeing the patient for shortness of breath Exam Narrative: Exam Narrative: Alert Chest decreased air entry bilateral bilateral crackles and wheeze Abdomen nontender nondistended CVS S1 + S2 Negative Lower extremity edema Objective Data Vital Signs Vital Signs: Vital Signs - 24 hr 02/03/21 22:16 02/03/21 22:40 02/03/21 22:41 Temperature 97.4 F L Pulse Rate 84 722 H 81 Respiratory Rate 18 24 H Blood Pressure 137/82 Pulse Oximetry 96 95 02/03/21 22:51 02/03/21 23:10 02/03/21 23:19 Temperature Pulse Rate 74 73 72 Respiratory Rate 448 H 23 H Blood Pressure Pulse Oximetry 95 95 02/03/21 23:37 02/04/21 01:15 02/04/21 01:24 Temperature 97.6 F 97.8 F Pulse Rate 70 88 82 Respiratory Rate 20 25 H 22 H Blood Pressure 120/71 163/83 H Pulse Oximetry 95 100 02/04/21 01:27 02/04/21 01:28 02/04/21 01:34 Temperature Pulse Rate 78 82 78 Respiratory Rate 21 H 24 H 21 H Blood Pressure Pulse Oximetry 95 95 02/04/21 02:00 02/04/21 04:00 02/04/21 04:20 Temperature 97.6 F Pulse Rate 67 64 68 Respiratory Rate 13 16 Blood Pressure 135/72 Pulse Oximetry 96 96 02/04/21 06:00 02/04/21 08:00 02/04/21 08:47 Temperature 97.8 F Pulse Rate 71 74 77 Respiratory Rate 18 20 Blood Pressure 141/72 H Pulse Oximetry 97 02/04/21 08:57 02/04/21 08:58 02/04/21 10:00 Temperature Pulse Rate 83 76 Respiratory Rate 20 Blood Pressure Pulse Oximetry 95 02/04/21 12:00 Temperature 98.3 F Pulse Rate 80 Respiratory Rate 20 Blood Pressure 132/69 Pulse Oximetry 96 Intake/Output Intake/Output: Intake & Output 02/01/21 02/02/21 02/03/21 02/04/21 23:59 23:59 23:59 23:59 Intake Total 300 Output Total 200 Balance 100 Meds/Results Medications: Active Medications Generic Name Dose Route Start Last Admin Trade Name Elvisq PRN Reason Stop Dose Admin Acetaminophen 500 mg 02/04/21 03:08 Acetaminophen 500 Mg Tablet PO PRN
[2021-02-05] VITALS (20 sets, daily range): BP systolic 129–151; BP diastolic 59–76; PULSE 65–96; RESP 18–30; TEMP 36.2–36.4; O2SAT 92–97
[2021-02-05] MEDS: IPRATROPIUM BR 0.02% INH SOLN 0.5 MG/2.5 ML VIAL INHALATION ×4 (01:37→21:56)
[2021-02-05] MEDS: ALBUTEROL SULFATE NEB 2.5 MG/0.5 ML INH 5 MG INHALATION ×4 (01:37→21:56)
[2021-02-05] MEDS: LACTATED RINGERS 1,000 ML 90 ML IV CONT (05:17)
[2021-02-05] MEDS: methylPREDNISolone SOD SUCC 40 MG VIAL IV PUSH ×3 (05:19→20:18)
[2021-02-05] MEDS: lisinopriL 5 MG TABLET PO (08:22)
[2021-02-05] MEDS: ENOXAPARIN 40 MG/0.4 ML SYRINGE SUB-Q (08:22)
[2021-02-05] MEDS: busPIRone HCL 5 MG TABLET PO ×2 (08:23→16:55)
[2021-02-05] MEDS: ATORVASTATIN 40 MG TABLET PO (08:23)
[2021-02-05] MEDS: guaiFENesin 12 HR 600 MG TABCR PO ×2 (08:23→20:18)
--- NOTE | 2021-02-05 12:11 | PM.IMPN ---
Progress Note: A&P Assessment and Plan (1) Acute and chronic respiratory failure: Qualifiers: Respiratory failure complication: hypoxia Qualified Code(s): J96.21 - Acute and chronic respiratory failure with hypoxia Code(s): J96.20 - Acute and chronic respiratory failure, unspecified whether with hypoxia or hypercapnia Status: Acute Assessment and Plan: Acute on top of chronic respiratory failure secondary to COPD exacerbation Inhaler treatment steroid antibiotics Wean off BiPAP (2) COPD exacerbation: Code(s): J44.1 - Chronic obstructive pulmonary disease with (acute) exacerbation Status: Acute Assessment and Plan: Weaned off BiPAP continue steroid and antibiotic improved (3) Tobacco dependence: Code(s): F17.200 - Nicotine dependence, unspecified, uncomplicated Status: Chronic Assessment and Plan: Counseling (4) CHF (congestive heart failure): Qualifiers: Heart failure type: diastolic Heart failure chronicity: chronic Qualified Code(s): I50.32 - Chronic diastolic (congestive) heart failure Code(s): I50.9 - Heart failure, unspecified Status: Acute Assessment and Plan: A will a jj continue home medication avoid fluid overload (5) CAD (coronary artery disease): Code(s): I25.10 - Atherosclerotic heart disease of [place] coronary artery without angina pectoris Status: Chronic Assessment and Plan: Continue home treatment chest pain-free Additional Plan Anticipate discharge in the next 24 hours probably home with home health Subjective Date/time seen: 02/05/21 12:11 Interval history: Patient seen and examined Patient was admitted to the hospital with shortness of breath was found to have acute on top of chronic hypoxemic respiratory failure secondary to COPD exacerbation was treated with BiPAP inhaler treatment and steroid Patient feels weak short of breath was weaned off BiPAP currently on 3 L of oxygen complaining of cough Patient denies fever headache chest pain I am seeing the patient for shortness of breath Exam Narrative: Exam Narrative: Alert Chest decreased air entry bilateral bilateral crackles and wheeze Abdomen nontender nondistended CVS S1 + S2 Negative Lower extremity edema Objective Data Vital Signs Vital Signs: Vital Signs - 24 hr 02/04/21 14:00 02/04/21 14:25 02/04/21 16:00 Temperature 98.5 F Pulse Rate 88 112 H 89 Respiratory Rate 24 H 22 H Blood Pressure 138/65 Pulse Oximetry 96 02/04/21 18:00 02/04/21 19:40 02/04/21 20:00 Temperature 97.7 F Pulse Rate 83 84 87 Respiratory Rate 20 20 Blood Pressure 129/58 L Pulse Oximetry 95 95 02/04/21 20:19 02/04/21 20:20 02/04/21 20:29 Temperature Pulse Rate 85 90 Respiratory Rate 18 18 Blood Pressure Pulse Oximetry 94 02/04/21 22:00 02/04/21 23:00 02/05/21 00:00 Temperature 97.7 F Pulse Rate 88 86 82 Respiratory Rate 18 18 Blood Pressure 140/76 Pulse Oximetry 96 97 02/05/21 00:05 02/05/21 01:37 02/05/21 01:38 Temperature Pulse Rate 83 71 71 Respiratory Rate 19 18 18 Blood Pressure Pulse Oximetry 97 97 02/05/21 01:48 02/05/21 01:58 02/05/21 04:00 Temperature 97.5 F L Pulse Rate 74 77 85 Respiratory Rate 18 19 Blood Pressure 129/60 Pulse Oximetry 97 02/05/21 06:00 02/05/21 08:00 02/05/21 08:56 Temperature 97.6 F Pulse Rate 65 80 78 Respiratory Rate 20 18 Blood Pressure 151/76 H Pulse Oximetry 92 92 02/05/21 09:05 02/05/21 10:00 Temperature Pulse Rate 74 81 Respiratory Rate 18 Blood Pressure Pulse Oximetry Intake/Output Intake/Output: Intake & Output 02/02/21 02/03/21 02/04/21 02/05/21 23:59 23:59 23:59 23:59 Intake Total 2570 1490 Output Total 1500 1100 Balance 1070 390 Meds/Results Medications: Active Medications Generic Name Dose Route Start Last Admin Trade Name Freq PRN Reason Stop Dose Admin
[2021-02-05 12:40] LABS: Basophils Percent Auto 0.2 % (0.2-1.2); Hematocrit 39.8 % (37.0-47.0); Hemoglobin 13.1 g/dL (12.0-15.0); Immature Granulocyte Absolute 0.11 K/mm3 (0.00-0.031); Immature Granulocyte Percent A 0.6 % (0-0.5); Lymphocytes Absolute Auto 0.65 K/mm3 (0.9-3.2); Lymphocytes Percent Auto 3.5 % (18.3-44.2); Mean Corpuscular HGB Conc 32.9 g/dl (32-36); Mean Corpuscular Hemoglobin 29.6 pg (26-34); Mean Platelet Volume 9.1 fl (7.4-10.4); Monocytes Absolute Auto 1.3 K/mm3 (0.1-0.6); Monocytes Percent Auto 6.9 % (2.6-8.5); Neutrophils Absolute Auto 16.6 K/mm3 (1.3-6.7); Neutrophils Percent Auto 88.8 % (45.5-73.1); Platelet Count Result 332 k/mm3 (150-375); Red Blood Count 4.42 M/mm3 (4.2-5.4); Red Cell Distribution Width 12.2 % (11.5-14.5); White Blood Count 18.7 K/mm3 (4.5-10.0)
[2021-02-05 12:53] LABS: Alanine Aminotransferase 16 U/L (4-35); Albumin Level 3.7 g/dL (3.5-5.1); Alkaline Phosphatase 67 U/L (38-126); Anion Gap 5 mmol/L (8-16); Aspartate Amino Transferase 26 U/L (14-36); Bilirubin,Total 0.1 mg/dL (0.2-1.3); Blood Urea Nitrogen 19 mg/dL (7-17); Carbon Dioxide 30 mmol/L (22-30); Chloride 107 mmol/L (98-107); Estimated Glomerular Filt Rate > 60; Glucose 112 mg/dL (65-105); Potassium 3.9 mmol/L (3.4-5.0); Sodium 142 mmol/L (137-145)
[2021-02-05] MEDS: guaiFENesin/DEXTROMETHORPHAN 10 ML UDC PO (16:54)
--- NOTE | 2021-02-05 17:13 | PC.NURSE ---
This patient, Deloris Stone, was received from IMU on 02/05/21 at 1713. Patient/family oriented to unit policies and routines
--- NOTE | 2021-02-05 17:15 | PC.NURSE ---
This patient, Deloris Stone, was transferred to [facility] on 02/05/21 at 1710. Personal belongings sent with patient. Report given to RK Luna. Appropriate documentation sent with patient.
[2021-02-06 01:47] VITALS: PULSE 80; RESP 20
[2021-02-06] MEDS: ALBUTEROL SULFATE NEB 2.5 MG/0.5 ML INH 5 MG INHALATION ×2 (01:47→07:57)
[2021-02-06] MEDS: IPRATROPIUM BR 0.02% INH SOLN 0.5 MG/2.5 ML VIAL INHALATION ×2 (01:47→07:57)
[2021-02-06 05:23] VITALS: BP 152/55; PULSE 79; RESP 20; TEMP 36.2; O2SAT 93
[2021-02-06] MEDS: methylPREDNISolone SOD SUCC 40 MG VIAL IV PUSH (05:29)
[2021-02-06 08:00] VITALS: PULSE 85; RESP 20; O2SAT 95
[2021-02-06 08:05] VITALS: PULSE 88; RESP 20
[2021-02-06] MEDS: busPIRone HCL 5 MG TABLET PO (08:48)
[2021-02-06] MEDS: lisinopriL 5 MG TABLET PO (08:48)
[2021-02-06] MEDS: guaiFENesin/DEXTROMETHORPHAN 10 ML UDC PO (08:48)
[2021-02-06] MEDS: ATORVASTATIN 40 MG TABLET PO (08:48)
[2021-02-06] MEDS: ENOXAPARIN 40 MG/0.4 ML SYRINGE SUB-Q (08:48)
[2021-02-06] MEDS: guaiFENesin 12 HR 600 MG TABCR PO (08:48)
[2021-02-06 08:50] VITALS: O2SAT 93
--- NOTE | 2021-02-06 09:10 | PM.DS ---
DS: Admitting Diagnosis Admitting Diagnosis Admitting Diagnosis: Shortness of breath DS: Discharge Diagnosis Discharge Diagnosis (1) Acute and chronic respiratory failure: Qualifiers: Respiratory failure complication: hypoxia Qualified Code(s): J96.21 - Acute and chronic respiratory failure with hypoxia Code(s): J96.20 - Acute and chronic respiratory failure, unspecified whether with hypoxia or hypercapnia Status: Acute Assessment and Plan: Acute on top of chronic respiratory failure secondary to COPD exacerbation Inhaler treatment steroid antibiotics Weaned off BiPAP Patient currently on 3 L of oxygen at baseline at home patient on 3 L of oxygen Repeat CBC CMP in 1 week (2) COPD exacerbation: Code(s): J44.1 - Chronic obstructive pulmonary disease with (acute) exacerbation Status: Acute Assessment and Plan: Weaned off BiPAP continue steroid and antibiotic improved follow-up with PCP as outpatient in 1 week (3) Tobacco dependence: Code(s): F17.200 - Nicotine dependence, unspecified, uncomplicated Status: Chronic Assessment and Plan: Counseling (4) CHF (congestive heart failure): Qualifiers: Heart failure type: diastolic Heart failure chronicity: chronic Qualified Code(s): I50.32 - Chronic diastolic (congestive) heart failure Code(s): I50.9 - Heart failure, unspecified Status: Acute Assessment and Plan: Continue home medication cardiac diet low-salt diet follow-up with PCP daily weight (5) CAD (coronary artery disease): Code(s): I25.10 - Atherosclerotic heart disease of [place] coronary artery without angina pectoris Status: Chronic Assessment and Plan: Continue home treatment chest pain-free DS: Summary Hospital Course Hospital Course: Patient was admitted to the hospital with shortness of breath was found to have acute on top of chronic hypoxemic respiratory failure secondary to COPD treated with inhaler treatment and steroid BiPAP patient condition improved constipation on 3 L of oxygen which is the home dose of oxygen patient will be discharged on oral steroid antibiotic and continue inhaler treatment Repeat CBC and CMP in 1 week Time Spent with Patient Time attestation: Total time spent providing and/or coordinating discharge services: Exam Narrative: Exam Narrative: Alert Chest decreased air entry bilateral bilateral crackles and wheeze significantly improved Abdomen nontender nondistended CVS S1 + S2 Negative Lower extremity edema DS: Data Data Completed and Pending Labs on day of discharge: Labs from last 24 hours 05/27/21 05/27/21 12:35 12:35 WBC 18.7 H RBC 4.42 Hgb 13.1 Hct 39.8 MCV 90.0 MCH 29.6 MCHC 32.9 RDW 12.2 Plt Count 332 MPV 9.1 Immature Gran % (Auto) 0.6 H Neut % (Auto) 88.8 H Lymph % (Auto) 3.5 L [place] % (Auto) 6.9 Eos % (Auto) 0.0 Baso % (Auto) 0.2 Lymph # (Auto) 0.65 L [place] # (Auto) 1.3 H Eos # (Auto) 0.0 Baso # (Auto) 0.0 Abs Immat Gran (auto) 0.11 H Absolute Neuts (auto) 16.6 H Absolute Nucleated RBC 0.0 Nucleated RBC % 0.0 Sodium 142 Potassium 3.9 Chloride 107 Carbon Dioxide 30 Anion Gap 5 L BUN 19 H Creatinine 0.70 Estim Creat Clear Calc Not Reportable Estimated GFR > 60 Glucose 112 H Calcium 9.0 Total Bilirubin 0.1 L AST 26 ALT 16 Alkaline Phosphatase 67 Total Protein 6.0 L Albumin 3.7 Discharge Plan Discharge Attending physician on discharge: Karina Steel M.A. Discharging Clinician: Karina Steel M.A. Patient Disposition: Home, Self-Care Activity: no preference and other - see discharge instructions Diet: heart healthy Patient Instructions: Antibiotic Form, Heart Failure (ED), How to Stop Smoking (ED), How to Stop Smoking (DC) Stand Alone Forms: General Discharge Information Follow-up/Referrals: StephStephanie
[2021-02-06 10:52] LABS: Basophils Percent Auto 0.1 % (0.2-1.2); Hematocrit 39.7 % (37.0-47.0); Hemoglobin 13.1 g/dL (12.0-15.0); Immature Granulocyte Absolute 0.25 K/mm3 (0.00-0.031); Immature Granulocyte Percent A 1.3 % (0-0.5); Lymphocytes Absolute Auto 0.42 K/mm3 (0.9-3.2); Lymphocytes Percent Auto 2.1 % (18.3-44.2); Mean Corpuscular Hemoglobin 30.1 pg (26-34); Mean Corpuscular Volume 91.3 fl (80-100); Mean Platelet Volume 9.8 fl (7.4-10.4); Monocytes Percent Auto 4.8 % (2.6-8.5); Neutrophils Percent Auto 91.7 % (45.5-73.1); Platelet Count Result 340 k/mm3 (150-375); Red Blood Count 4.35 M/mm3 (4.2-5.4); Red Cell Distribution Width 12.2 % (11.5-14.5); White Blood Count 19.6 K/mm3 (4.5-10.0)
== END 2021-02-06 13:51 | disposition home or self-care (01) | DRG 189 ==
LOC: ANHED 23:58 → ANHIMU 02-04 01:40 → ANH2MED 02-06 09:10 → ANHIMU 02-11 10:42
PROVIDERS: Admitting Provider Internal Medicine; Emergency Provider Emergency Medicine; PCP Family Medicine; Visit Provider Internal Medicine
DX: J96.21 Acute and chronic respiratory failure with hypoxia (principal); J44.1 Chronic obstructive pulmonary disease with (acute) exacerbation; I50.32 Chronic diastolic (congestive) heart failure; Z86.73 Personal history of transient ischemic attack (TIA), and cerebral infarction without residual deficits; E78.5 Hyperlipidemia, unspecified; I25.10 Atherosclerotic heart disease of native coronary artery without angina pectoris; F17.200 Nicotine dependence, unspecified, uncomplicated; Z99.81 Dependence on supplemental oxygen
CPT/HCPCS: 36415; 36600; 71045; 80048; 80053; 82375; 82805; 83050; 83605; 83880; 84484; 85025; 85610; 85730; 93005; 94003; 94640; 96365; 96368; 99291; A9270; J0456; J0696; J1650; J2920; J7120

== ENCOUNTER 2021-03-07 01:21 | Inpatient (IN) | payer MEDICARE, MEDICAID, SELFPAY ==
[2021-03-07] VITALS (30 sets, daily range): BP systolic 113–150; BP diastolic 51–86; PULSE 71–99; RESP 14–32; TEMP 36.2–36.7; O2SAT 94–100; BMI 27.3
--- NOTE | ~2021-03-07 | XR_ITS ---
XR chest 1V portable 03/07/2021 02:11 Indication: Shortness of breath Procedure: AP portable chest Comparison: Comparison to multiple prior studies sequentially, with oldest reviewed study dated 08/12. Findings: Heart size normal. There are chronic interstitial infiltrates, likely mild pulmonary vascul ar congestion. No overt pulmonary edema, focal pneumonia, pleural effusion or pneumothorax. There are degenerative changes of the shoulders. No acute osseous abnormality. Impression: 1: Mild interstitial infiltrates, likely pulmonary vascular congestion. No overt pulmonary edema. Reviewed, dictated and finalized at location A. Impression: 1: Mild interstitial infiltrates, likely pulmonary vascular congestion. No over t pulmonary edema.
--- NOTE | 2021-03-07 01:23 | PC.NURSE ---
Agree with triage notes. Pt presented to ED with sob that onset today. Pt arrived to ED on 4 liters of O2 with saturation of 98%. Pt presented alert and oriented to baseline. Moderate swelling noted to lower extremities and pt denies CHF. Breathing remains labored and is increasing. EKG completed at bedside upon arrival. EDMD presented to bedside. Repiratory called for Bi-Pap and states she is en route to ED. Pt resting on cart with call button and personal items within reach. Staff remains at bedside but pt advised to press call button for assistance.
--- NOTE | 2021-03-07 01:26 | ECG_ITS ---
Measurements Intervals [place] Rate: 91 P: 83 GA: 139 QRS: 21 QRSD: 88 T: 58 QT: 359 QTc: 443 Interpretive Statements SINUS RHYTHM NORMAL ECG Electronically Signed On 03-07-2021 6:29:11 CDT by Tito Darling D.O.
--- NOTE | 2021-03-07 01:26 | ED.SOB ---
HPI - SOB/Dyspnea General Chief Complaint: Shortness of Breath/Dyspnea Stated Complaint: sob since 0001 Time Seen by Provider: 03/07/21 01:25 History of Present Illness HPI Narrative: Sudden onset of SOB earlier this evening. Oxygen saturation 78% on baseline 3 liters of oxygen. She received a nebulizer treatment, 2 g magnesium, 125 mg solu-medrol from EMS. O2 saturation improved, but still feeling short of breath. She dose reports mildly productive cough for a few days. She also has bilateral lower leg edema which she says is new. No CP, fever. Related Data Home Medications Medication Instructions Recorded Confirmed albuterol sulfate [Ventolin HFA] 2 puff INHALATION QID PRN 08/19/19 03/07/21 aspirin [Adult Low Dose Aspirin] 81 mg PO DAILY 08/19/19 03/07/21 ipratropium-albuterol 3 ml INHALATION QID PRN 08/19/19 03/07/21 atorvastatin 40 mg PO DAILY 12/30/20 03/07/21 buspirone 5 mg PO BID 12/30/20 03/07/21 diphenhydramine HCl [Benadryl] 25 mg PO Q6H PRN 12/30/20 03/07/21 Allergies Allergy/AdvReac Type Severity Reaction Status Date / Time No Known Allergies Allergy Verified 03/07/21 01:29 Review of Systems Review of Systems: All systems reviewed & are unremarkable except as noted in HPI and below Constitutional: Constitutional: Denies chills and Denies fever(s) ENT: Reports system reviewed and no additional complaints, except as documented Cardiovascular: Cardiovascular: Denies chest pain Respiratory: Respiratory: Reports as per HPI Gastrointestinal: Gastrointestinal: Denies nausea Genitourinary: Genitourinary: Reports no additional female genitourinary complaints Neurologic: Denies dizziness and Denies weakness [facility] Past Medical History Medical History Anxiety Arthritis Asthma Cerebrovascular accident (~2017) Initially if she had some numbness and tingling to the right side of her body but that has resolved. MRI showed left occipital temporal infarct and small left basal ganglia infarcts. Chronic obstructive pulmonary disease Chronic respiratory failure with hypoxia, on home oxygen therapy 3 L nasal cannula. Coronary artery disease History of myocardial infarction and stent x1. Depression Diastolic dysfunction Eosinophilia Gastroesophageal reflux disease Hyperlipidemia Hypertension Pneumonia Tobacco abuse disorder Surgical History Surgical History History of bilateral cataract extraction History of cardiac catheterization History of heart artery stent History of tonsillectomy History of tonsillectomy Family History Family History Father Acute myocardial infarction Mother Parkinson's disease Dementia Acute myocardial infarction Premature coronary artery disease Social History Social History Social History: The patient lives in her own apartment. She is and has 4 children. 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 She occasionally drinks alcohol but this is rare. She continues to smoke 6-10 cigarettes a day but smoked up to a pack of cigarettes per day since she was a teenager. She designates her daughter Radha Craig as her surrogate decision maker and she wishes to be a full code. Years smoked: 40 Smoking status: Former smoker Second hand tobacco smoke exposure: No Additional smoking assessment comments: Patient stated she quit smoking 1 week ago. Alcohol intake: current Drinks per week: 1 Substance use: current Substance use type: marijuana Other substance usage details: occassional marijuana use Last use: occasssional use Gender identity (if verbalized by the patient): Female Sexual Orientation (if Verbalized by the Patient): Straight or Heterosexual Spiritual care concerns:
--- NOTE | 2021-03-07 01:30 | PC.NURSE ---
Respiratory presented to bedside to place bi-pap.
[2021-03-07 01:46] LABS: Basophils Absolute Auto 0.1 K/mm3 (0.0-0.1); Basophils Percent Auto 1.2 % (0.2-1.2); Eosinophils Absolute Auto 1.2 K/mm3 (0-0.3); Eosinophils Percent Auto 11.7 % (0-4.4); Hematocrit 44.5 % (37.0-47.0); Hemoglobin 14.1 g/dL (12.0-15.0); Immature Granulocyte Absolute 0.03 K/mm3 (0.00-0.031); Immature Granulocyte Percent A 0.3 % (0-0.5); Lymphocytes Percent Auto 30.1 % (18.3-44.2); Mean Corpuscular HGB Conc 31.7 g/dl (32-36); Mean Corpuscular Hemoglobin 29.4 pg (26-34); Mean Corpuscular Volume 92.7 fl (80-100); Mean Platelet Volume 9.1 fl (7.4-10.4); Monocytes Absolute Auto 1.3 K/mm3 (0.1-0.6); Monocytes Percent Auto 12.1 % (2.6-8.5); Neutrophils Absolute Auto 4.6 K/mm3 (1.3-6.7); Neutrophils Percent Auto 44.6 % (45.5-73.1); Platelet Count Result 329 k/mm3 (150-375); Red Cell Distribution Width 12.3 % (11.5-14.5); White Blood Count 10.3 K/mm3 (4.5-10.0)
[2021-03-07 01:51] LABS: Alveolar/Arterial O2 Gradient 98.1 mmHg; Base Excess ABG -1.2 mEq/l (+/-2.0); Device NON-INVASIVE VENT; Fractional Inspired Oxygen 35 %; HCO3 ABG 25.6 mEq/l (22.0-26.0); Methemoglobin ABG 0.3 %THb (0-1.5); Oxygen Content ABG 18.9 %vol (16.0-22.0); Oxygen Saturation ABG 96.3 % (95.0-100.0); Oxyhemoglobin 94.5 % THb (90.0-100.0); PCO2 ABG 51.5 mmHg (35.0-45.0); PO2 ABG 91.6 mmHg (80.0-100.0); PO2 FiO2 Ratio Arterial Blood 2.62 %; Reduced Hemoglobin 3.2 %THb (0-5.0); Site Drawn RIGHT BRACHIAL; Total Hemoglobin 14.2 g/dL (12.0-18.0); pH ABG 7.315 (7.350-7.450)
[2021-03-07 01:52] LABS: Non-Invasive Expiratory Pressure 6 CMH2O; Non-Invasive Inspiratory Pressure 12 CMH2O; Non-Invasive Vent Rate 4 /MIN
[2021-03-07] MEDS: ALBUTEROL SULFATE NEB 2.5 MG/0.5 ML INH 5 MG INHALATION ×3 (01:55→21:38)
[2021-03-07] MEDS: IPRATROPIUM BR 0.02% INH SOLN 0.5 MG/2.5 ML VIAL INHALATION ×3 (01:55→21:38)
[2021-03-07 01:56] LABS: INR 0.9; Prothrombin Time 12.3 Seconds (11.1-14.7)
[2021-03-07 01:57] LABS: Partial Thromboplastin Time 27.7 SECONDS (22.3-36.8)
[2021-03-07 01:58] LABS: Anion Gap 6 mmol/L (8-16); Blood Urea Nitrogen 16 mg/dL (7-17); Calcium 9.4 mg/dL (8.4-10.2); Carbon Dioxide 30 mmol/L (22-30); Chloride 105 mmol/L (98-107); Estimated Glomerular Filt Rate > 60; Glucose 136 mg/dL (65-105); Potassium 4.3 mmol/L (3.4-5.0); Sodium 141 mmol/L (137-145)
[2021-03-07] MEDS: NITROGLYCERIN OINTMENT 1 INCH DOSE 0.5 INCH TRANSDERM (02:01)
[2021-03-07 02:10] LABS: NT Pro B Type Natriuretic Pept 41 pg/mL (5-100); Troponin I < 0.012 ng/mL (0.000-0.034)
--- NOTE | 2021-03-07 02:40 | PC.NURSE ---
Pt tolerating Bi pap well and resting on cart in no obvious distress. Breathing is now even and unlabored with O2 saturation of 97% and pt in no obvious distress. Call button and personal items within reach. Pt advised to press call button f or assistance.
--- NOTE | 2021-03-07 03:26 | PM.IMHP ---
H&P: HPI History of Present Illness Date/Time: 03/07/21 03:26 Chief Complaint: SHORTNESS OF BREATH Narrative: THIS IS A 75-YEAR-OLD FEMALE WITH PAST MEDICAL HISTORY SIGNIFICANT FOR COPD/EMPHYSEMA RECENT ADMISSION [facility] EXACERBATION BACK IN LATE JANUARY SHE COMES BACK TODAY DUE TO WORSENING SHORTNESS OF BREATH AND WHEEZING. PATIENT IS UNABLE TO GIVE ANY HISTORY AT THE TIME OF MY VISIT SHE IS ON BIPAP. UPON ARRIVAL TO EMERGENCY ROOM SHE WAS FOUND TO BE IN MODERATE RESPIRATORY DISTRESS AND WHEEZING PATIENT RECEIVED NEB TREATMENTS AND IV STEROIDS AND WAS PLACED ON BIPAP WITH SOME IMPROVED DECISION HAS BEEN MADE TO ADMIT THE PATIENT FOR FURTHER MANAGEMENT TREATMENT AND EVALUATION. Review of Systems Review of Systems: ROS unobtainable: Yes unobtainable due to medical condition [facility] Past Medical History Medical History Anxiety Arthritis Asthma Cerebrovascular accident (~2017) Initially if she had some numbness and tingling to the right side of her body but that has resolved. MRI showed left occipital temporal infarct and small left basal ganglia infarcts. Chronic obstructive pulmonary disease Chronic respiratory failure with hypoxia, on home oxygen therapy 3 L nasal cannula. Coronary artery disease History of myocardial infarction and stent x1. Depression Diastolic dysfunction Eosinophilia Gastroesophageal reflux disease Hyperlipidemia Hypertension Pneumonia Tobacco abuse disorder Surgical History Surgical History History of bilateral cataract extraction History of cardiac catheterization History of heart artery stent History of tonsillectomy History of tonsillectomy Family History Family History Father Acute myocardial infarction Mother Parkinson's disease Dementia Acute myocardial infarction Premature coronary artery disease Social History Social History Social History: The patient lives in her own apartment. She is and has 4 children. 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 She occasionally drinks alcohol but this is rare. She continues to smoke 6-10 cigarettes a day but smoked up to a pack of cigarettes per day since she was a teenager. She designates her daughter Radha Craig as her surrogate decision maker and she wishes to be a full code. Years smoked: 40 Smoking status: Current every day smoker Second hand tobacco smoke exposure: No Additional smoking assessment comments: Patient stated she quit smoking 1 week ago. Alcohol intake: current Drinks per week: 1 Substance use: current Substance use type: marijuana Other substance usage details: occassional marijuana use Gender identity (if verbalized by the patient): Female Sexual Orientation (if Verbalized by the Patient): Straight or Heterosexual Spiritual care concerns: No Agree to blood products: Yes Meds Home Medications and Allergies Home Medications Medication Instructions Recorded Confirmed Type albuterol sulfate [Ventolin HFA] 2 puff INHALATION QID PRN 08/19/19 02/04/21 History aspirin [Adult Low Dose Aspirin] 81 mg PO DAILY 08/19/19 02/04/21 History ipratropium-albuterol 3 ml INHALATION QID PRN 08/19/19 02/04/21 History lisinopril 5 mg PO DAILY 08/19/19 02/04/21 History atorvastatin 40 mg PO DAILY 12/30/20 02/04/21 History buspirone 5 mg PO BID 12/30/20 02/04/21 History diphenhydramine HCl [Benadryl] 25 mg PO Q6H PRN 12/30/20 02/04/21 History diphenhydramine-acetaminophen 1 tablet PO HS PRN 12/30/20 02/04/21 History [Tylenol PM Extra Strength] Trelegy Ellipta 1 inh INHALATION DAILY #0 ea 01/01/21 02/04/21 Rx guaifenesin [Mucus Relief ER] 600 mg PO Q12HR #0 tablet 01/01/21 02/04/21 Rx predn
--- NOTE | 2021-03-07 03:28 | PC.NURSE ---
Pt resting on cart in its lowest position with call button and personal items within reach. Vitals are stable and pt in no obvious distress. Advised to press call button for assistance.
--- NOTE | 2021-03-07 04:19 | PC.NURSE ---
Pt on cart sleeping. Continues tolerating bipap well with stable vitals and in no obvious distress. Call button and personal items within reach.
--- NOTE | 2021-03-07 05:20 | PC.NURSE ---
Pt continues to tolerate bi-pap well. Pt in no obvious distress at this time, breathing remains even and unlabored. O2 saturation noted at 98%. Pt on cart sleeping with stable vitals. Call button and personal items within reach.
--- NOTE | 2021-03-07 06:46 | PC.NURSE ---
Pt remains on cart sleeping. Vitals are stable and pt in no obvious distress. Call button and personal items within reach.
--- NOTE | 2021-03-07 07:38 | PC.NURSE ---
waiting respiratory therapy to transfer pt to room upstairs at this time.
--- NOTE | 2021-03-07 08:12 | PC.NURSE ---
This patient, Deloris Stone, was admitted to IMU Room 203-01. Patient/family oriented to hospital policies and general routines including ID bracelet, bed and alarms, visiting hours, pain management, procedures, bathroom and other care routines, personal items, smoking policy, room service/diet, and visiting hours. Information on how to activate the Rapid Response Team has been discussed. Patient/Family are encouraged to report perceived risks to care and to ask questions if they do not understand what they are told or what they should do.
--- NOTE | 2021-03-07 09:03 | PM.IMPN ---
Progress Note: A&P Assessment and Plan (1) COPD exacerbation: Code(s): J44.1 - Chronic obstructive pulmonary disease with (acute) exacerbation Status: Acute Assessment and Plan: CONTINUES BIPAP NEBULIZER TREATMENTS SYSTEMIC STEROIDS SUPPORTIVE CARE EDEMA SUGGESTS COR PULMONALE CXR SUGGEST PULM VASCULAR CONGESTION 03/07 FUROSEMIDE 20MG IV X 1 03/07 ECHO ORDERED (2) Acute on chronic respiratory failure with hypoxia and hypercapnia: Code(s): J96.21 - Acute and chronic respiratory failure with hypoxia; J96.22 - Acute and chronic respiratory failure with hypercapnia Status: Acute Assessment and Plan: CONTINUE BIPAP PATIENT IS USUALLY ON 4L OF OXYGEN BY NASAL CANNULA CONTINUOUS PULSE OX F/U ABG (3) Tobacco dependence: Code(s): F17.200 - Nicotine dependence, unspecified, uncomplicated Status: Chronic Assessment and Plan: NICOTINE PATCH NEEDED Subjective Date/time seen: 03/07/21 09:03 Interval history: Admitted 03/07 early AM due to recurrent COPD exacerbation and acute on chronic respiratory failure with hypoxia and hypercarbia. 03/07: Only c/o is thirst. Denied pain. Not sob at rest. Sputum white, nl amount. No fever. Chronic cough no change. Tolerating bipap. Wears oxygen 4 L at home. Quit smoking 2 days ago. Leg swelling bilateral and chronic, maybe a bit worse recently, but uncertain. Denied gi/gu changes. Denied pain in any bodily part. Review of Systems Review of Systems: All systems reviewed & are unremarkable except as noted in HPI and below Exam Narrative: Exam Narrative: HEENT: EOMI, PERRL, sclerae nonicteric, pharyngeal mucosa pink and intact NECK: No JVD, adenopathy, or thyromegaly CHEST: Decreased BS diffusely. Normal effort. HEART: NL S1/S2, regular, no murmur ABDOMEN: BS+, soft, nontender, no mass, no bruits EXTREMITIES: No cyanosis, 1+ PEDAL AND ANKLE EDEMA NEUROLOGIC: CN intact and symmetric to inspection. MUSCULOSKELETAL: Tone and strength symmetric. PSYCH: Alert. Speech clear and coherent. Cooperative and pleasant. Objective Data Vital Signs Vital Signs: Vital Signs - 24 hr 03/07/21 01:21 03/07/21 01:31 03/07/21 01:38 Temperature 98.1 F Pulse Rate 99 98 83 Respiratory Rate 27 H 21 H Blood Pressure 139/76 Pulse Oximetry 97 98 03/07/21 01:55 03/07/21 02:02 03/07/21 02:14 Temperature Pulse Rate 83 79 77 Respiratory Rate 22 H 21 H 18 Blood Pressure 115/75 Pulse Oximetry 97 03/07/21 03:45 03/07/21 04:26 03/07/21 05:19 Temperature Pulse Rate 81 73 74 Respiratory Rate 20 14 15 Blood Pressure 113/51 L 137/78 Pulse Oximetry 98 96 98 03/07/21 05:52 03/07/21 06:47 03/07/21 07:59 Temperature Pulse Rate 77 76 77 Respiratory Rate 18 16 26 H Blood Pressure 139/79 Pulse Oximetry 98 97 03/07/21 08:00 03/07/21 08:02 03/07/21 08:50 Temperature 97.6 F Pulse Rate 73 77 90 Respiratory Rate 32 H 26 H 21 H Blood Pressure 144/86 H Pulse Oximetry 97 100 Intake/Output Intake/Output: Intake & Output 03/04/21 03/05/21 03/06/21 03/07/21 23:59 23:59 23:59 23:59 Intake Total 300 Balance 300 Meds/Results Medications: Active Medications Generic Name Dose Route Start Last Admin Trade Name Freq PRN Reason Stop Dose Admin Albuterol 5 mg 03/07/21 08:00 03/07/21 07:57 Albuterol Sulfate Neb 2.5 Mg/0.5 Ml Inh INHALATION 5 mg Q6HRT VALENTE Administration Enoxaparin Sodium 40 mg 03/07/21 09:00 Enoxaparin 40 Mg/0.4 Ml Syringe SUB-Q DAILY [facility] Ceftriaxone Sodium/Dextrose 1 gm in 50 mls @ 100 mls/hr 03/07/21 21:00 Rocephin 1 Gm/D5w 50 Ml IVPB Q24H VALENTE Azithromycin 500 mg in 250 mls @ 250 mls/hr 03/07/21 22:00 Zithromax IVPB Q24H VALENTE Ipratropium [place] 0.5 mg 03/07/21 08:00 03/07/21 07:57 Ipratropium Br 0.02% Inh Soln 0.5 Mg/2.5 Ml Vial INHALATION 0.5 mg Q6HRT VALENTE Administration Methylprednisolone Sodium Succinate 60 mg 03/07/21 06
[2021-03-07 10:00] LABS: Alveolar/Arterial O2 Gradient 77.2 mmHg; Base Excess ABG 1.4 mEq/l (+/-2.0); Fractional Inspired Oxygen 30 %; HCO3 ABG 27.2 mEq/l (22.0-26.0); Oxygen Content ABG 19.1 %vol (16.0-22.0); Oxygen Saturation ABG 95.6 % (95.0-100.0); Oxyhemoglobin 94.9 % THb (90.0-100.0); PCO2 ABG 47.6 mmHg (35.0-45.0); PO2 ABG 80.8 mmHg (80.0-100.0); PO2 FiO2 Ratio Arterial Blood 2.69 %; Total Hemoglobin 14.3 g/dL (12.0-18.0); pH ABG 7.375 (7.350-7.450)
[2021-03-07 10:01] LABS: Device NON-INVASIVE VENT; Site Drawn RIGHT BRACHIAL
[2021-03-07 10:02] LABS: Non-Invasive Expiratory Pressure 6 CMH2O; Non-Invasive Inspiratory Pressure 12 CMH2O; Non-Invasive Vent Rate 4 /MIN
[2021-03-07] MEDS: FUROSEMIDE INJ 40 MG/4 ML VIAL 20 MG IV PUSH (10:37)
[2021-03-07] MEDS: methylPREDNISolone SOD SUCC 125 MG VIAL 60 MG IV PUSH ×4 (10:38→23:17)
[2021-03-07] MEDS: ENOXAPARIN 40 MG/0.4 ML SYRINGE SUB-Q (10:38)
--- NOTE | 2021-03-07 17:58 | PCRCNOTE ---
Window of time for administration has passed. See next scheduled administration.
[2021-03-08] VITALS (22 sets, daily range): BP systolic 135–153; BP diastolic 65–83; PULSE 70–87; RESP 16–24; TEMP 36.4–36.8; O2SAT 92–97
[2021-03-08] MEDS: IPRATROPIUM BR 0.02% INH SOLN 0.5 MG/2.5 ML VIAL INHALATION ×4 (02:10→21:58)
[2021-03-08] MEDS: ALBUTEROL SULFATE NEB 2.5 MG/0.5 ML INH 5 MG INHALATION ×4 (02:10→21:58)
[2021-03-08 05:11] LABS: Alveolar/Arterial O2 Gradient 87.8 mmHg; Base Excess ABG 4.3 mEq/l (+/-2.0); Device NON-INVASIVE VENT; Fractional Inspired Oxygen 30 %; HCO3 ABG 29.3 mEq/l (22.0-26.0); Methemoglobin ABG 0.5 %THb (0-1.5); Modified Allen's Test Pass; Oxygen Content ABG 22.6 %vol (16.0-22.0); Oxygen Saturation ABG 95.2 % (95.0-100.0); Oxyhemoglobin 94.8 % THb (90.0-100.0); PCO2 ABG 44.6 mmHg (35.0-45.0); PO2 ABG 73.7 mmHg (80.0-100.0); PO2 FiO2 Ratio Arterial Blood 2.46 %; Reduced Hemoglobin 4.7 %THb (0-5.0); Site Drawn LEFT RADIAL; pH ABG 7.435 (7.350-7.450)
[2021-03-08 05:12] LABS: Non-Invasive Expiratory Pressure 6 CMH2O; Non-Invasive Inspiratory Pressure 12 CMH2O; Non-Invasive Vent Rate 4 /MIN
[2021-03-08 05:44] LABS: Hematocrit 38.5 % (37.0-47.0); Hemoglobin 12.7 g/dL (12.0-15.0); Mean Corpuscular Hemoglobin 29.7 pg (26-34); Platelet Count Result 317 k/mm3 (150-375); Red Blood Count 4.28 M/mm3 (4.2-5.4); Red Cell Distribution Width 12.1 % (11.5-14.5); White Blood Count 11.2 K/mm3 (4.5-10.0)
[2021-03-08] MEDS: methylPREDNISolone SOD SUCC 125 MG VIAL 60 MG IV PUSH ×2 (05:48→18:04)
[2021-03-08 06:02] LABS: Anion Gap 4 mmol/L (8-16); Blood Urea Nitrogen 18 mg/dL (7-17); Calcium 9.1 mg/dL (8.4-10.2); Carbon Dioxide 32 mmol/L (22-30); Chloride 101 mmol/L (98-107); Estimated Glomerular Filt Rate > 60; Glucose 147 mg/dL (65-105); Potassium 4.3 mmol/L (3.4-5.0); Sodium 137 mmol/L (137-145)
[2021-03-08] MEDS: ENOXAPARIN 40 MG/0.4 ML SYRINGE SUB-Q (09:17)
--- NOTE | 2021-03-08 09:54 | PM.IMPN ---
Progress Note: A&P Assessment and Plan (1) COPD exacerbation: Code(s): J44.1 - Chronic obstructive pulmonary disease with (acute) exacerbation Status: Acute Assessment and Plan: CONTINUES BIPAP NEBULIZER TREATMENTS SYSTEMIC STEROIDS SUPPORTIVE CARE EDEMA SUGGESTS COR PULMONALE CXR SUGGEST PULM VASCULAR CONGESTION 03/07 FUROSEMIDE 20MG IV X 1 03/07 ECHO ORDERED and still pending 03/08 03/08 I/O fairly even but will withhold further furosemide due to incr BUN and HCO3, pending echo. 03/08 Transfer to med/surg and continue overnight bipap (2) Acute on chronic respiratory failure with hypoxia and hypercapnia: Code(s): J96.21 - Acute and chronic respiratory failure with hypoxia; J96.22 - Acute and chronic respiratory failure with hypercapnia Status: Acute Assessment and Plan: CONTINUE BIPAP PATIENT IS USUALLY ON 4L OF OXYGEN BY NASAL CANNULA CONTINUOUS PULSE OX 03/08 F/U ABG IMPROVED (3) Tobacco dependence: Code(s): F17.200 - Nicotine dependence, unspecified, uncomplicated Status: Chronic Assessment and Plan: NICOTINE PATCH NEEDED (4) CAD (coronary artery disease): Qualifiers: Coronary Disease-Associated Artery/Lesion type: [place] artery [place] vs. transplanted heart: [place] heart Associated angina: without angina Qualified Code(s): I25.10 - Atherosclerotic heart disease of [place] coronary artery without angina pectoris Code(s): I25.10 - Atherosclerotic heart disease of [place] coronary artery without angina pectoris Status: Chronic Assessment and Plan: clinically stable (5) CHF (congestive heart failure): Qualifiers: Heart failure type: diastolic Heart failure chronicity: chronic Qualified Code(s): I50.32 - Chronic diastolic (congestive) heart failure Code(s): I50.9 - Heart failure, unspecified Status: Acute Assessment and Plan: echo pending (6) HTN (hypertension): Qualifiers: Hypertension type: essential hypertension Qualified Code(s): I10 - Essential (primary) hypertension Code(s): I10 - Essential (primary) hypertension Status: Chronic Assessment and Plan: 03/08 reviewed BP readings Subjective Date/time seen: 03/08/21 09:54 Interval history: Admitted 03/07 early AM due to recurrent COPD exacerbation and acute on chronic respiratory failure with hypoxia and hypercarbia. 03/08: Feels much better. Denied pain. Not sob at rest. Cough more loose. Sputum white, No fever. Chronic cough. Tolerated but did not like overnight bipap. Wears oxygen 4 L at home. 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 Denied gi/gu changes. Denied pain in any anatomic region. Review of Systems Review of Systems: All systems reviewed & are unremarkable except as noted in HPI and below Exam Narrative: Exam Narrative: HEENT: PERRL, sclerae nonicteric, pharyngeal mucosa pink and intact NECK: No JVD, adenopathy, or thyromegaly CHEST: COARSE BS diffusely. Normal effort. HEART: NL S1/S2, regular, no murmur ABDOMEN: BS+, soft, nontender, no mass, no bruits EXTREMITIES: No cyanosis, 1+ PEDAL AND ANKLE EDEMA NEUROLOGIC: CN intact and symmetric to inspection. MUSCULOSKELETAL: Tone and strength symmetric. PSYCH: Alert. Speech clear and coherent. Cooperative and pleasant. Objective Data Vital Signs Vital Signs: Vital Signs - 24 hr 03/07/21 10:00 03/07/21 11:37 03/07/21 12:00 Temperature 98 F Pulse Rate 71 80 74 Respiratory Rate 20 20 Blood Pressure 114/81 Pulse Oximetry 99 99 03/07/21 14:00 03/07/21 16:00 03/07/21 16:58 Temperature 97.6 F Pulse Rate 79 83 81 Respiratory Rate 20 26 H Blood Pressure 136/85 Pulse Oximetry 97 95 03/07/21 18:00 03/07/21 19:53 03/07/21 20:00 Temperature 97.2 F L Pulse Rate 86 80 79 Respiratory Rate 21 H 21 H Blood Pressure 118/56 L Pulse Oximetry 96 96 03/07/21 21:38 03/07/21 21:39 03/07/21 21:50
[2021-03-08] MEDS: ATORVASTATIN 40 MG TABLET PO (11:44)
[2021-03-08] MEDS: guaiFENesin 12 HR 600 MG TABCR PO ×2 (11:45→21:58)
[2021-03-08] MEDS: busPIRone HCL 5 MG TABLET PO ×2 (11:45→21:58)
[2021-03-08] MEDS: ASPIRIN 81 MG ENTERIC TABLET PO (11:45)
--- NOTE | 2021-03-08 15:48 | PC.NURSE ---
This patient, Deloris Stone, was transferred to [facility] on 03/08/21 at 1524. Personal belongings sent with patient. Report given to Lisa BECKMAN. Appropriate documentation sent with patient.
--- NOTE | 2021-03-08 17:06 | PC.NURSE ---
This patient, Deloris Stone, was received from [[facility]] on 03/08/21 at 1525. Patient/family oriented to unit policies and routines
[2021-03-09] VITALS (13 sets, daily range): BP systolic 139–151; BP diastolic 61–69; PULSE 19–87; RESP 14–23; TEMP 36.3–36.7; O2SAT 92–96
--- NOTE | 2021-03-09 | ECHO_ITS ---
Patient Info Name: Deloris Stone Age: 75 years : 1945 Gender: Female Ht: 51 in Wt: 135 lbs BSA: 1.53 m2 HR: 78 bpm BP: 151 / 69 mmHg Heart Rhythm: Sinus Rhythm Technical Quality: Fair Exam Date: 03/09/2021 10:25 AM Exam Location: [facility] Pulmonary Patient Status: Inpatient Admit Date: 03/07/2021 Staff Ordering Physician: Roberto Barton MD Wedger: BAY Attending Provider: Teodoro Rios MD Referring Physician: Oralia SORTO; Exam Type: CA echo doppler color flow Study Info Indications - COR PULMONALE VS LV DYSFUNCTION Complete two-dimensional, color flow and Doppler transthoracic echocardiogram is performed. Summary 1. Complete two-dimensional, color flow and Doppler transthoracic echocardiogram is performed. 2. Left ventricular chamber dimension is normal. 3. Left ventricular systolic function is hyperdynamic, estimated at >70%. 4. There is no increased left ventricular wall thickness. 5. The left ventricular diastolic function is grade I diastolic dysfunction. 6. There is trace tricuspid valve regurgitation. 7. Unable to estimate PA systolic pressure due to poor spectral resolution of tricuspid regurgitant jet velocity. Left Ventricle Left ventricular chamber dimension is normal. Left ventricular systolic function is hyperdynamic, estimated at >70%. There is no increased left ventricular wall thickness. The left ventricular diastolic function is grade I diastolic dysfunction. Right Ventricle Right ventricular chamber dimension is normal. Right ventricular systolic function is normal. Left Atria Left atrial chamber dimension is normal. Right Atria Right atrial chamber dimension is normal. Aortic Valve The aortic valve is not well visualized. There is no aortic valve stenosis. There is no aortic valve regurgitation. Pulmonic Valve The pulmonic valve is not well visualized. Mitral Valve The mitral valve has normal leaflets. There is trace mitral valve regurgitation. The mitral valve annulus is mildly calcified. Tricuspid Valve The tricuspid valve leaflets are normal. There is trace tricuspid valve regurgitation. Unable to estimate PA systolic pressure due to poor spectral resolution of tricuspid regurgitant jet velocity. Pericardium/Pleural The pericardium appears epicardial fat pad. There is small pericardial effusion. Inferior Vena Cava Dilated inferior vena cava with >50% collapse upon inspiration consistent with elevated right atrial pressure, 10 mmHg. Aorta The aortic root size at the sinus of Valsalva is normal. There is mild aortic atherosclerosis. Left Ventricular Outflow Tract Name Value Normal LVOT 2D LVOT Diameter 1.80 cm LVOT Doppler LVOT Peak Velocity 111.51 cm/s LVOT Peak Gradient 5 mmHg LVOT Mean Gradient 2 mmHg LVOT VTI 22.80 cm LVOT VTI/AV VTI Ratio 0.87 LVOT Stroke Volume 58.20 ml LVOT CO 4.58 l/min LVOT CI
[2021-03-09] MEDS: ALBUTEROL SULFATE NEB 2.5 MG/0.5 ML INH 5 MG INHALATION ×4 (02:59→21:23)
[2021-03-09] MEDS: IPRATROPIUM BR 0.02% INH SOLN 0.5 MG/2.5 ML VIAL INHALATION ×4 (03:00→21:23)
[2021-03-09] MEDS: methylPREDNISolone SOD SUCC 125 MG VIAL 60 MG IV PUSH ×2 (06:14→17:34)
[2021-03-09 06:24] LABS: Hematocrit 43.6 % (37.0-47.0); Hemoglobin 13.9 g/dL (12.0-15.0); Mean Corpuscular HGB Conc 31.9 g/dl (32-36); Mean Corpuscular Hemoglobin 29.3 pg (26-34); Mean Platelet Volume 9.8 fl (7.4-10.4); Platelet Count Result 363 k/mm3 (150-375); Red Blood Count 4.74 M/mm3 (4.2-5.4); Red Cell Distribution Width 12.3 % (11.5-14.5); White Blood Count 18.3 K/mm3 (4.5-10.0)
[2021-03-09 06:46] LABS: Anion Gap 7 mmol/L (8-16); Blood Urea Nitrogen 19 mg/dL (7-17); Calcium 9.3 mg/dL (8.4-10.2); Carbon Dioxide 28 mmol/L (22-30); Chloride 105 mmol/L (98-107); Estimated Glomerular Filt Rate > 60; Glucose 120 mg/dL (65-105); Potassium 4.2 mmol/L (3.4-5.0); Sodium 140 mmol/L (137-145)
[2021-03-09] MEDS: ATORVASTATIN 40 MG TABLET PO (08:33)
[2021-03-09] MEDS: ASPIRIN 81 MG ENTERIC TABLET PO (08:33)
[2021-03-09] MEDS: busPIRone HCL 5 MG TABLET PO ×2 (09:49→21:24)
[2021-03-09] MEDS: FLUTICASONE/UMECLIDIN/VILANTER 100-62.5-25 MCG ELLIPTA 1 PUFF INHALATION (09:49)
[2021-03-09] MEDS: ENOXAPARIN 40 MG/0.4 ML SYRINGE SUB-Q (09:49)
[2021-03-09] MEDS: guaiFENesin 12 HR 600 MG TABCR PO ×2 (09:49→21:24)
--- NOTE | 2021-03-09 10:23 | PM.IMPN ---
Progress Note: A&P Assessment and Plan (1) Acute on chronic respiratory failure with hypoxia and hypercapnia: Code(s): J96.21 - Acute and chronic respiratory failure with hypoxia; J96.22 - Acute and chronic respiratory failure with hypercapnia Status: Acute Assessment and Plan: Patient uses 4 L of O2 nasal cannula chronically at home. Patient presents here with shortness of breath found to have mild respiratory acidosis with hypercapnia. she was placed on BiPAP with improvement of her blood gas. BiPAP weaned to nighttime use and patient is tolerating this well. Patient was being followed by Dr. Doan but has not seen pulmonary for the past 2 yrs. (2) COPD exacerbation: Code(s): J44.1 - Chronic obstructive pulmonary disease with (acute) exacerbation Status: Acute Assessment and Plan: Acute on chronic respiratory failure with hypoxia and hypercapnia 2nd to COPD exacerbation. Treatedw with continuous BiPAP but weaned to night time use only. Lasix IV x1 on 03/07 but not repeated. Pedal edema better but may worsen when she is up and around more. Continue Solu-Medrol and Neb treatments. On abx for acute bronchitis. Continue Trelegy. Will have her followup with Pulmonary after discharge. WBC elevated felt related to the steroids. (3) Tobacco dependence: Code(s): F17.200 - Nicotine dependence, unspecified, uncomplicated Status: Chronic Assessment and Plan: The patient was educated about the benefits of smoking cessation. (4) CAD (coronary artery disease): Qualifiers: Associated angina: without angina Coronary Disease-Associated Artery/Lesion type: [place] artery [place] vs. transplanted heart: [place] heart Qualified Code(s): I25.10 - Atherosclerotic heart disease of [place] coronary artery without angina pectoris Code(s): I25.10 - Atherosclerotic heart disease of [place] coronary artery without angina pectoris Status: Chronic Assessment and Plan: Clinically stable. Continue ASA and Lipitor. (5) CHF (congestive heart failure): Qualifiers: Heart failure chronicity: chronic Heart failure type: diastolic Qualified Code(s): I50.32 - Chronic diastolic (congestive) heart failure Code(s): I50.9 - Heart failure, unspecified Status: Acute Assessment and Plan: CXR showing pulmonary vascular congestion but not pulmonary edema. Pedal edema noted on exam on admission by some. BNP 41. Did receive one dose of IV Lasix but no not feel she has acute CHF. Cor pulmonale? Echo ordered and is pending (6) HTN (hypertension): Qualifiers: Hypertension type: essential hypertension Qualified Code(s): I10 - Essential (primary) hypertension Code(s): I10 - Essential (primary) hypertension Status: Chronic Assessment and Plan: Patient's blood pressure was reviewed. Blood pressure remains mostly well controlled. Not on medications at home for HTN. (7) DVT prophylaxis: Code(s): Z29.9 - Encounter for prophylactic measures, unspecified Status: Acute Assessment and Plan: Lovenox Subjective Date/time seen: 03/09/21 10:23 Interval history: 75yo female with chronic resp failure (3L), COPD and ongoing Tobacco abuse (quit last week) who is admitted 03/07 early AM due to recurrent COPD exacerbation and acute on chronic respiratory failure with hypoxia and hypercarbia. Assuming care. Chart reviewed. SOB better since admission and she feels back to her baseline. She is up walking to the BR. She quit tobacco last week. No leg edema or calf pain. Cough improved today. Does not use NIV at home but is on 3L chronically. Exam Narrative: Exam Narrative: AF 98.1 151/69 87 22 93% 2.5L Gen - NARD sitting up in bed Chest - distant, clear BS, nml RR, no conversational dyspnea CV - RRR S1/S2 Abd - Soft, NT/ND, Positive BS Ext - No pedal edema. 2+ DP bilaterally.
[2021-03-10] VITALS (7 sets, daily range): BP systolic 134–153; BP diastolic 87–117; PULSE 64–75; RESP 16–20; TEMP 36.3; O2SAT 94–98
[2021-03-10] MEDS: ALBUTEROL SULFATE NEB 2.5 MG/0.5 ML INH 5 MG INHALATION ×2 (02:39→08:07)
[2021-03-10] MEDS: IPRATROPIUM BR 0.02% INH SOLN 0.5 MG/2.5 ML VIAL INHALATION ×2 (02:40→08:07)
[2021-03-10] MEDS: methylPREDNISolone SOD SUCC 125 MG VIAL 60 MG IV PUSH (06:15)
[2021-03-10] MEDS: FLUTICASONE/UMECLIDIN/VILANTER 100-62.5-25 MCG ELLIPTA 1 PUFF INHALATION (08:08)
[2021-03-10] MEDS: ASPIRIN 81 MG ENTERIC TABLET PO (08:29)
[2021-03-10] MEDS: busPIRone HCL 5 MG TABLET PO (08:29)
[2021-03-10] MEDS: ATORVASTATIN 40 MG TABLET PO (08:29)
[2021-03-10] MEDS: guaiFENesin 12 HR 600 MG TABCR PO (08:29)
[2021-03-10] MEDS: ENOXAPARIN 40 MG/0.4 ML SYRINGE SUB-Q (08:29)
--- NOTE | 2021-03-10 11:46 | PM.DS ---
DS: Admitting Diagnosis Admitting Diagnosis Admitting Diagnosis: Short of breath DS: Discharge Diagnosis Discharge Diagnosis (1) Acute on chronic respiratory failure with hypoxia and hypercapnia: Code(s): J96.21 - Acute and chronic respiratory failure with hypoxia; J96.22 - Acute and chronic respiratory failure with hypercapnia Status: Acute Assessment and Plan: Patient uses 4 L of O2 nasal cannula chronically at home. Patient presents here with shortness of breath found to have mild respiratory acidosis with hypercapnia. She was placed on BiPAP with improvement of her blood gas. BiPAP weaned to nighttime use. Patient feeling much better and began to refuse the BiPAP at [facility]. She can not tolerate it. Patient was being followed by Dr. Doan but has not seen pulmonary for the past 2 yrs. She was weaned back to her baseline home O2 requirement. She feels better and back to her baseline. (2) COPD exacerbation: Code(s): J44.1 - Chronic obstructive pulmonary disease with (acute) exacerbation Status: Acute Assessment and Plan: Acute on chronic respiratory failure with hypoxia and hypercapnia 2nd to COPD exacerbation. Treated with continuous BiPAP but weaned to night time use only. Lasix IV x1 on 03/07 but not repeated. Pedal edema improved. Treated with Solu-Medrol and Neb treatments. On abx for acute bronchitis. We continued her Trelegy. WBC elevated felt related to the steroids. Will have her followup with Pulmonary after discharge. (3) Tobacco dependence: Code(s): F17.200 - Nicotine dependence, unspecified, uncomplicated Status: Chronic Assessment and Plan: The patient was educated about the benefits of smoking cessation. (4) CAD (coronary artery disease): Qualifiers: Coronary Disease-Associated Artery/Lesion type: [place] artery [place] vs. transplanted heart: [place] heart Associated angina: without angina Qualified Code(s): I25.10 - Atherosclerotic heart disease of [place] coronary artery without angina pectoris Code(s): I25.10 - Atherosclerotic heart disease of [place] coronary artery without angina pectoris Status: Chronic Assessment and Plan: Clinically stable. We continued ASA and Lipitor. (5) CHF (congestive heart failure): Qualifiers: Heart failure type: diastolic Heart failure chronicity: chronic Qualified Code(s): I50.32 - Chronic diastolic (congestive) heart failure Code(s): I50.9 - Heart failure, unspecified Status: Acute Assessment and Plan: CXR showing pulmonary vascular congestion but not pulmonary edema. Pedal edema noted on exam on admission by some. BNP 41. Did receive one dose of IV Lasix but no not feel she has acute CHF. Echo showing EF 70% with Grade I diastolic dysfunction; unable to assess PASP. (6) HTN (hypertension): Qualifiers: Hypertension type: essential hypertension Qualified Code(s): I10 - Essential (primary) hypertension Code(s): I10 - Essential (primary) hypertension Status: Chronic Assessment and Plan: Patient's blood pressure was monitored closely. Blood pressure remained mostly well controlled. Not on medications at home for HTN. DS: Summary Hospital Course Reason for hospitalization: 75yo female with chronic resp failure (3L), COPD and ongoing Tobacco abuse (quit last week) who is admitted 03/07 early AM due to recurrent COPD exacerbation and acute on chronic respiratory failure with hypoxia and hypercarbia. Please see H&P for details. Hospital Course: Please see above for details of hospital course Status at Discharge Cognitive/behavioral status at discharge: stable Time Spent with Patient Time attestation: Total time spent providing and/or coordinating discharge services: 36 minutes Time spent: Greater than 30 minutes Exam Narrative: Exam Narrative: AF 97.4 153/87 70 16 97% 3L
== END 2021-03-10 13:00 | disposition home or self-care (01) | DRG 190 ==
LOC: ANHED 03:23 → ANHIMU 12:16 → ANH3MEDSUR 03-10 11:59 → ANHIMU 03-12 09:28
PROVIDERS: Internal Medicine; Admitting Provider Internal Medicine; Emergency Provider Emergency Medicine; PCP Family Medicine; Visit Provider Internal Medicine
DX: J44.1 Chronic obstructive pulmonary disease with (acute) exacerbation (principal); J96.21 Acute and chronic respiratory failure with hypoxia; J96.22 Acute and chronic respiratory failure with hypercapnia; I50.32 Chronic diastolic (congestive) heart failure; I11.0 Hypertensive heart disease with heart failure; I25.10 Atherosclerotic heart disease of native coronary artery without angina pectoris; F41.9 Anxiety disorder, unspecified; K21.9 Gastro-esophageal reflux disease without esophagitis; E78.5 Hyperlipidemia, unspecified; M19.90 Unspecified osteoarthritis, unspecified site; Z87.891 Personal history of nicotine dependence; I25.2 Old myocardial infarction; Z95.5 Presence of coronary angioplasty implant and graft; Z99.81 Dependence on supplemental oxygen
CPT/HCPCS: 36415; 36600; 71045; 80048; 82375; 82805; 83050; 83880; 84484; 85025; 85027; 85610; 85730; 93005; 93306; 94003; 94640; 99285; A9270; J0456; J0696; J1650; J1940; J2930

== ENCOUNTER 2021-04-01 23:36 | Inpatient (IN) | payer MEDICARE, SELFPAY ==
--- NOTE | ~2021-04-01 | XR_ITS ---
EXAMINATION: XR chest 1V portable DATE: 04/02/2021 00:36 INDICATION: Shortness of breath TECHNIQUE: frontal view of the chest was obtained. COMPARISON: Chest radiograph dated 03/07/2021 FINDINGS: Emphysema with mild hyperexpansion of lungs and relatively increased lucency and architectural distor tion in the left upper lung zone. There are a few small calcified pulmonary nodules in the right lung consistent with old granulomatous disease. No new airspace opacities, pulmonary edema, pleural effus ion or pneumothorax. The cardiomediastinal silhouette is normal. IMPRESSION: 1. Emphysema. No acute cardiopulmonary disease. Reviewed, dictated and finalized at location A.
[2021-04-01 23:38] VITALS: BP 155/80; PULSE 92; RESP 26; TEMP 35.9; O2SAT 99
--- NOTE | 2021-04-01 23:51 | ECG_ITS ---
Measurements Intervals [place] Rate: 97 P: 88 [place]: 135 QRS: 46 QRSD: 86 T: 74 QT: 332 QTc: 423 Interpretive Statements SINUS RHYTHM EARLY PRECORDIAL R/S TRANSITION BASELINE ARTIFACT- I, III, AVR, AVL, AVF, V1-V6 BORDERLINE ECG Electronically Signed On 04-02-2021 6:29:49 CDT by Tito Darling D.O.
[2021-04-02] VITALS (31 sets, daily range): BP systolic 106–126; BP diastolic 54–76; PULSE 71–96; RESP 16–27; TEMP 36.5–37.1; O2SAT 90–100; BMI 26.9
[2021-04-02] MEDS: IPRATROPIUM BR 0.02% INH SOLN 0.5 MG/2.5 ML VIAL INHALATION ×4 (00:06→22:29)
[2021-04-02] MEDS: ALBUTEROL SULFATE NEB 2.5 MG/0.5 ML INH 5 MG INHALATION ×4 (00:06→22:30)
[2021-04-02] MEDS: methylPREDNISolone SOD SUCC 125 MG VIAL IV PUSH (00:07)
[2021-04-02 00:08] LABS: Basophils Absolute Auto 0.1 K/mm3 (0.0-0.1); Basophils Percent Auto 0.7 % (0.2-1.2); Eosinophils Absolute Auto 1.4 K/mm3 (0-0.3); Eosinophils Percent Auto 11.1 % (0-4.4); Hematocrit 42.3 % (37.0-47.0); Hemoglobin 13.5 g/dL (12.0-15.0); Immature Granulocyte Absolute 0.04 K/mm3 (0.00-0.031); Immature Granulocyte Percent A 0.3 % (0-0.5); Lymphocytes Absolute Auto 2.84 K/mm3 (0.9-3.2); Lymphocytes Percent Auto 22.4 % (18.3-44.2); Mean Corpuscular HGB Conc 31.9 g/dl (32-36); Mean Corpuscular Hemoglobin 29.7 pg (26-34); Mean Platelet Volume 9.4 fl (7.4-10.4); Monocytes Absolute Auto 1.3 K/mm3 (0.1-0.6); Monocytes Percent Auto 10.3 % (2.6-8.5); Neutrophils Percent Auto 55.2 % (45.5-73.1); Platelet Count Result 347 k/mm3 (150-375); Red Blood Count 4.55 M/mm3 (4.2-5.4); Red Cell Distribution Width 12.6 % (11.5-14.5); White Blood Count 12.7 K/mm3 (4.5-10.0)
[2021-04-02 00:13] LABS: Alveolar/Arterial O2 Gradient 138.5 mmHg; Base Excess ABG 2.6 mEq/l (+/-2.0); Carboxyhemoglobin 2.1 % THb (0-2.0); Fractional Inspired Oxygen 50 %; HCO3 ABG 30.3 mEq/l (22.0-26.0); Methemoglobin ABG 0.4 %THb (0-1.5); Oxygen Content ABG 19.5 %vol (16.0-22.0); Oxygen Saturation ABG 98.7 % (95.0-100.0); Oxyhemoglobin 95.9 % THb (90.0-100.0); PO2 ABG 150.4 mmHg (80.0-100.0); PO2 FiO2 Ratio Arterial Blood 3.01 %; Reduced Hemoglobin 1.6 %THb (0-5.0); Total Hemoglobin 14.3 g/dL (12.0-18.0)
[2021-04-02 00:15] LABS: Device OTHER DEVICE; Modified Allen's Test Pass; PCO2 ABG 60.1 mmHg (35.0-45.0); Site Drawn RIGHT RADIAL
[2021-04-02 00:15] LABS: INR 0.8; Prothrombin Time 11.4 Seconds (11.1-14.7)
[2021-04-02 00:16] LABS: Partial Thromboplastin Time 30.5 SECONDS (22.3-36.8)
[2021-04-02 00:19] LABS: Alanine Aminotransferase 16 U/L (4-35); Albumin Level 4.1 g/dL (3.5-5.1); Alkaline Phosphatase 89 U/L (38-126); Anion Gap 6 mmol/L (8-16); Aspartate Amino Transferase 27 U/L (14-36); Bilirubin,Total 0.4 mg/dL (0.2-1.3); Blood Urea Nitrogen 22 mg/dL (7-17); Calcium 10.3 mg/dL (8.4-10.2); Carbon Dioxide 31 mmol/L (22-30); Chloride 100 mmol/L (98-107); Estimated Glomerular Filt Rate > 60; Glucose 118 mg/dL (65-110); Magnesium 1.9 mg/dL (1.6-2.3); Potassium 4.2 mmol/L (3.4-5.0); Sodium 137 mmol/L (137-145)
[2021-04-02 00:31] LABS: NT Pro B Type Natriuretic Pept 35 pg/mL (5-100); Troponin I 0.018 ng/mL (0.000-0.034)
--- NOTE | 2021-04-02 01:27 | ED.GENADULT ---
HPI - General Adult General Chief complaint: Shortness of Breath/Dyspnea Stated complaint: sob Time Seen by Provider: 04/01/21 23:47 History of Present Illness HPI narrative: Patient is a 75-year-old female presents the emergency department with chief of shortness of breath. Patient reports she has history of COPD and has been on BiPAP before in the past patient reports he been having increasing shortness of breath and was hypoxic whenever EMS was called. Patient has been requiring significant supplemental oxygen in the emergency department reports that she has been vaccinated for COVID-19 patient denies fever reports that she has had a somewhat slightly productive cough with this that similar to whenever she has a COPD exacerbation. Related Data Home Medications Medication Instructions Recorded Confirmed albuterol sulfate [Ventolin HFA] 2 puff INHALATION QID PRN 08/19/19 03/07/21 aspirin [Adult Low Dose Aspirin] 81 mg PO DAILY 08/19/19 03/07/21 ipratropium-albuterol 3 ml INHALATION QID PRN 08/19/19 03/07/21 atorvastatin 40 mg PO DAILY 12/30/20 03/07/21 buspirone 5 mg PO BID 12/30/20 03/07/21 diphenhydramine HCl [Benadryl] 25 mg PO Q6H PRN 12/30/20 03/07/21 Allergies Allergy/AdvReac Type Severity Reaction Status Date / Time No Known Allergies Allergy Verified 04/01/21 23:51 Review of Systems Review of Systems: Narrative: A 10 system review of systems was completed on the patient and is negative except for what is stated in the HPI. Nursing and ancillary documentation was reviewed. [facility] Past Medical History Medical History Anxiety Arthritis Asthma Cerebrovascular accident (~2017) Initially if she had some numbness and tingling to the right side of her body but that has resolved. MRI showed left occipital temporal infarct and small left basal ganglia infarcts. Chronic obstructive pulmonary disease Chronic respiratory failure with hypoxia, on home oxygen therapy 3 L nasal cannula. Coronary artery disease History of myocardial infarction and stent x1. Depression Diastolic dysfunction Eosinophilia Gastroesophageal reflux disease Hyperlipidemia Hypertension Pneumonia Tobacco abuse disorder Surgical History Surgical History History of bilateral cataract extraction History of cardiac catheterization History of heart artery stent History of tonsillectomy History of tonsillectomy Family History Family History Father Acute myocardial infarction Mother Parkinson's disease Dementia Acute myocardial infarction Premature coronary artery disease Social History Social History Social History: The patient lives in her own apartment. She is and has 4 children. 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 She occasionally drinks alcohol but this is rare. She continues to smoke 6-10 cigarettes a day but smoked up to a pack of cigarettes per day since she was a teenager. She designates her daughter Radha Craig as her surrogate decision maker and she wishes to be a full code. Years smoked: 40 Smoking status: Former smoker Second hand tobacco smoke exposure: No Additional smoking assessment comments: Patient stated she quit smoking 1 week ago. Alcohol intake: current Drinks per week: 1 Alcohol use details: She will occasionally drink alcohol in moderation. Substance use: current Substance use type: marijuana Other substance usage details: occassional marijuana use Last use: occasssional use Gender identity (if verbalized by the patient): Female Spiritual care concerns: No Agree to blood products: Yes Exam Narrative: Exam Narrative: GENERAL: Well-appearing, well-nourished, and i
[2021-04-02 01:55] LABS: Add Urine Microscopic? YES; Appearance Urine Cloudy (Clear); Bilirubin Urine Negative (Negative); Blood Urine Negative (Negative); Color Urine Yellow (Yellow); Glucose Urine UA Negative (Negative); Ketones Urine Negative (Negative); Leukocyte Esterase Ur 1+ LEU/UL (Negative); Mucus Urine Rare /lpf; Nitrate Urine Negative (Negative); Protein Urine Negative (Negative); RBC Urine 0-2 /hpf (0-2); Specific Grav Ur 1.024 (1.001-1.035); Squamous Epithelial Cell Urine Occasional /hpf (Few); Urobilinogen Urine Negative mg/dL (<2.0); WBC Urine 0-3 /hpf
[2021-04-02 03:29] LABS: Troponin I 0.014 ng/mL (0.000-0.034)
--- NOTE | 2021-04-02 03:33 | PM.IMHP ---
H&P: HPI History of Present Illness Date/Time: 04/02/21 02:00 Chief Complaint: shortness of breath Narrative: 75-year-old female with a past medical history of continuous medical abuse, COPD, chronic hypoxic respiratory failure and coronary artery disease who presented to the ER via EMS from home due to shortness of breath. The patient reports that she has been having increased wheezing for the last couple of weeks as well as some mild increased swelling of bilateral ankles. However today she had sudden worsening of her shortness of breath and she called EMS. On EMS arrival to her home she was satting 76% on her home O2 Of 3 L nasal cannula. The patient reports that she has tried to use nebulizer treatments at home with no real improvement in her symptoms. She has had her chronic cough that is unchanged from baseline. She denies any orthopnea or paroxysmal nocturnal dyspnea. She denies any chest pain or palpitations. She has not had any nausea or vomiting. She is vaccinated against COVID-19 at least 2 months ago. She reports that her current symptoms are similar to when she has her usual COPD exacerbations. She has been hospitalized 3 times since December due to COPD exacerbation. Review of Systems Review of Systems: Narrative: 12 systems were reviewed with pertinent positives and negatives per HPI. Except as documented in the HPI, all other systems were reviewed and are negative. [facility] Past Medical History Medical History (Updated 04/02/21 @ 03:53 by Sarita Santo DO) Anxiety Arthritis Asthma Cerebrovascular accident (~2016) Initially if she had some numbness and tingling to the right side of her body but that has resolved. MRI showed left occipital temporal infarct and small left basal ganglia infarcts. Chronic obstructive pulmonary disease Chronic respiratory failure with hypoxia, on home oxygen therapy 3 L nasal cannula. Coronary artery disease History of myocardial infarction and stent x1. Depression Diastolic CHF echocardiogram February 2021: Grade 1 diastolic dysfunction EF 70%. Unable to estimate PA systolic pressure. Diastolic dysfunction Eosinophilia Gastroesophageal reflux disease Hyperlipidemia Hypertension Pneumonia Tobacco abuse disorder Surgical History Surgical History (Updated 04/02/21 @ 03:53 by Sarita Santo DO) History of bilateral cataract extraction History of cardiac catheterization History of heart artery stent History of tonsillectomy Family History Family History Father Acute myocardial infarction Mother Parkinson's disease Dementia Acute myocardial infarction Premature coronary artery disease Social History Social History Social History: The patient lives in her own apartment. She is and has 4 children. 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 She occasionally drinks alcohol but this is rare. She continues to smoke 6-10 cigarettes a day but smoked up to a pack of cigarettes per day since she was a teenager. She designates her daughter Radha Craig as her surrogate decision maker and she wishes to be a full code. Smoking packs per day: 0.5 Smoking cigarettes per day: 10.0 Years smoked: 60 Smoking pack-years: 30.00 Smoking status: Current every day smoker Tobacco type: cigarettes Second hand tobacco smoke exposure: No Additional smoking assessment comments: Patient stated she quit smoking 1 week ago. Alcohol intake: current Drinks per week: 1 Alcohol use details: She will occasionally drink alcohol in moderation. Substance use: current Substance use type: marijuana Other substance usage details: occassional marijuana use Last use: occasssional use Gender identity (if verbalized by the patient): Female Spiritual care concerns: No Agree to blood products: Yes Me
--- NOTE | 2021-04-02 04:19 | PC.NURSE ---
This patient, Deloris Stone, was admitted to IMU Room 231-01 on 04/02/21 at 0417. Patient/family oriented to hospital policies and general routines including ID bracelet, bed and alarms, visiting hours, pain management, procedures, bathroom and other care routines, personal items, smoking policy, room service/diet, and visiting hours. Information on how to activate the Rapid Response Team has been discussed. Patient/Family are encouraged to report perceived risks to care and to ask questions if they do not understand what they are told or what they should do.
[2021-04-02] MEDS: methylPREDNISolone SOD SUCC 125 MG VIAL 60 MG IV PUSH ×4 (05:13→23:08)
[2021-04-02 07:06] LABS: Troponin I 0.014 ng/mL (0.000-0.034)
[2021-04-02 07:54] LABS: Alveolar/Arterial O2 Gradient 120.6 mmHg; Base Excess ABG 3.3 mEq/l (+/-2.0); Fractional Inspired Oxygen 40 %; HCO3 ABG 29.4 mEq/l (22.0-26.0); Oxygen Content ABG 19.2 %vol (16.0-22.0); Oxygen Saturation ABG 97.7 % (95.0-100.0); PCO2 ABG 50.7 mmHg (35.0-45.0); PO2 ABG 106.3 mmHg (80.0-100.0); PO2 FiO2 Ratio Arterial Blood 2.66 %; pH ABG 7.381 (7.350-7.450)
[2021-04-02 07:55] LABS: Device NON-INVASIVE VENT; Non-Invasive Expiratory Pressure 5 CMH2O; Non-Invasive Inspiratory Pressure 10 CMH2O; Non-Invasive Vent Rate 12 /MIN; Site Drawn RIGHT BRACHIAL
[2021-04-02] MEDS: ENOXAPARIN 40 MG/0.4 ML SYRINGE SUB-Q (09:51)
[2021-04-02] MEDS: busPIRone HCL 5 MG TABLET PO ×2 (09:51→17:08)
[2021-04-02] MEDS: FLUTICASONE/UMECLIDIN/VILANTER 100-62.5-25 MCG ELLIPTA 1 PUFF INHALATION (10:00)
--- NOTE | 2021-04-02 16:36 | PM.IMPN ---
Progress Note: A&P Assessment and Plan (1) Acute on chronic respiratory failure with hypoxia and hypercapnia: Code(s): J96.21 - Acute and chronic respiratory failure with hypoxia; J96.22 - Acute and chronic respiratory failure with hypercapnia Status: Acute Assessment and Plan: 04/02/21 16:36 patient is 75-year-old female with history of COPD unfortunately patient still stable presented emergency department via EMS hypoxic requiring high-flow oxygen and patient was placed on BiPAP, patient with exacerbation of COPD started on Solu-Medrol, updraft, patient was transferred to IMU on BiPAP patient pulse ox improved currently patient is off BiPAP on 4 L nasal cannula states feeling much better compared to when she arrived, will continue present managed will taper Solu-Medrol as her symptoms improve, (2) COPD exacerbation: Code(s): J44.1 - Chronic obstructive pulmonary disease with (acute) exacerbation Status: Acute Assessment and Plan: plan is above (3) Tobacco dependence: Code(s): F17.200 - Nicotine dependence, unspecified, uncomplicated Status: Chronic Assessment and Plan: yacht builder counseled patient to stop smoking. Additional Plan The patient has acute on chronic hypercapnic hypoxic respiratory failure due to COPD exacerbation. Patient's condition has improved after IV Solu-Medrol, nebulizer treatments and BiPAP initiated in the ER. The patient's tidal volumes when I evaluated her in the ER were elevated to [id number]. MA BiPAP adjustments in decreased pressures to 10/5 with backup rate of 12 with FiO2 of 40%. Patient was pulling more appropriate tidal volumes between 400-600. The patient will be continued on IV Solu-Medrol and scheduled nebulizer treatments. Will repeat ABG in a.m. and consider weaning patient off of BiPAP back on to nasal cannula. The importance of smoking cessation was discussed with the patient. discussion was somewhat limited as the patient is on BiPAP. She states that she is taking a medication to help her quit smoking. However, she is still smoking around half pack of cigarettes per day. Patient has been admitted as inpatient. She has a anticipate a greater than 2 midnight hospital stay for improvement in her respiratory failure. 40 minutes spent in critical care activities. This case had a high probability of a clinically significant, sudden, or life threatening deterioration of this patient's condition which required my full and direct attention, intervention and personal management. Subjective Date/time seen: 04/02/21 16:36 patient is 75-year-old female with history of COPD unfortunately patient still stable presented emergency department via EMS hypoxic requiring high-flow oxygen and patient was placed on BiPAP, patient with exacerbation of COPD started on Solu-Medrol, updraft, patient was transferred to IMU on BiPAP patient pulse ox improved currently patient is off BiPAP on 4 L nasal cannula states feeling much better compared to when she arrived, will continue present managed will taper Solu-Medrol as her symptoms improve, Review of Systems Review of Systems: All systems reviewed & are unremarkable except as noted in HPI and below Exam Narrative: Exam Narrative: appears chronically ill Patient is comfortable, NAD HEENT: eyes are clear and none icteric LUNGS: bilateral poor air entry with wheezing and rhonchi HEART: RR S1S2 ABD: BS+, Soft and nontender Lower extremities: no edema SKIN: nonjaundiced Neuro: grossly intact. Objective Data Vital Signs Vital Signs: Vital Signs - 24 hr 04/01/21 23:38 04/02/21 00:08 04/02/21 00:27 Temperature 96.6 F L Pulse Rate 92 94 85 Respiratory Rate 26 H 27 H 18 Blood Pressure 155/80 H Pulse Oximetry 99 100 04/02/21 01:34 04/02/21 01:51 04/02/21 02:00 Temperature Pulse Rate 87 80 80 Respiratory Rate 20 19 16 Blood Pressure Pulse Oximetry 04/02/21 02:01 04/02/21
[2021-04-02] MEDS: ATORVASTATIN 40 MG TABLET PO (20:41)
[2021-04-03] VITALS (18 sets, daily range): BP systolic 137–144; BP diastolic 64–70; PULSE 67–101; RESP 16–22; TEMP 36.6–36.8; O2SAT 89–99
[2021-04-03] MEDS: ALBUTEROL SULFATE NEB 2.5 MG/0.5 ML INH 5 MG INHALATION ×3 (03:41→15:08)
[2021-04-03] MEDS: IPRATROPIUM BR 0.02% INH SOLN 0.5 MG/2.5 ML VIAL INHALATION ×4 (03:42→21:24)
[2021-04-03] MEDS: methylPREDNISolone SOD SUCC 125 MG VIAL 60 MG IV PUSH ×2 (05:02→13:28)
[2021-04-03 05:16] LABS: Basophils Percent Auto 0.2 % (0.2-1.2); Hematocrit 37.4 % (37.0-47.0); Hemoglobin 12.2 g/dL (12.0-15.0); Immature Granulocyte Absolute 0.06 K/mm3 (0.00-0.031); Immature Granulocyte Percent A 0.4 % (0-0.5); Lymphocytes Absolute Auto 0.75 K/mm3 (0.9-3.2); Lymphocytes Percent Auto 5.5 % (18.3-44.2); Mean Corpuscular HGB Conc 32.6 g/dl (32-36); Mean Corpuscular Volume 91.9 fl (80-100); Mean Platelet Volume 9.5 fl (7.4-10.4); Monocytes Absolute Auto 0.6 K/mm3 (0.1-0.6); Monocytes Percent Auto 4.2 % (2.6-8.5); Neutrophils Absolute Auto 12.2 K/mm3 (1.3-6.7); Neutrophils Percent Auto 89.7 % (45.5-73.1); Platelet Count Result 296 k/mm3 (150-375); Red Blood Count 4.07 M/mm3 (4.2-5.4); Red Cell Distribution Width 12.5 % (11.5-14.5); White Blood Count 13.7 K/mm3 (4.5-10.0)
[2021-04-03 05:28] LABS: Anion Gap 8 mmol/L (8-16); Blood Urea Nitrogen 24 mg/dL (7-17); Calcium 9.2 mg/dL (8.4-10.2); Carbon Dioxide 27 mmol/L (22-30); Chloride 103 mmol/L (98-107); Estimated Glomerular Filt Rate > 60; Glucose 144 mg/dL (65-110); Potassium 4.5 mmol/L (3.4-5.0); Sodium 138 mmol/L (137-145)
[2021-04-03] MEDS: busPIRone HCL 5 MG TABLET PO ×2 (09:15→17:52)
[2021-04-03] MEDS: ENOXAPARIN 40 MG/0.4 ML SYRINGE SUB-Q (09:15)
[2021-04-03] MEDS: FLUTICASONE/UMECLIDIN/VILANTER 100-62.5-25 MCG ELLIPTA 1 PUFF INHALATION (09:26)
--- NOTE | 2021-04-03 15:19 | PM.CNPUL ---
Assessment and Plan Assessment and plan (1) COPD exacerbation: Code(s): J44.1 - Chronic obstructive pulmonary disease with (acute) exacerbation Status: Acute Assessment and Plan: 75-year-old with cold grade 3 group D COPD with an FEV1 of 0.56 (37% predicted) on 12/15/2016 on 3-4 L nasal cannula at home during the day with rest and ambulation and 3 L at night, with chronic hypercarbic respiratory failure requiring BiPAP on last admission on 03/07/2021, mMRC grade 4 and now with her 7th admission in the last year for COPD exacerbation. patient continues to smoke 1/2 pack per day. Patient is improved on [place] or 60 mg IV q.6, albuterol 2.5 mg neb q.6 hours, ipratropium 0.5 mg neb q.6 hours as well as trilogy. I will discontinue the trilogy as she is on maximum doses of albuterol and ipratropium with the nebulizers. I will decrease her Solu-Medrol to 40 Q 6 today. I see no evidence of pneumonia or tracheobronchitis and I will not prescribe antibiotics at this time. Patient has had negative troponins and her BNP is normal and I see no evidence of fluid overload. We had a lengthy discussion regarding tobacco cessation and she is willing to quit at this time. (2) Acute on chronic respiratory failure with hypoxia and hypercapnia: Code(s): J96.21 - Acute and chronic respiratory failure with hypoxia; J96.22 - Acute and chronic respiratory failure with hypercapnia Status: Acute Assessment and Plan: Patient presented with acute on chronic hypercarbic and hypoxemic respiratory failure with an ABG of 7.32/62/150 on 50% FiO2. Patient has chronic hypercarbic respiratory failure from her COPD and she would benefit from BiPAP or noninvasive ventilation at night to prevent further deterioration and prevent further hospitalizations. The patient did not tolerate BiPAP as the pressure was too much and was uncomfortable. I have adjusted her AVAPS settings with a rate of 14, tidal volume 500, expiratory pressure 5, minimum inspiratory pressure 6, minimal expiratory pressure 25, inspiratory time 0.8 seconds, rise of 5 which is our slowest and 30% FiO2 and she tells me that this is comfortable and she would be able to tolerate this at night. I will order blood gas in the morning on these settings and an overnight oximetry to assess her oxygenation on 30%. Will follow with you. History of Present Illness History of Present Illness Consult date: 04/03/21 Requesting physician: Susana Chandra MD Chief complaint: Acute COPD exacerbation Narrative: This is a new pulmonary consult for COPD exacerbation with acute on chronic hypercarbic and hypoxemic respiratory failure. 75-year-old with cold grade 3 group D COPD with an FEV1 of 0.56 (37% predicted) on 12/15/2016 on 3-4 L nasal cannula at home during the day with rest and ambulation and 3 L at night, with chronic hypercarbic respiratory failure requiring BiPAP on last admission on 03/07/2021, mMRC grade 4 annd now with her 7th admission in the last year for COPD exacerbation. patient continues to smoke 1/2 pack per day. Patient states that on the day of 04/01 she developed shortness of breath and wheezing without fever, chills, rigors or chest pain. Symptoms got worse despite using her albuterol and she presented to the emergency department with a white blood cell count of 12.7, 1.4% eosinophils which equals 178 eosinophils per micro L, troponins were negative x3, BNP was 35 and chest x-ray showed emphysema with no focal infiltrates. Patient had an arterial blood gas of 7.32/60/150 on 50% oxygen and was placed on BiPAP. Repeat blood gas on BiPAP demonstrated a pH of 7.38/51/106 on a BiPAP of 10/5. Patient was started on Solu-Medrol, albuterol and ipratropium nebulizers and admitted to the floor. Patient continued to improve and I was consulted on 04/03. Baseline: patient states that she can walk 1/2 a block with her oxygen. Patient has a chronic cough at 2-3 times an hour an
--- NOTE | 2021-04-03 16:49 | PM.IMPN ---
Progress Note: A&P Assessment and Plan (1) Acute on chronic respiratory failure with hypoxia and hypercapnia: Code(s): J96.21 - Acute and chronic respiratory failure with hypoxia; J96.22 - Acute and chronic respiratory failure with hypercapnia Status: Acute Assessment and Plan: 04/03/21 16:49 04/02/21 patient is 75-year-old female with history of COPD unfortunately patient still smokes presented emergency department via EMS hypoxic requiring high-flow oxygen and patient was placed on BiPAP, patient with exacerbation of COPD started on Solu-Medrol, updraft, patient was transferred to IMU on BiPAP patient pulse ox improved currently patient is off BiPAP on 4 L nasal cannula states feeling much better compared to when she arrived, will continue present managed will taper Solu-Medrol as her symptoms improve, 04/03 Patient with exacerbation of COPD being treated with a Solu-Medrol and updraft patient states is feeling little better compared to when she arrived not a short of breath, will continue present managed we have consulted linen manager evaluate and for further treatment will continue to monitor (2) COPD exacerbation: Code(s): J44.1 - Chronic obstructive pulmonary disease with (acute) exacerbation Status: Acute Assessment and Plan: plan is above (3) Tobacco dependence: Code(s): F17.200 - Nicotine dependence, unspecified, uncomplicated Status: Chronic Assessment and Plan: stave hewer counseled patient to stop smoking. Subjective Date/time seen: 04/03/21 16:49 04/02/21 patient is 75-year-old female with history of COPD unfortunately patient still smokes presented emergency department via EMS hypoxic requiring high-flow oxygen and patient was placed on BiPAP, patient with exacerbation of COPD started on Solu-Medrol, updraft, patient was transferred to IMU on BiPAP patient pulse ox improved currently patient is off BiPAP on 4 L nasal cannula states feeling much better compared to when she arrived, will continue present managed will taper Solu-Medrol as her symptoms improve, 04/03 Patient with exacerbation of COPD being treated with a Solu-Medrol and updraft patient states is feeling little better compared to when she arrived not a short of breath, will continue present managed we have consulted linen manager evaluate and for further treatment will continue to monitor Review of Systems Review of Systems: All systems reviewed & are unremarkable except as noted in HPI and below Exam Narrative: Exam Narrative: appears chronically ill Patient is comfortable, NAD HEENT: eyes are clear and none icteric LUNGS: bilateral poor air entry with wheezing and rhonchi HEART: RR S1S2 ABD: BS+, Soft and nontender Lower extremities: no edema SKIN: nonjaundiced Neuro: grossly intact. Objective Data Vital Signs Vital Signs: Vital Signs - 24 hr 04/02/21 17:45 04/02/21 17:49 04/02/21 20:00 Temperature 98.3 F Pulse Rate 83 93 Respiratory Rate 20 Blood Pressure 126/64 Pulse Oximetry 94 96 90 04/02/21 22:30 04/02/21 22:39 04/02/21 22:51 Temperature 98.7 F Pulse Rate 92 77 80 Respiratory Rate 20 25 H 19 Blood Pressure 124/62 Pulse Oximetry 97 94 04/03/21 00:00 04/03/21 00:48 04/03/21 03:30 Temperature Pulse Rate 87 75 78 Respiratory Rate 22 H 20 Blood Pressure Pulse Oximetry 99 04/03/21 03:42 04/03/21 04:00 04/03/21 08:00 Temperature 98.3 F Pulse Rate 77 99 85 Respiratory Rate 21 H 20 Blood Pressure 137/64 Pulse Oximetry 96 94 04/03/21 09:15 04/03/21 09:30 04/03/21 09:39 Temperature Pulse Rate 101 H 93 Respiratory Rate 20 20 Blood Pressure Pulse Oximetry 92 93 93 04/03/21 12:00 04/03/21 15:10 04/03/21 15:17 Temperature Pulse Rate 90 80 93 Respiratory Rate 20 20 Blood Pressure Pulse Oximetry Intake/Output Intake/Output: Intake & Output 03/31/21 04/01/21 04/02/21 04/03/21 23:59 23:59
[2021-04-03] MEDS: methylPREDNISolone SOD SUCC 40 MG VIAL IV PUSH ×2 (17:52→23:51)
--- NOTE | 2021-04-03 19:22 | PC.NURSE ---
This patient, Deloris Stone, was transferred to [facility] on 04/03/21 at 1922. Personal belongings sent with patient. Report given to RK Cardona. Appropriate documentation sent with patient.
--- NOTE | 2021-04-03 19:52 | PC.NURSE ---
transfer received from [facility] at 1940.
[2021-04-03] MEDS: ATORVASTATIN 40 MG TABLET PO (20:04)
[2021-04-03] MEDS: ALBUTEROL SULFATE NEB 2.5 MG/0.5 ML INH INHALATION (21:23)
--- NOTE | 2021-04-03 23:07 | PCRCNOTE ---
BiPAP V60 placed on pt in AVAPS mode, VT 500, RR 14, EPAP 5, min IPAP 6Max IPAP 25, FiO2 35%. Apnealink study also set up.
[2021-04-04] VITALS (21 sets, daily range): BP systolic 129–152; BP diastolic 66–76; PULSE 64–93; RESP 14–20; TEMP 36.1–36.4; O2SAT 91–97
[2021-04-04 05:37] LABS: Alveolar/Arterial O2 Gradient 115.8 mmHg; Base Excess ABG 2.9 mEq/l (+/-2.0); Fractional Inspired Oxygen 35 %; HCO3 ABG 27.3 mEq/l (22.0-26.0); Oxygen Content ABG 18.1 %vol (16.0-22.0); Oxygen Saturation ABG 96.8 % (95.0-100.0); Oxyhemoglobin 95.5 % THb (90.0-100.0); PO2 ABG 86.1 mmHg (80.0-100.0); PO2 FiO2 Ratio Arterial Blood 2.46 %; Total Hemoglobin 13.4 g/dL (12.0-18.0); pH ABG 7.441 (7.350-7.450)
[2021-04-04 05:38] LABS: Device BIPAP; Modified Allen's Test Unable to perform; Site Drawn LEFT BRACHIAL
[2021-04-04 05:39] LABS: Expiratory Pressure 5 cmH2O; Inspiratory Pressure 25 cmH2O
[2021-04-04] MEDS: methylPREDNISolone SOD SUCC 40 MG VIAL IV PUSH (05:52)
[2021-04-04] MEDS: ENOXAPARIN 40 MG/0.4 ML SYRINGE SUB-Q (07:57)
[2021-04-04] MEDS: busPIRone HCL 5 MG TABLET PO ×2 (07:57→16:53)
[2021-04-04] MEDS: ALBUTEROL SULFATE NEB 2.5 MG/0.5 ML INH INHALATION ×3 (08:44→20:01)
[2021-04-04] MEDS: IPRATROPIUM BR 0.02% INH SOLN 0.5 MG/2.5 ML VIAL INHALATION ×3 (08:44→20:02)
--- NOTE | 2021-04-04 09:28 | PM.PNPUL ---
Progress Note: A&P Assessment and Plan (1) COPD exacerbation: Code(s): J44.1 - Chronic obstructive pulmonary disease with (acute) exacerbation Status: Acute Assessment and Plan: 75-year-old with cold grade 3 group D COPD with an FEV1 of 0.56 (37% predicted) on 12/15/2016 on 3-4 L nasal cannula at home during the day with rest and ambulation and 3 L at night, with chronic hypercarbic respiratory failure requiring BiPAP on last admission on 03/07/2021, mMRC grade 4 and now with her 7th admission in the last year for COPD exacerbation. patient continues to smoke 1/2 pack per day. 04/03 Patient is improved on [place] or 60 mg IV q.6, albuterol 2.5 mg neb q.6 hours, ipratropium 0.5 mg neb q.6 hours as well as trilogy. I will discontinue the trilogy as she is on maximum doses of albuterol and ipratropium with the nebulizers. I will decrease her Solu-Medrol to 40 Q 6 today. I see no evidence of pneumonia or tracheobronchitis and I will not prescribe antibiotics at this time. Patient has had negative troponins and her BNP is normal and I see no evidence of fluid overload. We had a lengthy discussion regarding tobacco cessation and she is willing to quit at this time. 04/04 patient continues to improve and tells me is she tells me that she is 70% back to her normal. Her shortness of breath is worse than usual but her cough, phlegm production and minimal wheezing are back to her baseline. Patient is currently on 2 L nasal cannula with saturations 93%. I will change her to prednisone 50 mg p.o. today and continue her albuterol and ipratriprium nebs Q 6 hours and perform a home O2 assessment in anticipation of discharge tomorrow. If stable overnight discharge on these pulmonary medications: Prednisone 50 mg PO Q day X 5 days (last dose 04/10) Trelelgy 100/62.5/25 At 1 puff q.day Rescue albuterol inhaler at 2 puffs q.4 hours p.r.n. shortness of breath and wheezing Rescue DuoNeb q.4 hours p.r.n. shortness of breath and wheezing Oxygen at rest and with ambulation per home O2 assessment which I have ordered for today. Overnight at 3 L nasal cannula Follow-up with pulmonary in 2-3 weeks I will speak to the pulmonary care coordinators on 04/06 to initiate the process for home noninvasive ventilator with settings to mimic AVAPS settings with a rate of 14, tidal volume 500, expiratory pressure 5, minimum inspiratory pressure 6, minimal expiratory pressure 25, inspiratory time 0.8 seconds, rise of 5 which is our slowest and 3 L bleed in. (2) Acute on chronic respiratory failure with hypoxia and hypercapnia: Code(s): J96.21 - Acute and chronic respiratory failure with hypoxia; J96.22 - Acute and chronic respiratory failure with hypercapnia Status: Acute Assessment and Plan: 04/03 Patient presented with acute on chronic hypercarbic and hypoxemic respiratory failure with an ABG of 7.32/62/150 on 50% FiO2. Patient has chronic hypercarbic respiratory failure from her COPD and she would benefit from BiPAP or noninvasive ventilation at night to prevent further deterioration and prevent further hospitalizations. The patient did not tolerate BiPAP as the pressure was too much and was uncomfortable. I have adjusted her AVAPS settings with a rate of 14, tidal volume 500, expiratory pressure 5, minimum inspiratory pressure 6, minimal expiratory pressure 25, inspiratory time 0.8 seconds, rise of 5 which is our slowest and 30% FiO2 and she tells me that this is comfortable and she would be able to tolerate this at night. I will order blood gas in the morning on these settings and an overnight oximetry to assess her oxygenation on 30%. 04/04 Patient tells me that she wore her noninvasive ventilator last night without any difficulty and slept well. Patient had an overnight oximetry on AVAPS settings with a rate of 14, tidal volume 500, expiratory pressure 5, minimum inspiratory pressure 6, minimal expiratory pressure 25, inspiratory time 0
--- NOTE | 2021-04-04 09:51 | PM.IMPN ---
Progress Note: A&P Assessment and Plan (1) Acute on chronic respiratory failure with hypoxia and hypercapnia: Code(s): J96.21 - Acute and chronic respiratory failure with hypoxia; J96.22 - Acute and chronic respiratory failure with hypercapnia Status: Acute Assessment and Plan: 04/04/21 09:51 04/02/21 patient is 75-year-old female with history of COPD unfortunately patient still smokes presented emergency department via EMS hypoxic requiring high-flow oxygen and patient was placed on BiPAP, patient with exacerbation of COPD started on Solu-Medrol, updraft, patient was transferred to IMU on BiPAP patient pulse ox improved currently patient is off BiPAP on 4 L nasal cannula states feeling much better compared to when she arrived, will continue present managed will taper Solu-Medrol as her symptoms improve, 04/03 Patient with exacerbation of COPD being treated with a Solu-Medrol and updraft patient states is feeling little better compared to when she arrived not a short of breath, will continue present managed we have consulted sitecore developer evaluate and for further treatment will continue to monitor 04/04 patient was seen by Dr. Edwards adjusted patient BiPAP and patient was able to wear last night and this morning patient is feeling better, patient was seen by Dr. Edwards today and taper Solu-Medrol to prednisone 50 mg q.day, will continue bronchodilator and patient does not need any antibiotic, will continue to monitor, patient had a long discussion with the pulmonology smoking. patient is clinically stable, patient will need home O2 eval before discharge possibly on Tuesday. (2) COPD exacerbation: Code(s): J44.1 - Chronic obstructive pulmonary disease with (acute) exacerbation Status: Acute Assessment and Plan: plan is above (3) Tobacco dependence: Code(s): F17.200 - Nicotine dependence, unspecified, uncomplicated Status: Chronic Assessment and Plan: inspector aide counseled patient to stop smoking. Subjective Date/time seen: 04/04/21 09:51 04/02/21 patient is 75-year-old female with history of COPD unfortunately patient still smokes presented emergency department via EMS hypoxic requiring high-flow oxygen and patient was placed on BiPAP, patient with exacerbation of COPD started on Solu-Medrol, updraft, patient was transferred to IMU on BiPAP patient pulse ox improved currently patient is off BiPAP on 4 L nasal cannula states feeling much better compared to when she arrived, will continue present managed will taper Solu-Medrol as her symptoms improve, 04/03 Patient with exacerbation of COPD being treated with a Solu-Medrol and updraft patient states is feeling little better compared to when she arrived not a short of breath, will continue present managed we have consulted sitecore developer evaluate and for further treatment will continue to monitor 04/04 patient was seen by Dr. Edwards adjusted patient BiPAP and patient was able to wear last night and this morning patient is feeling better, patient was seen by Dr. Edwards today and taper Solu-Medrol to prednisone 50 mg q.day, will continue bronchodilator and patient does not need any antibiotic, will continue to monitor, patient had a long discussion with the pulmonology smoking. patient is clinically stable, patient will need home O2 eval before discharge possibly on Tuesday. Review of Systems Review of Systems: All systems reviewed & are unremarkable except as noted in HPI and below Exam Narrative: Exam Narrative: appears chronically ill Patient is comfortable, NAD HEENT: eyes are clear and none icteric LUNGS: bilateral poor air entry with wheezing and rhonchi HEART: RR S1S2 ABD: BS+, Soft and nontender Lower extremities: no edema SKIN: nonjaundiced Neuro: grossly intact. Objective Data Vital Signs Vital Signs: Vital Signs - 24 hr 04/03/21 12:00 04/03/21 15:10 04/03/21 15:17 Temperature Pulse Rate 90 80 93 Respi
[2021-04-04] MEDS: predniSONE 40 MG, predniSONE 10 MG 50 MG PO (12:19)
[2021-04-04] MEDS: ATORVASTATIN 40 MG TABLET PO (20:19)
[2021-04-05] VITALS (11 sets, daily range): BP systolic 100–131; BP diastolic 64–73; PULSE 56–75; RESP 16–21; TEMP 36.3–36.5; O2SAT 92–96
[2021-04-05] MEDS: ALBUTEROL SULFATE NEB 2.5 MG/0.5 ML INH INHALATION ×3 (02:01→08:35)
[2021-04-05] MEDS: IPRATROPIUM BR 0.02% INH SOLN 0.5 MG/2.5 ML VIAL INHALATION ×4 (02:01→08:35)
--- NOTE | 2021-04-05 08:05 | PM.PNPUL ---
Progress Note: A&P Assessment and Plan (1) COPD exacerbation: Code(s): J44.1 - Chronic obstructive pulmonary disease with (acute) exacerbation Status: Acute Assessment and Plan: 75-year-old with cold grade 3 group D COPD with an FEV1 of 0.56 (37% predicted) on 12/15/2016 on 3-4 L nasal cannula at home during the day with rest and ambulation and 3 L at night, with chronic hypercarbic respiratory failure requiring BiPAP on last admission on 03/07/2021, mMRC grade 4 and now with her 7th admission in the last year for COPD exacerbation. patient continues to smoke 1/2 pack per day. 04/03 Patient is improved on Stephenson or 60 mg IV q.6, albuterol 2.5 mg neb q.6 hours, ipratropium 0.5 mg neb q.6 hours as well as trilogy. I will discontinue the trilogy as she is on maximum doses of albuterol and ipratropium with the nebulizers. I will decrease her Solu-Medrol to 40 Q 6 today. I see no evidence of pneumonia or tracheobronchitis and I will not prescribe antibiotics at this time. Patient has had negative troponins and her BNP is normal and I see no evidence of fluid overload. We had a lengthy discussion regarding tobacco cessation and she is willing to quit at this time. 04/04 patient continues to improve and tells me is she tells me that she is 70% back to her normal. Her shortness of breath is worse than usual but her cough, phlegm production and minimal wheezing are back to her baseline. Patient is currently on 2 L nasal cannula with saturations 93%. I will change her to prednisone 50 mg p.o. today and continue her albuterol and ipratriprium nebs Q 6 hours and perform a home O2 assessment in anticipation of discharge tomorrow. 04/05 Patient continues to improve and states that she is ready to be discharged today. No wheezes on exam. Discharge on these pulmonary medications: Prednisone 50 mg PO Q day X 5 days (last dose 04/10) Trelelgy 100/62./25 At 1 puff q.day Rescue albuterol inhaler at 2 puffs q.4 hours p.r.n. shortness of breath and wheezing Rescue DuoNeb q.4 hours p.r.n. shortness of breath and wheezing Oxygen at rest and with ambulation per home O2 assessment which I ordered on 04/04. Overnight at 3 L nasal cannula Follow-up with pulmonary in 2-3 weeks. I gave her our business card and will inform our crm business analyst. I will speak to the pulmonary care coordinators on 04/06 to initiate the process for home noninvasive ventilator with settings to mimic AVAPS settings with a rate of 14, tidal volume 500, expiratory pressure 5, minimum inspiratory pressure 6, minimal expiratory pressure 25, inspiratory time 0.8 seconds, rise of 5 which is our slowest and 3 L bleed in. (2) Acute on chronic respiratory failure with hypoxia and hypercapnia: Code(s): J96.21 - Acute and chronic respiratory failure with hypoxia; J96.22 - Acute and chronic respiratory failure with hypercapnia Status: Acute Assessment and Plan: 04/03 Patient presented with acute on chronic hypercarbic and hypoxemic respiratory failure with an ABG of 7.32/62/150 on 50% FiO2. Patient has chronic hypercarbic respiratory failure from her COPD and she would benefit from BiPAP or noninvasive ventilation at night to prevent further deterioration and prevent further hospitalizations. The patient did not tolerate BiPAP as the pressure was too much and was uncomfortable. I have adjusted her AVAPS settings with a rate of 14, tidal volume 500, expiratory pressure 5, minimum inspiratory pressure 6, minimal expiratory pressure 25, inspiratory time 0.8 seconds, rise of 5 which is our slowest and 30% FiO2 and she tells me that this is comfortable and she would be able to tolerate this at night. I will order blood gas in the morning on these settings and an overnight oximetry to assess her oxygenation on 30%. 04/04 Patient tells me that she wore her noninvasive ventilator last night without any difficulty and slept well. Patient had an overnight oximetry on AVAPS set
[2021-04-05] MEDS: ENOXAPARIN 40 MG/0.4 ML SYRINGE SUB-Q (09:18)
[2021-04-05] MEDS: busPIRone HCL 5 MG TABLET PO (09:19)
[2021-04-05] MEDS: predniSONE 40 MG, predniSONE 10 MG 50 MG PO (09:19)
--- NOTE | 2021-04-05 09:45 | PM.DS ---
DS: Admitting Diagnosis Admitting Diagnosis Chief Complaint: shortness of breath DS: Discharge Diagnosis Discharge Diagnosis (1) Acute on chronic respiratory failure with hypoxia and hypercapnia: Code(s): J96.21 - Acute and chronic respiratory failure with hypoxia; J96.22 - Acute and chronic respiratory failure with hypercapnia Status: Acute Assessment and Plan: 04/04/21 09:51 04/02/21 patient is 75-year-old female with history of COPD unfortunately patient still smokes presented emergency department via EMS hypoxic requiring high-flow oxygen and patient was placed on BiPAP, patient with exacerbation of COPD started on Solu-Medrol, updraft, patient was transferred to IMU on BiPAP patient pulse ox improved currently patient is off BiPAP on 4 L nasal cannula states feeling much better compared to when she arrived, will continue present managed will taper Solu-Medrol as her symptoms improve, 04/03 Patient with exacerbation of COPD being treated with a Solu-Medrol and updraft patient states is feeling little better compared to when she arrived not a short of breath, will continue present managed we have consulted contaminated land consultant evaluate and for further treatment will continue to monitor 04/04 patient was seen by Dr. Edwards adjusted patient BiPAP and patient was able to wear last night and this morning patient is feeling better, patient was seen by Dr. Edwards today and taper Solu-Medrol to prednisone 50 mg q.day, will continue bronchodilator and patient does not need any antibiotic, will continue to monitor, patient had a long discussion with the pulmonology smoking. patient is clinically stable, patient will need home O2 eval before discharge possibly on Tuesday. (2) COPD exacerbation: Code(s): J44.1 - Chronic obstructive pulmonary disease with (acute) exacerbation Status: Acute Assessment and Plan: plan is above (3) Tobacco dependence: Code(s): F17.200 - Nicotine dependence, unspecified, uncomplicated Status: Chronic Assessment and Plan: front desk host counseled patient to stop smoking. DS: Summary Hospital Course Reason for hospitalization: Chief Complaint: shortness of breath Narrative: 75-year-old female with a past medical history of continuous medical abuse, COPD, chronic hypoxic respiratory failure and coronary artery disease who presented to the ER via EMS from home due to shortness of breath. The patient reports that she has been having increased wheezing for the last couple of weeks as well as some mild increased swelling of bilateral ankles. However today she had sudden worsening of her shortness of breath and she called EMS. On EMS arrival to her home she was satting 76% on her home O2 Of 3 L nasal cannula. The patient reports that she has tried to use nebulizer treatments at home with no real improvement in her symptoms. She has had her chronic cough that is unchanged from baseline. She denies any orthopnea or paroxysmal nocturnal dyspnea. She denies any chest pain or palpitations. She has not had any nausea or vomiting. She is vaccinated against COVID-19 at least 2 months ago. She reports that her current symptoms are similar to when she has her usual COPD exacerbations. She has been hospitalized 3 times since December due to COPD exacerbation. Hospital Course: 04/02/21 patient is 75-year-old female with history of COPD unfortunately patient still smokes presented emergency department via EMS hypoxic requiring high-flow oxygen and patient was placed on BiPAP, patient with exacerbation of COPD started on Solu-Medrol, updraft, patient was transferred to IMU on BiPAP patient pulse ox improved currently patient is off BiPAP on 4 L nasal cannula states feeling much better compared to when she arrived, will continue present managed will taper Solu-Medrol as her symptoms improve, 04/03 Patient with exacerbation of COPD being treated with a Solu-Medrol and updraft patient states is
--- NOTE | 2021-04-06 11:13 | PCRCNOTE ---
Tr[facility] arrangments being made with [facility]
== END 2021-04-05 12:30 | disposition home or self-care (01) | DRG 190 ==
LOC: ANHED 04-02 01:28 → ANHIMU 04-02 04:50 → ANH2MED 04-05 09:45 → ANHIMU 04-07 15:32
PROVIDERS: Internal Medicine Pulmonary Disease; Admitting Provider Internal Medicine; Emergency Provider Emergency Medicine; PCP Family Medicine; Visit Provider Family Medicine
DX: J44.1 Chronic obstructive pulmonary disease with (acute) exacerbation (principal); J96.21 Acute and chronic respiratory failure with hypoxia; J96.22 Acute and chronic respiratory failure with hypercapnia; I50.32 Chronic diastolic (congestive) heart failure; I11.0 Hypertensive heart disease with heart failure; F41.9 Anxiety disorder, unspecified; M19.90 Unspecified osteoarthritis, unspecified site; I25.10 Atherosclerotic heart disease of native coronary artery without angina pectoris; F32.9 Major depressive disorder, single episode, unspecified; K21.9 Gastro-esophageal reflux disease without esophagitis; E78.5 Hyperlipidemia, unspecified; Z86.73 Personal history of transient ischemic attack (TIA), and cerebral infarction without residual deficits; Z99.81 Dependence on supplemental oxygen; I25.2 Old myocardial infarction; Z87.891 Personal history of nicotine dependence; Z98.42 Cataract extraction status, left eye; Z98.41 Cataract extraction status, right eye; Z95.5 Presence of coronary angioplasty implant and graft
CPT/HCPCS: 36415; 36600; 71045; 80048; 80053; 81001; 82375; 82805; 83050; 83605; 83735; 83880; 84484; 85025; 85610; 85730; 93005; 94002; 94003; 94618; 94640; 96374; 99285; A9270; J1650; J2920; J2930; J7512

== ENCOUNTER 2021-04-26 00:21 | Inpatient (IN) | payer MEDICARE, SELFPAY ==
[2021-04-26] VITALS (47 sets, daily range): BP systolic 90–177; BP diastolic 51–87; PULSE 74–98; RESP 12–30; TEMP 35.8–36.7; O2SAT 94–100; BMI 27.1
--- NOTE | ~2021-04-26 | XR_ITS ---
EXAMINATION: XR chest 1V portable INDICATION: Shortness of breath TECHNIQUE: Portable AP chest at 0055 hours COMPARISON: 04/02/2021 FINDINGS: The lungs are free of acute opacities. There is no pleural effusion or pneumothorax. A calc ified nodule of the right lung base is consistent with old granulomatous disease. The cardiomediastin al silhouette is normal. There is moderate osteoarthritis of the shoulders. IMPRESSION: 1. No acute cardiopulmonary abnormality. Reviewed, dictated and finalized at location A.
--- NOTE | 2021-04-26 00:47 | ECG_ITS ---
Measurements Intervals [place] Rate: 92 P: 78 KS: 139 QRS: 28 QRSD: 86 T: 57 QT: 355 QTc: 440 Interpretive Statements SINUS RHYTHM POSSIBLE LEFT ATRIAL ENLARGEMENT BORDERLINE ECG Electronically Signed On 04-26-2021 6:53:43 CDT by Tito Darling D.O.
--- NOTE | 2021-04-26 01:04 | ED.GENADULT ---
HPI - General Adult General Chief complaint: Shortness of Breath/Dyspnea Stated complaint: SOB Time Seen by Provider: 04/26/21 00:42 History of Present Illness HPI narrative: Patient 75-year-old female presents emerged from with chief complaint of shortness of breath. The patient reports she has history of COPD reports she has been vaccinated for COVID-19 and reports she recently was in the hospital for COPD exacerbation. The patient reports that today she started having increasing shortness of breath and started wheezing significantly. The patient called EMS was found to be saturating 85 to 86% on her normal home oxygen of 4 L. The patient was given steroids magnesium and a albuterol treatment. Patient reports he is feeling a little better but still is significantly short of breath. The patient reports that she still smokes cigarettes. Related Data Home Medications Medication Instructions Recorded Confirmed albuterol sulfate [Ventolin HFA] 2 puff INHALATION QID PRN 08/19/19 04/02/21 ipratropium-albuterol 3 ml INHALATION QID PRN 08/19/19 04/02/21 atorvastatin 40 mg PO HS 12/30/20 04/02/21 buspirone 5 mg PO BID 12/30/20 04/02/21 Allergies Allergy/AdvReac Type Severity Reaction Status Date / Time No Known Allergies Allergy Verified 04/02/21 04:45 Review of Systems Review of Systems: A 10 system review of systems was completed on the patient and is negative except for what is stated in the HPI. Nursing and ancillary documentation was reviewed. [facility] Past Medical History Medical History Anxiety Arthritis Asthma Cerebrovascular accident (~2016) Initially if she had some numbness and tingling to the right side of her body but that has resolved. MRI showed left occipital temporal infarct and small left basal ganglia infarcts. Chronic obstructive pulmonary disease Chronic respiratory failure with hypoxia, on home oxygen therapy 3 L nasal cannula. Coronary artery disease History of myocardial infarction and stent x1. Depression Diastolic CHF echocardiogram February 2021: Grade 1 diastolic dysfunction EF 70%. Unable to estimate PA systolic pressure. Diastolic dysfunction Eosinophilia Gastroesophageal reflux disease Hyperlipidemia Hypertension Pneumonia Tobacco abuse disorder Surgical History Surgical History History of bilateral cataract extraction History of cardiac catheterization History of heart artery stent History of tonsillectomy Family History Family History Father Acute myocardial infarction Mother Parkinson's disease Dementia Acute myocardial infarction Premature coronary artery disease Social History Social History Social History: The patient lives in her own apartment. She is and has 4 children. 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 She occasionally drinks alcohol but this is rare. She continues to smoke 6-10 cigarettes a day but smoked up to a pack of cigarettes per day since she was a teenager. She designates her daughter Radha Craig as her surrogate decision maker and she wishes to be a full code. Smoking packs per day: 0.5 Smoking cigarettes per day: 10.0 Years smoked: 60 Smoking pack-years: 30.00 Smoking status: Current every day smoker Tobacco type: cigarettes Second hand tobacco smoke exposure: No Additional smoking assessment comments: Patient stated she quit smoking 1 week ago. Alcohol intake: current Drinks per week: 1 Alcohol use details: She will occasionally drink alcohol in moderation. Substance use: current Substance use type: marijuana Other substance usage details: occassional marijuana use Last use: occasssional use Gender identity
[2021-04-26] MEDS: IPRATROPIUM BR 0.02% INH SOLN 0.5 MG/2.5 ML VIAL 1.5 MG INHALATION (01:06)
[2021-04-26] MEDS: ALBUTEROL SULFATE NEB 2.5 MG/0.5 ML INH 15 MG INHALATION (01:06)
[2021-04-26 01:36] LABS: Alveolar/Arterial O2 Gradient 29.4 mmHg; Base Excess ABG 1.4 mEq/l (+/-2.0); Fractional Inspired Oxygen 50 %; HCO3 ABG 28.9 mEq/l (22.0-26.0); Oxygen Content ABG 18.9 %vol (16.0-22.0); Oxygen Saturation ABG 99.5 % (95.0-100.0); Oxyhemoglobin 97.3 % THb (90.0-100.0); PCO2 ABG 58.1 mmHg (35.0-45.0); PO2 ABG 261.7 mmHg (80.0-100.0); PO2 FiO2 Ratio Arterial Blood 5.23 %; Total Hemoglobin 13.4 g/dL (12.0-18.0); pH ABG 7.314 (7.350-7.450)
[2021-04-26 01:37] LABS: Device OTHER DEVICE; Site Drawn RIGHT BRACHIAL
--- NOTE | 2021-04-26 01:58 | PC.NURSE ---
pt arrived with EMS from home. on arrival, pt on albuterol neb tx began en route.
[2021-04-26 03:34] LABS: Alanine Aminotransferase 16 U/L (4-35); Albumin Level 3.9 g/dL (3.5-5.1); Alkaline Phosphatase 79 U/L (38-126); Anion Gap 3 mmol/L (8-16); Aspartate Amino Transferase 29 U/L (14-36); Bilirubin,Total 0.2 mg/dL (0.2-1.3); Blood Urea Nitrogen 18 mg/dL (7-17); Calcium 9.2 mg/dL (8.4-10.2); Carbon Dioxide 32 mmol/L (22-30); Chloride 100 mmol/L (98-107); Estimated Glomerular Filt Rate > 60; Glucose 126 mg/dL (65-110); Lactic Acid Reflex 1.8 mmol/L (0.7-2.1); Magnesium 2.5 mg/dL (1.6-2.3); Potassium 4.2 mmol/L (3.4-5.0); Sodium 135 mmol/L (137-145)
[2021-04-26 03:42] LABS: Basophils Absolute Auto 0.1 K/mm3 (0.0-0.1); Basophils Percent Auto 0.7 % (0.2-1.2); Eosinophils Absolute Auto 0.6 K/mm3 (0-0.3); Eosinophils Percent Auto 5.3 % (0-4.4); Hematocrit 41.3 % (37.0-47.0); Hemoglobin 12.8 g/dL (12.0-15.0); Immature Granulocyte Absolute 0.04 K/mm3 (0.00-0.031); Immature Granulocyte Percent A 0.4 % (0-0.5); Lymphocytes Absolute Auto 0.87 K/mm3 (0.9-3.2); Lymphocytes Percent Auto 8.5 % (18.3-44.2); Mean Corpuscular Hemoglobin 29.7 pg (26-34); Mean Corpuscular Volume 95.8 fl (80-100); Mean Platelet Volume 9.9 fl (7.4-10.4); Monocytes Absolute Auto 0.4 K/mm3 (0.1-0.6); Monocytes Percent Auto 3.7 % (2.6-8.5); Neutrophils Absolute Auto 8.4 K/mm3 (1.3-6.7); Neutrophils Percent Auto 81.4 % (45.5-73.1); Platelet Count Result 306 k/mm3 (150-375); Red Blood Count 4.31 M/mm3 (4.2-5.4); Red Cell Distribution Width 12.7 % (11.5-14.5); White Blood Count 10.3 K/mm3 (4.5-10.0)
[2021-04-26 03:45] LABS: NT Pro B Type Natriuretic Pept 33 pg/mL (5-100); Troponin I < 0.012 ng/mL (0.000-0.034)
--- NOTE | 2021-04-26 03:47 | PC.NURSE ---
Pt has been resting on stretcher in left lateral position. sleeping between care. able to answer questions appropriately and easily awoken to voice. Continuous neb tx stopped by Resp Therapist and pt placed on 4L O2 per NC, which pt uses at baseline. will continue to monitor.
--- NOTE | 2021-04-26 05:08 | PM.IMHP ---
H&P: HPI History of Present Illness Date/Time: 04/26/21 05:08 Chief Complaint: Shortness of breath Narrative: Patient is 75-year-old female presents to the emergency room with shortness of breath she has a history of COPD and was recently in the hospital last month. She reports she has been feeling short of breath worsened since yesterday. She has been wheezy and reports increased cough. She normally is on home oxygen 4 L all the time and also uses CPAP/BiPAP at night. She she was so short of breath with even minimal exertion or even with talking and hands she called EMS. When EMS arrived she was saturating 85 86% on her normal home oxygen of 4 L. She was given steroids and albuterol and magnesium by the EMS and was brought to the ER for further treatment. She had been given albuterol treatment in the ER along with steroid and she is currently feeling better however she is not back to her normal. Admitted for further evaluation and management. Chest x-ray done in the ER was unremarkable. ABG reveals some mild respiratory acidosis. Review of Systems Review of Systems: - CONSTITUTIONAL: Denies weight loss, fever and chills. - HEENT: Denies changes in vision and hearing - RESPIRATORY report SOB and cough. - CV: Denies palpitations and CP. - GI: Denies abdominal pain, nausea, vomiting and diarrhea. - : Denies dysuria and urinary frequency. - MSK: Denies myalgia and joint pain. - SKIN: Denies rash and pruritus. - NEUROLOGICAL: Denies headache and syncope. - PSYCHIATRIC: Denies recent changes in mood. Denies anxiety and depression. All systems reviewed & are unremarkable except as noted in HPI and below Constitutional: Constitutional: Reports fatigue and Reports weakness Neurologic: Reports weakness Endocrine: Endocrine: Reports fatigue [facility] Past Medical History Medical History Anxiety Arthritis Asthma Cerebrovascular accident (~2016) Initially if she had some numbness and tingling to the right side of her body but that has resolved. MRI showed left occipital temporal infarct and small left basal ganglia infarcts. Chronic obstructive pulmonary disease Chronic respiratory failure with hypoxia, on home oxygen therapy 3 L nasal cannula. Coronary artery disease History of myocardial infarction and stent x1. Depression Diastolic CHF echocardiogram February 2021: Grade 1 diastolic dysfunction EF 70%. Unable to estimate PA systolic pressure. Diastolic dysfunction Eosinophilia Gastroesophageal reflux disease Hyperlipidemia Hypertension Pneumonia Tobacco abuse disorder Surgical History Surgical History History of bilateral cataract extraction History of cardiac catheterization History of heart artery stent History of tonsillectomy Family History Family History Father Acute myocardial infarction Mother Parkinson's disease Dementia Acute myocardial infarction Premature coronary artery disease Social History Social History Social History: The patient lives in her own apartment. She is and has 4 children. 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 She occasionally drinks alcohol but this is rare. She continues to smoke 6-10 cigarettes a day but smoked up to a pack of cigarettes per day since she was a teenager. She designates her daughter Radha Craig as her surrogate decision maker and she wishes to be a full code. Smoking packs per day: 0.5 Smoking cigarettes per day: 10.0 Years smoked: 60 Smoking pack-years: 30.00 Smoking status: Current every day smoker Tobacco type: cigarettes Second hand tobacco smoke exposure: No Additional smoking assessment comments: Patient stated she quit smoki
--- NOTE | 2021-04-26 07:11 | PC.NURSE ---
awaiting inpatient bed assignment. pt awakens easily to voice. call light in reach.
--- NOTE | 2021-04-26 07:23 | PC.NURSE ---
care assumed. report from ramy alan.
--- NOTE | 2021-04-26 09:45 | ADMGEN ---
This patient, Deloris Stone, was admitted to -. Patient/family oriented to hospital policies and general routines including ID bracelet, bed and alarms, visiting hours, pain management, procedures, bathroom and other care routines, personal items, smoking policy, room service/diet, and visiting hours. Information on how to activate the Rapid Response Team has been discussed. Patient/Family are encouraged to report perceived risks to care and to ask questions if they do not understand what they are told or what they should do.
[2021-04-26] MEDS: methylPREDNISolone SOD SUCC 125 MG VIAL 60 MG IV PUSH ×3 (10:57→23:21)
[2021-04-26] MEDS: ENOXAPARIN 40 MG/0.4 ML SYRINGE SUB-Q (11:00)
[2021-04-26] MEDS: IPRATROPIUM BR 0.02% INH SOLN 0.5 MG/2.5 ML VIAL INHALATION ×2 (16:06→21:11)
[2021-04-26] MEDS: ALBUTEROL SULFATE NEB 2.5 MG/0.5 ML INH 5 MG INHALATION ×2 (16:06→21:11)
[2021-04-27] VITALS (12 sets, daily range): BP systolic 115–153; BP diastolic 50–82; PULSE 74–88; RESP 18–22; TEMP 36.5–36.8; O2SAT 96–97
[2021-04-27] MEDS: methylPREDNISolone SOD SUCC 125 MG VIAL 60 MG IV PUSH ×2 (04:30→12:12)
[2021-04-27] MEDS: ENOXAPARIN 40 MG/0.4 ML SYRINGE SUB-Q (08:27)
[2021-04-27 09:42] LABS: Anion Gap 5 mmol/L (8-16); Blood Urea Nitrogen 20 mg/dL (7-17); Calcium 8.6 mg/dL (8.4-10.2); Carbon Dioxide 25 mmol/L (22-30); Chloride 104 mmol/L (98-107); Estimated Glomerular Filt Rate > 60; Glucose 232 mg/dL (65-110); Potassium 4.5 mmol/L (3.4-5.0); Sodium 134 mmol/L (137-145)
[2021-04-27] MEDS: ALBUTEROL SULFATE NEB 2.5 MG/0.5 ML INH 5 MG INHALATION ×3 (10:56→20:18)
[2021-04-27] MEDS: IPRATROPIUM BR 0.02% INH SOLN 0.5 MG/2.5 ML VIAL INHALATION ×2 (10:57→15:42)
[2021-04-27] MEDS: guaiFENesin 12 HR 600 MG TABCR PO ×2 (12:53→20:44)
--- NOTE | 2021-04-27 13:15 | PM.IMPN ---
Progress Note: A&P Assessment and Plan (1) Acute on chronic respiratory failure with hypoxia and hypercapnia: Code(s): J96.21 - Acute and chronic respiratory failure with hypoxia; J96.22 - Acute and chronic respiratory failure with hypercapnia Status: Acute Assessment and Plan: On 3 L O2 at day time and BiPAP with 3 L O2 bleed in at night. She is maintaining adequate oxygenation on 3 L at this time. ABG reviewed with persistently elevated pCO2 and PO2. Wean oxygen as tolerated to prevent CO2 retention She was evaluated by epic beacon analyst Dr. Edwards at last hospitalization 3 weeks ago. Continue with outpatient follow-up. (2) COPD exacerbation: Code(s): J44.1 - Chronic obstructive pulmonary disease with (acute) exacerbation Status: Acute Assessment and Plan: Diffuse wheezing on exam. IV Solu-Medrol 40 mg q6h Continue albuterol and ipratropium nebs No evidence to suggest underlying infection, no change in color or volume of sputum. Will dc Azithromycin. (3) Tobacco dependence: Code(s): F17.200 - Nicotine dependence, unspecified, uncomplicated Status: Chronic Assessment and Plan: Still smoking 1/2 ppd Discussed smoking cessation Start nicotine patch 14 mg (4) HTN (hypertension): Qualifiers: Hypertension type: essential hypertension Qualified Code(s): I10 - Essential (primary) hypertension Code(s): I10 - Essential (primary) hypertension Status: Chronic Assessment and Plan: Blood pressure reviewed and has been well controlled. Last BP 115/50. Does not appear to be in any antihypertensive medications Monitor blood pressure trends (5) Hyperglycemia: Code(s): R73.9 - Hyperglycemia, unspecified Status: Acute Assessment and Plan: Potassium blood sugar elevated this morning at 2:32 a.m., secondary to IV steroids. No history of diabetes. Monitor blood pressure trends closely. Wean steroids. Subjective Date/time seen: 04/27/21 13:15 Interval history: Date of service: 04/27/2021 Deloris Stone is a 75-year-old female history of COPD, tobacco abuse, CAD, chronic respiratory failure on 3 L home oxygen, CVA, hypertension, CHF, and several other comorbidities who is seen in follow-up for COPD exacerbation. She is feeling better today. Still endorses wheezes. She has a wet cough and feels like she is not able to get sputum up. She has had infrequent clear sputum. Also complains of dyspnea on exertion. Denies chest pain. She is ambulating to the restroom independently. Denies urinary symptoms. She had a bowel movement this morning. No nausea, vomiting, fever, or chills. Appetite is good. Review of Systems Review of Systems: All systems reviewed & are unremarkable except as noted in HPI and below Exam Narrative: Ms. Stone is a well-nourished, well-appearing 75-year-old female who is lying supine in bed. She appears comfortable and is in NARD. Neuro: awake, alert and oriented x4, speech clear, no focal neuro deficits noted HEENMT: normocephalic, atraumatic, EOMI, sclerae anicteric, moist oral mucosa Neck: supple, no lymphadenopathy Respiratory: Wheezes in bilateral lower lung bases, nonlabored breathing, able to speak in complete sentences. Wet cough heard on exam Cardio: regular rate, regular rhythm with S1-S2 Abdomen: nondistended, normoactive bowel sounds, soft, nontender to palpation Extremities: no edema, erythema, or tenderness to palpation, DP pulses 2+ bilaterally Skin: no rashes or lesions, warm and dry Psych: appropriate mood and affect, judgment and insight intact Objective Data Vital Signs Vital Signs: Vital Signs - 24 hr 04/26/21 14:00 04/26/21 16:10 04/26/21 16:20 Temperature 96.5 F L Pulse Rate 78 89 Respiratory Rate 18 20 20 Blood Pressure 123/64 Pulse Oximetry 100 98 98 04/26/21 20:00 04/26/21 21:12 04/26/21 21:21 Temperature Pulse R
[2021-04-27] MEDS: methylPREDNISolone SOD SUCC 40 MG VIAL IV PUSH (17:59)
[2021-04-27] MEDS: NICOTINE (*PBKC) 14 MG PATCH 1 PATCH TRANSDERM (17:59)
[2021-04-28] VITALS (14 sets, daily range): BP systolic 125–143; BP diastolic 57–73; PULSE 72–88; RESP 18–20; TEMP 36.5–37.1; O2SAT 94–99
[2021-04-28] MEDS: methylPREDNISolone SOD SUCC 40 MG VIAL IV PUSH ×4 (00:25→21:30)
[2021-04-28] MEDS: IPRATROPIUM BR 0.02% INH SOLN 0.5 MG/2.5 ML VIAL INHALATION ×4 (01:56→19:50)
[2021-04-28] MEDS: ALBUTEROL SULFATE NEB 2.5 MG/0.5 ML INH 5 MG INHALATION ×4 (01:56→19:49)
[2021-04-28 07:07] LABS: Hematocrit 37.8 % (37.0-47.0); Hemoglobin 12.1 g/dL (12.0-15.0); Mean Corpuscular Hemoglobin 30.5 pg (26-34); Mean Corpuscular Volume 95.2 fl (80-100); Mean Platelet Volume 9.7 fl (7.4-10.4); Platelet Count Result 309 k/mm3 (150-375); Red Blood Count 3.97 M/mm3 (4.2-5.4); Red Cell Distribution Width 12.5 % (11.5-14.5)
[2021-04-28 08:04] LABS: Anion Gap 3 mmol/L (8-16); Blood Urea Nitrogen 22 mg/dL (7-17); Calcium 9.1 mg/dL (8.4-10.2); Carbon Dioxide 30 mmol/L (22-30); Chloride 105 mmol/L (98-107); Estimated Glomerular Filt Rate > 60; Glucose 130 mg/dL (65-110); Potassium 4.6 mmol/L (3.4-5.0); Sodium 138 mmol/L (137-145)
[2021-04-28] MEDS: NICOTINE (*PBKC) 14 MG PATCH 1 PATCH TRANSDERM (09:16)
[2021-04-28] MEDS: ENOXAPARIN 40 MG/0.4 ML SYRINGE SUB-Q (09:16)
[2021-04-28] MEDS: guaiFENesin 12 HR 600 MG TABCR PO ×2 (10:30→21:30)
--- NOTE | 2021-04-28 14:48 | PM.IMPN ---
Progress Note: A&P Assessment and Plan (1) Chronic respiratory failure with hypoxia and hypercapnia: Code(s): J96.11 - Chronic respiratory failure with hypoxia; J96.12 - Chronic respiratory failure with hypercapnia Status: Acute Assessment and Plan: On 3 L O2 at day time and BiPAP at night. She is maintaining adequate oxygenation on 3 L at this time. ABG reviewed with persistently elevated pCO2 and PO2. Wean oxygen as tolerated to prevent CO2 retention She was evaluated by commutator inspector Dr. Edwards at last hospitalization 3 weeks ago. Discussed case with him today. Continue with plans for outpatient follow-up. Resume home Trelegy (2) COPD exacerbation: Code(s): J44.1 - Chronic obstructive pulmonary disease with (acute) exacerbation Status: Acute Assessment and Plan: Diffuse wheezing noted on exam at presentation. IV Solu-Medrol 40 mg q8h Continue albuterol and ipratropium nebs No evidence to suggest underlying infection, no change in color or volume of sputum. Azithromycin discontinued on 04/27. If continued improvement, plan to transition to PO prednisone and discharge home tomorrow (3) Tobacco dependence: Code(s): F17.200 - Nicotine dependence, unspecified, uncomplicated Status: Chronic Assessment and Plan: Still smoking 1/2 ppd Discussed smoking cessation Continue nicotine patch 14 mg Unfortunately at risk for multiple repeat hospitalizations if continuing to smoke. (4) HTN (hypertension): Qualifiers: Hypertension type: essential hypertension Qualified Code(s): I10 - Essential (primary) hypertension Code(s): I10 - Essential (primary) hypertension Status: Chronic Assessment and Plan: Blood pressure reviewed and has been well controlled. Last BP 138/57. Does not appear to be on any antihypertensive medications Monitor blood pressure trends (5) Hyperglycemia: Code(s): R73.9 - Hyperglycemia, unspecified Status: Acute Assessment and Plan: Fasting blood sugar elevated at 232 yesterday morning, secondary to IV steroids. No history of diabetes. Glucose 130 this morning. Monitor blood sugar trends closely. Wean steroids. Subjective Date/time seen: 04/28/21 14:48 Interval history: Date of service: 04/28/2021 Deloris Stone is a 75-year-old female history of COPD, tobacco abuse, CAD, chronic respiratory failure on 3 L home oxygen, CVA, hypertension, CHF, and several other comorbidities who is seen in follow-up for COPD exacerbation. She is doing better today. Her wheezing has improved. Denies shortness breath or dyspnea on exertion. She is able to get up and walk to the bathroom. She is still having cough with infrequent clear sputum production. No orthopnea or PND. No fevers, chills, nausea, vomiting dizziness, lightheadedness, chest pain, or palpitations. Eating well. No additional concerns at this time. Review of Systems Review of Systems: All systems reviewed & are unremarkable except as noted in HPI and below Exam Narrative: Ms. Stone is a well-nourished, well-appearing 75-year-old female who is lying supine in bed. She appears comfortable and is in NARD. Neuro: awake, alert and oriented x4, speech clear, no focal neuro deficits noted HEENMT: normocephalic, atraumatic, EOMI, sclerae anicteric, moist oral mucosa Neck: supple, no lymphadenopathy Respiratory: Faint expiratory wheezes, improved from prior exam. Nonlabored breathing, able to speak in complete sentences. Cardio: regular rate, regular rhythm with S1-S2 Abdomen: nondistended, normoactive bowel sounds, soft, nontender to palpation Extremities: no edema, erythema, or tenderness to palpation, DP pulses 2+ bilaterally Skin: no rashes or lesions, warm and dry Psych: appropriate mood and affect, judgment and insight intact Objective Data Vital Signs Vital Signs: Vital Signs - 24 hr 04/27/21
[2021-04-29] MEDS: ALBUTEROL SULFATE NEB 2.5 MG/0.5 ML INH 5 MG INHALATION ×2 (03:59→09:19)
[2021-04-29] MEDS: IPRATROPIUM BR 0.02% INH SOLN 0.5 MG/2.5 ML VIAL INHALATION ×2 (03:59→09:18)
[2021-04-29 04:02] VITALS: PULSE 71; RESP 18
[2021-04-29 05:17] VITALS: BP 135/66; PULSE 64; RESP 18; TEMP 36.6; O2SAT 97
[2021-04-29 06:32] LABS: Hematocrit 36.5 % (37.0-47.0); Hemoglobin 11.9 g/dL (12.0-15.0); Mean Corpuscular HGB Conc 32.6 g/dl (32-36); Mean Corpuscular Hemoglobin 29.9 pg (26-34); Mean Corpuscular Volume 91.7 fl (80-100); Mean Platelet Volume 9.7 fl (7.4-10.4); Platelet Count Result 315 k/mm3 (150-375); Red Blood Count 3.98 M/mm3 (4.2-5.4); Red Cell Distribution Width 12.3 % (11.5-14.5); White Blood Count 10.3 K/mm3 (4.5-10.0)
[2021-04-29 06:44] LABS: Anion Gap 3 mmol/L (8-16); Blood Urea Nitrogen 21 mg/dL (7-17); Calcium 8.5 mg/dL (8.4-10.2); Carbon Dioxide 29 mmol/L (22-30); Chloride 103 mmol/L (98-107); Estimated Glomerular Filt Rate > 60; Glucose 124 mg/dL (65-110); Potassium 4.5 mmol/L (3.4-5.0); Sodium 135 mmol/L (137-145)
[2021-04-29 09:19] VITALS: PULSE 88; RESP 20; O2SAT 97
--- NOTE | 2021-04-29 09:29 | PM.DS ---
DS: Admitting Diagnosis Admitting Diagnosis COPD exacerbation DS: Discharge Diagnosis Discharge Diagnosis (1) Chronic respiratory failure with hypoxia and hypercapnia: Code(s): J96.11 - Chronic respiratory failure with hypoxia; J96.12 - Chronic respiratory failure with hypercapnia Status: Acute Assessment and Plan: On 3 L O2 at day time and BiPAP at night. She was seen by pulmonology at last hospital stay on 04/05 at which time BiPAP settings and oxygen levels were adjusted. ABG reviewed with chronically elevated pCO2 and pO2. Continue with home oxygen and BiPAP and follow up with Dr. Edwards, director translation, as an outpatient. Continue home trelegy. (2) COPD exacerbation: Code(s): J44.1 - Chronic obstructive pulmonary disease with (acute) exacerbation Status: Acute Assessment and Plan: Diffuse wheezing noted on exam at presentation. Started on IV solumedrol and nebulized breathing treatments and had significant symptomatic improvement. Weaned to PO prednisone and will continue with 40 mg PO daily x5 days. Albuterol prn. No evidence to suggest underlying infection, no change in color or volume of sputum. Azithromycin discontinued on 04/27. Smoking cessation is imperative. See below. (3) Tobacco dependence: Code(s): F17.200 - Nicotine dependence, unspecified, uncomplicated Status: Chronic Assessment and Plan: Still smoking 1/2 ppd. Discussed smoking cessation at length. She is aware that she is at risk for multiple repeat hospitalizations if continuing to smoke. She is motivated to quit smoking. Nicotine patch provided during her stay. (4) HTN (hypertension): Qualifiers: Hypertension type: essential hypertension Qualified Code(s): I10 - Essential (primary) hypertension Code(s): I10 - Essential (primary) hypertension Status: Chronic Assessment and Plan: Blood pressure reviewed and were well controlled. Does not appear to be on any antihypertensive medications (5) Hyperglycemia: Code(s): R73.9 - Hyperglycemia, unspecified Status: Acute Assessment and Plan: Fasting blood sugar elevated at 232 on 04/27, secondary to IV steroids. No history of diabetes. Fasting blood sugar improved, 124 at time of discharge. Anticipate improvement with cessation of steroids. Follow up with PCP for further monitoring. DS: Summary Hospital Course Hospital Course: Date of service: 04/26/2021 Date of discharge: 04/29/2021 Deloris Stone is a 75-year-old female history of COPD, tobacco abuse, CAD, chronic respiratory failure on 3 L home oxygen, CVA, hypertension, CHF, and several other comorbidities who presented to the emergency department on 04/26/2021 with complaints of shortness of breath and wheezing. Upon presentation to the emergency department, her vital signs were stable, she was afebrile, WBC 10.3, additional CBC unremarkable, sodium 135, potassium 4.2, chloride 102 CO2 32, BUN 18, creatinine 0.9, glucose 126, and CXR with no acute cardiopulmonary findings. She was admitted to the hospitalist service for further evaluation management. Please see above for further details. She was treated with IV steroids and breathing treatments for COPD exacerbation. She has significant symptomatic improvement in her wheezing resolved. She began feeling much better and requested discharge home. Given her overall improvement, she was determined to no longer require inpatient care and was felt to be stable for discharge. She will continue with prednisone as an outpatient and will schedule follow-up with pulmonology. Case discussed with director translation, Dr. Edwards. Smoking cessation discussed at length and she is aware of the risks of continued tobacco abuse. She plans to quit smoking. We discussed worrisome signs and symptoms for which to return she was educated on her medications. She was discharged in hemodynamically stable condition on 04/29/2021.
[2021-04-29 09:30] VITALS: PULSE 85; RESP 20
[2021-04-29 10:10] VITALS: O2SAT 97
[2021-04-29] MEDS: NICOTINE (*PBKC) 14 MG PATCH 1 PATCH TRANSDERM (10:12)
[2021-04-29] MEDS: guaiFENesin 12 HR 600 MG TABCR PO (10:13)
[2021-04-29] MEDS: predniSONE 20 MG TABLET 40 MG PO (10:14)
== END 2021-04-29 11:00 | disposition home or self-care (01) | DRG 190 ==
LOC: ANHED 04:21 → ANH3MEDSUR 09:53
PROVIDERS: Physician Assistant; Admitting Provider Internal Medicine; Emergency Provider Emergency Medicine; PCP Family Medicine; Visit Provider Internal Medicine
DX: J44.1 Chronic obstructive pulmonary disease with (acute) exacerbation (principal); J96.21 Acute and chronic respiratory failure with hypoxia; J96.22 Acute and chronic respiratory failure with hypercapnia; I50.32 Chronic diastolic (congestive) heart failure; I11.0 Hypertensive heart disease with heart failure; R73.9 Hyperglycemia, unspecified; T38.0X5A Adverse effect of glucocorticoids and synthetic analogues, initial encounter; I25.10 Atherosclerotic heart disease of native coronary artery without angina pectoris; F32.9 Major depressive disorder, single episode, unspecified; F41.9 Anxiety disorder, unspecified; K21.9 Gastro-esophageal reflux disease without esophagitis; E78.5 Hyperlipidemia, unspecified; M15.9 Polyosteoarthritis, unspecified; F17.210 Nicotine dependence, cigarettes, uncomplicated; Z86.73 Personal history of transient ischemic attack (TIA), and cerebral infarction without residual deficits; Z99.81 Dependence on supplemental oxygen; I25.2 Old myocardial infarction; Z95.5 Presence of coronary angioplasty implant and graft; Z98.42 Cataract extraction status, left eye; Z98.41 Cataract extraction status, right eye
CPT/HCPCS: 36415; 36600; 71045; 80048; 80053; 82805; 83605; 83735; 83880; 84484; 85025; 85027; 87040; 93005; 94640; 96365; 96366; 96372; 96375; 96376; 99285; A9270; G0378; J0456; J1650; J2920; J2930; J7512

== ENCOUNTER 2021-05-26 22:05 | Inpatient (IN) | payer MEDICARE, MEDICAID, SELFPAY ==
[2021-05-26] VITALS (9 sets, daily range): BP systolic 112–153; BP diastolic 52–99; PULSE 85–97; RESP 16–28; TEMP 36.7; O2SAT 94–99
--- NOTE | ~2021-05-26 | XR_ITS ---
XR chest 1V portable DATE: 05/26/2021 23:20 INDICATION: Dyspnea. COPD. TECHNIQUE: Portable upright AP chest on 05/26/2021 at 2318 hours COMPARISON: 04/27/2021 portable upright AP chest FINDINGS: Normal heart size. No hilar or mediastinal enlargement. No pulmonary infiltrate or consolid ation, pleural effusion or pulmonary vascular congestion or pneumothorax. Diffuse osteopenia. Osteoarthritic changes at the glenohumeral joints. IMPRESSION: No active cardiopulmonary disease Reviewed, dictated and finalized at location A.
--- NOTE | 2021-05-26 22:26 | ED.SOB ---
HPI - SOB/Dyspnea General Chief Complaint: Shortness of Breath/Dyspnea Stated Complaint: SOB Time Seen by Provider: 05/26/21 22:12 Source: patient and EMS Mode of arrival: EMS Limitations: no limitations History of Present Illness HPI Narrative: Patient is a 75-year-old female with a history of COPD, chronic respiratory failure on 4 L oxygen via nasal cannula, hypertension who presents for evaluation of shortness of breath, wheezing. Patient states she has felt unwell over the past 24 hours with worsening wheezing and dyspnea. She has had cough with increased sputum production. She denies fever, chills, nausea or vomiting. No significant chest pain. Patient recently finished steroid course, has been trying nebulizer treatments at home without much improvement in her symptoms. Patient is vaccinated for Covid, no history of Covid infection. Patient denies calf swelling or leg pain. No recent immobility. Patient was recently hospitalized, discharged from this facility April 29 for similar symptoms. Patient called EMS tonight when her wheezing became very severe. Per EMS report, oxygen saturation on 4 L was 83%. Patient was given a DuoNeb treatment, dose of steroids and transported to our facility. At our facility she was placed on 6 L per nasal cannula. Related Data Home Medications Medication Instructions Recorded Confirmed albuterol sulfate [Ventolin HFA] 2 puff INHALATION QID PRN 08/19/19 04/26/21 ipratropium-albuterol 3 ml INHALATION QID PRN 08/19/19 04/26/21 atorvastatin 40 mg PO HS 12/30/20 04/26/21 Allergies Allergy/AdvReac Type Severity Reaction Status Date / Time No Known Allergies Allergy Verified 05/26/21 21:57 Review of Systems Review of Systems: CONSTITUTIONAL: Denies fever, chills, or sweats. EYES: Denies visual changes, redness, or discharge. ENT: Denies rhinorrhea, congestion, sore throat, or otalgia. CARDIOVASCULAR: Denies chest pain, palpitations, or edema. RESPIRATORY: Reports cough and dyspnea GASTROINTESTINAL: Denies abdominal pain, nausea, vomiting, or diarrhea. GENITOURINARY: Denies dysuria or hematuria. SKIN: Denies rash or itching. MUSCULOSKELETAL: Denies back pain, joint pain, or myalgia. NEUROLOGIC: Denies headache, numbness, or weakness.Reports fatigue. [facility] Past Medical History Medical History Anxiety Arthritis Asthma Cerebrovascular accident (~2017) Initially if she had some numbness and tingling to the right side of her body but that has resolved. MRI showed left occipital temporal infarct and small left basal ganglia infarcts. Chronic obstructive pulmonary disease Chronic respiratory failure with hypoxia, on home oxygen therapy 3 L nasal cannula. Coronary artery disease History of myocardial infarction and stent x1. Depression Diastolic CHF echocardiogram February 2021: Grade 1 diastolic dysfunction EF 70%. Unable to estimate PA systolic pressure. Diastolic dysfunction Eosinophilia Gastroesophageal reflux disease Hyperlipidemia Hypertension Pneumonia Tobacco abuse disorder Surgical History Surgical History History of bilateral cataract extraction History of cardiac catheterization History of heart artery stent History of tonsillectomy Family History Family History Father Acute myocardial infarction Mother Parkinson's disease Dementia Acute myocardial infarction Premature coronary artery disease Social History Social History Social History: The patient lives in her own apartment. She is and has 4 children. 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 She occasionally drinks alcohol but this is rare. She continues to smoke 6-10 cigarettes a day but smoked up to a pack of cigarettes per day s
--- NOTE | 2021-05-26 22:28 | ECG_ITS ---
Measurements Intervals Cope Rate: 101 P: 80 WI: 136 QRS: 16 QRSD: 82 T: 47 QT: 327 QTc: 425 Interpretive Statements SINUS TACHYCARDIA INCOMPLETE RIGHT BUNDLE BRANCH BLOCK BASELINE ARTIFACT- I, II, III, AVR, AVL, AVF, V1-V6 BORDERLINE ECG Electronically Signed On 05-27-2021 6:56:11 CDT by Tito Darling D.O.
[2021-05-26] MEDS: ALBUTEROL SULFATE NEB 2.5 MG/0.5 ML INH 5 MG INHALATION (22:46)
[2021-05-26] MEDS: IPRATROPIUM BR 0.02% INH SOLN 0.5 MG/2.5 ML VIAL INHALATION (22:47)
[2021-05-26] MEDS: methylPREDNISolone SOD SUCC 125 MG VIAL IV PUSH (22:58)
[2021-05-26 22:59] LABS: Alveolar/Arterial O2 Gradient 128.7 mmHg; Base Excess ABG -0.3 mEq/l (+/-2.0); Fractional Inspired Oxygen 44 %; Oxygen Content ABG 20.1 %vol (16.0-22.0); Oxygen Saturation ABG 98.1 % (95.0-100.0); Oxyhemoglobin 96.3 % THb (90.0-100.0); PCO2 ABG 54.6 mmHg (35.0-45.0); PO2 ABG 122.8 mmHg (80.0-100.0); PO2 FiO2 Ratio Arterial Blood 2.79 %; Total Hemoglobin 14.7 g/dL (12.0-18.0); pH ABG 7.312 (7.350-7.450)
[2021-05-26] MEDS: MAGNESIUM SULF 2 GM/WATER 50ML 2 GM/50 ML BAG IVPB (22:59)
[2021-05-26] MEDS: SODIUM CHLORIDE 0.9% IV 500 ML 999 ML IV CONT (22:59)
[2021-05-26 23:00] LABS: Device NASAL CANNULA; Modified Allen's Test Pass; Site Drawn RIGHT RADIAL
[2021-05-26 23:12] LABS: Basophils Absolute Auto 0.1 K/mm3 (0.0-0.1); Eosinophils Percent Auto 9.4 % (0-4.4); Hematocrit 42.5 % (37.0-47.0); Hemoglobin 13.7 g/dL (12.0-15.0); Immature Granulocyte Absolute 0.03 K/mm3 (0.00-0.031); Immature Granulocyte Percent A 0.3 % (0-0.5); Lymphocytes Absolute Auto 1.54 K/mm3 (0.9-3.2); Lymphocytes Percent Auto 14.1 % (18.3-44.2); Mean Corpuscular HGB Conc 32.2 g/dl (32-36); Mean Corpuscular Hemoglobin 30.6 pg (26-34); Mean Corpuscular Volume 95.1 fl (80-100); Mean Platelet Volume 9.4 fl (7.4-10.4); Monocytes Absolute Auto 0.7 K/mm3 (0.1-0.6); Monocytes Percent Auto 6.1 % (2.6-8.5); Neutrophils Absolute Auto 7.5 K/mm3 (1.3-6.7); Neutrophils Percent Auto 69.1 % (45.5-73.1); Platelet Count Result 368 k/mm3 (150-375); Red Blood Count 4.47 M/mm3 (4.2-5.4); Red Cell Distribution Width 12.4 % (11.5-14.5); White Blood Count 10.9 K/mm3 (4.5-10.0)
[2021-05-26 23:22] LABS: Alanine Aminotransferase 17 U/L (4-35); Albumin Level 4.1 g/dL (3.5-5.1); Alkaline Phosphatase 76 U/L (38-126); Anion Gap 7 mmol/L (8-16); Aspartate Amino Transferase 26 U/L (14-36); Bilirubin,Total 0.3 mg/dL (0.2-1.3); Blood Urea Nitrogen 17 mg/dL (7-17); Calcium 9.2 mg/dL (8.4-10.2); Carbon Dioxide 31 mmol/L (22-30); Chloride 104 mmol/L (98-107); Estimated Glomerular Filt Rate 54; Glucose 149 mg/dL (65-110); Potassium 4.1 mmol/L (3.4-5.0); Sodium 142 mmol/L (137-145)
[2021-05-26 23:24] LABS: INR 0.8; Prothrombin Time 11.4 Seconds (11.1-14.7)
[2021-05-26 23:25] LABS: Partial Thromboplastin Time 28.4 SECONDS (22.3-36.8)
[2021-05-26 23:34] LABS: NT Pro B Type Natriuretic Pept 40 pg/mL (5-100); Troponin I < 0.012 ng/mL (0.000-0.034)
[2021-05-27] VITALS (23 sets, daily range): BP systolic 104–153; BP diastolic 54–71; PULSE 73–99; RESP 18–24; TEMP 36.6–37; O2SAT 82–99; BMI 27.7
[2021-05-27 00:19] LABS: Lactic Acid Reflex 1.3 mmol/L (0.7-2.1)
--- NOTE | 2021-05-27 01:11 | PC.NURSE ---
This patient, Deloris Stone, was admitted to IMU Room 212-01 on 05/27/21 at 0105. Patient/family oriented to hospital policies and general routines including ID bracelet, bed and alarms, visiting hours, pain management, procedures, bathroom and other care routines, personal items, smoking policy, room service/diet, and visiting hours. Information on how to activate the Rapid Response Team has been discussed. Patient/Family are encouraged to report perceived risks to care and to ask questions if they do not understand what they are told or what they should do.
[2021-05-27] MEDS: ALBUTEROL SULFATE NEB 2.5 MG/0.5 ML INH 5 MG INHALATION ×4 (02:15→20:59)
[2021-05-27] MEDS: IPRATROPIUM BR 0.02% INH SOLN 0.5 MG/2.5 ML VIAL INHALATION ×4 (02:15→20:59)
--- NOTE | 2021-05-27 02:23 | PM.IMHP ---
H&P: HPI History of Present Illness Date/Time: 05/27/21 02:23 Chief Complaint: Shortness of breath Narrative: This is a 75-year-old female with past medical history significant for COPD/emphysema on 4 L of supplemental oxygen by nasal cannula at home. Patient presented to the emergency room due to worsening shortness of breath that started roughly about a day or so before presentation to ED. patient denies any fevers any rigors any chills she has had a productive cough she is a current everyday smoker of 4-5 cigarettes a day. She denies any nausea vomiting abdominal pain. She tried using her nebulizers but did not help upon EMS arrival to the house she had a saturation into the 70s and she was brought to the emergency room. Preliminary workup was significant for low oxygen saturation. Chest x-ray did not show any acute infiltrates. Review of Systems Review of Systems: Shortness of breath and wheezing and low oxygen saturation Constitutional: Constitutional: Denies chills, Denies fatigue, Denies fever(s), Denies malaise and Denies weakness Eyes: Eyes: Denies change in vision ENT: Denies nasal congestion, Denies nasal discharge and Denies nasal obstruction Cardiovascular: Cardiovascular: Denies chest pain at rest, Denies irregular heart rhythm, Denies lightheadedness, Denies radiating jaw, neck or arm pain and Denies palpitations Respiratory: Respiratory: Reports cough, Reports excessive phlegm production, Reports dyspnea, Reports dyspnea on exertion and Reports wheezing Gastrointestinal: Gastrointestinal: Denies abdominal pain and Denies vomiting Genitourinary: Genitourinary: Reports no additional female genitourinary complaints Musculoskeletal: Musculoskeletal: Reports no additional musculoskeletal complaints Integumentary/Breasts: Skin/Breast: Reports system reviewed and no additional complaints, except as docu Neurologic: Reports system reviewed and no additional complaints, except as documented Psychiatric: Psychiatric: Reports no additional psychiatric complaints Endocrine: Endocrine: Reports no additional endocrine complaints Hematologic/Lymphatic: Hematologic/Lymphatic: Reports no additional hematologic/lymphatic complaints Allergic/Immunologic: Allergic/Immunologic: Reports no additional allergic/immunologic complaints PMFSH Past Medical History Medical History Anxiety Arthritis Asthma Cerebrovascular accident (~2017) Initially if she had some numbness and tingling to the right side of her body but that has resolved. MRI showed left occipital temporal infarct and small left basal ganglia infarcts. Chronic obstructive pulmonary disease Chronic respiratory failure with hypoxia, on home oxygen therapy 3 L nasal cannula. Coronary artery disease History of myocardial infarction and stent x1. Depression Diastolic CHF echocardiogram February 2021: Grade 1 diastolic dysfunction EF 70%. Unable to estimate PA systolic pressure. Diastolic dysfunction Eosinophilia Gastroesophageal reflux disease Hyperlipidemia Hypertension Pneumonia Tobacco abuse disorder Surgical History Surgical History History of bilateral cataract extraction History of cardiac catheterization History of heart artery stent History of tonsillectomy Family History Family History Father Acute myocardial infarction Mother Parkinson's disease Dementia Acute myocardial infarction Premature coronary artery disease Social History Social History Social History: The patient lives in her own apartment. She is and has 4 children. 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 She occasionally drinks alcohol but this is rare. She continues to smoke 6-10 cigarettes a day but smoked
[2021-05-27] MEDS: methylPREDNISolone SOD SUCC 125 MG VIAL 60 MG IV PUSH ×4 (05:08→23:28)
[2021-05-27] MEDS: FLUTICASONE/UMECLIDIN/VILANTER 100-62.5-25 MCG ELLIPTA 1 PUFF INHALATION (10:25)
--- NOTE | 2021-05-27 14:59 | PC.NURSE ---
On 05/27/21, the student, Brittany Simon [facility] registered nursing professor, provided care and completed [employer] documentation on this patient. I have reviewed the student's documentation and agree with the findings.
[2021-05-27] MEDS: BENZOCAINE/MENTHOL (*BKC) 18 EA LOZENGE 1 LOZENGE PO (15:17)
--- NOTE | 2021-05-27 16:06 | PCSTNOTE ---
Please refer to the Bedside Swallow Evaluation in the EMR. Please note, silent aspiration cannot be ruled out at bedside.
--- NOTE | 2021-05-27 18:28 | PM.IMPN ---
Progress Note: A&P Assessment and Plan (1) Acute on chronic respiratory failure with hypoxia and hypercapnia: Code(s): J96.21 - Acute and chronic respiratory failure with hypoxia; J96.22 - Acute and chronic respiratory failure with hypercapnia Status: Acute Assessment and Plan: Place in IMU Breathing treatments q.4 hours Continue supplemental oxygen by nasal cannula BiPAP as needed Try and keep oxygen saturation between 88% and 92% 05/27 patient with long history of smoking, chronic respiratory failure on home oxygen 4 L per nasal cannula, here with exacerbation of COPD being treated with methylprednisone, duo-neb azithromycin, and states is feeling much better compared to when she arrived, patient states see has not seen virtualization consultant and sometime and unable to go for an appointment. will continue to monitor patient as patient's symptoms improved will taper methylprednisone, PT OT evaluate the patient and further recommendation to follow (2) Chronic respiratory failure with hypoxia and hypercapnia: Code(s): J96.11 - Chronic respiratory failure with hypoxia; J96.12 - Chronic respiratory failure with hypercapnia Status: Acute Assessment and Plan: Usually on 4 L of oxygen on supplemental by nasal cannula (3) Tobacco dependence: Code(s): F17.200 - Nicotine dependence, unspecified, uncomplicated Status: Chronic Assessment and Plan: Nicotine patch as needed (4) CHF (congestive heart failure): Qualifiers: Heart failure type: diastolic Heart failure chronicity: chronic Qualified Code(s): I50.32 - Chronic diastolic (congestive) heart failure Code(s): I50.9 - Heart failure, unspecified Status: Acute Assessment and Plan: Appears to be euvolemic Continue to monitor Intake and output daily (5) CAD (coronary artery disease): Qualifiers: Coronary Disease-Associated Artery/Lesion type: [place] artery [place] vs. transplanted heart: [place] heart Associated angina: without angina Qualified Code(s): I25.10 - Atherosclerotic heart disease of [place] coronary artery without angina pectoris Code(s): I25.10 - Atherosclerotic heart disease of [place] coronary artery without angina pectoris Status: Chronic Assessment and Plan: Chest pain free Continue to monitor (6) HTN (hypertension): Qualifiers: Hypertension type: essential hypertension Qualified Code(s): I10 - Essential (primary) hypertension Code(s): I10 - Essential (primary) hypertension Status: Chronic Assessment and Plan: Continue to monitor Apparently on no home meds Subjective Date/time seen: 05/27/21 18:28 Chief Complaint: Shortness of breath Narrative: This is a 75-year-old female with past medical history significant for COPD/emphysema on 4 L of supplemental oxygen by nasal cannula at home. Patient presented to the emergency room due to worsening shortness of breath that started roughly about a day or so before presentation to ED. patient denies any fevers any rigors any chills she has had a productive cough she is a current everyday smoker of 4-5 cigarettes a day. She denies any nausea vomiting abdominal pain. She tried using her nebulizers but did not help upon EMS arrival to the house she had a saturation into the 70s and she was brought to the emergency room. Preliminary workup was significant for low oxygen saturation. Chest x-ray did not show any acute infiltrates. 05/27 patient with long history of smoking, chronic respiratory failure on home oxygen 4 L per nasal cannula, here with exacerbation of COPD being treated with methylprednisone, duo-neb azithromycin, and states is feeling much better compared to when she arrived, patient states see has not seen virtualization consultant and sometime and unable to go for an appointment. will continue to monitor patient as patient's symptoms improved will taper methylprednisone, PT OT evaluate the patient
[2021-05-28] VITALS (24 sets, daily range): BP systolic 124–146; BP diastolic 51–72; PULSE 73–97; RESP 16–22; TEMP 36.6–37.2; O2SAT 87–99
[2021-05-28] MEDS: ALBUTEROL SULFATE NEB 2.5 MG/0.5 ML INH 5 MG INHALATION ×3 (02:52→13:26)
[2021-05-28] MEDS: IPRATROPIUM BR 0.02% INH SOLN 0.5 MG/2.5 ML VIAL INHALATION ×3 (02:53→13:26)
[2021-05-28] MEDS: methylPREDNISolone SOD SUCC 125 MG VIAL 60 MG IV PUSH ×2 (05:07→12:22)
[2021-05-28] MEDS: FLUTICASONE/UMECLIDIN/VILANTER 100-62.5-25 MCG ELLIPTA 1 PUFF INHALATION (08:19)
--- NOTE | 2021-05-28 14:33 | PC.NURSE ---
On 05/28/21, the student, [Triny Clarke ], provided care and completed [facility] documentation on this patient. I have reviewed the student's documentation and agree with the findings.
--- NOTE | 2021-05-28 15:19 | PM.DS ---
DS: Admitting Diagnosis Discharge Date 05/28/2021 Admitting Diagnosis shortness of breath DS: Discharge Diagnosis Discharge Diagnosis (1) Acute on chronic respiratory failure with hypoxia and hypercapnia: Code(s): J96.21 - Acute and chronic respiratory failure with hypoxia; J96.22 - Acute and chronic respiratory failure with hypercapnia Status: Acute Assessment and Plan: Place in IMU Breathing treatments q.4 hours Continue supplemental oxygen by nasal cannula BiPAP as needed Try and keep oxygen saturation between 88% and 92% 05/27 patient with long history of smoking, chronic respiratory failure on home oxygen 4 L per nasal cannula, here with exacerbation of COPD being treated with methylprednisone, duo-neb azithromycin, and states is feeling much better compared to when she arrived, patient states see has not seen chief concierge and sometime and unable to go for an appointment. will continue to monitor patient as patient's symptoms improved will taper methylprednisone, PT OT evaluate the patient and further recommendation to follow (2) Chronic respiratory failure with hypoxia and hypercapnia: Code(s): J96.11 - Chronic respiratory failure with hypoxia; J96.12 - Chronic respiratory failure with hypercapnia Status: Acute Assessment and Plan: Usually on 4 L of oxygen on supplemental by nasal cannula (3) Tobacco dependence: Code(s): F17.200 - Nicotine dependence, unspecified, uncomplicated Status: Chronic Assessment and Plan: Nicotine patch as needed (4) CHF (congestive heart failure): Qualifiers: Heart failure type: diastolic Heart failure chronicity: chronic Qualified Code(s): I50.32 - Chronic diastolic (congestive) heart failure Code(s): I50.9 - Heart failure, unspecified Status: Acute Assessment and Plan: Appears to be euvolemic Continue to monitor Intake and output daily (5) CAD (coronary artery disease): Qualifiers: Coronary Disease-Associated Artery/Lesion type: [place] artery [place] vs. transplanted heart: [place] heart Associated angina: without angina Qualified Code(s): I25.10 - Atherosclerotic heart disease of [place] coronary artery without angina pectoris Code(s): I25.10 - Atherosclerotic heart disease of [place] coronary artery without angina pectoris Status: Chronic Assessment and Plan: Chest pain free Continue to monitor (6) HTN (hypertension): Qualifiers: Hypertension type: essential hypertension Qualified Code(s): I10 - Essential (primary) hypertension Code(s): I10 - Essential (primary) hypertension Status: Chronic Assessment and Plan: Continue to monitor Apparently on no home meds DS: Summary Hospital Course Reason for hospitalization: Chief Complaint: Shortness of breath Narrative: This is a 75-year-old female with past medical history significant for COPD/emphysema on 4 L of supplemental oxygen by nasal cannula at home. Patient presented to the emergency room due to worsening shortness of breath that started roughly about a day or so before presentation to ED. patient denies any fevers any rigors any chills she has had a productive cough she is a current everyday smoker of 4-5 cigarettes a day. She denies any nausea vomiting abdominal pain. She tried using her nebulizers but did not help upon EMS arrival to the house she had a saturation into the 70s and she was brought to the emergency room. Preliminary workup was significant for low oxygen saturation. Chest x-ray did not show any acute infiltrates. Hospital Course: 05/27 patient with long history of smoking, chronic respiratory failure on home oxygen 4 L per nasal cannula, here with exacerbation of COPD being treated with methylprednisone, duo-neb azithromycin, and states is feeling much better compared to when she arrived, patient states see has not seen chief concierge and sometime and unable to go for an a
--- NOTE | 2021-05-28 16:05 | HOMEO2EVAL ---
Evaluation was performed at [facility] Home Oxygen Evaluation RC: Home Oxygen (O2) Evaluation Start: 05/28/21 12:44 Freq: ONCE Status: Active Protocol: RPE Activity Type Activity Date Activity User E-Sign Co-Sign Detail Recorded Client Recorded Date Recorded By Document 05/28/21 14:30 RODERICK [email or web address] 05/28/21 16:05 RODERICK Document 05/28/21 14:31 RODERICK [email or web address] 05/28/21 16:05 RODERICK Document 05/28/21 14:32 RODERICK [email or web address] 05/28/21 16:05 RODERICK Document 05/28/21 14:33 RODERICK [email or web address] 05/28/21 16:05 RODERICK Document 05/28/21 14:35 RODERICK [email or web address] 05/28/21 16:05 RODERICK Document 05/28/21 14:36 RODERICK [email or web address] 05/28/21 16:05 RODERICK Document 05/28/21 14:40 RODERICK [email or web address] 05/28/21 16:05 RODERICK 05/28/21 05/28/21 05/28/21 14:30 14:31 14:32 Home O2 Evaluation Test Phase Resting Resting Resting Oxygen Delivery Room Air Nasal Cannula Nasal Cannula Oxygen Flow Rate (L/min) 1 2 Pulse Oximetry (90-100 %) 87 L 87 L 87 L Home Oxygen Evaluation Comments Treatment Charges O2 Evaluation - Inpatient 05/28/21 05/28/21 05/28/21 14:33 14:35 14:36 Home O2 Evaluation Test Phase Resting Exercise Exercise Oxygen Delivery Nasal Cannula Nasal Cannula Nasal Cannula Oxygen Flow Rate (L/min) 3 3 4 Pulse Oximetry (90-100 %) 93 87 L 90 Home Oxygen Evaluation Comments Pt requires 3 L at rest and 4L with exertion Treatment Charges 05/28/21 14:40 Home O2 Evaluation Test Phase Resting Oxygen Delivery Nasal Cannula Oxygen Flow Rate (L/min) 3 Pulse Oximetry (90-100 %) 94 Home Oxygen Evaluation Comments Treatment Charges
--- NOTE | 2021-05-28 16:06 | PCRCNOTE ---
Home o2 eval completed. Pt requires 3 L rest and 4L exertion. Pt has home o2 currently. Pt will use portable O2 concentrator that she has here to transport home.
== END 2021-05-28 16:03 | disposition home or self-care (01) | DRG 190 ==
LOC: ANHED 23:48 → ANHIMU 05-27 01:38
PROVIDERS: Admitting Provider Internal Medicine; Emergency Provider Emergency Medicine; PCP Family Medicine; Visit Provider Family Medicine
DX: J44.1 Chronic obstructive pulmonary disease with (acute) exacerbation (principal); J96.21 Acute and chronic respiratory failure with hypoxia; J96.22 Acute and chronic respiratory failure with hypercapnia; I50.32 Chronic diastolic (congestive) heart failure; I11.0 Hypertensive heart disease with heart failure; I25.10 Atherosclerotic heart disease of native coronary artery without angina pectoris; F17.210 Nicotine dependence, cigarettes, uncomplicated; K21.9 Gastro-esophageal reflux disease without esophagitis; M19.90 Unspecified osteoarthritis, unspecified site; F41.9 Anxiety disorder, unspecified; E78.5 Hyperlipidemia, unspecified; Z99.81 Dependence on supplemental oxygen; Z98.42 Cataract extraction status, left eye; I25.2 Old myocardial infarction; Z86.73 Personal history of transient ischemic attack (TIA), and cerebral infarction without residual deficits; Z98.41 Cataract extraction status, right eye; Z95.5 Presence of coronary angioplasty implant and graft
CPT/HCPCS: 36415; 36600; 71045; 80053; 82805; 83605; 83880; 84484; 85025; 85610; 85730; 87040; 92610; 93005; 94618; 94640; 96365; 96375; 99285; A9270; J0456; J2930; J3475; J7040

== ENCOUNTER 2021-07-16 22:10 | Observation (INO) | payer MEDICARE, MEDICAID, SELFPAY ==
[2021-07-16] VITALS (12 sets, daily range): BP systolic 124–145; BP diastolic 63–95; PULSE 70–95; RESP 17–28; TEMP 36.4; O2SAT 98–100
--- NOTE | ~2021-07-16 | XR_ITS ---
EXAMINATION: XR chest 1V portable DATE: 07/18/2021 05:55 INDICATION: Fluid overload TECHNIQUE: frontal view of the chest was obtained. COMPARISON: Chest radiograph dated 07/16/2021 FINDINGS: Calcified nodule at the right lung base consistent with old granulomatous disease. No other airspace opacities, pulmonary edema, pleural effusion or pneumothorax. The cardiomediastinal silhouette is nor mal. IMPRESSION: 1. No acute cardiopulmonary disease. Reviewed, dictated and finalized at location A.
--- NOTE | ~2021-07-16 | XR_ITS ---
XR chest 1V portable DATE: 07/16/2021 23:05 INDICATION: Shortness of breath, dyspnea, midsternal chest pain today. History of COPD, coronary jesenia ry disease, hypertension, congestive heart failure. TECHNIQUE: Portable upright AP chest on 07/16/2021 at 2300 hours COMPARISON: 05/26/2021 portable AP chest FINDINGS: Normal heart size. No hilar or mediastinal enlargement. No pulmonary infiltrate or consolidation, pleural effusion or pulmonary vascular congestion or pneumo thorax is detected. Diffuse osteopenia. IMPRESSION: No active cardiopulmonary disease Reviewed, dictated and finalized at location A.
--- NOTE | 2021-07-16 22:12 | ECG_ITS ---
Measurements Intervals [place] Rate: 81 P: 78 ID: 129 QRS: 2 QRSD: 89 T: 63 QT: 383 QTc: 445 Interpretive Statements SINUS RHYTHM BASELINE ARTIFACT- I, II, III, AVR, AVL, AVF, V1-V6 NORMAL ECG Electronically Signed On 07-17-2021 6:04:42 CDT by Tito Darling D.O.
--- NOTE | 2021-07-16 22:15 | ED.SOB ---
HPI - SOB/Dyspnea General Chief Complaint: Shortness of Breath/Dyspnea Stated Complaint: sob Time Seen by Provider: 07/16/21 22:14 Source: patient Mode of arrival: EMS Limitations: no limitations History of Present Illness HPI Narrative: 75-year-old female brought in by EMS for COPD exacerbation. Patient states she was doing well until yesterday when she became recently short of breath with slight substernal chest pain. No fever, no productive cough, no recent medication changes. Patient arrives with moderate respiratory distress speaking 4 word sentences on nonrebreather. Patient got 7.5 mg albuterol in route and Solu-Medrol 125 mg. Patient denies leg swelling. Last hospitalized 2 months ago. Related Data Home Medications Medication Instructions Recorded Confirmed albuterol sulfate [Ventolin HFA] 2 puff INHALATION QID PRN 08/19/19 07/17/21 ipratropium-albuterol 3 ml INHALATION QID PRN 08/19/19 07/17/21 aspirin 81 mg PO DAILY 07/17/21 07/17/21 Allergies Allergy/AdvReac Type Severity Reaction Status Date / Time No Known Allergies Allergy Verified 07/17/21 01:27 Review of Systems Review of Systems: CONSTITUTIONAL: no fever, no weight loss, no confusion EYES: no vision changes, no eye pain ENT: no rhinorrhea, no sore throat, no difficulty swallowing CARDIOVASCULAR: positive chest pain, no leg edema, no palpitations RESPIRATORY: no cough, positive for shortness of breath, no hemoptysis GASTROINTESTINAL: no abdominal pain, no nausea, no vomiting, no diarrhea GENITOURINARY: no flank pain, no dysuria, no hematuria SKIN: no rash, no jaundice MUSCULOSKELETAL: no back pain, no trauma. NEUROLOGIC: No headache, no dizziness, no focal weakness PSYCHIATRIC: No hallucinations, no suicidal ideation [facility] Past Medical History Medical History (Updated 07/17/21 @ 05:55 by Sarita Santo DO) Anxiety Arthritis Asthma Cerebrovascular accident (~2016) Initially if she had some numbness and tingling to the right side of her body but that has resolved. MRI showed left occipital temporal infarct and small left basal ganglia infarcts. Chronic obstructive pulmonary disease Chronic respiratory failure with hypoxia, on home oxygen therapy 4L nasal cannula. Coronary artery disease History of myocardial infarction and stent x1. Depression Diastolic CHF echocardiogram February 2021: Grade 1 diastolic dysfunction EF 70%. Unable to estimate PA systolic pressure. Diastolic dysfunction Eosinophilia Gastroesophageal reflux disease Hyperlipidemia Hypertension Pneumonia Tobacco abuse disorder Surgical History Surgical History History of bilateral cataract extraction History of cardiac catheterization History of heart artery stent History of tonsillectomy Family History Family History Father Acute myocardial infarction Mother Parkinson's disease Dementia Acute myocardial infarction Premature coronary artery disease Social History Social History (Updated 07/17/21 @ 03:47 by Sarita Santo DO) Social History: The patient lives in her own apartment. She is and has 4 children. 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 She occasionally drinks alcohol but this is rare. She continues to smoke 6-10 cigarettes a day but smoked up to a pack of cigarettes per day since she was a teenager. She designates her daughter Radha Craig as her surrogate decision maker and she wishes to be a full code. Smoking packs per day: 1 Smoking cigarettes per day: 20.0 Years smoked: 60 Smoking pack-years: 60.00 Smoking status: Current every day smoker Tobacco type: cigarettes and e-cigarettes/vaping Alcohol intake: former Drinks per week: 1 Alcohol use details: She will occasionally drink alcohol in moderation. Substance use: former Substance use type: hieu
[2021-07-16 22:37] LABS: Basophils Absolute Auto 0.2 K/mm3 (0.0-0.1); Basophils Percent Auto 1.2 % (0.2-1.2); Eosinophils Percent Auto 15.7 % (0-4.4); Hematocrit 42.4 % (37.0-47.0); Hemoglobin 13.8 g/dL (12.0-15.0); Immature Granulocyte Absolute 0.04 K/mm3 (0.00-0.031); Immature Granulocyte Percent A 0.3 % (0-0.5); Lymphocytes Absolute Auto 2.77 K/mm3 (0.9-3.2); Lymphocytes Percent Auto 21.6 % (18.3-44.2); Mean Corpuscular HGB Conc 32.5 g/dl (32-36); Mean Corpuscular Hemoglobin 30.8 pg (26-34); Mean Corpuscular Volume 94.6 fl (80-100); Mean Platelet Volume 9.4 fl (7.4-10.4); Monocytes Absolute Auto 1.5 K/mm3 (0.1-0.6); Monocytes Percent Auto 11.4 % (2.6-8.5); Neutrophils Absolute Auto 6.4 K/mm3 (1.3-6.7); Neutrophils Percent Auto 49.8 % (45.5-73.1); Platelet Count Result 337 k/mm3 (150-375); Red Blood Count 4.48 M/mm3 (4.2-5.4); Red Cell Distribution Width 12.5 % (11.5-14.5); White Blood Count 12.8 K/mm3 (4.5-10.0)
[2021-07-16 22:41] LABS: Alveolar/Arterial O2 Gradient 461.1 mmHg; Base Excess ABG 1.2 mEq/l (+/-2.0); Device NON-REBREATHER MASK; Fractional Inspired Oxygen 100 %; HCO3 ABG 27.8 mEq/l (22.0-26.0); Modified Allen's Test Pass; Oxygen Content ABG 19.8 %vol (16.0-22.0); Oxygen Saturation ABG 99.3 % (95.0-100.0); Oxyhemoglobin 96.5 % THb (90.0-100.0); PCO2 ABG 51.9 mmHg (35.0-45.0); Site Drawn LEFT RADIAL; Total Hemoglobin 14.3 g/dL (12.0-18.0); pH ABG 7.347 (7.350-7.450)
[2021-07-16] MEDS: MAGNESIUM SULF 2 GM/WATER 50ML 2 GM/50 ML BAG IVPB (22:42)
[2021-07-16] MEDS: SODIUM CHLORIDE 0.9% IV 1,000 ML 999 ML IV CONT (22:42)
[2021-07-16 22:50] LABS: INR 0.8; Prothrombin Time 11.4 Seconds (11.1-14.7)
[2021-07-16] MEDS: ALBUTEROL SULFATE NEB 2.5 MG/0.5 ML INH INHALATION (22:50)
[2021-07-16 22:51] LABS: Partial Thromboplastin Time 28.4 SECONDS (22.3-36.8)
[2021-07-16 23:00] LABS: Anion Gap 6 mmol/L (8-16); Blood Urea Nitrogen 18 mg/dL (7-17); Calcium 9.3 mg/dL (8.4-10.2); Carbon Dioxide 29 mmol/L (22-30); Chloride 106 mmol/L (98-107); Estimated Glomerular Filt Rate > 60; Glucose 129 mg/dL (65-110); Potassium 4.3 mmol/L (3.4-5.0); Sodium 141 mmol/L (137-145)
[2021-07-16 23:09] LABS: NT Pro B Type Natriuretic Pept 43 pg/mL (5-100)
[2021-07-16 23:12] LABS: Troponin I < 0.012 ng/mL (0.000-0.034)
[2021-07-16 23:15] LABS: Lactic Acid Reflex 1.4 mmol/L (0.7-2.1)
[2021-07-17] VITALS (20 sets, daily range): BP systolic 124–172; BP diastolic 40–83; PULSE 60–85; RESP 14–18; TEMP 36.2–36.6; O2SAT 94–100; BMI 25.8
[2021-07-17 00:03] LABS: Add Urine Microscopic? YES; Appearance Urine Cloudy (Clear); Bilirubin Urine Negative (Negative); Blood Urine Negative (Negative); Color Urine Amber (Yellow); Glucose Urine UA Negative (Negative); Ketones Urine Negative (Negative); Leukocyte Esterase Ur Negative LEU/UL (Negative); Mucus Urine Heavy /lpf; Nitrate Urine Negative (Negative); Protein Urine 1+ mg/dL (Negative); RBC Urine 0-2 /hpf (0-2); Squamous Epithelial Cell Urine Rare /hpf (Few); WBC Urine 0-3 /hpf
[2021-07-17 00:11] LABS: Specific Grav Ur 1.031 (1.001-1.035)
--- NOTE | 2021-07-17 01:20 | ADMGEN ---
This patient, Deloris Stone, was admitted to Medical Room 349-01. Patient/family oriented to hospital policies and general routines including ID bracelet, bed and alarms, visiting hours, pain management, procedures, bathroom and other care routines, personal items, smoking policy, room service/diet, and visiting hours. Information on how to activate the Rapid Response Team has been discussed. Patient/Family are encouraged to report perceived risks to care and to ask questions if they do not understand what they are told or what they should do.
[2021-07-17 02:15] LABS: Troponin I 0.016 ng/mL (0.000-0.034)
--- NOTE | 2021-07-17 02:43 | PCRCNOTE ---
Asked pt if they wear their cpap at home and they said yes and when asked if they want to wear one they refused. Stated they wanted to sleep and wont be here long so they did not want to wear it.
--- NOTE | 2021-07-17 03:44 | PM.IMHP ---
H&P: HPI History of Present Illness Date/Time: 07/17/21 03:44 Chief Complaint: Shortness of breath Narrative: 75-year-old female with past medical history continuous tobacco abuse, COPD, and chronic hypoxic/hypercarbic respiratory failure who presented to the ER with shortness of breath. Patient reports that she had been having several days of increasing shortness of breath and cough. But her his symptoms worsened significantly over the last 24 hours. She has been using her nebulizer treatments every 2 hours without relief in symptoms. She reports that her cough is always productive but now her sputum is changed from clear to light yellow in color over the last 24 hours. She denies any fevers or chills. She is vaccinated against COVID-19 and received her 2nd Moderna vaccine in January 2021. She is continuing to smoke but reports that she is ?not smoking that much.? She lives with her daughter who also smokes. The patient's smell strongly of smoke. She denies any recent ill contacts. She denies any loss of sense of taste or smell. She denies any nausea, vomiting, dysuria or changes in urinary frequency. She does have occasional constipation her last bowel movement was 2 days ago. She has had decreased appetite has not been eating much as she reports that requires too much effort to eat in prepare food. She reports that her chest has been feeling tight but denies any true chest pain. The patient received continuous albuterol nebulizer and Solu-Medrol in route to the hospital. She arrived to the ER on a CPAP with 100% FiO2 and subsequently her PO2 under ABG was markedly elevated at 200. Her pCO2 and pH were stable compared to prior values. She has not had any paroxysmal nocturnal dyspnea, lower extremity swelling or palpitations. She reports that she has been compliant with her home inhalers and with her home CPAP. She was last hospitalized for COPD exacerbation in May and she reports that was the last time she had steroids. Review of Systems Review of Systems: 12 systems were reviewed with pertinent positives and negatives per HPI. Except as documented in the HPI, all other systems were reviewed and are negative. [facility] Past Medical History Medical History (Updated 07/17/21 @ 05:55 by Sarita Santo DO) Anxiety Arthritis Asthma Cerebrovascular accident (~2017) Initially if she had some numbness and tingling to the right side of her body but that has resolved. MRI showed left occipital temporal infarct and small left basal ganglia infarcts. Chronic obstructive pulmonary disease Chronic respiratory failure with hypoxia, on home oxygen therapy 4L nasal cannula. Coronary artery disease History of myocardial infarction and stent x1. Depression Diastolic CHF echocardiogram February 2021: Grade 1 diastolic dysfunction EF 70%. Unable to estimate PA systolic pressure. Diastolic dysfunction Eosinophilia Gastroesophageal reflux disease Hyperlipidemia Hypertension Pneumonia Tobacco abuse disorder Surgical History Surgical History History of bilateral cataract extraction History of cardiac catheterization History of heart artery stent History of tonsillectomy Family History Family History Father Acute myocardial infarction Mother Parkinson's disease Dementia Acute myocardial infarction Premature coronary artery disease Social History Social History (Updated 07/17/21 @ 03:47 by Sarita Santo DO) Social History: The patient lives in her own apartment. She is and has 4 children. 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 She occasionally drinks alcohol but this is rare. She continues to smoke 6-10 cigarettes a day but smoked up to a pack of cigarettes per day since she was a teenager. She designates her daughter Radha Craig as her surrogate decision frankie
[2021-07-17 05:48] LABS: Troponin I < 0.012 ng/mL (0.000-0.034)
[2021-07-17 06:40] LABS: Hematocrit 40.8 % (37.0-47.0); Mean Corpuscular HGB Conc 31.9 g/dl (32-36); Mean Corpuscular Hemoglobin 30.5 pg (26-34); Mean Corpuscular Volume 95.8 fl (80-100); Mean Platelet Volume 10.3 fl (7.4-10.4); Platelet Count Result 307 k/mm3 (150-375); Red Blood Count 4.26 M/mm3 (4.2-5.4); Red Cell Distribution Width 12.4 % (11.5-14.5)
[2021-07-17] MEDS: methylPREDNISolone SOD SUCC 125 MG VIAL 60 MG IV PUSH ×3 (06:47→21:13)
[2021-07-17] MEDS: IPRATROPIUM BR 0.02% INH SOLN 0.5 MG/2.5 ML VIAL INHALATION ×3 (07:54→20:20)
[2021-07-17] MEDS: ALBUTEROL SULFATE NEB 2.5 MG/0.5 ML INH 5 MG INHALATION ×3 (07:54→20:20)
[2021-07-17] MEDS: FLUTICASONE/UMECLIDIN/VILANTER 100-62.5-25 MCG ELLIPTA 1 PUFF INHALATION (07:54)
[2021-07-17] MEDS: ASPIRIN 81 MG ENTERIC TABLET PO (09:38)
[2021-07-17] MEDS: ENOXAPARIN 40 MG/0.4 ML SYRINGE SUB-Q (09:38)
--- NOTE | 2021-07-17 10:40 | P.PNIM_ITS ---
Progress Note: A&P Assessment and Plan (1) COPD exacerbation: Code(s): J44.1 - Chronic obstructive pulmonary disease with (acute) exacerbation Status: Acute Assessment and Plan: * Acute COPD exacerbation * Reports increase in sputum with changes to color, wheezes, and shortness of breath * Change prednisone 40mg PO daily x 4 days * scheduled nebulizer treatments with albuterol and Atrovent q.6 hours. * Continued tobacco cessation was discussed for great length * She voiced understanding, and even sounds disappointed about it * home O2 of 4 L nasal cannula. * Continue home Trelegy and albuterol * Chest xray show no cardiopulmonary process (2) Chronic respiratory failure with hypoxia and hypercapnia: Code(s): J96.11 - Chronic respiratory failure with hypoxia; J96.12 - Chronic respiratory failure with hypercapnia Status: Acute Assessment and Plan: * home 4 L nasal cannula * continue CPAP/BiPAP auto titrate to home settings (3) Tobacco dependence: Code(s): F17.200 - Nicotine dependence, unspecified, uncomplicated Status: Chronic Assessment and Plan: * Tobacco cessation information was provided to the patient. * encouraged the patient to completely quit smoking. (4) CAD (coronary artery disease): Qualifiers: Associated angina: without angina Coronary Disease-Associated Artery/Lesion type: [place] artery [place] vs. transplanted heart: [place] heart Qualified Code(s): I25.10 - Atherosclerotic heart disease of [place] coronary artery without angina pectoris Code(s): I25.10 - Atherosclerotic heart disease of [place] coronary artery without angina pectoris Status: Chronic Assessment and Plan: * Cardiac cath with 1 stent * Continue aspirin * Telemonitor-SR * No events noted * Tele monitor can be DC'd (5) CHF (congestive heart failure): Qualifiers: Heart failure chronicity: chronic Heart failure type: diastolic Qualified Code(s): I50.32 - Chronic diastolic (congestive) heart failure Code(s): I50.9 - Heart failure, unspecified Status: Acute Assessment and Plan: * Not in an acute exacerbation * Echo from February showed EF of 65-70% with grade 1 diastolic dysfunction * BNP was 49 * No indication of fluid overload at this time. (6) Dysphagia: Code(s): R13.10 - Dysphagia, unspecified Status: Acute Assessment and Plan: * Claims to have problems with swallowing * GI consulted thank you * Can get EGD outpatient. Time Spent With Patient Time with patient: Greater than 35 minutes Subjective Date/time seen: 07/17/21 1040 Interval history: Date/Time: 07/17/21 03:44 Narrative: 75-year-old female with past medical history continuous tobacco abuse, COPD, and chronic hypoxic/hypercarbic respiratory failure who presented to the ER with shortness of breath. Patient reports that she had been having several days of increasing shortness of breath and cough. But her his symptoms worsened significantly over the last 24 hours. She has been using her nebulizer treatments every 2 hours without relief in symptoms. She reports that her cough is always productive but now her sputum is changed from clear to light yellow in color over the last 24 hours. She denies any fevers or chills. She is vaccinated against COVID-19 and received her 2nd Moderna vaccine in January 2021. She is continuing to smoke but reports that she is ?not smoking that much.?
--- NOTE | 2021-07-17 10:40 | PM.IMPN ---
Progress Note: A&P Assessment and Plan (1) COPD exacerbation: Code(s): J44.1 - Chronic obstructive pulmonary disease with (acute) exacerbation Status: Acute Assessment and Plan: Acute COPD exacerbation Reports increase in sputum with changes to color, wheezes, and shortness of breath Change prednisone 40mg PO daily x 4 days scheduled nebulizer treatments with albuterol and Atrovent q.6 hours. Continued tobacco cessation was discussed for great length She voiced understanding, and even sounds disappointed about it home O2 of 4 L nasal cannula. Continue home Trelegy and albuterol Chest xray show no cardiopulmonary process (2) Chronic respiratory failure with hypoxia and hypercapnia: Code(s): J96.11 - Chronic respiratory failure with hypoxia; J96.12 - Chronic respiratory failure with hypercapnia Status: Acute Assessment and Plan: home 4 L nasal cannula continue CPAP/BiPAP auto titrate to home settings (3) Tobacco dependence: Code(s): F17.200 - Nicotine dependence, unspecified, uncomplicated Status: Chronic Assessment and Plan: Tobacco cessation information was provided to the patient. encouraged the patient to completely quit smoking. (4) CAD (coronary artery disease): Qualifiers: Associated angina: without angina Coronary Disease-Associated Artery/Lesion type: [place] artery [place] vs. transplanted heart: [place] heart Qualified Code(s): I25.10 - Atherosclerotic heart disease of [place] coronary artery without angina pectoris Code(s): I25.10 - Atherosclerotic heart disease of [place] coronary artery without angina pectoris Status: Chronic Assessment and Plan: Cardiac cath with 1 stent Continue aspirin Telemonitor-SR No events noted Tele monitor can be DC'd (5) CHF (congestive heart failure): Qualifiers: Heart failure chronicity: chronic Heart failure type: diastolic Qualified Code(s): I50.32 - Chronic diastolic (congestive) heart failure Code(s): I50.9 - Heart failure, unspecified Status: Acute Assessment and Plan: Not in an acute exacerbation Echo from February showed EF of 65-70% with grade 1 diastolic dysfunction BNP was 49 No indication of fluid overload at this time. (6) Dysphagia: Code(s): R13.10 - Dysphagia, unspecified Status: Acute Assessment and Plan: Claims to have problems with swallowing GI consulted thank you Can get EGD outpatient. Time Spent With Patient Time with patient: Greater than 35 minutes Subjective Date/time seen: 07/17/21 1040 Interval history: Date/Time: 07/17/21 03:44 Narrative: 75-year-old female with past medical history continuous tobacco abuse, COPD, and chronic hypoxic/hypercarbic respiratory failure who presented to the ER with shortness of breath. Patient reports that she had been having several days of increasing shortness of breath and cough. But her his symptoms worsened significantly over the last 24 hours. She has been using her nebulizer treatments every 2 hours without relief in symptoms. She reports that her cough is always productive but now her sputum is changed from clear to light yellow in color over the last 24 hours. She denies any fevers or chills. She is vaccinated against COVID-19 and received her 2nd Moderna vaccine in January 2021. She is continuing to smoke but reports that she is ?not smoking that much.? She lives with her daughter who also smokes. The patient's smell strongly of smoke. She denies any recent ill contacts. She denies any loss of sense of taste or smell. She denies any nausea, vomiting, dysuria or changes in urinary frequency. She does have occasional constipation her last bowel movement was 2 days ago. She has had decreased appetite has not been eating much as she reports that requires too much effort to eat in prepare food. She rep
[2021-07-18] VITALS (19 sets, daily range): BP systolic 119–140; BP diastolic 53–70; PULSE 64–86; RESP 16–18; TEMP 36–36.7; O2SAT 90–100
[2021-07-18] MEDS: ALBUTEROL SULFATE NEB 2.5 MG/0.5 ML INH 5 MG INHALATION ×4 (03:35→20:30)
[2021-07-18] MEDS: IPRATROPIUM BR 0.02% INH SOLN 0.5 MG/2.5 ML VIAL INHALATION ×4 (03:36→20:31)
[2021-07-18] MEDS: methylPREDNISolone SOD SUCC 125 MG VIAL 60 MG IV PUSH (05:16)
[2021-07-18 06:03] LABS: Basophils Percent Auto 0.1 % (0.2-1.2); Hematocrit 37.2 % (37.0-47.0); Hemoglobin 12.2 g/dL (12.0-15.0); Immature Granulocyte Absolute 0.08 K/mm3 (0.00-0.031); Immature Granulocyte Percent A 0.6 % (0-0.5); Lymphocytes Absolute Auto 0.84 K/mm3 (0.9-3.2); Lymphocytes Percent Auto 6.3 % (18.3-44.2); Mean Corpuscular HGB Conc 32.8 g/dl (32-36); Mean Corpuscular Hemoglobin 30.1 pg (26-34); Mean Corpuscular Volume 91.9 fl (80-100); Mean Platelet Volume 9.5 fl (7.4-10.4); Monocytes Absolute Auto 0.6 K/mm3 (0.1-0.6); Monocytes Percent Auto 4.3 % (2.6-8.5); Neutrophils Absolute Auto 11.8 K/mm3 (1.3-6.7); Neutrophils Percent Auto 88.7 % (45.5-73.1); Platelet Count Result 315 k/mm3 (150-375); Red Blood Count 4.05 M/mm3 (4.2-5.4); Red Cell Distribution Width 12.1 % (11.5-14.5); White Blood Count 13.3 K/mm3 (4.5-10.0)
[2021-07-18 06:12] LABS: Alanine Aminotransferase 15 U/L (4-35); Albumin Level 3.8 g/dL (3.5-5.1); Alkaline Phosphatase 65 U/L (38-126); Anion Gap 1 mmol/L (8-16); Aspartate Amino Transferase 23 U/L (14-36); Bilirubin,Total 0.3 mg/dL (0.2-1.3); Blood Urea Nitrogen 17 mg/dL (7-17); Calcium 9.2 mg/dL (8.4-10.2); Carbon Dioxide 32 mmol/L (22-30); Chloride 106 mmol/L (98-107); Estimated Glomerular Filt Rate > 60; Glucose 147 mg/dL (65-110); Magnesium 2.5 mg/dL (1.6-2.3); Potassium 4.4 mmol/L (3.4-5.0); Sodium 139 mmol/L (137-145)
[2021-07-18] MEDS: ASPIRIN 81 MG ENTERIC TABLET PO (08:25)
[2021-07-18] MEDS: ENOXAPARIN 40 MG/0.4 ML SYRINGE SUB-Q (08:25)
[2021-07-18] MEDS: FLUTICASONE/UMECLIDIN/VILANTER 100-62.5-25 MCG ELLIPTA 1 PUFF INHALATION (09:24)
--- NOTE | 2021-07-18 10:40 | P.PNIM_ITS ---
Progress Note: A&P Assessment and Plan (1) COPD exacerbation: Code(s): J44.1 - Chronic obstructive pulmonary disease with (acute) exacerbation Status: Acute Assessment and Plan: * Acute COPD exacerbation * Reports increase in sputum with changes to color, wheezes, and shortness of breath * Change prednisone 40mg PO daily x 4 days * scheduled nebulizer treatments with albuterol and Atrovent q.6 hours. * Continued tobacco cessation was discussed for great length * She voiced understanding, and even sounds disappointed about it * home O2 of 4 L nasal cannula. * Continue home Trelegy and albuterol * Chest xray show no cardiopulmonary process (2) Chronic respiratory failure with hypoxia and hypercapnia: Code(s): J96.11 - Chronic respiratory failure with hypoxia; J96.12 - Chronic respiratory failure with hypercapnia Status: Acute Assessment and Plan: * home 4 L nasal cannula * continue CPAP/BiPAP auto titrate to home settings (3) Tobacco dependence: Code(s): F17.200 - Nicotine dependence, unspecified, uncomplicated Status: Chronic Assessment and Plan: * Tobacco cessation information was provided to the patient. * encouraged the patient to completely quit smoking. (4) CAD (coronary artery disease): Qualifiers: Coronary Disease-Associated Artery/Lesion type: [place] artery [place] vs. transplanted heart: [place] heart Associated angina: without angina Qualified Code(s): I25.10 - Atherosclerotic heart disease of [place] coronary artery without angina pectoris Code(s): I25.10 - Atherosclerotic heart disease of [place] coronary artery without angina pectoris Status: Chronic Assessment and Plan: * Cardiac cath with 1 stent * Continue aspirin * Telemonitor-SR * No events noted * Tele monitor can be DC'd (5) CHF (congestive heart failure): Qualifiers: Heart failure type: diastolic Heart failure chronicity: chronic Qualified Code(s): I50.32 - Chronic diastolic (congestive) heart failure Code(s): I50.9 - Heart failure, unspecified Status: Acute Assessment and Plan: * Not in an acute exacerbation * Echo from February showed EF of 65-70% with grade 1 diastolic dysfunction * BNP was 49 * No indication of fluid overload at this time. (6) Dysphagia: Code(s): R13.10 - Dysphagia, unspecified Status: Acute Assessment and Plan: * Claims to have problems with swallowing * GI consulted thank you * Can get EGD outpatient. Subjective Date/time seen: 08/04/21 15:13 Interval history: Date/Time: 07/17/21 03:44 Narrative: 75-year-old female with past medical history continuous tobacco abuse, COPD, and chronic hypoxic/hypercarbic respiratory failure who presented to the ER with shortness of breath. Patient reports that she had been having several days of increasing shortness of breath and cough. But her his symptoms worsened significantly over the last 24 hours. She has been using her nebulizer treatments every 2 hours without relief in symptoms. She reports that her cough is always productive but now her sputum is changed from clear to light yellow in color over the last 24 hours. She denies any fevers or chills. She is vaccinated against COVID-19 and received her 2nd Moderna vaccine in January 2021. She is continuing to smoke but reports that she is ?not smoking that much.? She lives with her daughter who also smokes. The patient's smell strongly of
--- NOTE | 2021-07-18 10:40 | PM.IMPN ---
Progress Note: A&P Assessment and Plan (1) COPD exacerbation: Code(s): J44.1 - Chronic obstructive pulmonary disease with (acute) exacerbation Status: Acute Assessment and Plan: Acute COPD exacerbation Reports increase in sputum with changes to color, wheezes, and shortness of breath Change prednisone 40mg PO daily x 4 days scheduled nebulizer treatments with albuterol and Atrovent q.6 hours. Continued tobacco cessation was discussed for great length She voiced understanding, and even sounds disappointed about it home O2 of 4 L nasal cannula. Continue home Trelegy and albuterol Chest xray show no cardiopulmonary process (2) Chronic respiratory failure with hypoxia and hypercapnia: Code(s): J96.11 - Chronic respiratory failure with hypoxia; J96.12 - Chronic respiratory failure with hypercapnia Status: Acute Assessment and Plan: home 4 L nasal cannula continue CPAP/BiPAP auto titrate to home settings (3) Tobacco dependence: Code(s): F17.200 - Nicotine dependence, unspecified, uncomplicated Status: Chronic Assessment and Plan: Tobacco cessation information was provided to the patient. encouraged the patient to completely quit smoking. (4) CAD (coronary artery disease): Qualifiers: Coronary Disease-Associated Artery/Lesion type: [place] artery [place] vs. transplanted heart: [place] heart Associated angina: without angina Qualified Code(s): I25.10 - Atherosclerotic heart disease of [place] coronary artery without angina pectoris Code(s): I25.10 - Atherosclerotic heart disease of [place] coronary artery without angina pectoris Status: Chronic Assessment and Plan: Cardiac cath with 1 stent Continue aspirin Telemonitor-SR No events noted Tele monitor can be DC'd (5) CHF (congestive heart failure): Qualifiers: Heart failure type: diastolic Heart failure chronicity: chronic Qualified Code(s): I50.32 - Chronic diastolic (congestive) heart failure Code(s): I50.9 - Heart failure, unspecified Status: Acute Assessment and Plan: Not in an acute exacerbation Echo from February showed EF of 65-70% with grade 1 diastolic dysfunction BNP was 49 No indication of fluid overload at this time. (6) Dysphagia: Code(s): R13.10 - Dysphagia, unspecified Status: Acute Assessment and Plan: Claims to have problems with swallowing GI consulted thank you Can get EGD outpatient. Subjective Date/time seen: 08/04/21 15:13 Interval history: Date/Time: 07/17/21 03:44 Narrative: 75-year-old female with past medical history continuous tobacco abuse, COPD, and chronic hypoxic/hypercarbic respiratory failure who presented to the ER with shortness of breath. Patient reports that she had been having several days of increasing shortness of breath and cough. But her his symptoms worsened significantly over the last 24 hours. She has been using her nebulizer treatments every 2 hours without relief in symptoms. She reports that her cough is always productive but now her sputum is changed from clear to light yellow in color over the last 24 hours. She denies any fevers or chills. She is vaccinated against COVID-19 and received her 2nd Moderna vaccine in January 2021. She is continuing to smoke but reports that she is ?not smoking that much.? She lives with her daughter who also smokes. The patient's smell strongly of smoke. She denies any recent ill contacts. She denies any loss of sense of taste or smell. She denies any nausea, vomiting, dysuria or changes in urinary frequency. She does have occasional constipation her last bowel movement was 2 days ago. She has had decreased appetite has not been eating much as she reports that requires too much effort to eat in prepare food. She reports that her chest has been feeling tight but denies any true chest p
--- NOTE | 2021-07-18 13:06 | WPDGICN ---
Assessment and Plan Assessment and plan (1) Dysphagia: Code(s): R13.10 - Dysphagia, unspecified Status: Acute Assessment and Plan: Patient has complaints of dysphagia to solid foods over last 2-3 months. It is difficult by her history to know if this is related to esophageal narrowing. Could be a motility disorder. Would recommend that patient COPD be treated initially. Elective EGD can be arranged as an outpatient to exclude esophageal narrowing. Alternatively barium swallow can be obtained if this is not possible. I would defer endoscopy until COPD is felt stable. (2) COPD exacerbation: Code(s): J44.1 - Chronic obstructive pulmonary disease with (acute) exacerbation Status: Acute Assessment and Plan: patient admitted the hospital with exacerbation of COPD. I would suggest this be treated initially. Defer evaluation of dysphagia until her breathing is more stable. Elective EGD as an outpatient suggested GI Consult Note Consult date/time: 07/18/21 13:06 HPI: Deloris Stone is a 75 year old female I am asked to see at the request of hospitalist KRISTEL Warner. Patient admitted the hospital with exacerbation of COPD. She notes that over the last 2-3 months she has had some difficulty swallowing. She has had no problems since admission to the hospital. She reports that sometimes she will have difficulty swallowing meats. She will cut meats into small portions. She states that the main problem appears to be initiating a swallow. She sometimes will regurgitate and vomit the food after it reaches her stomach. She denies any weight loss or bleeding. She states these symptoms occur intermittently. Her family history is noncontributory. She states that she does have some indigestion on occasion. Review of Systems Review of Systems: All systems reviewed & are unremarkable except as noted in HPI and below [facility] Past Medical History Medical History (Updated 07/18/21 @ 13:08 by Mazin Lozada MD) Anxiety Arthritis Asthma Cerebrovascular accident (~2017) Initially if she had some numbness and tingling to the right side of her body but that has resolved. MRI showed left occipital temporal infarct and small left basal ganglia infarcts. Chronic obstructive pulmonary disease Chronic respiratory failure with hypoxia, on home oxygen therapy 4L nasal cannula. Coronary artery disease History of myocardial infarction and stent x1. Depression Diastolic CHF echocardiogram February 2021: Grade 1 diastolic dysfunction EF 70%. Unable to estimate PA systolic pressure. Diastolic dysfunction Eosinophilia Gastroesophageal reflux disease Hyperlipidemia Hypertension Pneumonia Tobacco abuse disorder Surgical History Surgical History History of bilateral cataract extraction History of cardiac catheterization History of heart artery stent History of tonsillectomy Family History Family History Father Acute myocardial infarction Mother Parkinson's disease Dementia Acute myocardial infarction Premature coronary artery disease Social History Social History (Updated 07/17/21 @ 03:47 by Sarita Santo DO) Social History: The patient lives in her own apartment. She is and has 4 children. 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 She occasionally drinks alcohol but this is rare. She continues to smoke 6-10 cigarettes a day but smoked up to a pack of cigarettes per day since she was a teenager. She designates her daughter Radha Craig as her surrogate decision maker and she wishes to be a full code. Smoking packs per day: 1 Smoking cigarettes per day: 20.0 Years smoked: 60 Smoking pack-years: 60.00 Smoking status: Current every day smoker Tobacco type: cigarettes and e-cigarettes/vaping Alcohol intake:
[2021-07-18] MEDS: methylPREDNISolone SOD SUCC 40 MG VIAL IV PUSH (20:05)
[2021-07-19] VITALS (7 sets, daily range): BP systolic 134; BP diastolic 50; PULSE 65–81; RESP 16–20; TEMP 36.1; O2SAT 97–99
--- NOTE | 2021-07-19 01:18 | PC.NURSE ---
Daylight Savings Time For Daylight Savings Time Ending in the Fall - Clocks are moved back. For Daylight Savings Time Beginning in the Spring - Clocks are moved ahead. For [facility], the time of change occurs at 0200 hrs. Time is taken from the kitchen food server. This entry on the patient's chart recognizes the change in time reflected during documentation. Example: 2 entries for vital signs may be charted for 0200 hrs.
[2021-07-19] MEDS: IPRATROPIUM BR 0.02% INH SOLN 0.5 MG/2.5 ML VIAL INHALATION ×2 (02:36→09:23)
[2021-07-19] MEDS: ALBUTEROL SULFATE NEB 2.5 MG/0.5 ML INH 5 MG INHALATION ×2 (02:36→09:23)
[2021-07-19 05:58] LABS: Basophils Percent Auto 0.2 % (0.2-1.2); Hematocrit 37.3 % (37.0-47.0); Hemoglobin 12.1 g/dL (12.0-15.0); Immature Granulocyte Absolute 0.07 K/mm3 (0.00-0.031); Immature Granulocyte Percent A 0.6 % (0-0.5); Lymphocytes Absolute Auto 0.71 K/mm3 (0.9-3.2); Lymphocytes Percent Auto 5.9 % (18.3-44.2); Mean Corpuscular HGB Conc 32.4 g/dl (32-36); Mean Corpuscular Hemoglobin 30.5 pg (26-34); Mean Platelet Volume 9.5 fl (7.4-10.4); Monocytes Absolute Auto 0.9 K/mm3 (0.1-0.6); Neutrophils Absolute Auto 10.4 K/mm3 (1.3-6.7); Neutrophils Percent Auto 86.3 % (45.5-73.1); Platelet Count Result 288 k/mm3 (150-375); Red Blood Count 3.97 M/mm3 (4.2-5.4); Red Cell Distribution Width 12.2 % (11.5-14.5); White Blood Count 12.1 K/mm3 (4.5-10.0)
[2021-07-19 06:12] LABS: Alanine Aminotransferase 15 U/L (4-35); Albumin Level 3.6 g/dL (3.5-5.1); Alkaline Phosphatase 53 U/L (38-126); Anion Gap 4 mmol/L (8-16); Aspartate Amino Transferase 25 U/L (14-36); Bilirubin,Total 0.2 mg/dL (0.2-1.3); Blood Urea Nitrogen 20 mg/dL (7-17); Calcium 8.9 mg/dL (8.4-10.2); Carbon Dioxide 29 mmol/L (22-30); Chloride 106 mmol/L (98-107); Estimated Glomerular Filt Rate > 60; Glucose 119 mg/dL (65-110); Magnesium 2.5 mg/dL (1.6-2.3); Potassium 4.4 mmol/L (3.4-5.0); Sodium 139 mmol/L (137-145)
[2021-07-19] MEDS: ASPIRIN 81 MG ENTERIC TABLET PO (07:36)
[2021-07-19] MEDS: ENOXAPARIN 40 MG/0.4 ML SYRINGE SUB-Q (07:36)
[2021-07-19] MEDS: FLUTICASONE/UMECLIDIN/VILANTER 100-62.5-25 MCG ELLIPTA 1 PUFF INHALATION (09:24)
--- NOTE | 2021-07-19 11:06 | P.DS_ITS ---
DS: Admitting Diagnosis Discharge Date Date of service 07/19/2021 at 10:00 a.m. Admitting Diagnosis COPD exacerbation DS: Discharge Diagnosis Discharge Diagnosis (1) COPD exacerbation: Code(s): J44.1 - Chronic obstructive pulmonary disease with (acute) exacerbation Status: Acute Assessment and Plan: * Acute COPD exacerbation * Reports increase in sputum with changes to color, wheezes, and shortness of breath * Change prednisone 40mg PO daily x 4 days * scheduled nebulizer treatments with albuterol and Atrovent q.6 hours. * Continued tobacco cessation was discussed for great length * She voiced understanding, and even sounds disappointed about it * home O2 of 4 L nasal cannula. * Continue home Trelegy and albuterol * Chest xray show no cardiopulmonary process (2) Chronic respiratory failure with hypoxia and hypercapnia: Code(s): J96.11 - Chronic respiratory failure with hypoxia; J96.12 - Chronic respiratory failure with hypercapnia Status: Acute Assessment and Plan: * home 4 L nasal cannula * continue CPAP/BiPAP auto titrate to home settings (3) Tobacco dependence: Code(s): F17.200 - Nicotine dependence, unspecified, uncomplicated Status: Chronic Assessment and Plan: * Tobacco cessation information was provided to the patient. * encouraged the patient to completely quit smoking. (4) CAD (coronary artery disease): Qualifiers: Associated angina: without angina Coronary Disease-Associated Artery/Lesion type: [place] artery [place] vs. transplanted heart: [place] heart Qualified Code(s): I25.10 - Atherosclerotic heart disease of [place] coronary artery without angina pectoris Code(s): I25.10 - Atherosclerotic heart disease of [place] coronary artery without angina pectoris Status: Chronic Assessment and Plan: * Cardiac cath with 1 stent * Continue aspirin * Telemonitor-SR * No events noted * Tele monitor can be DC'd (5) CHF (congestive heart failure): Qualifiers: Heart failure chronicity: chronic Heart failure type: diastolic Qualified Code(s): I50.32 - Chronic diastolic (congestive) heart failure Code(s): I50.9 - Heart failure, unspecified Status: Acute Assessment and Plan: * Not in an acute exacerbation * Echo from February showed EF of 65-70% with grade 1 diastolic dysfunction * BNP was 49 * No indication of fluid overload at this time. (6) Dysphagia: Code(s): R13.10 - Dysphagia, unspecified Status: Acute Assessment and Plan: * Claims to have problems with swallowing * GI consulted thank you * Can get EGD outpatient. DS: Summary Hospital Course Hospital Course: Patient is a 75-year-old female with a past medical history of CVA, CAD, COPD who presented to the ED with worsening shortness of breath. Upon admission patient was noted to be hypoxic and her chronic O2 requirements were increased. Patient wears 4 L per nasal cannula at home. She was also complaining of increased wheezing, cough with increased sputum production, sputum changes, and shortness of breath. Patient was started on steroids and azithromycin which allowed her to be able to titrate her oxygen back down to home O2. Labs have been stable throughout the visit. Renal function is also been stable throughout the admission. Patient has no complaints of urinary dysfunction chest pain, nausea, vomiting, diarrhea, sweats, fevers, chills. Patient a
--- NOTE | 2021-07-19 11:06 | PM.DS ---
DS: Admitting Diagnosis Discharge Date Date of service 07/19/2021 at 10:00 a.m. Admitting Diagnosis COPD exacerbation DS: Discharge Diagnosis Discharge Diagnosis (1) COPD exacerbation: Code(s): J44.1 - Chronic obstructive pulmonary disease with (acute) exacerbation Status: Acute Assessment and Plan: Acute COPD exacerbation Reports increase in sputum with changes to color, wheezes, and shortness of breath Change prednisone 40mg PO daily x 4 days scheduled nebulizer treatments with albuterol and Atrovent q.6 hours. Continued tobacco cessation was discussed for great length She voiced understanding, and even sounds disappointed about it home O2 of 4 L nasal cannula. Continue home Trelegy and albuterol Chest xray show no cardiopulmonary process (2) Chronic respiratory failure with hypoxia and hypercapnia: Code(s): J96.11 - Chronic respiratory failure with hypoxia; J96.12 - Chronic respiratory failure with hypercapnia Status: Acute Assessment and Plan: home 4 L nasal cannula continue CPAP/BiPAP auto titrate to home settings (3) Tobacco dependence: Code(s): F17.200 - Nicotine dependence, unspecified, uncomplicated Status: Chronic Assessment and Plan: Tobacco cessation information was provided to the patient. encouraged the patient to completely quit smoking. (4) CAD (coronary artery disease): Qualifiers: Associated angina: without angina Coronary Disease-Associated Artery/Lesion type: [place] artery [place] vs. transplanted heart: [place] heart Qualified Code(s): I25.10 - Atherosclerotic heart disease of [place] coronary artery without angina pectoris Code(s): I25.10 - Atherosclerotic heart disease of [place] coronary artery without angina pectoris Status: Chronic Assessment and Plan: Cardiac cath with 1 stent Continue aspirin Telemonitor-SR No events noted Tele monitor can be DC'd (5) CHF (congestive heart failure): Qualifiers: Heart failure chronicity: chronic Heart failure type: diastolic Qualified Code(s): I50.32 - Chronic diastolic (congestive) heart failure Code(s): I50.9 - Heart failure, unspecified Status: Acute Assessment and Plan: Not in an acute exacerbation Echo from February showed EF of 65-70% with grade 1 diastolic dysfunction BNP was 49 No indication of fluid overload at this time. (6) Dysphagia: Code(s): R13.10 - Dysphagia, unspecified Status: Acute Assessment and Plan: Claims to have problems with swallowing GI consulted thank you Can get EGD outpatient. DS: Summary Hospital Course Hospital Course: Patient is a 75-year-old female with a past medical history of CVA, CAD, COPD who presented to the ED with worsening shortness of breath. Upon admission patient was noted to be hypoxic and her chronic O2 requirements were increased. Patient wears 4 L per nasal cannula at home. She was also complaining of increased wheezing, cough with increased sputum production, sputum changes, and shortness of breath. Patient was started on steroids and azithromycin which allowed her to be able to titrate her oxygen back down to home O2. Labs have been stable throughout the visit. Renal function is also been stable throughout the admission. Patient has no complaints of urinary dysfunction chest pain, nausea, vomiting, diarrhea, sweats, fevers, chills. Patient also stated that prior to her visit she was unable to walk short or long distances without being short of breath. She has a reported that that has gotten better as well. Chest x-ray shows no acute cardiopulmonary disease from time of admission to time of discharge. Patient is ready to go home and understands that she needs to quit smoking. I have also discussed with the patient about needing a youth associate. Patient also complained of dysphagia which GI had
== END 2021-07-19 11:56 | disposition home or self-care (01) ==
LOC: ANHED 07-17 00:16 → ANH3MED 07-17 01:34
PROVIDERS: Emergency Medicine; Nurse Practitioner; Admitting Provider Internal Medicine; Emergency Provider Emergency Medicine; PCP Family Medicine; Visit Provider Hospitalist
DX: J44.1 Chronic obstructive pulmonary disease with (acute) exacerbation (principal); J96.12 Chronic respiratory failure with hypercapnia; J96.11 Chronic respiratory failure with hypoxia; J44.9 Chronic obstructive pulmonary disease, unspecified; F17.210 Nicotine dependence, cigarettes, uncomplicated; I11.0 Hypertensive heart disease with heart failure; I50.32 Chronic diastolic (congestive) heart failure; R13.10 Dysphagia, unspecified; Z99.81 Dependence on supplemental oxygen; I25.10 Atherosclerotic heart disease of native coronary artery without angina pectoris; Z86.73 Personal history of transient ischemic attack (TIA), and cerebral infarction without residual deficits
CPT/HCPCS: 36415; 36600; 51701; 71045; 80048; 80053; 81001; 82805; 83605; 83735; 83880; 84484; 85025; 85027; 85610; 85730; 87040; 93005; 94640; 96365; 96366; 96367; 96372; 96375; 96376; 99285; A9270; G0378; J0456; J1650; J2920; J2930; J3475; J7030

== ENCOUNTER 2021-08-03 03:35 | Emergency (ER) | payer MEDICARE, MEDICAID, SELFPAY ==
[2021-08-03] VITALS (23 sets, daily range): BP systolic 110–167; BP diastolic 62–84; PULSE 76–82; RESP 14–26; TEMP 36.2; O2SAT 96–100
--- NOTE | ~2021-08-03 | XR_ITS ---
EXAMINATION: XR chest 1V portable EXAM DATE: 08/03/2021 04:08 INDICATION: Shortness of breath, was cyanotic. Cough. History COPD. TECHNIQUE: Portable AP frontal chest x-ray was obtained. Comparison is made to prior examination from 07/18/2021. FINDINGS: The lungs are hyperinflated which can be seen with chronic obstructive pulmonary disease (a clinical diagnosis of functional impairment), but is not diagnostic of it. The lungs are clear. The re are no pleural effusions. The cardiomediastinal silhouette is within normal limits. There is no pneumothorax suspected. The bones and soft tissues are unremarkable. IMPRESSION: 1. No acute cardiopulmonary findings. 2. Hyperinflation. Reviewed, dictated and finalized at location A. [employer]
--- NOTE | 2021-08-03 03:43 | ECG_ITS ---
Measurements Intervals [place] Rate: 85 P: 76 MA: 137 QRS: 24 QRSD: 85 T: 54 QT: 350 QTc: 417 Interpretive Statements SINUS RHYTHM EARLY PRECORDIAL R/S TRANSITION BASELINE ARTIFACT- V3 BORDERLINE ECG Electronically Signed On 08-03-2021 6:33:32 [employer]ECT [employer]TER by Tito Darling D.O.
[2021-08-03 03:59] LABS: Basophils Absolute Auto 0.2 K/mm3 (0.0-0.1); Basophils Percent Auto 1.1 % (0.2-1.2); Eosinophils Absolute Auto 1.4 K/mm3 (0-0.3); Eosinophils Percent Auto 9.9 % (0-4.4); Hematocrit 41.8 % (37.0-47.0); Hemoglobin 13.7 g/dL (12.0-15.0); Immature Granulocyte Absolute 0.09 K/mm3 (0.00-0.031); Immature Granulocyte Percent A 0.6 % (0-0.5); Lymphocytes Absolute Auto 3.52 K/mm3 (0.9-3.2); Lymphocytes Percent Auto 24.9 % (18.3-44.2); Mean Corpuscular HGB Conc 32.8 g/dl (32-36); Mean Corpuscular Hemoglobin 30.9 pg (26-34); Mean Corpuscular Volume 94.1 fl (80-100); Mean Platelet Volume 9.2 fl (7.4-10.4); Monocytes Absolute Auto 1.6 K/mm3 (0.1-0.6); Monocytes Percent Auto 11.5 % (2.6-8.5); Neutrophils Absolute Auto 7.4 K/mm3 (1.3-6.7); Platelet Count Result 352 k/mm3 (150-375); Red Blood Count 4.44 M/mm3 (4.2-5.4); Red Cell Distribution Width 12.1 % (11.5-14.5); White Blood Count 14.1 K/mm3 (4.5-10.0)
[2021-08-03] MEDS: ALBUTEROL SULFATE NEB 2.5 MG/0.5 ML INH 15 MG INHALATION (03:59)
[2021-08-03] MEDS: IPRATROPIUM BR 0.02% INH SOLN 0.5 MG/2.5 ML VIAL 1.5 MG INHALATION (04:00)
--- NOTE | 2021-08-03 04:04 | PC.NURSE ---
Respiratory in room with patient at this time.
[2021-08-03 04:10] LABS: Alanine Aminotransferase 16 U/L (4-35); Alkaline Phosphatase 86 U/L (38-126); Anion Gap 5 mmol/L (8-16); Aspartate Amino Transferase 25 U/L (14-36); Bilirubin,Total 0.3 mg/dL (0.2-1.3); Blood Urea Nitrogen 20 mg/dL (7-17); Carbon Dioxide 29 mmol/L (22-30); Chloride 104 mmol/L (98-107); Estimated Glomerular Filt Rate > 60; Glucose 136 mg/dL (65-110); Potassium 3.7 mmol/L (3.4-5.0); Sodium 138 mmol/L (137-145)
[2021-08-03 04:15] LABS: Alveolar/Arterial O2 Gradient 132.5 mmHg; Base Excess ABG -0.9 mEq/l (+/-2.0); Device NASAL CANNULA; Fractional Inspired Oxygen 36 %; HCO3 ABG 25.5 mEq/l (22.0-26.0); Oxygen Content ABG 17.9 %vol (16.0-22.0); Oxyhemoglobin 90.4 % THb (90.0-100.0); PCO2 ABG 49.2 mmHg (35.0-45.0); PO2 ABG 67.1 mmHg (80.0-100.0); PO2 FiO2 Ratio Arterial Blood 1.86 %; Site Drawn RIGHT BRACHIAL; Total Hemoglobin 14.1 g/dL (12.0-18.0); pH ABG 7.333 (7.350-7.450)
--- NOTE | 2021-08-03 04:19 | ED.SOB ---
HPI - SOB/Dyspnea General Chief Complaint: Shortness of Breath/Dyspnea Stated Complaint: dsypnea Time Seen by Provider: 08/03/21 03:41 Source: patient, EMS, RN notes reviewed and old records reviewed History of Present Illness HPI Narrative: Patient presents with shortness of breath. She was at home and called EMS for her shortness of breath. She has longstanding history of COPD and a 4 L oxygen requirement at home. EMS arrived and noted that she was hypoxic into the 80s on her normal oxygen level. They increased her to 6 L start Solu-Medrol and initiated a breathing treatment. In route to the ER patient was feeling well. Ports continued shortness of breath with cough. She denies focal areas of pain such as chest pain abdominal pain nausea or vomiting. She denies recent fevers congestion Related Data Home Medications Medication Instructions Recorded Confirmed albuterol sulfate [Ventolin HFA] 2 puff INHALATION QID PRN 08/19/19 07/17/21 ipratropium-albuterol 3 ml INHALATION QID PRN 08/19/19 07/17/21 aspirin 81 mg PO DAILY 07/17/21 07/17/21 Allergies Allergy/AdvReac Type Severity Reaction Status Date / Time No Known Allergies Allergy Verified 08/03/21 03:40 Review of Systems Review of Systems: CONSTITUTIONAL: Denies fever, chills, or sweats. EYES: Denies visual changes, redness, or discharge. ENT: Denies rhinorrhea, congestion, sore throat, or otalgia. CARDIOVASCULAR: Denies chest pain, palpitations, or edema. RESPIRATORY: Reports cough and shortness of GASTROINTESTINAL: Denies abdominal pain, nausea, vomiting, or diarrhea. GENITOURINARY: Denies dysuria or hematuria. SKIN: Denies rash or itching. MUSCULOSKELETAL: Denies back pain, joint pain, or myalgia. NEUROLOGIC: Denies headache, numbness, dizziness, or weakness. PSYCHIATRIC: Denies anxiety or depression. All systems reviewed & are unremarkable except as noted in HPI and below PMFSH Past Medical History Medical History Anxiety Arthritis Asthma Cerebrovascular accident (~2017) Initially if she had some numbness and tingling to the right side of her body but that has resolved. MRI showed left occipital temporal infarct and small left basal ganglia infarcts. Chronic obstructive pulmonary disease Chronic respiratory failure with hypoxia, on home oxygen therapy 4L nasal cannula. Coronary artery disease History of myocardial infarction and stent x1. Depression Diastolic CHF echocardiogram February 2021: Grade 1 diastolic dysfunction EF 70%. Unable to estimate PA systolic pressure. Diastolic dysfunction Eosinophilia Gastroesophageal reflux disease Hyperlipidemia Hypertension Pneumonia Tobacco abuse disorder Surgical History Surgical History History of bilateral cataract extraction History of cardiac catheterization History of heart artery stent History of tonsillectomy Family History Family History Father Acute myocardial infarction Mother Parkinson's disease Dementia Acute myocardial infarction Premature coronary artery disease Social History Social History Social History: The patient lives in her own apartment. She is and has 4 children. 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 She occasionally drinks alcohol but this is rare. She continues to smoke 6-10 cigarettes a day but smoked up to a pack of cigarettes per day since she was a teenager. She designates her daughter Radha Craig as her surrogate decision maker and she wishes to be a full code. Smoking packs per day: 1 Smoking cigarettes per day: 20.0 Years smoked: 60 Smoking pack-years: 60.00 Smoking status: Current every day smoker Tobacco type: cigarettes and e-cigarettes/vaping Alcohol intake: form
--- NOTE | 2021-08-03 04:27 | PC.NURSE ---
Called lab to add on BNP, spoke with Nancy.
[2021-08-03 05:04] LABS: NT Pro B Type Natriuretic Pept 32 pg/mL (5-100)
--- NOTE | 2021-08-03 05:25 | PC.NURSE ---
Patients breathing treatment completed. Patient placed back on her 4L via NC. Patient resting on stretcher with eyes closed. Patient offers no complaints at this time. Patient states she does feel better, not as short of breath. Patient maintaining 100% on her 4L.
== END 2021-08-03 08:15 | disposition home or self-care (01) ==
PROVIDERS: Emergency Provider Emergency Medicine; PCP Family Medicine
DX: J44.1 Chronic obstructive pulmonary disease with (acute) exacerbation (principal); F17.210 Nicotine dependence, cigarettes, uncomplicated; F41.9 Anxiety disorder, unspecified; M19.90 Unspecified osteoarthritis, unspecified site; Z99.81 Dependence on supplemental oxygen; I11.0 Hypertensive heart disease with heart failure; I50.9 Heart failure, unspecified
CPT/HCPCS: 36415; 36600; 71045; 80053; 82805; 83880; 85025; 93005; 94640; 96365; 99284; J0456

== ENCOUNTER 2021-08-16 00:57 | Emergency (ER) | payer MEDICARE, MEDICAID, SELFPAY ==
--- NOTE | ~2021-08-16 | XR_ITS ---
EXAMINATION: XR chest 1V portable DATE: 08/16/2021 01:50 INDICATION: COPD, wheezing and dyspnea. TECHNIQUE: frontal view of the chest was obtained. COMPARISON: Chest radiograph dated 08/03/2021 FINDINGS: Calcified nodule at the right lung base consistent with old granulomatous disease. Mild increased int erstitial pattern in the right lower lung zone which could represent asymmetric mild pulmonary edema, atelectasis or pneumonia. No pleural effusion or pneumothorax. The cardiomediastinal silhouette is n ormal. IMPRESSION: 1. Reticular opacities in the right lower lung zone consistent with asymmetric mild pulmonary edema, atelectasis or pneumonia. Reviewed, dictated and finalized at location A. SERVICES MANAGER
[2021-08-16 01:06] VITALS: BP 137/82; PULSE 76; RESP 19; O2SAT 97
--- NOTE | 2021-08-16 01:16 | ECG_ITS ---
Measurements Intervals [place] Rate: 74 P: 68 AK: 138 QRS: -3 QRSD: 83 T: 49 QT: 385 QTc: 428 Interpretive Statements SINUS RHYTHM BASELINE WANDER- V2-V3, V6 NORMAL ECG Electronically Signed On 08-16-2021 7:07:56 HEALTH SERVICES ADMINISTRATOR by Tito Darling D.O.
--- NOTE | 2021-08-16 01:17 | ED.SOB ---
HPI - SOB/Dyspnea General Chief Complaint: Shortness of Breath/Dyspnea Stated Complaint: dyspnea Time Seen by Provider: 08/16/21 01:11 Source: patient, RN notes reviewed and old records reviewed History of Present Illness HPI Narrative: Patient presents with shortness of breath. Reports increasing shortness of breath and cough over the past few days it appeared to be more severe today so she came to the ER for evaluation. Reports she is on 3 to 4 L of oxygen at home. She frequents the ER for COPD exacerbations today symptoms feel like her prior COPD exacerbations. Denies recent fevers or congestion she denies any focal areas of pain chest pain or abdominal pain. She denies any nausea or vomiting Related Data Home Medications Medication Instructions Recorded Confirmed albuterol sulfate [Ventolin HFA] 2 puff INHALATION QID PRN 08/19/19 07/17/21 ipratropium-albuterol 3 ml INHALATION QID PRN 08/19/19 07/17/21 aspirin 81 mg PO DAILY 07/17/21 07/17/21 Allergies Allergy/AdvReac Type Severity Reaction Status Date / Time No Known Allergies Allergy Verified 08/03/21 03:40 Review of Systems Review of Systems: CONSTITUTIONAL: Denies fever, chills, or sweats. EYES: Denies visual changes, redness, or discharge. ENT: Denies rhinorrhea, congestion, sore throat, or otalgia. CARDIOVASCULAR: Denies chest pain, palpitations, or edema. RESPIRATORY: Reports shortness of breath and cough GASTROINTESTINAL: Denies abdominal pain, nausea, vomiting, or diarrhea. GENITOURINARY: Denies dysuria or hematuria. SKIN: Denies rash or itching. MUSCULOSKELETAL: Denies back pain, joint pain, or myalgia. NEUROLOGIC: Denies headache, numbness, dizziness, or weakness. PSYCHIATRIC: Denies anxiety or depression. All systems reviewed & are unremarkable except as noted in HPI and below PMFSH Past Medical History Medical History Anxiety Arthritis Asthma Cerebrovascular accident (~2017) Initially if she had some numbness and tingling to the right side of her body but that has resolved. MRI showed left occipital temporal infarct and small left basal ganglia infarcts. Chronic obstructive pulmonary disease Chronic respiratory failure with hypoxia, on home oxygen therapy 4L nasal cannula. Coronary artery disease History of myocardial infarction and stent x1. Depression Diastolic CHF echocardiogram February 2021: Grade 1 diastolic dysfunction EF 70%. Unable to estimate PA systolic pressure. Diastolic dysfunction Eosinophilia Gastroesophageal reflux disease Hyperlipidemia Hypertension Pneumonia Tobacco abuse disorder Surgical History Surgical History History of bilateral cataract extraction History of cardiac catheterization History of heart artery stent History of tonsillectomy Family History Family History Father Acute myocardial infarction Mother Parkinson's disease Dementia Acute myocardial infarction Premature coronary artery disease Social History Social History Social History: The patient lives in her own apartment. She is and has 4 children. 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 She occasionally drinks alcohol but this is rare. She continues to smoke 6-10 cigarettes a day but smoked up to a pack of cigarettes per day since she was a teenager. She designates her daughter Radha Craig as her surrogate decision maker and she wishes to be a full code. Smoking packs per day: 1 Smoking cigarettes per day: 20.0 Years smoked: 60 Smoking pack-years: 60.00 Smoking status: Current every day smoker Tobacco type: cigarettes and e-cigarettes/vaping Alcohol intake: former Drinks per week: 1 Alcohol use details: She will occasionally drink alcohol in moderatio
[2021-08-16 01:22] VITALS: O2SAT 97
[2021-08-16 01:30] VITALS: PULSE 75; RESP 21
[2021-08-16] MEDS: ALBUTEROL SULFATE NEB 2.5 MG/0.5 ML INH 15 MG INHALATION (01:30)
[2021-08-16] MEDS: IPRATROPIUM BR 0.02% INH SOLN 0.5 MG/2.5 ML VIAL 1.5 MG INHALATION (01:30)
[2021-08-16 01:35] LABS: Base Excess ABG -1.3 mEq/l (+/-2.0); Fractional Inspired Oxygen 36 %; HCO3 ABG 24.2 mEq/l (22.0-26.0); Oxygen Content ABG 18.8 %vol (16.0-22.0); Oxygen Saturation ABG 95.3 % (95.0-100.0); Oxyhemoglobin 93.5 % THb (90.0-100.0); PCO2 ABG 43.7 mmHg (35.0-45.0); PO2 FiO2 Ratio Arterial Blood 2.19 %; Total Hemoglobin 14.3 g/dL (12.0-18.0); pH ABG 7.362 (7.350-7.450)
[2021-08-16 01:36] LABS: Basophils Absolute Auto 0.1 K/mm3 (0.0-0.1); Basophils Percent Auto 1.2 % (0.2-1.2); Eosinophils Absolute Auto 1.6 K/mm3 (0-0.3); Eosinophils Percent Auto 14.1 % (0-4.4); Hematocrit 42.2 % (37.0-47.0); Hemoglobin 13.8 g/dL (12.0-15.0); Immature Granulocyte Absolute 0.03 K/mm3 (0.00-0.031); Immature Granulocyte Percent A 0.3 % (0-0.5); Lymphocytes Absolute Auto 2.07 K/mm3 (0.9-3.2); Lymphocytes Percent Auto 17.8 % (18.3-44.2); Mean Corpuscular HGB Conc 32.7 g/dl (32-36); Mean Corpuscular Hemoglobin 30.7 pg (26-34); Mean Corpuscular Volume 93.8 fl (80-100); Mean Platelet Volume 9.5 fl (7.4-10.4); Monocytes Absolute Auto 1.2 K/mm3 (0.1-0.6); Monocytes Percent Auto 10.4 % (2.6-8.5); Neutrophils Absolute Auto 6.5 K/mm3 (1.3-6.7); Neutrophils Percent Auto 56.2 % (45.5-73.1); Platelet Count Result 309 k/mm3 (150-375); Red Cell Distribution Width 12.1 % (11.5-14.5); White Blood Count 11.6 K/mm3 (4.5-10.0)
[2021-08-16 01:36] LABS: Device NASAL CANNULA; Modified Allen's Test Pass; Site Drawn LEFT RADIAL
[2021-08-16 01:45] LABS: Alanine Aminotransferase 20 U/L (4-35); Albumin Level 3.7 g/dL (3.5-5.1); Alkaline Phosphatase 87 U/L (38-126); Anion Gap 7 mmol/L (8-16); Aspartate Amino Transferase 31 U/L (14-36); Bilirubin,Total 0.3 mg/dL (0.2-1.3); Blood Urea Nitrogen 15 mg/dL (7-17); Calcium 8.9 mg/dL (8.4-10.2); Carbon Dioxide 27 mmol/L (22-30); Chloride 106 mmol/L (98-107); Estimated Glomerular Filt Rate > 60; Glucose 142 mg/dL (65-110); Potassium 3.9 mmol/L (3.4-5.0); Sodium 140 mmol/L (137-145)
[2021-08-16 02:38] VITALS: BP 136/82; PULSE 75; RESP 16; O2SAT 100
--- NOTE | 2021-08-16 03:19 | PC.NURSE ---
ambulated pt w/ pulse ox per EDP Paresh. pt's O2 saturation was 94% while ambulating.
[2021-08-16 04:23] LABS: Add Urine Microscopic? YES; Appearance Urine Cloudy (Clear); Bacteria Urine Trace /hpf; Bilirubin Urine Negative (Negative); Blood Urine 1+ (Negative); Color Urine Amber (Yellow); Glucose Urine UA Negative (Negative); Ketones Urine Negative (Negative); Leukocyte Esterase Ur Negative LEU/UL (Negative); Mucus Urine Heavy /lpf; Nitrate Urine Negative (Negative); Protein Urine 1+ mg/dL (Negative); Specific Grav Ur 1.029 (1.001-1.035); Squamous Epithelial Cell Urine Many /hpf (Few)
[2021-08-16 04:25] VITALS: BP 138/77; PULSE 78; RESP 19; O2SAT 99
--- NOTE | 2021-08-16 05:05 | PC.NURSE ---
Pt assisted into the car by RN and pts son.
== END 2021-08-16 04:25 | disposition home or self-care (01) ==
PROVIDERS: Emergency Provider Emergency Medicine
DX: J44.1 Chronic obstructive pulmonary disease with (acute) exacerbation (principal); Z99.81 Dependence on supplemental oxygen; I50.30 Unspecified diastolic (congestive) heart failure; I11.0 Hypertensive heart disease with heart failure; J96.11 Chronic respiratory failure with hypoxia; E78.5 Hyperlipidemia, unspecified; M19.90 Unspecified osteoarthritis, unspecified site; K21.9 Gastro-esophageal reflux disease without esophagitis; F41.9 Anxiety disorder, unspecified; F32.A Depression, unspecified; Z95.5 Presence of coronary angioplasty implant and graft; Z98.42 Cataract extraction status, left eye; Z98.41 Cataract extraction status, right eye; F17.290 Nicotine dependence, other tobacco product, uncomplicated; F17.210 Nicotine dependence, cigarettes, uncomplicated; R82.998 Other abnormal findings in urine
CPT/HCPCS: 36415; 36600; 71045; 80053; 81001; 82805; 85025; 87086; 87088; 93005; 94640; 99284